=== PATIENT | female | born 1945 | race Two or more races ===

== ENCOUNTER 2021-07-11 11:14 | Emergency (ER) | payer MEDICARE, SELFPAY ==
--- NOTE | 2021-07-11 | ECG_ITS ---
Test Reason : CP WITH COUGH Blood Pressure : / mmHG Vent. Rate : 107 BPM Atrial Rate : 107 BPM P-R Int : 188 ms QRS Dur : 084 ms QT Int : 346 ms P-R-T Axes : 079 066 071 degrees QTc Int : 461 ms Sinus tachycardia Anterior infarct , age undetermined Abnormal ECG When compared with ECG of 29-MAR-2017 20:13, Questionable change in initial forces of Anterior leads Heart rate has increased Referred By: Generic ED Physician Electronically Signed By:JEET GRAF
--- NOTE | ~2021-07-11 | XR_ITS ---
EXAMINATION: XR CHEST CLINICAL INFORMATION: Shortness of breath COMPARISON: Chest radiographs 08/27/2010, 03/27/2010 TECHNIQUE: Portable upright AP view of the chest was obtained. FINDINGS: Patient slightly rotated to left. There are multiple left axillary surgical clips again seen. The lungs appear clear with no pneumothorax, airspace consolidation, groundglass opacity, or effusion. The vascularity is normal. The heart is normal in size. The hilar and mediastinal contours are unremarkable. No visible acute bony abnormality. Some fine calcific tendinosis is seen adjacent to right humeral head. XR/XR chest 1V IMPRESSION: No acute intrathoracic disease.
[2021-07-11 11:46] VITALS: BP 141/68; PULSE 108; RESP 16; TEMP 35.8; O2SAT 98; BMI 26.0
[2021-07-11 12:21] LABS: COVID-19 Test Negative (Negative); IDNOW Serial# 55D5AD1C
--- NOTE | 2021-07-11 12:57 | ED.SOB ---
HPI - SOB/Dyspnea General Chief Complaint: Dyspnea Stated Complaint: sob, cough, chest wall pain Time Seen by Provider: 07/11/21 12:57 Source: patient Mode of arrival: ambulatory Limitations: no limitations History of Present Illness MD elicited complaint: cough and asthma attack Pertinent past history: asthma Onset (ago): hour(s) (2am today) Timing: intermittent Severity: mild Exacerbating factors: coughing Relieving factors: rest Known history of: asthma Associated symptoms: cough, wheezing and sputum production Treatment prior to arrival: none Related Data Previous Rx's Medication Instructions Recorded albuterol sulfate 90 mcg/actuation 2 puff INHALATION QID PRN #6.7 g 07/11/21 aerosol inhaler prednisone 20 mg tablet 20 mg PO DAILY 4 Days #4 tab 07/11/21 Allergies Allergy/AdvReac Type Severity Reaction Status Date / Time acetaminophen [Percocet] Allergy Unknown Unknown Verified 07/11/21 11:50 azithromycin Allergy Unknown Verified 07/11/21 11:50 ciprofloxacin [From Cipro] Allergy Unknown Verified 07/11/21 11:50 metronidazole [From Flagyl] Allergy Unknown Verified 07/11/21 11:50 oxycodone [From Percocet] AdvReac Mild NAUSEA Unverified 07/27/20 16:17 percocet Allergy Unknown n/v Uncoded 03/16/13 00:00 Review of Systems Review of Systems: Constitutional : No Fever, No Chills ENT/Mouth : No Hoarseness, No sore throat, No Rhinorrhea Eyes: No Redness, No Discharge, No Vision Changes Cardiovascular : No Chest Pain, no SOB, no Dyspnea on Exertion, No Edema Respiratory : positive Cough, No Sputum, positive Wheezing, Gastrointestinal : No Nausea, No Vomiting, No Diarrhea, No abdominal Pain Genitourinary : No Dysuria, No Hematuria Musculoskeletal : No joint pain, No Myalgias Skin : No rash Neuro : No Weakness, No Numbness, No Headache Psych : No anxiety, depression Heme/Lymph: No Bruising, No Bleeding Endocrine : No Polyuria, No Polydipsia All other systems reviewed and are negative [facility] Past Medical History Attestation statement: The following information was validated with the patient. Medical History Asthma Hypertension Social History Social History (Updated 07/11/21 @ 13:32 by Nicole Garcia DO) Patient Tobacco Use Status: Never used Tobacco Advance Directives: No Advance Directives Information Provided: No Physical Exam Vital Signs: Vital Signs: Last Vital Signs Temp 96.5 F L 07/11/21 11:46 Pulse 108 H 07/11/21 11:46 Resp 16 07/11/21 11:46 BP 141/68 H 07/11/21 11:46 Pulse Ox 98 07/11/21 11:46 Body Mass Index 26.0 Appearance: Alert. Oriented X3. No acute distress. Eyes: Pupils equal, round and reactive to light. ENT: Pharynx normal. Neck: Normal inspection. Neck supple. CVS: Normal heart rate and rhythm. Pulses normal. Respiratory: No respiratory distress. Breath sounds scant diffuse end exp wheezes posteriorly Abdomen: Soft and nontender. Skin: Skin warm and dry. Normal skin color. Normal skin turgor. Extremities: No lower extremity edema. No calf ttp Neuro: Oriented X 3. No motor deficit. No sensory deficit. MDM - SOB/Dyspnea MDM Narrative Medical decision making narrative: 76 yo female with hx of asthma, DM, HTN, developed a cough last night with some wheezing, does not have rescue inhaler - she came for COVID test. She only has CP with her cough. Will obtain CXR and COVID swab, 02 sat normal, given rescue inhaler and start on low dose prednisone Lab Data Labs: Lab Results 07/11/21 Range/Units 11:52 COVID-19 ([facility]) Negative (Negative) COVID-19 Clin Com See Note Discharge Plan Discharge Clinical Impression: Asthma with exacerbation Qualifiers: Asthma severity: mild Asthma persistence: persistent Qualified Code(s): J45.31 - Mild persistent asthma with (acute) exacerbation Patient Disposition: Home, Self-Care Instructions: Asthma (ED) Additional Instructions: repeat COVID test in 2 days return to ED for any worsening symptoms or concerns Prescriptions: New prednisone 20 mg tablet 20 mg PO DAILY 4 Days Qty: 4 RF: 0 albuterol sulfate 90 mcg/actuation HFA aerosol inhaler 2 puff inhalation QID PRN (Reason: shortness of breath or wheezing) Qty: 6.7 RF: 0 Referrals: Physician,Unknown [Primary Care Provider] - 2 days (if not better) Print Language: Kazakh
[2021-07-11] MEDS: predniSONE 20 MG TABLET PO (14:03)
[2021-07-11] MEDS: Benzonatate 100 MG CAPSULE PO (14:03)
[2021-07-11] MEDS: Albuterol Sulfate 90 MCG 8 GM INHALER 4 PUFF INHALE (14:09)
== END 2021-07-11 14:09 | disposition home or self-care (01) ==
PROVIDERS: Emergency Provider Emergency Medicine
DX: J45.31 Mild persistent asthma with (acute) exacerbation (principal); Z20.822 Contact with and (suspected) exposure to COVID-19; E11.9 Type 2 diabetes mellitus without complications; I10 Essential (primary) hypertension
CPT/HCPCS: 36415; 71045; 87635; 93005; 94640; 99283; 99284

== ENCOUNTER 2022-03-27 17:21 | Emergency (ER) | payer MEDICARE, SELFPAY ==
--- NOTE | 2022-03-27 | ECG_ITS ---
Test Reason : SOB Blood Pressure : / mmHG Vent. Rate : 117 BPM Atrial Rate : 117 BPM P-R Int : 174 ms QRS Dur : 078 ms QT Int : 312 ms P-R-T Axes : 082 062 061 degrees QTc Int : 435 ms Sinus tachycardia Possible Left atrial enlargement Anterior infarct (cited on or before 11-JUL-2021) Abnormal ECG When compared with ECG of 11-JUL-2021 11:48, No significant change was found Referred By: Generic ED Physician Electronically Signed By:DUNCAN BOWER
--- NOTE | ~2022-03-27 | CT_ITS ---
EXAMINATION: CT CHEST WITHOUT CONTRAST CLINICAL INFORMATION: COPD and hemoptysis COMPARISON: CT abdomen pelvis 03/29/2017, chest radiograph 07/11/2021 TECHNIQUE: Multidetector volumetric CT imaging of the chest was done. Axial MIP volume rendering provided. Sagittal and coronal reformatted images were obtained. This CT examination was performed using dose optimization techniques as appropriate, variously including the following: *Automated exposure control *Adjustment of mA and/or kV according to patient size (this includes techniques or standardized protocols for targeted exams where dose is matched to indication/reason for exam; i.e. extremities or head) *Use of iterative reconstruction technique DLP: 216 mGy-cm FINDINGS: LUNGS: Biapical scarring is present. Moderately extensive tree-in-bud changes are present throughout the lungs with a small amount in the left upper lobe (4:192 and larger amounts in the right middle lobe lingula and left lower lobe as well as right lower lobe. These findings are suggestive of inflammatory/airway disease. The largest single nodule is 4 mm in a subpleural location in the left lower lobe (4:321). MEDIASTINUM: Prominent pretracheal lymph node present with large fatty anibal measuring 1.3 x 1.3 x 2.2 cm. No gross mediastinal or hilar lymphadenopathy seen. PLEURA: There is no pleural effusion. No pleural mass or thickening. AXILLA: No lymphadenopathy. UPPER ABDOMEN: Status post cholecystectomy. The right kidney is not visualized but has been previously shown to be in the pelvis. Splenic granulomas are present. A peripheral 2.3 cm hypodensity seen in the right lobe of the liver which measures water density consistent with a cyst. OSSEOUS STRUCTURES: Degenerative changes present in the spine. No bony destructive CT/CT chest wo con IMPRESSION: Moderately extensive tree-in-bud abnormalities in the lungs consistent with inflammatory disease. Some small lung nodules are seen, the largest 4 mm. No worrisome lung mass is identified. In etiology for the patient's hemoptysis has not been found. Fleischner guidelines were followed.
[2022-03-27 17:27] VITALS: PULSE 125; RESP 18; TEMP 37; O2SAT 88; BMI 24.1
--- NOTE | 2022-03-27 17:36 | PC.NURSE ---
Spo2 93-94% RA
--- NOTE | 2022-03-27 17:47 | ED.SOB ---
HPI - SOB/Dyspnea General Chief Complaint: Dyspnea Stated Complaint: Cough/SOB Time Seen by Provider: 03/27/22 17:45 Source: patient and family Mode of arrival: ambulatory Limitations: no limitations History of Present Illness HPI Narrative: Patient history of emphysema/asthma, hypertension, DM been coughing for last 3 weeks getting worse in last few days 10 days ago when she coughed she had small amount of bright red blood in the stool expectoration, patient been having thick yellowish mucopurulent phlegm now no fever or chills no chest pain no leg swellings Related Data Home Medications Medication Instructions Recorded Confirmed acetaminophen 650 mg 1 tab PO Q8H PRN 03/27/22 03/27/22 tablet,extended release (Mapap Arthritis Pain) cholecalciferol (vitamin D3) 50 50 mcg PO DAILY 03/27/22 03/27/22 mcg (2,000 unit) tablet (Vitamin D3) ipratropium 0.5 mg-albuterol 3 mg 3 ml INHALATION QID PRN 03/27/22 03/27/22 (2.5 mg base)/3 mL nebulization soln lisinopril 40 mg tablet 1 tab PO DAILY 03/27/22 03/27/22 multivit with 1 tab PO DAILY 03/27/22 03/27/22 tazyhjwm-mhwn-RW-lutein 8 mg iron-400 mcg-300 mcg tablet (Multivitamin Women 50 Plus) neomycin 3.5 mg/g-polymyxin B 1 appl OPHTHALMIC (EYE) BID 03/27/22 03/27/22 10,000 unit/g-dexameth 0.1 % eye oint oxybutynin chloride 10 mg 1 tab PO DAILY 03/27/22 03/27/22 tablet,extended release 24 hr simvastatin 10 mg tablet 1 tab PO BEDTIME 03/27/22 03/27/22 sitagliptin 100 mg tablet (Januvia) 1 tab PO DAILY 03/27/22 03/27/22 triamcinolone acetonide 0.1 % 1 applic TOPICAL BID 03/27/22 03/27/22 topical cream Previous Rx's Medication Instructions Recorded albuterol sulfate 90 mcg/actuation 2 puff INHALATION QID PRN #6.7 g 07/11/21 aerosol inhaler albuterol sulfate 90 mcg/actuation 2 puff INHALATION Q4-6H PRN #8.5 g 03/27/22 aerosol inhaler (ProAir HFA) cefpodoxime 200 mg tablet 200 mg PO BID #20 tab 03/27/22 guaifenesin 600 mg tablet, 600 mg PO Q12H PRN #60 tab 03/27/22 extended release 12 hr (Mucus Relief ER) prednisone 20 mg tablet 40 mg PO DAILY #10 tab 03/27/22 Allergies Allergy/AdvReac Type Severity Reaction Status Date / Time acetaminophen [Percocet] Allergy Unknown Unknown Verified 07/11/21 11:50 azithromycin Allergy Unknown Verified 07/11/21 11:50 ciprofloxacin [From Cipro] Allergy Unknown Verified 07/11/21 11:50 metronidazole [From Flagyl] Allergy Unknown Verified 07/11/21 11:50 oxycodone [From Percocet] AdvReac Mild NAUSEA Unverified 07/27/20 16:17 percocet Allergy Unknown n/v Uncoded 03/16/13 00:00 Review of Systems Review of Systems: Yes all other systems are reviewed and are negative [facility] Past Medical History Medical History Asthma Hypertension Social History Social History Patient Tobacco Use Status: Never used Tobacco Advance Directives: No Advance Directives Information Provided: No Physical Exam Vital Signs: Vital Signs: Last Vital Signs Temp 98.8 F 03/27/22 22:22 Pulse 103 H 03/27/22 22:22 Resp 16 03/27/22 22:22 BP 124/67 03/27/22 22:22 Pulse Ox 98 03/27/22 22:22 BMI result Body Mass Index 24.1 Appearance: Alert. Oriented X3. No acute distress. Eyes: No pallor or icterus ENT: Pharynx normal. Oral Mucosa moist Neck: Normal inspection. Neck supple. CVS: Normal heart rate and rhythm. Pulses normal. Respiratory: Bilateral equal air entry diffuse rhonchi and rales no dullness Abdomen: Soft and nontender. Bowel sounds are present, no mass palpable, no CVA tenderness Skin: Skin warm and dry. Normal skin color. Normal skin turgor. Extremities: No lower extremity edema. No calf tenderness Neuro: Oriented X 3. No motor deficit. No sensory deficit.No cerebellar signs , cranial nerves II-XII intact MDM - SOB/Dyspnea Lab Data Result diagrams: 03/27/22 18:13 03/27/22 18:13 Labs: Lab Results 03/27/22 03/27/22 03/27/22 Range/Units 17:33 17:33 18:13 WBC 11.4 H (4.8-10.8) X10*3/uL RBC 4.79 (4.20-5.50) X10*6/uL Hgb 13.7 (12.0-16.0) g/dl Hct 42.0 (37.0-47.0) % MCV 87.7 (80.0-98.0) fL MCH 28.6 (27.0-33.0) pg MCHC 32.6 (31.0-35.0) g/dl RDW 12.7 (11.0-16.0) % Plt Count 238 (160-400) X10*3/uL MPV 11.0 (9.4-12.3) fL Immature Gran % (Auto) 0.5 H (0.0-0.4) % Neut % (Auto) 75.1 H (45-73) % Lymph % (Auto) 15.8 L (20-40) % [place] % (Auto) 7.4 (2-11) % Eos % (Auto) 0.8 (0-4) % Baso % (Auto) 0.4 (0-2) % Lymph # (Auto) 1.8 (1.2-4.9) X10*3/uL [place] # (Auto) 0.8 (0.1-1.2) X10*3/uL Eos # (Auto) 0.1 (0.0-0.4) X10*3/uL Baso # (Auto) 0.0 (0.0-0.2) X10*3/uL Abs Immat Gran (auto) 0.06 H (0.00-0.03) X10*3/uL Absolute Neuts (auto) 8.6 H (2.0-8.3) x10*3/uL Absolute Nucleated RBC 0.000 (0.0-0.012) X10*3/uL Nucleated RBC % (auto) 0.0 (0.0-0.2) /100WBC PT (9.9-13.0) SEC INR (0.9-1.1) APTT (24.1-38.0) SEC D-Dimer High Sensitivty NG/ML Sodium (135-145) mmol/L Potassium (3.3-5.1) mmol/L Chloride (96-108) mmol/L Carbon Dioxide (22-29) mmol/L Anion Gap (12-20) BUN (9-16) mg/dL Creatinine (0.5-1.4) mg/dL Estim Creat Clear Calc Estimated GFR Random Glucose (60-115) mg/dL Lactic Acid (0.5-2.0) mmol/L Calcium (8.4-10.2) mg/dL Total Bilirubin (0.0-1.0) mg/dL AST (5-31) U/L ALT (0-31) U/L Alkaline Phosphatase (39-117) U/L Troponin I High Sens (<3.5-17.0) ng/L B-Natriuretic Peptide (<100) pg/mL Total Protein (6.5-8.0) g/dL Albumin (3.5-5.0) g/dL COVID-19 ([facility]) Negative (Negative) COVID-19 Clin Com See Note Influenza Type A ([facility]) Negative (Negative) Influenza Type B ([facility]) Negative (Negative) Influenza A & B Note See Note 03/27/22 03/27/22 03/27/22 Range/Units 18:13 18:13 18:13 WBC (4.8-10.8) X10*3/uL RBC (4.20-5.50) X10*6/uL Hgb (12.0-16.0) g/dl Hct (37.0-47.0) % MCV (80.0-98.0) fL MCH (27.0-33.0) pg MCHC (31.0-35.0) g/dl RDW (11.0-16.0) % Plt Count (160-400) X10*3/uL MPV (9.4-12.3) fL Immature Gran % (Auto) (0.0-0.4) % Neut % (Auto) (45-73) % Lymph % (Auto) (20-40) % [place] % (Auto) (2-11) % Eos % (Auto) (0-4) % Baso % (Auto) (0-2) % Lymph # (Auto) (1.2-4.9) X10*3/uL [place] # (Auto) (0.1-1.2) X10*3/uL Eos # (Auto) (0.0-0.4) X10*3/uL Baso # (Auto) (0.0-0.2) X10*3/uL Abs Immat Gran (auto) (0.00-0.03) X10*3/uL Absolute Neuts (auto) (2.0-8.3) x10*3/uL Absolute Nucleated RBC (0.0-0.012) X10*3/uL Nucleated RBC % (auto) (0.0-0.2) /100WBC PT 13.4 H (9.9-13.0) SEC INR 1.2 H (0.9-1.1) APTT 31.4 (24.1-38.0) SEC D-Dimer High Sensitivty 299 NG/ML Sodium 138 (135-145) mmol/L Potassium 4.7 (3.3-5.1) mmol/L Chloride 104 (96-108) mmol/L Carbon Dioxide 25 (22-29) mmol/L Anion Gap 14 (12-20) BUN 12 (9-16) mg/dL Creatinine 0.73 (0.5-1.4) mg/dL Estim Creat Clear Calc 50.2 Estimated GFR > 60 Random Glucose 180 H (60-115) mg/dL Lactic Acid (0.5-2.0) mmol/L Calcium 9.4 (8.4-10.2) mg/dL Total Bilirubin 0.7 (0.0-1.0) mg/dL AST 24 (5-31) U/L ALT 29 (0-31) U/L Alkaline Phosphatase 105 (39-117) U/L Troponin I High Sens (<3.5-17.0) ng/L B-Natriuretic Peptide 15 (<100) pg/mL Total Protein 7.1 (6.5-8.0) g/dL Albumin 4.1 (3.5-5.0) g/dL COVID-19 ([facility]) (Negative) COVID-19 [facility] Influenza Type A ([facility]) (Negative) Influenza Type B ([facility]) (Negative) Influenza A & B Note 03/27/22 03/27/22 Range/Units 18:13 18:54 WBC (4.8-10.8) X10*3/uL RBC (4.20-5.50) X10*6/uL Hgb (12.0-16.0) g/dl Hct (37.0-47.0) % MCV (80.0-98.0) fL MCH (27.0-33.0) pg MCHC (31.0-35.0) g/dl RDW (11.0-16.0) % Plt Count (160-400) X10*3/uL MPV (9.4-12.3) fL Immature Gran % (Auto) (0.0-0.4) % Neut % (Auto) (45-73) % Lymph % (Auto) (20-40) % [place] % (Auto) (2-11) % Eos % (Auto) (0-4) % Baso % (Auto) (0-2) % Lymph # (Auto) (1.2-4.9) X10*3/uL [place] # (Auto) (0.1-1.2) X10*3/uL Eos # (Auto) (0.0-0.4) X10*3/uL Baso # (Auto) (0.0-0.2) X10*3/uL Abs Immat Gran (auto) (0.00-0.03) X10*3/uL Absolute Neuts (auto) (2.0-8.3) x10*3/uL Absolute Nucleated RBC (0.0-0.012) X10*3/uL Nucleated RBC % (auto) (0.0-0.2) /100WBC PT (9.9-13.0) SEC INR (0.9-1.1) APTT (24.1-38.0) SEC D-Dimer High Sensitivty NG/ML Sodium (135-145) mmol/L Potassium (3.3-5.1) mmol/L Chloride (96-108) mmol/L Carbon Dioxide (22-29) mmol/L Anion Gap (12-20) BUN (9-16) mg/dL Creatinine (0.5-1.4) mg/dL Estim Creat Clear Calc Estimated GFR Random Glucose (60-115) mg/dL Lactic Acid 1.0 (0.5-2.0) mmol/L Calcium (8.4-10.2) mg/dL Total Bilirubin (0.0-1.0) mg/dL AST (5-31) U/L ALT (0-31) U/L Alkaline Phosphatase (39-117) U/L Troponin I High Sens 4.1 (<3.5-17.0) ng/L B-Natriuretic Peptide (<100) pg/mL Total Protein (6.5-8.0) g/dL Albumin (3.5-5.0) g/dL COVID-19 ([facility]) (Negative) COVID-19 Clin Com Influenza Type A ([facility]) (Negative) Influenza Type B ([facility]) (Negative) Influenza A & B Note Discharge Plan Discharge Clinical Impression: Acute bronchitis Patient Disposition: Home, Self-Care Instructions: Acute Bronchitis (ED) Additional Instructions: Continue her nebulizing treatment every 4-6 hours as needed Prednisone and antibiotic as prescribed Follow-up with your PCP Prescriptions: New cefpodoxime 200 mg tablet 200 mg PO BID Qty: 20 0RF Rx Instructions: must administer with a meal/food prednisone 20 mg tablet 40 mg PO DAILY Qty: 10 0RF albuterol sulfate [ProAir HFA] 90 mcg/actuation HFA aerosol inhaler 2 puff inhalation Q4-6H PRN (Reason: Wheezing) Qty: 8.5 0RF guaifenesin [Mucus Relief ER] 600 mg tablet extended release 12hr 600 mg PO Q12H PRN (Reason: cough) Qty: 60 0RF No Action albuterol sulfate 90 mcg/actuation HFA aerosol inhaler 2 puff inhalation QID PRN (Reason: shortness of breath or wheezing) Qty: 6.7 0RF ipratropium-albuterol 0.5 mg-3 mg(2.5 mg base)/3 mL solution for nebulization 3 ml inhalation QID PRN (Reason: wheezing) 0RF oxybutynin chloride 10 mg tablet extended release 24 hr 1 tab PO DAILY 0RF simvastatin 10 mg tablet 1 tab PO BEDTIME 0RF triamcinolone acetonide 0.1 % cream 1 applic topical BID 0RF acetaminophen [Mapap Arthritis Pain] 650 mg tablet extended release 1 tab PO Q8H PRN (Reason: pain) 0RF lisinopril 40 mg tablet 1 tab PO DAILY 0RF neomycin-polymyxin B-dexameth 3.5 mg/g-10,000 unit/g-0.1 % ointment 1 appl ophthalmic (eye) BID 0RF Januvia 100 mg tablet 1 tab PO DAILY 0RF cholecalciferol (vitamin D3) [Vitamin D3] 50 mcg (2,000 unit) Tablet 50 mcg PO DAILY 0RF Multivitamin Women 50 Plus 8 mg iron-400 mcg-300 mcg Tablet 1 tab PO DAILY 0RF
[2022-03-27 17:55] LABS: COVID-19 Test Negative (Negative); IDNOW Serial# 55D5AD1C; Influenza A Negative (Negative); Influenza B2 Negative (Negative)
[2022-03-27 17:59] VITALS: BP 153/83; PULSE 118; RESP 24; O2SAT 95
[2022-03-27 18:30] LABS: MANUAL DIFF FLAG NO
[2022-03-27 18:37] LABS: Basophils Percent Auto 0.4 % (0-2); Eosinophils Absolute Auto 0.1 X10*3/uL (0.0-0.4); Eosinophils Percent Auto 0.8 % (0-4); Hemoglobin 13.7 g/dl (12.0-16.0); Imm Gran Abs Auto 0.06 X10*3/uL (0.00-0.03); Imm Gran Pct Auto 0.5 % (0.0-0.4); Lymphocytes Absolute Auto 1.8 X10*3/uL (1.2-4.9); Lymphocytes Percent Auto 15.8 % (20-40); Mean Corpuscular HGB Conc 32.6 g/dl (31.0-35.0); Mean Corpuscular Hemoglobin 28.6 pg (27.0-33.0); Mean Corpuscular Volume 87.7 fL (80.0-98.0); Monocytes Absolute Auto 0.8 X10*3/uL (0.1-1.2); Monocytes Percent Auto 7.4 % (2-11); Neutrophils Absolute Auto 8.6 x10*3/uL (2.0-8.3); Neutrophils Percent Auto 75.1 % (45-73); Platelet Count 238 X10*3/uL (160-400); Red Blood Count 4.79 X10*6/uL (4.20-5.50); Red Cell Distribution Width 12.7 % (11.0-16.0); White Blood Count 11.4 X10*3/uL (4.8-10.8)
[2022-03-27 18:43] LABS: INTERNATIONAL NORM RATIO 1.2 (0.9-1.1); Prothrombin Time 13.4 SEC (9.9-13.0)
[2022-03-27 18:45] LABS: D Dimer High Sensitivity 299 NG/ML; Partial Thromboplastin Time 31.4 SEC (24.1-38.0)
[2022-03-27 18:47] VITALS: BP 135/70; PULSE 111; RESP 20; TEMP 37.3; O2SAT 97
[2022-03-27 18:50] LABS: Alanine Aminotransferase 29 U/L (0-31); Albumin Level 4.1 g/dL (3.5-5.0); Alkaline Phosphatase 105 U/L (39-117); Anion Gap 14 (12-20); Aspartate Amino Transferase 24 U/L (5-31); Bilirubin Total 0.7 mg/dL (0.0-1.0); Blood Urea Nitrogen 12 mg/dL (9-16); Calcium 9.4 mg/dL (8.4-10.2); Carbon Dioxide 25 mmol/L (22-29); Chloride 104 mmol/L (96-108); Creatinine Clr Calc Pharmacy 50.2; Estimated Glomerular Filt Rate > 60; Glucose Random 180 mg/dL (60-115); Potassium 4.7 mmol/L (3.3-5.1); Sodium 138 mmol/L (135-145); Total Protein 7.1 g/dL (6.5-8.0)
[2022-03-27 18:56] LABS: B Type Natriuretic Peptide 15 pg/mL (<100)
[2022-03-27 19:10] LABS: Troponin-I High Sensitivity 4.1 ng/L (<3.5-17.0)
[2022-03-27] MEDS: Albuterol/Iprat 2.5/0.5MG 3 ML AMPUL.NEB INHALE (19:29)
--- NOTE | 2022-03-27 19:29 | PHA.MEDREC ---
Pharmacy Consult ? Medication Reconciliation Pharmacy has completed the medication reconciliation.
[2022-03-27 19:31] VITALS: PULSE 106; RESP 20; O2SAT 98
[2022-03-27 20:53] VITALS: BP 127/64; PULSE 110; RESP 21; O2SAT 95
[2022-03-27 22:22] VITALS: BP 124/67; PULSE 103; RESP 16; TEMP 37.1; O2SAT 98
[2022-03-27] MEDS: cefTRIAXone sodium 1 GM in 0.9 % Sodium Chloride 50 ML IV (22:48)
[2022-03-27] MEDS: methylPREDNISolone Sod Succ 125 MG/2 ML VIAL IVPUSH (22:49)
== END 2022-03-28 00:25 | disposition home or self-care (01) ==
PROVIDERS: Emergency Provider Internal Medicine; PCP Internal Medicine
DX: J20.9 Acute bronchitis, unspecified (principal); R06.02 Shortness of breath; I10 Essential (primary) hypertension; J45.909 Unspecified asthma, uncomplicated; Z20.822 Contact with and (suspected) exposure to COVID-19
CPT/HCPCS: 36415; 71250; 80053; 83605; 83880; 84484; 85025; 85379; 85610; 85730; 87040; 87502; 87635; 93005; 94640; 96365; 96375; 99284; J0696; J2930

== ENCOUNTER 2022-06-11 15:35 | Inpatient (IN) | payer OTHER, SELFPAY ==
--- NOTE | 2022-06-11 | ECG_ITS ---
Test Reason : cp Blood Pressure : / mmHG Vent. Rate : 098 BPM Atrial Rate : 098 BPM P-R Int : 174 ms QRS Dur : 082 ms QT Int : 360 ms P-R-T Axes : 080 069 062 degrees QTc Int : 459 ms Normal sinus rhythm Possible Left atrial enlargement Left ventricular hypertrophy ( Sokolow-Del Rosario , [place] product , Romhilt-Padron ) Abnormal ECG When compared with ECG of 27-MAR-2022 17:32, No significant change was found Referred By: Generic ED Physician Electronically Signed By:GERRI ADLER MD
--- NOTE | ~2022-06-11 | CT_ITS ---
EXAMINATION: CT ANGIOGRAM OF THE CHEST WITH AND WITHOUT CONTRAST (CT PULMONARY ANGIOGRAM FOR PE) CLINICAL INFORMATION: Reason for Exam Pneumonia with cough and CP. COMPARISON: 03/27/2022 TECHNIQUE: Prior to contrast administration, noncontrast localization images were obtained. Subsequently, multidetector volumetric imaging was performed from the thoracic inlet to below the diaphragms following the administration of 58 mL Omnipaque 350 intravenous contrast. No contrast reaction reported Sagittal, coronal, and MIP oblique sagittal reformatted images were obtained on the CT workstation, uploaded to PACS, and reviewed. This CT examination was performed using dose optimization techniques as appropriate, variously including the following: *Automated exposure control *Adjustment of mA and/or kV according to patient size (this includes techniques or standardized protocols for targeted exams where dose is matched to indication/reason for exam; i.e. extremities or head) *Use of iterative reconstruction technique Total exam dose-length product 233 mGy-cm FINDINGS: QUALITY OF STUDY/CONTRAST BOLUS: Satisfactory. PULMONARY ARTERIES: No central or segmental pulmonary emboli. THORACIC AORTA: No aneurysm or dissection. LUNG: Chronic diffuse bronchial wall thickening redemonstrated. There are scattered patchy peripherally predominant parenchymal consolidations superimposed on a background of diffuse tree-in-bud nodularity and small centrilobular nodules. No associated cavitation. PLEURA: No pleural effusion or pneumothorax. MEDIASTINUM: Normal heart size. No pericardial effusion. Mild mediastinal lymphadenopathy is likely reactive.. No evidence of septal bowing or right heart strain. CHEST WALL/AXILLA: No axillary or internal mammary lymphadenopathy. OSSEOUS STRUCTURES: No acute or suspicious osseous abnormality. UPPER ABDOMEN: Stable 9 mm nodule left adrenal gland doubtful clinical significance. No further workup required. As a benign cyst in the right lobe of liver which is unchanged. Scattered splenic calcified granulomata. CT/CT angio chest PE protocol IMPRESSION: * No pulmonary embolism. * Chronic bronchitis and diffuse airway-based infectious process redemonstrated, with worsening airspace component parenchymal consolidation on the current examination. These findings can be seen in association with nontuberculous mycobacterium VTE: negative
--- NOTE | ~2022-06-11 | XR_ITS ---
EXAMINATION: XR CHEST CLINICAL INFORMATION: Shortness of breath COMPARISON: Chest x-ray 07/11/2021 TECHNIQUE: Frontal view of the chest was obtained. 6:24 PM FINDINGS: There are scattered faint hazy patchy bilateral airspace opacities most pronounced at the lung bases peripherally bilaterally. Small pleural effusions may be present. Cardiac mediastinal contours normal. Heart size normal. No pulmonary vascular congestion. Surgical clips left axilla. Multilevel degenerative spondylosis the spine. XR/XR chest 1V IMPRESSION: Scattered faint hazy bilateral patchy airspace opacities concerning for acute process, pneumonia. CT of chest may be helpful for further evaluation.
[2022-06-11 17:56] VITALS: BP 169/82; PULSE 105; RESP 18; TEMP 36.7; O2SAT 91; BMI 24.7
[2022-06-11 18:03] VITALS: O2SAT 95
[2022-06-11 18:24] LABS: MANUAL DIFF FLAG NO
[2022-06-11 18:33] LABS: Basophils Absolute Auto 0.1 X10*3/uL (0.0-0.2); Basophils Percent Auto 0.6 % (0-2); Eosinophils Absolute Auto 0.1 X10*3/uL (0.0-0.4); Eosinophils Percent Auto 1.1 % (0-4); Hematocrit 37.5 % (37.0-47.0); Hemoglobin 12.2 g/dl (12.0-16.0); Imm Gran Abs Auto 0.08 X10*3/uL (0.00-0.03); Imm Gran Pct Auto 0.6 % (0.0-0.4); Lymphocytes Absolute Auto 1.6 X10*3/uL (1.2-4.9); Lymphocytes Percent Auto 12.6 % (20-40); Mean Corpuscular HGB Conc 32.5 g/dl (31.0-35.0); Mean Corpuscular Hemoglobin 28.6 pg (27.0-33.0); Mean Platelet Volume 10.7 fL (9.4-12.3); Monocytes Percent Auto 8.1 % (2-11); Neutrophils Absolute Auto 9.6 x10*3/uL (2.0-8.3); Platelet Count 385 X10*3/uL (160-400); Red Blood Count 4.26 X10*6/uL (4.20-5.50); Red Cell Distribution Width 13.1 % (11.0-16.0); White Blood Count 12.5 X10*3/uL (4.8-10.8)
[2022-06-11 18:38] LABS: Anion Gap 16 (12-20); Blood Urea Nitrogen 16 mg/dL (9-16); Calcium 9.5 mg/dL (8.4-10.2); Carbon Dioxide 25 mmol/L (22-29); Chloride 98 mmol/L (96-108); Creatinine Clr Calc Pharmacy 48.6; Estimated Glomerular Filt Rate > 60; Glucose Random 328 mg/dL (60-115); Potassium 4.3 mmol/L (3.3-5.1); Sodium 135 mmol/L (135-145)
[2022-06-11 18:40] LABS: COVID-19 Test Negative (Negative); IDNOW Serial# 16C4AD1C
[2022-06-11 18:48] LABS: B Type Natriuretic Peptide 29 pg/mL (<100); Troponin-I High Sensitivity 4.8 ng/L (<3.5-17.0)
--- NOTE | 2022-06-11 19:57 | ED.SOB ---
HPI - SOB/Dyspnea General Chief Complaint: Dyspnea Stated Complaint: cough asthma Time Seen by Provider: 06/11/22 19:57 Source: patient Mode of arrival: ambulatory Limitations: no limitations History of Present Illness HPI Narrative: Patient has history of asthma been coughing for last 7 days mostly dry cough and fever short of breath using nebulizing treatment without much relief no other family member sick on arrival patient was saturating 91% at room air patient denies any chest pain or palpitation no leg swelling Related Data Home Medications Medication Instructions Recorded Confirmed acetaminophen 650 mg 1 tab PO Q8H PRN pain 03/27/22 03/27/22 tablet,extended release (Mapap Arthritis Pain) cholecalciferol (vitamin D3) 50 50 mcg PO DAILY 03/27/22 03/27/22 mcg (2,000 unit) tablet (Vitamin D3) ipratropium 0.5 mg-albuterol 3 mg 3 ml inhalation QID PRN wheezing 03/27/22 03/27/22 (2.5 mg base)/3 mL nebulization soln lisinopril 40 mg tablet 1 tab PO DAILY 03/27/22 03/27/22 multivit with 1 tab PO DAILY 03/27/22 03/27/22 knaaxqab-iftz-HI-lutein 8 mg iron-400 mcg-300 mcg tablet (Multivitamin Women 50 Plus) neomycin 3.5 mg/g-polymyxin B 1 appl ophthalmic (eye) BID 03/27/22 03/27/22 10,000 unit/g-dexameth 0.1 % eye oint oxybutynin chloride 10 mg 1 tab PO DAILY 03/27/22 03/27/22 tablet,extended release 24 hr simvastatin 10 mg tablet 1 tab PO BEDTIME 03/27/22 03/27/22 sitagliptin 100 mg tablet (Januvia) 1 tab PO DAILY 03/27/22 03/27/22 triamcinolone acetonide 0.1 % 1 applic topical BID 03/27/22 03/27/22 topical cream Previous Rx's Medication Instructions Recorded albuterol sulfate 90 mcg/actuation 2 puff inhalation QID PRN 07/11/21 aerosol inhaler shortness of breath or wheezing #6.7 grams albuterol sulfate 90 mcg/actuation 2 puff inhalation Q4-6H PRN 03/27/22 aerosol inhaler (ProAir HFA) Wheezing #8.5 grams cefpodoxime 200 mg tablet 200 mg PO BID #20 tabs 03/27/22 guaifenesin 600 mg tablet, 600 mg PO Q12H PRN cough #60 tabs 03/27/22 extended release 12 hr (Mucus Relief ER) prednisone 20 mg tablet 40 mg PO DAILY #10 tabs 03/27/22 Allergies Allergy/AdvReac Type Severity Reaction Status Date / Time acetaminophen [Percocet] Allergy Unknown Unknown Verified 06/11/22 17:55 azithromycin Allergy Unknown Verified 06/11/22 17:55 ciprofloxacin [From Cipro] Allergy Unknown Verified 06/11/22 17:55 metronidazole [From Flagyl] Allergy Unknown Verified 06/11/22 17:55 doxycycline AdvReac Intermediate vaginal Verified 06/12/22 01:43 swelling oxycodone [From Percocet] AdvReac Mild NAUSEA Verified 06/11/22 17:55 percocet Allergy Unknown n/v Uncoded 03/16/13 00:00 Review of Systems Review of Systems: Yes all other systems are reviewed and are negative [facility] Past Medical History Medical History Asthma Hypertension Social History Social History Alcohol intake: unknown Patient Tobacco Use Status: Never used Tobacco Use of substances other than those prescribed or required for medical reasons: No Advance Directives: No Advance Directives Information Provided: No Physical Exam Vital Signs: Vital Signs: Last Vital Signs Temp 98.1 F 06/12/22 01:43 Pulse 125 H 06/12/22 01:43 Resp 15 06/12/22 01:43 BP 144/67 H 06/12/22 01:43 Pulse Ox 97 06/12/22 01:43 O2 Del Method 06/12/22 01:43 O2 Flow Rate 2 06/12/22 01:43 BMI result Body Mass Index 24.7 Appearance: Alert. Oriented X3. Moderate distress Eyes: No pallor or icterus ENT: Pharynx normal. Oral Mucosa moist Neck: Normal inspection. Neck supple. CVS: Tachycardia. Pulses normal. Respiratory: Moderate respiratory distress. Equal air entry bilateral, bilateral wheezing with crackles Abdomen: Soft and nontender. Bowel sounds are present, no mass palpable, no CVA tenderness Skin: Skin warm and dry. Normal skin color. Normal skin turgor. Extremities: No lower extremity edema. No calf tenderness Neuro: Oriented X 3. No motor deficit. MDM - SOB/Dyspnea MDM Narrative Medical decision making narrative: 01:10Patient has atypical pneumonia COVID negative chest CT with atypical pneumonia clinically COVID will do a PCR COVID testing will admit patient for hypoxia and atypical pneumonia Differential Diagnosis Differential diagnosis: Likely pneumonia, asthma with exacerbation and pulmonary embolism Lab Data Attestation: I reviewed the patient's lab results. Result diagrams: 06/11/22 18:06 06/11/22 18:06 Labs: Lab Results 06/11/22 06/11/22 06/11/22 Range/Units 18:06 18:06 18:06 WBC 12.5 H (4.8-10.8) X10*3/uL RBC 4.26 (4.20-5.50) X10*6/uL Hgb 12.2 (12.0-16.0) g/dl Hct 37.5 (37.0-47.0) % MCV 88.0 (80.0-98.0) fL MCH 28.6 (27.0-33.0) pg MCHC 32.5 (31.0-35.0) g/dl RDW 13.1 (11.0-16.0) % Plt Count 385 D (160-400) X10*3/uL MPV 10.7 (9.4-12.3) fL Immature Gran % (Auto) 0.6 H (0.0-0.4) % Neut % (Auto) 77.0 H (45-73) % Lymph % (Auto) 12.6 L (20-40) % [place] % (Auto) 8.1 (2-11) % Eos % (Auto) 1.1 (0-4) % Baso % (Auto) 0.6 (0-2) % Lymph # (Auto) 1.6 (1.2-4.9) X10*3/uL [place] # (Auto) 1.0 (0.1-1.2) X10*3/uL Eos # (Auto) 0.1 (0.0-0.4) X10*3/uL Baso # (Auto) 0.1 (0.0-0.2) X10*3/uL Abs Immat Gran (auto) 0.08 H (0.00-0.03) X10*3/uL Absolute Neuts (auto) 9.6 H (2.0-8.3) x10*3/uL Absolute Nucleated RBC 0.000 (0.0-0.012) X10*3/uL Nucleated RBC % (auto) 0.0 (0.0-0.2) /100WBC Sodium 135 (135-145) mmol/L Potassium 4.3 (3.3-5.1) mmol/L Chloride 98 (96-108) mmol/L Carbon Dioxide 25 (22-29) mmol/L Anion Gap 16 (12-20) BUN 16 (9-16) mg/dL Creatinine 0.82 (0.5-1.4) mg/dL Estim Creat Clear Calc 48.6 Estimated GFR > 60 POC Glucose (60-115) mg/dL Random Glucose 328 H (60-115) mg/dL Calcium 9.5 (8.4-10.2) mg/dL Troponin I High Sens 4.8 (<3.5-17.0) ng/L B-Natriuretic Peptide 29 (<100) pg/mL Urine Color Urine Appearance Urine pH (5.0-8.0) Ur Specific [place] (1.005-1.025) Urine Protein (NEG-TRACE) MG/DL Urine Glucose (UA) (NEG) MG/DL Urine Ketones (NEG) MG/DL Urine Blood (NEG) Urine Nitrite (NEG) Ur Leukocyte Esterase (NEG) Urine RBC (0) /HPF Urine WBC (0-4) /HPF Ur Squamous Epith Cells /LPF Urine Bacteria /LPF COVID-19 ([facility]) (Negative) COVID-19 Clin Com Influenza Type A (PCR) (Negative) Influenza Type B (PCR) (Negative) RSV RNA Qual (PCR) (Negative) SARS-CoV-2 RNA (RT-PCR) (Negative) 06/11/22 06/11/22 06/12/22 Range/Units 18:06 20:33 00:52 WBC (4.8-10.8) X10*3/uL RBC (4.20-5.50) X10*6/uL Hgb (12.0-16.0) g/dl Hct (37.0-47.0) % MCV (80.0-98.0) fL MCH (27.0-33.0) pg MCHC (31.0-35.0) g/dl RDW (11.0-16.0) % Plt Count (160-400) X10*3/uL MPV (9.4-12.3) fL Immature Gran % (Auto) (0.0-0.4) % Neut % (Auto) (45-73) % Lymph % (Auto) (20-40) % [place] % (Auto) (2-11) % Eos % (Auto) (0-4) % Baso % (Auto) (0-2) % Lymph # (Auto) (1.2-4.9) X10*3/uL [place] # (Auto) (0.1-1.2) X10*3/uL Eos # (Auto) (0.0-0.4) X10*3/uL Baso # (Auto) (0.0-0.2) X10*3/uL Abs Immat Gran (auto) (0.00-0.03) X10*3/uL Absolute Neuts (auto) (2.0-8.3) x10*3/uL Absolute Nucleated RBC (0.0-0.012) X10*3/uL Nucleated RBC % (auto) (0.0-0.2) /100WBC Sodium (135-145) mmol/L Potassium (3.3-5.1) mmol/L Chloride (96-108) mmol/L Carbon Dioxide (22-29) mmol/L Anion Gap (12-20) BUN (9-16) mg/dL Creatinine (0.5-1.4) mg/dL Estim Creat Clear Calc Estimated GFR POC Glucose 416 H* (60-115) mg/dL Random Glucose (60-115) mg/dL Calcium (8.4-10.2) mg/dL Troponin I High Sens (<3.5-17.0) ng/L B-Natriuretic Peptide (<100) pg/mL Urine Color YELLOW Urine Appearance CLEAR Urine pH 5.5 (5.0-8.0) Ur Specific [place] 1.015 (1.005-1.025) Urine Protein NEG (NEG-TRACE) MG/DL Urine Glucose (UA) NEG (NEG) MG/DL Urine Ketones NEG (NEG) MG/DL Urine Blood NEG (NEG) Urine Nitrite POS H (NEG) Ur Leukocyte Esterase NEG (NEG) Urine RBC 0 (0) /HPF Urine WBC 0 (0-4) /HPF Ur Squamous Epith Cells TRACE /LPF Urine Bacteria 2+ /LPF COVID-19 ([facility]) Negative (Negative) COVID-19 Clin Com See Note Influenza Type A (PCR) (Negative) Influenza Type B (PCR) (Negative) RSV RNA Qual (PCR) (Negative) SARS-CoV-2 RNA (RT-PCR) (Negative) 06/12/22 Range/Units 01:24 WBC (4.8-10.8) X10*3/uL RBC (4.20-5.50) X10*6/uL Hgb (12.0-16.0) g/dl Hct (37.0-47.0) % MCV (80.0-98.0) fL MCH (27.0-33.0) pg MCHC (31.0-35.0) g/dl RDW (11.0-16.0) % Plt Count (160-400) X10*3/uL MPV (9.4-12.3) fL Immature Gran % (Auto) (0.0-0.4) % Neut % (Auto) (45-73) % Lymph % (Auto) (20-40) % [place] % (Auto) (2-11) % Eos % (Auto) (0-4) % Baso % (Auto) (0-2) % Lymph # (Auto) (1.2-4.9) X10*3/uL [place] # (Auto) (0.1-1.2) X10*3/uL Eos # (Auto) (0.0-0.4) X10*3/uL Baso # (Auto) (0.0-0.2) X10*3/uL Abs Immat Gran (auto) (0.00-0.03) X10*3/uL Absolute Neuts (auto) (2.0-8.3) x10*3/uL Absolute Nucleated RBC (0.0-0.012) X10*3/uL Nucleated RBC % (auto) (0.0-0.2) /100WBC Sodium (135-145) mmol/L Potassium (3.3-5.1) mmol/L Chloride (96-108) mmol/L Carbon Dioxide (22-29) mmol/L Anion Gap (12-20) BUN (9-16) mg/dL Creatinine (0.5-1.4) mg/dL Estim Creat Clear Calc Estimated GFR POC Glucose (60-115) mg/dL Random Glucose (60-115) mg/dL Calcium (8.4-10.2) mg/dL Troponin I High Sens (<3.5-17.0) ng/L B-Natriuretic Peptide (<100) pg/mL Urine Color Urine Appearance Urine pH (5.0-8.0) Ur Specific Stark (1.005-1.025) Urine Protein (NEG-TRACE) MG/DL Urine Glucose (UA) (NEG) MG/DL Urine Ketones (NEG) MG/DL Urine Blood (NEG) Urine Nitrite (NEG) Ur Leukocyte Esterase (NEG) Urine RBC (0) /HPF Urine WBC (0-4) /HPF Ur Squamous Epith Cells /LPF Urine Bacteria /LPF COVID-19 ([facility]) (Negative) COVID-19 Clin Com Influenza Type A (PCR) NEGATIVE (Negative) Influenza Type B (PCR) NEGATIVE (Negative) RSV RNA Qual (PCR) NEGATIVE (Negative) SARS-CoV-2 RNA (RT-PCR) NEGATIVE (Negative) ECG Data Attestation: I personally reviewed and interpreted this ECG as follows: Interpretation: Normal sinus rhythm heart rate 99 beats per minute left ventricular hypertrophy no acute ST T wave changes no acute ischemia Discharge Plan Discharge Clinical Impression: Asthma with exacerbation, Atypical pneumonia, Acute hypoxemic respiratory failure Patient Disposition: Admitted As Inpatient
[2022-06-11 20:00] VITALS: BP 178/81; PULSE 94; RESP 16; TEMP 37.4; O2SAT 98
[2022-06-11 20:40] LABS: Appearance Urine CLEAR; Color Urine YELLOW; Glucose Urine UA NEG (NEG); Leukocyte Esterase Urine NEG (NEG); Nitrite Urine POS (NEG); PH 5.5 (5.0-8.0); Specific Gravity - Urine 1.015 (1.005-1.025); UACC Culture Trigger YES; Urine Blood NEG (NEG); Urine Ketones NEG (NEG); Urine Protein NEG (NEG-TRACE)
[2022-06-11] MEDS: Albuterol/Iprat 2.5/0.5MG 3 ML AMPUL.NEB INHALE (20:42)
[2022-06-11] MEDS: Albuterol Sulfate (0.083%) 2.5 MG/3 ML VIAL.NEB 5 MG INHALE (20:42)
[2022-06-11 20:43] VITALS: PULSE 106; RESP 16; O2SAT 99
[2022-06-11 20:53] LABS: Bacteria Urine 2+ /LPF; RBC Urine 0 /HPF (0); Squamous Epithelial Cell Urine TRACE /LPF; WBC Urine 0 /HPF (0-4)
--- NOTE | 2022-06-11 21:30 | PC.NURSE ---
pt medicated per MAR orders #20g IV access placed in right ac. * provider okay with patient eating as well.
[2022-06-11] MEDS: methylPREDNISolone Sod Succ 125 MG/2 ML VIAL IVPUSH (21:31)
[2022-06-11] MEDS: cefTRIAXone sodium 1 GM in 0.9 % Sodium Chloride 50 ML IV (21:31)
--- NOTE | 2022-06-11 21:35 | PC.NURSE ---
pt tolerating PO with no issues
[2022-06-11 21:38] VITALS: BP 112/55; PULSE 119; RESP 22; O2SAT 97
[2022-06-12] VITALS (13 sets, daily range): BP systolic 105–186; BP diastolic 54–99; PULSE 78–125; RESP 15–20; TEMP 36.2–37.1; O2SAT 92–98; BMI 24.7
[2022-06-12] MEDS: Albuterol Sulfate (0.083%) 2.5 MG/3 ML VIAL.NEB 5 MG INHALE (00:44)
[2022-06-12] MEDS: iohexoL 350 MG/ML 100 ML INFUS..BTL 58 ML IV (00:51)
[2022-06-12 00:58] LABS: Glucose, Whole Blood 416 mg/dL (60-115)
[2022-06-12] MEDS: guaiFEN/Codeine SF 200/20/10ML 10 ML LIQUID PO (01:21)
[2022-06-12] MEDS: Ketorolac Tromethamine 30 MG/ML VIAL IVPUSH (01:22)
[2022-06-12] MEDS: Acetaminophen 325 MG TABLET 650 MG PO (01:22)
[2022-06-12] MEDS: Insulin Lispro 100 UNIT/ML 3 ML VIAL 12 UNIT SUBCUT (01:23)
[2022-06-12] MEDS: 0.9 % Sodium Chloride 1,000 ML 999 ML IV (01:23)
--- NOTE | 2022-06-12 01:46 | PM.IMHP ---
History of Present Illness Date of Service: 06/12/22 Chief Complaint: cough 77-year-old female with a past medical history of hypertension, asthma presented to the hospital today with a chief complaint of cough/ shortness of breath. Patient reported that over the past 7 days he has been having cough and shortness of breath. Denies any sputum production. Also complains of subjective fevers. At the symptoms would gradually worsening and today she had severe shortness of breath and decided to come to the ER for further evaluation. Patient denies any chest pain palpitations. Denies any GI symptoms. Review of all other systems is negative except mentioned above Patient reports that she has COVID-19 vaccinated. But did not get booster vaccine. ER course: Per ER team patient noted to have coarse breath sounds/ wheezing; concern for asthma exacerbation. COVID-[address] chest was done which showed no evidence of pulmonary embolism but noted bilateral infiltrates. COVID-19 PCR was sent. Admitted for further management. [facility] Medical History Asthma Hypertension Pertinent family history: father: Esophageal cancer Social History Alcohol intake: unknown Patient Tobacco Use Status: Never used Tobacco Use of substances other than those prescribed or required for medical reasons: No Advance Directives: No Advance Directives Information Provided: No Meds Allergies Allergy/AdvReac Type Severity Reaction Status Date / Time acetaminophen [Percocet] Allergy Unknown Unknown Verified 06/11/22 17:55 azithromycin Allergy Unknown Verified 06/11/22 17:55 ciprofloxacin [From Cipro] Allergy Unknown Verified 06/11/22 17:55 metronidazole [From Flagyl] Allergy Unknown Verified 06/11/22 17:55 doxycycline AdvReac Intermediate vaginal Verified 06/12/22 01:43 swelling oxycodone [From Percocet] AdvReac Mild NAUSEA Verified 06/11/22 17:55 percocet Allergy Unknown n/v Uncoded 03/16/13 00:00 Home Medications Medication Instructions Recorded Confirmed Last Taken Type acetaminophen 650 mg 1 tab PO Q8H PRN pain 03/27/22 03/27/22 Unknown History tablet,extended release (Mapap Arthritis Pain) cholecalciferol (vitamin D3) 50 50 mcg PO DAILY 05/03/27/22 03/27/22 History mcg (2,000 unit) tablet (Vitamin D3) ipratropium 0.5 mg-albuterol 3 mg 3 ml inhalation QID PRN wheezing 03/27/22 03/27/22 Unknown History (2.5 mg base)/3 mL nebulization soln lisinopril 40 mg tablet 1 tab PO DAILY 03/27/22 03/27/22 03/27/22 History multivit with 1 tab PO DAILY 03/27/22 03/27/22 03/27/22 History kyrnpsoj-hdvt-ZG-lutein 8 mg iron-400 mcg-300 mcg tablet (Multivitamin Women 50 Plus) neomycin 3.5 mg/g-polymyxin B 1 appl ophthalmic (eye) BID 03/27/22 03/27/22 03/27/22 History 10,000 unit/g-dexameth 0.1 % eye oint oxybutynin chloride 10 mg 1 tab PO DAILY 03/27/22 03/27/22 03/27/22 History tablet,extended release 24 hr simvastatin 10 mg tablet 1 tab PO BEDTIME 03/27/22 03/27/22 03/26/22 History sitagliptin 100 mg tablet (Januvia) 1 tab PO DAILY 03/27/22 03/27/22 03/27/22 History triamcinolone acetonide 0.1 % 1 applic topical BID 03/27/22 03/27/22 03/26/22 History topical cream Physical Exam Vital Signs and Narrative: Vital Signs: Last Vital Signs Temp 98.7 F 06/12/22 00:00 Pulse 108 H 06/12/22 00:00 Resp 16 06/12/22 00:00 BP 128/70 06/12/22 00:00 Pulse Ox 98 06/12/22 00:00 O2 Del Method 06/12/22 00:00 O2 Flow Rate 2 06/12/22 00:00 BMI result Body Mass Index 24.7 Gen: Appears be in no acute distress HEENT: NCAT, Moist mucosa. Pulmonary: Coarse breath sounds, occasional expiratory wheezing CVS: Normal S1-S2 Abdomen: BS+, Soft, Nontender Extremities: Warm well perfused Neuro: Alert and awake. Results Labs CBC and Chem 7: 06/11/22 18:06 06/11/22 18:06 Labs: Laboratory Results - last 24 hr 06/11/22 06/11/22 06/11/22 18:06 18:06 18:06 MCV 88.0 MCH 28.6 MCHC 32.5 RDW 13.1 Plt Count 385 D MPV 10.7 Immature Gran % (Auto) 0.6 H Neut % (Auto) 77.0 H Lymph % (Auto) 12.6 L [place] % (Auto) 8.1 Eos % (Auto) 1.1 Baso % (Auto) 0.6 Lymph # (Auto) 1.6 [place] # (Auto) 1.0 Eos # (Auto) 0.1 Baso # (Auto) 0.1 Abs Immat Gran (auto) 0.08 H Absolute Neuts (auto) 9.6 H Absolute Nucleated RBC 0.000 Nucleated RBC % (auto) 0.0 Anion Gap 16 Estim Creat Clear Calc 48.6 Estimated GFR > 60 POC Glucose Random Glucose 328 H Calcium 9.5 B-Natriuretic Peptide 29 Urine Color Urine Appearance Urine pH Ur Specific [place] Urine Protein Urine Glucose (UA) Urine Ketones Urine Blood Urine Nitrite Ur Leukocyte Esterase Urine RBC Urine WBC Ur Squamous Epith Cells Urine Bacteria COVID-19 ([facility]) COVID-19 [employer] Com 06/11/22 06/11/22 06/12/22 18:06 20:33 00:52 MCV MCH MCHC RDW Plt Count MPV Immature Gran % (Auto) Neut % (Auto) Lymph % (Auto) [place] % (Auto) Eos % (Auto) Baso % (Auto) Lymph # (Auto) [place] # (Auto) Eos # (Auto) Baso # (Auto) Abs Immat Gran (auto) Absolute Neuts (auto) Absolute Nucleated RBC Nucleated RBC % (auto) Anion Gap Estim Creat Clear Calc Estimated GFR POC Glucose 416 H* Random Glucose Calcium B-Natriuretic Peptide Urine Color YELLOW Urine Appearance CLEAR Urine pH 5.5 Ur Specific [place] 1.015 Urine Protein NEG Urine Glucose (UA) NEG Urine Ketones NEG Urine Blood NEG Urine Nitrite POS H Ur Leukocyte Esterase NEG Urine RBC 0 Urine WBC 0 Ur Squamous Epith Cells TRACE Urine Bacteria 2+ COVID-19 ([facility]) Negative COVID-19 Clin Com See Note Imaging Radiologist's Impressions: Impressions Chest X-Ray 06/11/22 18:27 IMPRESSION: Scattered faint hazy bilateral patchy airspace opacities concerning for acute process, pneumonia. CT of chest may be helpful for further evaluation. Chest CTA 06/12/22 00:53 IMPRESSION: * No pulmonary embolism. * Chronic bronchitis and diffuse airway-based infectious process redemonstrated, with worsening airspace component parenchymal consolidation on the current examination. These findings can be seen in association with nontuberculous mycobacterium VTE: negative Assessment and Plan (1) PNA (pneumonia): Status: Acute (2) Asthma exacerbation: Status: Acute Plan 77-year-old female with a past medical history of hypertension, asthma presented to the hospital today with a chief complaint of cough/ shortness of breath. noted to have bilateral pulmonary infiltrates on the CT chest. Admitted for further management Pneumonia: CT chest showed Chronic bronchitis and diffuse airway-based infectious process redemonstrated, with worsening airspace component parenchymal consolidation on the current examination. These findings can be seen in association with non-tuberculous mycobacterium patient has multiple antibiotic allergies. Patient received ceftriaxone in the ER and tolerated. Will continue. ID consult for further recommendations. COVID-19 rapid test negative. PCR test sent. Urine Legionella, Strep Pneumo; Cough suppressants Acute asthma exacerbation: Will give the patient nebulizations standing and p.r.n.. IV Solu-Medrol. History of hypertension: patient's blood pressure on the low normal side. Hold home amlodipine/ lisinopril for now. History of diabetes: Will keep the patient on Lantus 10 units plus insulin sliding scale. Hold home sitagliptin. DVT prophylaxis: Lovenox Code status: Full code Quality Stroke Does the patient have a stroke diagnosis?: No VTE Prior VTE?: No VTE Risk Level:: Medical - moderate - high VTE Device Contraindication: Treatment Not Indicated VTE Drug Contraindication: N/A - Med Ordered
[2022-06-12 02:07] LABS: Influenza A PCR NEGATIVE (Negative); Influenza B PCR NEGATIVE (Negative); Resp Syncy Virus RNA Qual PCR NEGATIVE (Negative); SARS COV2 PCR INHOUSE NEGATIVE (Negative)
--- NOTE | 2022-06-12 02:46 | PC.NURSE ---
PATIENT WAS HOOKED UP TO [employer]LL [employer]PER[employer] BY THIS PCT .
--- NOTE | 2022-06-12 03:42 | PC.NURSE ---
pt asleep resting comfortably, resp effort unlabored reg no use of accessory muscles present, pt on tele monitor, will check POC, and continue to monitor pt. Bed locked in lowest position, call light within reach.
[2022-06-12 05:16] LABS: Glucose, Whole Blood 375 mg/dL (60-115)
[2022-06-12] MEDS: Enoxaparin Sodium 40 MG/0.4 ML SYRINGE SUBCUT (05:29)
[2022-06-12] MEDS: methylPREDNISolone Sod Succ 40 MG/ML VIAL IVPUSH ×4 (05:29→22:05)
[2022-06-12 06:33] LABS: Basophils Percent Auto 0.3 % (0-2); Hematocrit 33.5 % (37.0-47.0); Hemoglobin 10.6 g/dl (12.0-16.0); Imm Gran Abs Auto 0.11 X10*3/uL (0.00-0.03); Lymphocytes Absolute Auto 0.5 X10*3/uL (1.2-4.9); Lymphocytes Percent Auto 4.4 % (20-40); MANUAL DIFF FLAG SCAN; Mean Corpuscular HGB Conc 31.6 g/dl (31.0-35.0); Mean Corpuscular Hemoglobin 28.2 pg (27.0-33.0); Mean Corpuscular Volume 89.1 fL (80.0-98.0); Mean Platelet Volume 10.6 fL (9.4-12.3); Monocytes Absolute Auto 0.2 X10*3/uL (0.1-1.2); Monocytes Percent Auto 1.5 % (2-11); Neutrophils Percent Auto 92.8 % (45-73); Platelet Count 349 X10*3/uL (160-400); Red Blood Count 3.76 X10*6/uL (4.20-5.50); Red Cell Distribution Width 13.1 % (11.0-16.0); SCAN SMEAR FLAG 1; White Blood Count 10.8 X10*3/uL (4.8-10.8)
[2022-06-12 06:59] LABS: Troponin-I High Sensitivity 3.8 ng/L (<3.5-17.0)
[2022-06-12 07:01] LABS: SLIDE REVIEW VERIFIED
[2022-06-12 07:22] LABS: Anion Gap 18 (12-20); Blood Urea Nitrogen 14 mg/dL (9-16); Calcium 8.8 mg/dL (8.4-10.2); Carbon Dioxide 21 mmol/L (22-29); Chloride 102 mmol/L (96-108); Creatinine Clr Calc Pharmacy 49.2; Estimated Glomerular Filt Rate > 60; Glucose Random 445 mg/dL (60-115); Potassium 4.2 mmol/L (3.3-5.1); Sodium 137 mmol/L (135-145)
--- NOTE | 2022-06-12 07:50 | PM.EVENT ---
Event Note Date of Service: 06/12/22 Event Note: Pt seen and examinned this morning, admitted hours earlier for PNA and asthma exacerbation, feels a bit better, vital stable. Exam: dimished lung sounds, no wheezes,.. A/P per H and P from this morning, wean off O2, continue IV Abx, IV solumedrol and change to PO by tomorrow
[2022-06-12 07:54] LABS: Glucose, Whole Blood 408 mg/dL (60-115)
[2022-06-12] MEDS: Insulin Lispro 100 UNIT/ML 3 ML VIAL SUBCUT ×5 (08:00→22:06)
--- NOTE | 2022-06-12 08:52 | PC.NURSE ---
PT POC [facility] AWARE WANTED TO GIVE 7 UNITS PT HAD RECIEVED 12 UX AT 0123
--- NOTE | 2022-06-12 09:07 | PHA.MEDREC ---
Pharmacy Consult ? Medication Reconciliation Pharmacy has completed the medication reconciliation. Spoke with patient in the ED. Patient had all RX bottles with her. She last took her medicaitons yesterday
--- NOTE | 2022-06-12 10:54 | MHC.CM.PN ---
Met with patient and peripatologist in regards to discharge planning. Patient lives alone, ambulates with a cane/walker and has UI ENGINEER hours through [facility]. Her daughter, Xuan is her UI ENGINEER. PCP verified. Copy of HCP verified to be on file. Patient received 2 Pfizer vaccines, but is not boosted. IMM explained and signed. Patient's daughter will transport patient home when medically stable. Continue to monitor for d/c needs.
[2022-06-12 12:31] LABS: Glucose, Whole Blood 377 mg/dL (60-115)
--- NOTE | 2022-06-12 13:31 | PC.NURSE ---
PT POC 377 MLAP[facility] AWARE ADDITIONAL 5 UX INS ORDERED TOTAL OF 15 GIVEN
--- NOTE | 2022-06-12 15:45 | PC.NURSE ---
attempted to call in report to [facility] [place].
[2022-06-12] MEDS: 0.9 % Sodium Chloride Flush 3 ML SYRINGE IVFLUSH ×2 (15:55→22:16)
--- NOTE | 2022-06-12 15:55 | PC.NURSE ---
pt medicated per provider order..
--- NOTE | 2022-06-12 16:05 | PC.NURSE ---
attempted to call in report to [facility] [place].
--- NOTE | 2022-06-12 16:20 | PC.NURSE ---
RN-RN report given to [facility].
[2022-06-12 16:39] LABS: Glucose, Whole Blood 263 mg/dL (60-115)
[2022-06-12 18:28] LABS: Glucose, Whole Blood 311 mg/dL (60-115)
[2022-06-12 20:07] LABS: Glucose, Whole Blood 242 mg/dL (60-115)
[2022-06-12] MEDS: Albuterol/Iprat 2.5/0.5MG 3 ML AMPUL.NEB INHALE (20:24)
[2022-06-12] MEDS: Insulin Glargine,Hum.rec.anlog 100 UNIT/ML 10 ML VIAL 10 UNIT SUBCUT (22:05)
[2022-06-12] MEDS: cefTRIAXone sodium 1 GM in 0.9 % Sodium Chloride 100 ML IV (22:06)
[2022-06-12] MEDS: Benzonatate 100 MG CAPSULE PO (23:24)
[2022-06-13] VITALS (9 sets, daily range): BP systolic 138–162; BP diastolic 62–84; PULSE 81–107; RESP 16–20; TEMP 36.1–36.9; O2SAT 92–98
[2022-06-13] MEDS: methylPREDNISolone Sod Succ 40 MG/ML VIAL IVPUSH ×4 (02:32→21:31)
[2022-06-13] MEDS: Enoxaparin Sodium 40 MG/0.4 ML SYRINGE SUBCUT (02:33)
[2022-06-13 07:24] LABS: Glucose, Whole Blood 323 mg/dL (60-115)
[2022-06-13] MEDS: Insulin Lispro 100 UNIT/ML 3 ML VIAL SUBCUT ×4 (07:44→21:31)
[2022-06-13] MEDS: 0.9 % Sodium Chloride Flush 3 ML SYRINGE IVFLUSH ×2 (07:47→15:57)
[2022-06-13] MEDS: Albuterol/Iprat 2.5/0.5MG 3 ML AMPUL.NEB INHALE ×4 (08:33→20:34)
--- NOTE | 2022-06-13 09:14 | P.CDIC_ITS ---
CDI Concurrent Query Documentation Clarification: PHYSICIAN'S DOCUMENTATION REQUEST Date of Query: 06/13/2214 Patient Name: Jovita Hooper Admit Date: 06/12/22 Dear Doctor, A review of the medical record indicates additional documentation may be needed. Please review below and update the documentation accordingly. Clinical Indicators: Risk Factors/Clinical Indicators/Treatments History of Diabetes - will keep patient on Lantus 10 units plus insulin sliding scale. POC glucose - [phone] Hold home Sitagliptin. Please clarify the following regarding Diabetes Mellitus (DM): Type/Etiology: Type 2, Type 1 or other * Hyperglycemia * No complications of DM * Other complication ? please specify * Unable to determine Use of terms such as suspected, likely, concern for, or probable (associated with a specific diagnosis that is being evaluated, monitored, or treated as if it exists) are acceptable and can be coded in the inpatient setting, when documented at the time of discharge. Thank you, Kia London [facility], CDIS Extension: [phone] Please use your independent medical judgment in providing your response. THIS QUERY IS PART OF THE PERMANENT MEDICAL RECORD Provider Response: Other Other Diagnosis: seen P. note
--- NOTE | 2022-06-13 10:56 | P.PNIM_ITS ---
Subjective Subjective Date of Service: 06/13/22 Interval History: f/u on PNA, asthma exacerbation feels better today, no sob, \ Review of Systems no fever, no chills Physical Exam Vital Signs: Vital Signs: Last Vital Signs Temp 97.6 F 06/13/22 07:04 Pulse 87 06/13/22 08:33 Resp 18 06/13/22 08:33 BP 147/81 H 06/13/22 07:04 Pulse Ox 97 06/13/22 07:04 O2 Del Method 06/13/22 07:04 O2 Flow Rate 2 06/13/22 07:04 BMI result Body Mass Index 24.7 Const: Other: General: AO X 3, no acute distress Resp: no wheeze, rales left base CVS: S1,S2,RRR GI: +BS, NT, no distention Skin: No rash Neuro: motor grossly intact Psych: appropriate affect Objective Data Active Medications Albuterol/Ipratropium (Albuterol/Iprat 2.5/0.5mg 3 Ml Ampul.Neb) 3 ml INHALE RQ4H WHILE AWAKE [facility] Last Admin: 06/13/22 08:33 Dose: 3 ml Documented By: BLASCMarkel Benzonatate (Benzonatate 100 Mg Capsule) 100 mg PO TID PRN PRN Reason: Cough Last Admin: 06/12/22 23:24 Dose: 100 mg Documented By: BEE Dextrose (Dextrose 50 % 25 Gm/50 Ml Syringe) 25 gm IVPUSH Q15M PRN; Protocol PRN Reason: per Hypoglycemia Standing Ord. Enoxaparin Sodium (Enoxaparin Sodium 40 Mg/0.4 Ml Syringe) 40 mg SUBCUT Q24H [facility] Last Admin: 06/13/22 02:33 Dose: 40 mg Documented By: BEE Glucose (Glucose Gel 15 Gm Gel..Gram.) 15 gm PO Q15M PRN; Protocol PRN Reason: per Hypoglycemia Standing Ord. Ceftriaxone Sodium 1 gm/ (Sodium Chloride) 100 mls @ 200 mls/hr IV Q24H [facility] Last Infusion: 06/12/22 22:56 Dose: 0 mls/hr Documented By: BEE Insulin Glargine (Insulin Glargine,Hum.Rec.Anlog 100 Unit/Ml 10 Ml Vial) 10 unit SUBCUT BEDTIME [facility] Last Admin: 06/12/22 22:05 Dose: 10 unit Documented By: BEE Insulin Human Lispro (Insulin Lispro 100 Unit/Ml 3 Ml Vial) 0 unit SUBCUT QIDACHS [facility]; Protocol Last Admin: 06/13/22 07:44 Dose: 8 unit Documented By: VIVIANE Melatonin (Melatonin 3 Mg Tablet) 6 mg PO BEDTIME PRN PRN Reason: Insomnia Methylprednisolone Sodium Succinate (Methylprednisolone Sod Succ 40 Mg/Ml Vial) 40 mg IVPUSH Q6H [facility] Last Admin: 06/13/22 07:43 Dose: 40 mg Documented By: VIVIANE Morphine Sulfate (Morphine Sulfate 2 Mg/Ml Cartridge) 1 mg IVPUSH Q4H PRN; Protocol PRN Reason: Pain, SOB Senna (Sennosides 8.6 Mg Tablet) 17.2 mg PO BEDTIME PRN PRN Reason: Constipation Sodium Chloride (0.9 % Sodium Chloride Flush 3 Ml Syringe) 3 ml IVFLUSH QSHIFT [facility] Last Admin: 06/13/22 07:47 Dose: 3 ml Documented By: VIVIANE Labs CBC & Chem 7: 06/12/22 06:15 06/12/22 06:15 Labs: Laboratory Results - last 24 hr 06/12/22 06/12/22 06/12/22 12:28 16:35 18:00 POC Glucose 377 H* 263 H 311 H 06/12/22 06/13/22 19:53 07:06 POC Glucose 242 H 323 H Microbiology Microbiology Results: Microbiology 06/11/22 20:42 Urine Culture - Final Urine clean catch - Urine coronado top Escherichia coli Assessment and Plan (1) Asthma exacerbation: Status: Acute (2) PNA (pneumonia): Status: Acute Plan 77-year-old female with a past medical history of hypertension, asthma presented to the hospital today with a chief complaint of cough/ shortness of breath. ? noted to have bilateral pulmonary infiltrates on the CT chest.? Admitted for further management Pneumonia--clinically improving, continue Ceftriaxone iv for one more day Acute asthma exacerbation:? Transition to PO steroid, continue Neb. wean off O2 History of hypertension:? BP on high side, resume home meds Type 2 DM with hyperglycemia DVT prophylaxis:? Lovenox Code status:? Full code need for inpatient: PNA needing IV Abx, asthm exacerbation needing IV sterid Quality Stroke Does the patient have a stroke diagnosis?: No VTE Prior VTE?: No VTE Risk Level:: Medical - moderate - high VTE Device Contraindication: Treatment Not Indicated VTE Drug Contraindication: N/A - Med Ordered
[2022-06-13 11:25] LABS: Glucose, Whole Blood 404 mg/dL (60-115)
--- NOTE | 2022-06-13 11:45 | P.CDIC_ITS ---
CDI Concurrent Query Documentation Clarification: PHYSICIAN'S DOCUMENTATION REQUEST Date of Query: 06/13/22 1146 Patient Name: Jovita Hooper Admit Date: 06/12/22 Dear Doctor, Please review the following and provide your response in the progress notes. Clinical Indicators: Risk Factors/Clinical Indicators/Treatments Dx: Acute asthma exacerbation, IV Solumedrol Transition to PO steroid. Based on the above, please clarify in the Progress Notes further specificity regarding the type and acuity of the asthma: Type: Specifics to Asthma - * Mild intermittent - less than 2x/week * Mild persistent - more than 2x/week but not daily * Moderate persistent - daily and may restrict physical activity * Severe persistent - throughout the day with frequent attacks, limiting activities * Exercise induced * Other ? please specify * Unable to determine Use of terms such as suspected, likely, concern for, or probable (associated with a specific diagnosis that is being evaluated, monitored, or treated as if it exists) are acceptable and can be coded in the inpatient setting, when documented at the time of discharge. Thank you, Kia London [facility], CDIS Extension: [phone] Please use your independent medical judgment in providing your response. THIS QUERY IS PART OF THE PERMANENT MEDICAL RECORD Provider Response: Other Other Diagnosis: see note
[2022-06-13 15:48] LABS: Glucose, Whole Blood 349 mg/dL (60-115)
[2022-06-13 20:00] LABS: Glucose, Whole Blood 321 mg/dL (60-115)
[2022-06-13] MEDS: Insulin Glargine,Hum.rec.anlog 100 UNIT/ML 10 ML VIAL 10 UNIT SUBCUT (21:31)
[2022-06-13] MEDS: cefTRIAXone sodium 1 GM in 0.9 % Sodium Chloride 100 ML IV (21:34)
[2022-06-14] MEDS: methylPREDNISolone Sod Succ 40 MG/ML VIAL IVPUSH ×2 (03:19→08:42)
[2022-06-14] MEDS: 0.9 % Sodium Chloride Flush 3 ML SYRINGE IVFLUSH ×2 (03:19→08:42)
[2022-06-14] MEDS: Enoxaparin Sodium 40 MG/0.4 ML SYRINGE SUBCUT (03:19)
[2022-06-14 04:00] VITALS: BP 173/78; PULSE 86; RESP 16; TEMP 36.2; O2SAT 94
[2022-06-14 07:24] VITALS: BP 157/74; PULSE 83; RESP 20; TEMP 36.2; O2SAT 94
[2022-06-14 07:32] LABS: Glucose, Whole Blood 360 mg/dL (60-115)
[2022-06-14 07:37] VITALS: PULSE 92; RESP 18; O2SAT 94
[2022-06-14] MEDS: Albuterol/Iprat 2.5/0.5MG 3 ML AMPUL.NEB INHALE ×2 (07:37→11:06)
[2022-06-14] MEDS: Insulin Lispro 100 UNIT/ML 3 ML VIAL SUBCUT ×2 (08:41→11:22)
[2022-06-14 10:50] VITALS: BP 164/74; PULSE 102; RESP 20; TEMP 37; O2SAT 93
--- NOTE | 2022-06-14 11:04 | MHC.CM.PN ---
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
[2022-06-14 11:07] VITALS: PULSE 91; RESP 18; O2SAT 94
--- NOTE | 2022-06-14 11:10 | MHC.CM.PN ---
t/m left for norberto re dc of this pt
[2022-06-14 11:19] LABS: Glucose, Whole Blood 411 mg/dL (60-115)
[2022-06-14] MEDS: Insulin Lispro 100 UNIT/ML 3 ML VIAL 7 UNIT SUBCUT (11:22)
--- NOTE | 2022-06-14 12:23 | PM.DS ---
DS: Providers Provider Date of Service: 06/14/22 Date of admission: 06/12/22 01:43 Primary care physician: Amira Curtis MD Consults: 06/12/22 01:43 Consult to Infectious Diseases Routine Consulting Provider: Renetta Stratton Reason for consultation: multifocal PNA; COVID negative DS: Diagnosis Discharge Diagnosis (1) Asthma exacerbation: Status: Acute (2) PNA (pneumonia): Status: Acute DS: Summary Hospital Course Hospital Course: Chief Complaint: cough ?77-year-old female with a past medical history of hypertension, asthma presented to the hospital today with a chief complaint of cough/ shortness of breath.? Patient reported that over the past 7 days he has been having cough and shortness of breath.? Denies any sputum production.? Also complains of subjective fevers. At the symptoms would gradually worsening and today she had severe shortness of breath and decided to come to the ER for further evaluation.? Patient denies any chest pain palpitations.? Denies any GI symptoms.? Review of all other systems is negative except mentioned above Patient reports that she has COVID-19 vaccinated.? But did not get booster vaccine.? ER course: Per ER team patient noted to have coarse breath sounds/ wheezing; concern for asthma exacerbation.? COVID-[address] chest was done which showed no evidence of pulmonary embolism but noted? bilateral infiltrates.? COVID-19 PCR was sent.? Admitted for further management. Hospital course: Patient was admitted for pneumonia causing exacerbation of asthma exacerbation. Pneumonia was treated with IV ceftriaxone with good effect. She is presently afebrile and no using oxygen, breathing easy, but has mild cough. She will be transition to oral Ceftin for 5 more days. She has moderate persistent asthma with acute exacerbation and was treated with IV Solumedrol, bronchidlators by Neb, exacerbation has resolved, she has no wheezes, lungs are clear.. She has no hypoxia and given that steroid is causing marked hyperglycemia and having been treated for 3 days of steroid will stop steroid at this time. Final diagnosis Pneumonia Moderate persistent asthma with acute exacerbation Diabetes with Hyperglycemia HTN Time Spent with Patient Time attestation: Total time spent providing and/or coordinating discharge services: Discharge coordination time: Greater than 30 minutes Quality: Safe Use of Opioids Does Pt have an Active Cancer Diagnosis on the Problem List?: No Quality: Stroke Does the patient have a stroke diagnosis?: No Physical Exam Vital Signs: Vital Signs: Last Vital Signs Temp 98.6 F 06/14/22 10:50 Pulse 91 06/14/22 11:07 Resp 18 06/14/22 11:07 BP 164/74 H 06/14/22 10:50 Pulse Ox 93 06/14/22 10:50 O2 Del Method 06/14/22 10:50 O2 Flow Rate 2 06/13/22 07:04 BMI result Body Mass Index 24.7 Const: Other: General: AO X 3, no acute distress Resp: CTA bilateral, no wheezes, no accessory muscle use CVS: S1,S2,RRR GI: +BS, NT, no distention Skin: No rash Neuro: motor grossly intact Psych: appropriate affect DS: Data Data Completed and Pending Labs on day of discharge: Laboratory Results - last 24 hr 06/13/22 06/13/22 06/14/22 15:45 19:56 07:22 POC Glucose 349 H 321 H 360 H* 06/14/22 10:51 POC Glucose 411 H* Discharge Plan Discharge Anticipated Discharge Date/Time: 06/14/22 11:13 Patient Disposition: Home, Self-Care Discharge Diagnosis: Asthma exacerbation, Pneumonia Referrals: Amira Curtis MD [Primary Care Provider] - 1 Week Discharge Medications: New cefuroxime axetil 500 mg tablet 500 mg PO BID 5 Days Qty: 10 0RF Continued ipratropium-albuterol 0.5 mg-3 mg(2.5 mg base)/3 mL solution for nebulization 3 ml inhalation QID PRN (Reason: wheezing) oxybutynin chloride 10 mg tablet extended release 24 hr 1 tab PO DAILY simvastatin 10 mg tablet 1 tab PO BEDTIME acetaminophen [Mapap Arthritis Pain] 650 mg tablet extended release 1 tab PO Q8H PRN (Reason: Pain (Scale Score 1-3)) lisinopril 40 mg tablet 1 tab PO DAILY Januvia 100 mg tablet 1 tab PO DAILY cholecalciferol (vitamin D3) [Vitamin D3] 50 mcg (2,000 unit) Tablet 50 mcg PO DAILY Multivitamin Women 50 Plus 8 mg iron-400 mcg-300 mcg Tablet 1 tab PO DAILY albuterol sulfate 90 mcg/actuation HFA aerosol inhaler 2 puff inhalation Q4-6H PRN (Reason: shortness of breath or wheezing) Advair HFA 230-21 mcg/actuation Hfa Aerosol Inhaler 2 puff INHALATION BID Diet: Diabetic diet Activity on Discharge: As tolerated Stand Alone Forms: Patient Portal Discharge page Care Plan Goals: Full recovery from Pneumonia and ashtma exacerbation Health Concerns: Asthma exacerbation Pneumonia Plan of Treatment: Take Cefuroxime as directed and use inhalers as directed Assessment: As above
[2022-06-14 13:53] LABS: Glucose, Whole Blood 210 mg/dL (60-115)
== END 2022-06-14 14:30 | disposition home or self-care (01) | DRG 193 ==
LOC: HO.ED 06-12 01:47 → HO.EDOVER 06-12 01:49 → HO.IMC 06-12 15:27
PROVIDERS: Admitting Provider Hospitalist; Emergency Provider Internal Medicine; PCP Internal Medicine; Visit Provider Internal Medicine
DX: J18.9 Pneumonia, unspecified organism (principal); J96.01 Acute respiratory failure with hypoxia; J45.41 Moderate persistent asthma with (acute) exacerbation; E11.65 Type 2 diabetes mellitus with hyperglycemia; I10 Essential (primary) hypertension; Z20.822 Contact with and (suspected) exposure to COVID-19; Z88.1 Allergy status to other antibiotic agents; Z88.5 Allergy status to narcotic agent; Z79.899 Other long term (current) drug therapy
CPT/HCPCS: 0241U; 36415; 71045; 71275; 80048; 81001; 82947; 83880; 84484; 85025; 87086; 87088; 87186; 87635; 93005; 94640; 94644; 96365; 96375; 99285; J0696; J1650; J1885; J2920; J2930; Q9967

== ENCOUNTER 2022-10-20 10:53 | Emergency (ER) | payer OTHER, SELFPAY ==
[2022-10-20 11:08] VITALS: BP 173/90; PULSE 99; RESP 16; O2SAT 97; BMI 24.9
--- NOTE | 2022-10-20 11:12 | ED.GENADULT ---
HPI - General Adult General Chief complaint: Abdominal Pain Stated complaint: abd pain, uti? 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 The pain feels similar to when she has had a UTI in the past. She denies any nausea, vomiting, fever, chills. She reports lower back pain across the entire lower back, not on 1 side more than the other. She denies any blood in her urine. No URI symptoms. MD complaint: Suprapubic pain and dysuria Onset (ago): day(s) (3-4) Location: abdomen Radiation: non-radiation Severity: moderate Quality: aching Pain Consistency: intermittent Relieving factors: none Exacerbating factors: other (Urination) Associated symptoms: denies other symptoms Treatments prior to arrival: none Related Data Home Medications Medication Instructions Recorded Confirmed acetaminophen 650 mg 1 tab PO Q8H PRN Pain (Scale Score 03/27/22 06/12/22 tablet,extended release (Mapap 1-3) Arthritis Pain) cholecalciferol (vitamin D3) 50 50 mcg PO DAILY 03/27/22 06/12/22 mcg (2,000 unit) tablet (Vitamin D3) ipratropium 0.5 mg-albuterol 3 mg 3 ml inhalation QID PRN wheezing 03/27/22 06/12/22 (2.5 mg base)/3 mL nebulization soln lisinopril 40 mg tablet 1 tab PO DAILY 03/27/22 06/12/22 multivit with 1 tab PO DAILY 03/27/22 06/12/22 majttudn-emwp-MY-lutein 8 mg iron-400 mcg-300 mcg tablet (Multivitamin Women 50 Plus) oxybutynin chloride 10 mg 1 tab PO DAILY 03/27/22 06/12/22 tablet,extended release 24 hr simvastatin 10 mg tablet 1 tab PO BEDTIME 03/27/22 06/12/22 sitagliptin phosphate 100 mg 1 tab PO DAILY 03/27/22 06/12/22 tablet (Januvia) albuterol sulfate 90 mcg/actuation 2 puff inhalation Q4-6H PRN 06/12/22 06/12/22 aerosol inhaler shortness of breath or wheezing fluticasone propionate 230 2 puff inhalation BID 06/12/22 06/12/22 mcg-salmeterol 21 mcg/actuation HFA inhaler (Advair HFA) Previous Rx's Medication Instructions Recorded cefuroxime axetil 500 mg tablet 500 mg PO BID 5 days #10 tabs 06/14/22 cefuroxime axetil 250 mg tablet 250 mg PO BID 7 days #14 tabs 10/20/22 Allergies Allergy/AdvReac Type Severity Reaction Status Date / Time acetaminophen [Percocet] Allergy Unknown Unknown Verified 06/11/22 17:55 azithromycin Allergy Unknown Verified 06/11/22 17:55 ciprofloxacin [From Cipro] Allergy Unknown Verified 06/11/22 17:55 metronidazole [From Flagyl] Allergy Unknown Verified 06/11/22 17:55 doxycycline AdvReac Intermediate vaginal Verified 06/12/22 01:43 swelling oxycodone [From Percocet] AdvReac Mild NAUSEA Verified 06/11/22 17:55 percocet Allergy Unknown n/v Uncoded 03/16/13 00:00 Review of Systems Review of Systems: Constitutional: No Fever, No Chills ENT/Mouth: No sore throat, No Rhinorrhea Cardiovascular: No Chest Pain, No SOB, No Orthopnea, No Edema Respiratory: No Cough, No Sputum, No Wheezing, No dyspnea Gastrointestinal: No Nausea, No Vomiting, No Diarrhea, + abdominal Pain, No Hematochezia, No Melena Genitourinary: + Dysuria, + Urinary Frequency, No Hematuria Musculoskeletal: No joint pain, No Myalgias Skin: No Skin Lesions, No rash Neuro: No Weakness, No Numbness, No Dizziness, No Headache Heme/Lymph: No Bruising, No Lymphadenopathy Endocrine: No Polyuria, No Polydipsia PMFSH Past Medical History Medical History Asthma Hypertension Family History Family History (Updated 06/12/22 @ 06:27 by Gladys Carrero) Other Asthma Esophageal cancer Social History Social History Household Members: None Housing: Apartment Alcohol intake: unknown Patient Tobacco Use Status: Never used Tobacco Advance Directives: Yes Advance Directives on File: Yes Advance Directives Date on File: 06/12/22 service: No Current occupational status: retired Physical Exam ED Vital Signs: Vital Signs - 24 hr 10/20/22 11:08 Pulse Rate 99 Respiratory Rate 16 Blood Pressure 173/90 H Pulse Oximetry 97 Oxygen Delivery Method Room Air BMI result Body Mass Index 24.9 Appearance: Alert. Oriented X3. No acute distress. Eyes: Pupils equal, round and reactive to light. Left eye with erythema, injection, droop (chronic) ENT: Pharynx normal. Neck: Normal inspection. Neck supple. CVS: Normal heart rate and rhythm. Pulses normal. Respiratory: No respiratory distress. Breath sounds normal. Abdomen: Soft with minimal suprapubic tenderness. normal +BS x4 Skin: Skin warm and dry. Normal skin color. Normal skin turgor. No rashes. Extremities: No lower extremity edema. Neuro: Oriented X 3. No motor deficit. No sensory deficit. Steady gait. Course Course Course Narrative: 77 yo female with hx HTN, DM, hx prior UTI presents to the ER for evaluation of suprapubic and lower abdominal pain along with burning with urination for the last 3-4 days. No fever, chills, N/V. Nontoxic appearing. Abd is soft with only mild suprpubic tenderness. Will get UA. Reevaluation(s) Reevaluation #1: Urine with small leukocyte esterase. will treat with ceftin. she is stable for d/c home. counseled on management and return precautions. Discharge Plan Discharge Clinical Impression: Acute UTI Patient Disposition: Home, Self-Care Instructions: Urinary Tract Infection in Older Adults (ED) Additional Instructions: Take the prescribed antibiotic for a possible UTI. Complete the entire course. Drink plenty of fluids. Follow up with your doctor as needed. If you develop new or worsening symptoms call 911 or come back to the ER for further evaluation. [place] el antibi?elizabeth recetado para chele posible ITU. Completa todo el curso. Beber mucho l?quido. [place] un seguimiento con reis m?dico seg?n sea necesario. Si desarrolla s?ntomas nuevos o que empeoran, llame al 911 o regrese a la nannette de emergencias para chele evaluaci?n adicional. Prescriptions: New cefuroxime axetil 250 mg tablet 250 mg PO BID 7 Days Qty: 14 0RF No Action ipratropium-albuterol 0.5 mg-3 mg(2.5 mg base)/3 mL solution for nebulization 3 ml inhalation QID PRN (Reason: wheezing) oxybutynin chloride 10 mg tablet extended release 24 hr 1 tab PO DAILY simvastatin 10 mg tablet 1 tab PO BEDTIME acetaminophen [Mapap Arthritis Pain] 650 mg tablet extended release 1 tab PO Q8H PRN (Reason: Pain (Scale Score 1-3)) lisinopril 40 mg tablet 1 tab PO DAILY Januvia 100 mg tablet 1 tab PO DAILY cholecalciferol (vitamin D3) [Vitamin D3] 50 mcg (2,000 unit) Tablet 50 mcg PO DAILY Multivitamin Women 50 Plus 8 mg iron-400 mcg-300 mcg Tablet 1 tab PO DAILY albuterol sulfate 90 mcg/actuation HFA aerosol inhaler 2 puff inhalation Q4-6H PRN (Reason: shortness of breath or wheezing) Advair HFA 230-21 mcg/actuation Hfa Aerosol Inhaler 2 puff INHALATION BID cefuroxime axetil 500 mg tablet 500 mg PO BID 5 Days Qty: 10 0RF Referrals: Lindsey Lucas MD [Primary Care Provider] - Print Language: [place]
[2022-10-20 12:41] LABS: Appearance Urine Clear; Color Urine Yellow; Glucose Urine UA Negative (Negative); Leukocyte Esterase Urine Small (1+) (Negative); Nitrite Urine Negative (Negative); PH 6.5 (5.0-9.0); Specific Gravity - Urine <= 1.005 (1.005-1.025); UMIC TRIGGER UACC YES; Urine Blood Negative (Negative); Urine Ketones Negative (Negative); Urine Protein Negative (Neg-Trace)
[2022-10-20 12:53] LABS: Bacteria Urine None Seen (None Seen); Hyaline Casts Urine 0-2 /LPF (0-2); RBC Urine 0-2 /HPF (0-2); Squamous Epithelial Cell Urine 0-2 /HPF (0-2); UACC Culture Trigger YES; WBC Urine 0-5 /HPF (0-5)
[2022-10-20] MEDS: Phenazopyridine HCL 100 MG TABLET PO (13:16)
== END 2022-10-20 19:19 | disposition home or self-care (01) ==
PROVIDERS: Physician Assistant; Emergency Provider Emergency Medicine Emergency Medical Services; PCP Internal Medicine
DX: N39.0 Urinary tract infection, site not specified (principal); Z79.899 Other long term (current) drug therapy
CPT/HCPCS: 81001; 87086; 87147; 99283

== ENCOUNTER 2022-11-05 11:52 | Inpatient (IN) | payer OTHER, SELFPAY ==
--- NOTE | ~2022-11-05 | XR_ITS ---
EXAMINATION: XR CHEST CLINICAL INFORMATION: Shortness of breath COMPARISON: Chest x-ray 06/11/2022 TECHNIQUE: Frontal view of the chest was obtained. FINDINGS: The lungs are clear. Previously seen patchy airspace opacities appear to have largely resolved. No airspace consolidation, pleural effusion, or pneumothorax. The cardiomediastinal silhouette is within normal limits. No acute osseous injury. Surgical clips project over the left axilla. XR/XR chest 1V IMPRESSION: No acute pulmonary process.
--- NOTE | ~2022-11-05 | CT_ITS ---
EXAMINATION: CT ABDOMEN AND PELVIS WITHOUT CONTRAST CLINICAL INFORMATION: CVA tenderness, UTI COMPARISON: CT abdomen and pelvis 03/29/2017 TECHNIQUE: Multidetector volumetric imaging was performed from the superior aspect of the liver through the pubic symphysis. Sagittal and coronal reformatted images were obtained on the technologist's workstation. This CT examination was performed using dose optimization techniques as appropriate, variously including the following: *Automated exposure control *Adjustment of mA and/or kV according to patient size (this includes techniques or standardized protocols for targeted exams where dose is matched to indication/reason for exam; i.e. extremities or head) *Use of iterative reconstruction technique DLP: 465 mGy-cm FINDINGS: LUNG BASES: Mild left basilar scarring, unchanged. LIVER, GALLBLADDER, AND BILIARY TREE: 1.7 cm low-density cyst in the posterior segment right liver lobe, unchanged. Unchanged small subcentimeter hypodense probable cyst in the caudate adjacent to the IVC. A few tiny calcified granulomas are seen in the liver. No intrahepatic biliary ductal dilation. Status post cholecystectomy. The extrahepatic bile duct measures up to 0.9 cm in diameter, within normal limits. PANCREAS: Unremarkable. SPLEEN: Normal size. Multiple calcified splenic granulomas. ADRENAL GLANDS: 0.9 cm left adrenal nodule with attenuation base of 12 Hounsfield units unchanged since 2017, likely benign adenoma. Normal right adrenal gland. KIDNEYS AND URETERS: Ptotic malrotated right pelvic kidney. No radiodense urinary tract calculi or hydronephrosis. Minimal nonspecific perinephric fat stranding bilaterally. No perinephric fluid collection. BLADDER: Unremarkable. GASTROINTESTINAL TRACT: No dilated bowel loops. No bowel wall thickening. No free air or ascites. Normal appendix. ABDOMINAL WALL: No significant hernia is appreciated. LYMPH NODES: No lymphadenopathy. VASCULAR: Normal caliber abdominal aorta. Mild vascular calcifications. PELVIC VISCERA: Gynecologic structures are grossly unremarkable limited assessment. OSSEOUS STRUCTURES: No acute fracture or suspicious osseous lesion. CT/CT abdomen pelvis wo IV con IMPRESSION: 1. No radiodense urinary tract calculi or hydronephrosis. 2. No acute intra-abdominal process identified. Cannot exclude pyelonephritis on the basis of noncontrast CT. 3. Additional findings, as described.
[2022-11-05 13:48] VITALS: BP 135/73; PULSE 100; RESP 22; TEMP 36.4; O2SAT 94; BMI 24.1
[2022-11-05 14:09] LABS: Appearance Urine Clear; Color Urine Yellow; Glucose Urine UA Negative (Negative); Leukocyte Esterase Urine Moderate (2+) (Negative); Nitrite Urine Negative (Negative); UMIC TRIGGER UACC YES; Urine Blood Negative (Negative); Urine Ketones Negative (Negative); Urine Protein Negative (Neg-Trace)
[2022-11-05 14:16] LABS: Bacteria Urine None Seen (None Seen); UACC Culture Trigger YES; WBC Urine 21-50 /HPF (0-5)
--- NOTE | 2022-11-05 16:23 | ED.GENADULT ---
HPI - General Adult General Chief complaint: General Medical <HOME Murdock - Last Filed: 11/05/22 16:25> Stated complaint: Vaginal Infection <HOME Murdock - Last Filed: 11/05/22 16:25> Time Seen by Provider: 11/05/22 17:45 <HOME Murdock - Last Filed: 11/05/22 16:25> Source: patient <Yasmeen Hernandez NP - Last Filed: 11/06/22 01:04> Mode of arrival: ambulatory <Yasmeen Hernandez NP - Last Filed: 11/06/22 01:04> Limitations: no limitations <Yasmeen Hernandez NP - Last Filed: 11/06/22 01:04> History of Present Illness HPI narrative: 77-year-old female presents for several days of dysuria and vaginal pain. States that her vaginal labia have burning pain and feel excoriated. She was recently admitted to [facility] with influenza a and hypoxia. She does report flank pain, but does not report fevers or chills, chest pain or pressure, abdominal distention, or weakness. <Yasmeen Hernandez NP - Last Filed: 11/06/22 01:04> Onset (ago): day(s) (4) <Yasmeen Hernandez NP - Last Filed: 11/06/22 01:04> Radiation: flank <Yasmeen Hernandez NP - Last Filed: 11/06/22 01:04> Severity: moderate <Yasmeen Hernandez NP - Last Filed: 11/06/22 01:04> Severity scale (1-10): 7 <Yasmeen Hernandez NP - Last Filed: 11/06/22 01:04> Quality: burning <Yasmeen Hernandez NP - Last Filed: 11/06/22 01:04> Pain Consistency: other (Upon urination) <Yasmeen Hernandez NP - Last Filed: 11/06/22 01:04> Associated symptoms: shortness of breath <Yasmeen Hernandez NP - Last Filed: 11/06/22 01:04> Treatments prior to arrival: none <Yasmeen Hernandez NP - Last Filed: 11/06/22 01:04> Related Data Home medications: Home Medications Medication Instructions Recorded Confirmed acetaminophen 650 mg 1 tab PO Q8H PRN Pain (Scale Score 03/27/22 11/05/22 tablet,extended release (Mapap 1-3) Arthritis Pain) cholecalciferol (vitamin D3) 50 50 mcg PO DAILY 03/27/22 11/05/22 mcg (2,000 unit) tablet (Vitamin D3) ipratropium 0.5 mg-albuterol 3 mg 3 ml inhalation QID PRN wheezing 03/27/22 11/05/22 (2.5 mg base)/3 mL nebulization soln lisinopril 40 mg tablet 1 tab PO DAILY 03/27/22 11/05/22 multivit with 1 tab PO DAILY 03/27/22 11/05/22 gmdmmfxh-sauh-ES-lutein 8 mg iron-400 mcg-300 mcg tablet (Multivitamin Women 50 Plus) oxybutynin chloride 10 mg 1 tab PO DAILY 03/27/22 11/05/22 tablet,extended release 24 hr simvastatin 10 mg tablet 1 tab PO BEDTIME 03/27/22 11/05/22 sitagliptin phosphate 100 mg 1 tab PO DAILY 03/27/22 11/05/22 tablet (Januvia) albuterol sulfate 90 mcg/actuation 2 puff inhalation Q4-6H PRN 06/12/22 11/05/22 aerosol inhaler shortness of breath or wheezing fluticasone propionate 230 2 puff inhalation BID 06/12/22 11/05/22 mcg-salmeterol 21 mcg/actuation HFA inhaler (Advair HFA) amlodipine 10 mg tablet 1 tab PO DAILY 11/05/22 11/05/22 hydrocortisone 0.5 % topical cream 1 appl topical TID PRN Rash 11/05/22 11/05/22 <HOME Murdock - Last Filed: 11/05/22 16:25> Allergies/adverse reactions: Allergies Allergy/AdvReac Type Severity Reaction Status Date / Time acetaminophen [Percocet] Allergy Unknown Unknown Verified 06/11/22 17:55 azithromycin Allergy Unknown Verified 06/11/22 17:55 ciprofloxacin [From Cipro] Allergy Unknown Verified 06/11/22 17:55 metronidazole [From Flagyl] Allergy Unknown Verified 06/11/22 17:55 doxycycline AdvReac Intermediate vaginal Verified 06/12/22 01:43 swelling oxycodone [From Percocet] AdvReac Mild NAUSEA Verified 06/11/22 17:55 percocet Allergy Unknown n/v Uncoded 03/16/13 00:00 <HOME Murdock - Last Filed: 11/05/22 16:25> Review of Systems Review of Systems: Constitutional: No Fever, No Chills ENT/Mouth: No sore throat Eyes: No Eye Pain, No Swelling, No Redness Cardiovascular: No Chest Pain, pop SOB Respiratory: Pots Cough, No Sputum, No Wheezing Gastrointestinal: No Nausea, no Vomiting, No Diarrhea, nausea abdominal pain Genitourinary: positive Dysuria, no urinary frequency, no Hematuria, positive Flank Pain, no hesitancy Musculoskeletal: No joint pain, No Myalgias Skin: No Skin Lesions, No rash Neuro: No Weakness, No Numbness, No Headache <Yasmeen Hernandez NP - Last Filed: 11/06/22 01:04> Yes all other systems are reviewed and are negative <Yasmeen Hernandez NP - Last Filed: 11/06/22 01:04> [facility] Past Medical History Attestation statement: The following information was validated with the patient. <Yasmeen Hernandez NP - Last Filed: 11/06/22 01:04> Source: old records reviewed <Yasmeen Hernandez NP - Last Filed: 11/06/22 01:04> Medical History: Medical History Asthma Hypertension <HOME Murdock - Last Filed: 11/05/22 16:25> Family History Family History: Family History Other Asthma Esophageal cancer <HOME Murdock - Last Filed: 11/05/22 16:25> Social History Social History: Social History Household Members: None Housing: Apartment Alcohol intake: unknown Patient Tobacco Use Status: Never used Tobacco Smoked in Last 30 Days: No Use of substances other than those prescribed or required for medical reasons: No Advance Directives: Yes Advance Directives on File: Yes Advance Directives Date on File: 06/12/22 service: No Current occupational status: retired <HOME Murdock - Last Filed: 11/05/22 16:25> Physical Exam ED Vital Signs: Vital Signs - 24 hr 11/05/22 13:48 11/05/22 18:18 11/05/22 18:44 Temperature 97.6 F Pulse Rate 100 84 77 Respiratory Rate 22 H 18 Blood Pressure 135/73 135/68 Pulse Oximetry 94 Oxygen Delivery Method Room Air 11/05/22 19:45 11/05/22 23:37 Temperature 98.1 F Pulse Rate 75 75 Respiratory Rate Blood Pressure 147/71 H 147/64 H Pulse Oximetry 93 Oxygen Delivery Method Room Air BMI result Body Mass Index 24.1 <HOME Murdock - Last Filed: 11/05/22 16:25> Vital Signs - 24 hr 11/05/22 13:48 11/05/22 18:18 11/05/22 18:44 Temperature 97.6 F Pulse Rate 100 84 77 Respiratory Rate 22 H 18 Blood Pressure 135/73 135/68 Pulse Oximetry 94 Oxygen Delivery Method Room Air 11/05/22 19:45 11/05/22 23:37 Temperature 98.1 F Pulse Rate 75 75 Respiratory Rate Blood Pressure 147/71 H 147/64 H Pulse Oximetry 93 Oxygen Delivery Method Room Air BMI result Body Mass Index 24.1 <Yasmeen Hernandez NP - Last Filed: 11/06/22 01:04> Appearance: Alert. Oriented X3. Mild distress. Eyes: Pupils equal, round and reactive to light. ENT: Pharynx normal. Neck: Normal inspection. Neck supple. CVS: Normal heart rate and rhythm. Pulses normal. Respiratory: No respiratory distress. Expiratory wheezing. Abdomen: Soft and nontender. Bilateral CVA tenderness noted. Genitourinary: Vaginal labia excoriated with thick white discharge consistent with candidiasis Skin: Skin warm and dry. Normal skin color. Normal skin turgor. Extremities: Gait balance and coordinated. Neuro: No motor deficit. No sensory deficit. Cranial nerves 2-12 intact. <Yasmeen Hernandez NP - Last Filed: 11/06/22 01:04> Course Course Course Narrative: RME: 77 year old female presents w/ dyuria, urinary hesitancy X 4 dyas. Patient also complaining of SOB for a little over a week, known flu + and seen at [facility] for this. Compaling of increasing SOB PE: appears well vss Plan- urine, cxr <HOME Murdock - Last Filed: 11/05/22 16:25> RME: 77 year old female presents w/ dyuria, urinary hesitancy X 4 dyas. Patient also complaining of SOB for a little over a week, known flu + and seen at [facility] for this. Compaling of increasing SOB PE: appears well vss Plan- urine, cxr 77-year-old female presents with dysuria, hesitancy, shortness of breath and flank pain. Labs drawn while patient was in emergency department waiting room, urinalysis is positive for UTI otherwise labs are unremarkable and chest x-ray is normal. Physical exam indicates bilateral CVA tenderness, and excoriated vaginal labia consistent with candidiasis infection. Considering that this patient has an elevated leukocyte esterase, urine white blood count, without bacteria or nitrites, I have significant concerns for pyelonephritis especially with bilateral CVA tenderness. Will order CT scan of abdomen and pelvis CT abdomen pelvis indicative of pyelonephritis, will have this patient admitted for IV antibiotics. I did discuss this case with the hospitalist who agrees with the plan. <Yasmeen Hernandez NP - Last Filed: 11/06/22 01:04> Consultations Consultation #1: Michelle <Yasmeen Hernandez NP - Last Filed: 11/06/22 01:04> Medications Administered Generic Name Dose Route Start Last Admin Trade Name Freq PRN Reason Stop Dose Admin Enoxaparin Sodium 40 mg 11/05/22 23:45 11/06/22 00:30 Enoxaparin Sodium 40 Mg/0.4 Ml Syringe SUBCUT 40 mg Q24H ANISH Administration Lactated Ringer's 1,000 mls @ 100 mls/hr 11/05/22 23:45 11/06/22 00:31 Lr IVCONT 100 mls/hr .Q10H ANISH Administration Sodium Chloride 3 ml 11/06/22 00:00 11/06/22 00:30 0.9 % Sodium Chloride Flush 3 Ml Syringe IVFLUSH 3 ml QSHIFT ANISH Administration Discontinued Medications Generic Name Dose Route Start Last Admin Trade Name Freq PRN Reason Stop Dose Admin Albuterol/Ipratropium 3 ml 11/05/22 16:27 11/05/22 18:17 Albuterol/Iprat 2.5/0.5mg 3 Ml Ampul.Neb INHALE 11/05/22 16:28 3 ml ONCE ONE Administration Erythromycin 1 cm 11/05/22 21:16 11/05/22 22:07 Erythromycin Base 0.5% Oph Oin 1 Gm Tube EYE-LEFT 11/05/22 21:17 1 cm ONCE ONE Administration Fluconazole 150 mg 11/05/22 18:14 11/05/22 19:16 Fluconazole 150 Mg Tablet PO 11/05/22 18:15 150 mg ONCE ONE Administration Ceftriaxone Sodium 1 gm/ 50 mls @ 100 mls/hr 11/05/22 17:53 11/05/22 20:06 Sodium Chloride IV 11/05/22 18:22 Infused ONCE ONE Infusion <HOME Murdock - Last Filed: 11/05/22 16:25> Medications Administered Generic Name Dose Route Start Last Admin Trade Name Freq PRN Reason Stop Dose Admin Enoxaparin Sodium 40 mg 11/05/22 23:45 11/06/22 00:30 Enoxaparin Sodium 40 Mg/0.4 Ml Syringe SUBCUT 40 mg Q24H ANISH Administration Lactated Ringer's 1,000 mls @ 100 mls/hr 11/05/22 23:45 11/06/22 00:31 Lr IVCONT 100 mls/hr .Q10H ANISH Administration Sodium Chloride 3 ml 11/06/22 00:00 11/06/22 00:30 0.9 % Sodium Chloride Flush 3 Ml Syringe IVFLUSH 3 ml QSHIFT ANISH Administration Discontinued Medications Generic Name Dose Route Start Last Admin Trade Name Freq PRN Reason Stop Dose Admin Albuterol/Ipratropium 3 ml 11/05/22 16:27 11/05/22 18:17 Albuterol/Iprat 2.5/0.5mg 3 Ml Ampul.Neb INHALE 11/05/22 16:28 3 ml ONCE ONE Administration Erythromycin 1 cm 11/05/22 21:16 11/05/22 22:07 Erythromycin Base 0.5% Oph Oin 1 Gm Tube EYE-LEFT 11/05/22 21:17 1 cm ONCE ONE Administration Fluconazole 150 mg 11/05/22 18:14 11/05/22 19:16 Fluconazole 150 Mg Tablet PO 11/05/22 18:15 150 mg ONCE ONE Administration Ceftriaxone Sodium 1 gm/ 50 mls @ 100 mls/hr 11/05/22 17:53 11/05/22 20:06 Sodium Chloride IV 11/05/22 18:22 Infused ONCE ONE Infusion <Yasmeen Hernandez NP - Last Filed: 11/06/22 01:04> Medical Decision Making Differential Diagnosis Differential Diagnoses: The differential diagnosis associated with the presentation includes <Yasmeen Hernandez NP - Last Filed: 11/06/22 01:04> UTI, pyelonephritis, hydronephrosis, kidney stone, ammonia <Yasmeen Hernandez NP - Last Filed: 11/06/22 01:04> Admission/Observation Consideration of admission/observation: Escalation of care including admission/observation considered <Yasmeen Hernandez NP - Last Filed: 11/06/22 01:04> Patient has pyelonephritis, plan care to admit for IV antibiotics <Yasmeen Hernandez NP - Last Filed: 11/06/22 01:04> Consult Healthcare Provider Management of the patient was discussed with: Hospitalist <Yasmeen Hernandez NP - Last Filed: 11/06/22 01:04> Lab Data MDM Lab Attestation statement: I reviewed the patient's lab results. <Yasmeen Hernandez NP - Last Filed: 11/06/22 01:04> Result Diagrams: : 11/05/22 16:51 11/05/22 16:51 <HOME Murdock - Last Filed: 11/05/22 16:25> Labs: Lab Results 11/05/22 11/05/22 11/05/22 Range/Units 14:01 16:51 16:51 WBC 10.7 (4.8-10.8) X10*3/uL RBC 5.21 D (4.20-5.50) X10*6/uL Hgb 14.8 D (12.0-16.0) g/dl Hct 45.9 D (37.0-47.0) % MCV 88.1 (80.0-98.0) fL MCH 28.4 (27.0-33.0) pg MCHC 32.2 (31.0-35.0) g/dl RDW 13.0 (11.0-16.0) % Plt Count 317 (160-400) X10*3/uL MPV 10.5 (9.4-12.3) fL Immature Gran % (Auto) 0.7 H (0.0-0.4) % Neut % (Auto) 68.9 (45-73) % Lymph % (Auto) 22.3 (20-40) % [place] % (Auto) 7.6 (2-11) % Eos % (Auto) 0.2 (0-4) % Baso % (Auto) 0.3 (0-2) % Lymph # (Auto) 2.4 (1.2-4.9) X10*3/uL [place] # (Auto) 0.8 (0.1-1.2) X10*3/uL Eos # (Auto) 0.0 (0.0-0.4) X10*3/uL Baso # (Auto) 0.0 (0.0-0.2) X10*3/uL Abs Immat Gran (auto) 0.07 H (0.00-0.03) X10*3/uL Absolute Neuts (auto) 7.4 (2.0-8.3) x10*3/uL Absolute Nucleated RBC 0.000 (0.0-0.012) X10*3/uL Nucleated RBC % (auto) 0.0 (0.0-0.2) /100WBC Sodium 138 (135-145) mmol/L Potassium 4.5 (3.3-5.1) mmol/L Chloride 103 (96-108) mmol/L Carbon Dioxide 28 (22-29) mmol/L Anion Gap 12 (12-20) BUN 16 (9-16) mg/dL Creatinine 0.75 (0.5-1.4) mg/dL Estim Creat Clear Calc 48.9 Estimated GFR > 60 POC Glucose (60-115) mg/dL Random Glucose 216 H (60-115) mg/dL Lactic Acid (0.5-2.0) mmol/L Calcium 10.1 D (8.4-10.2) mg/dL Urine Color Yellow Urine Appearance Clear Urine pH 5.0 (5.0-9.0) Ur Specific [place] 1.010 (1.005-1.025) Urine Protein Negative (Neg-Trace) mg/dL Urine Glucose (UA) Negative (Negative) mg/dL Urine Ketones Negative (Negative) mg/dL Urine Blood Negative (Negative) Urine Nitrite Negative (Negative) Ur Leukocyte Esterase Moderate (2+) H (Negative) Urine RBC 6-10 H (0-2) /HPF Urine WBC 21-50 H (0-5) /HPF Ur Squamous Epith Cells 3-5 (0-2) /HPF Urine Bacteria None Seen (None Seen) Hyaline Casts 3-5 (0-2) /LPF COVID-19 ([facility]) (Negative) COVID-19 Clin Com Influenza Type A (PCR) Influenza Type B (PCR) RSV RNA Qual (PCR) SARS-CoV-2 RNA (RT-PCR) 11/05/22 11/05/22 11/05/22 Range/Units 18:39 18:39 18:39 WBC (4.8-10.8) X10*3/uL RBC (4.20-5.50) X10*6/uL Hgb (12.0-16.0) g/dl Hct (37.0-47.0) % MCV (80.0-98.0) fL MCH (27.0-33.0) pg MCHC (31.0-35.0) g/dl RDW (11.0-16.0) % Plt Count (160-400) X10*3/uL MPV (9.4-12.3) fL Immature Gran % (Auto) (0.0-0.4) % Neut % (Auto) (45-73) % Lymph % (Auto) (20-40) % [place] % (Auto) (2-11) % Eos % (Auto) (0-4) % Baso % (Auto) (0-2) % Lymph # (Auto) (1.2-4.9) X10*3/uL [place] # (Auto) (0.1-1.2) X10*3/uL Eos # (Auto) (0.0-0.4) X10*3/uL Baso # (Auto) (0.0-0.2) X10*3/uL Abs Immat Gran (auto) (0.00-0.03) X10*3/uL Absolute Neuts (auto) (2.0-8.3) x10*3/uL Absolute Nucleated RBC (0.0-0.012) X10*3/uL Nucleated RBC % (auto) (0.0-0.2) /100WBC Sodium (135-145) mmol/L Potassium (3.3-5.1) mmol/L Chloride (96-108) mmol/L Carbon Dioxide (22-29) mmol/L Anion Gap (12-20) BUN (9-16) mg/dL Creatinine (0.5-1.4) mg/dL Estim Creat Clear Calc Estimated GFR POC Glucose (60-115) mg/dL Random Glucose (60-115) mg/dL Lactic Acid 1.6 (0.5-2.0) mmol/L Calcium (8.4-10.2) mg/dL Urine Color Urine Appearance Urine pH (5.0-9.0) Ur Specific [place] (1.005-1.025) Urine Protein (Neg-Trace) mg/dL Urine Glucose (UA) (Negative) mg/dL Urine Ketones (Negative) mg/dL Urine Blood (Negative) Urine Nitrite (Negative) Ur Leukocyte Esterase (Negative) Urine RBC (0-2) /HPF Urine WBC (0-5) /HPF Ur Squamous Epith Cells (0-2) /HPF Urine Bacteria (None Seen) Hyaline Casts (0-2) /LPF COVID-19 ([facility]) Negative (Negative) COVID-19 Clin Com See Note Influenza Type A (PCR) Cancelled Influenza Type B (PCR) Cancelled RSV RNA Qual (PCR) Cancelled SARS-CoV-2 RNA (RT-PCR) Cancelled 11/05/22 Range/Units 21:09 WBC (4.8-10.8) X10*3/uL RBC (4.20-5.50) X10*6/uL Hgb (12.0-16.0) g/dl Hct (37.0-47.0) % MCV (80.0-98.0) fL MCH (27.0-33.0) pg MCHC (31.0-35.0) g/dl RDW (11.0-16.0) % Plt Count (160-400) X10*3/uL MPV (9.4-12.3) fL Immature Gran % (Auto) (0.0-0.4) % Neut % (Auto) (45-73) % Lymph % (Auto) (20-40) % [place] % (Auto) (2-11) % Eos % (Auto) (0-4) % Baso % (Auto) (0-2) % Lymph # (Auto) (1.2-4.9) X10*3/uL [place] # (Auto) (0.1-1.2) X10*3/uL Eos # (Auto) (0.0-0.4) X10*3/uL Baso # (Auto) (0.0-0.2) X10*3/uL Abs Immat Gran (auto) (0.00-0.03) X10*3/uL Absolute Neuts (auto) (2.0-8.3) x10*3/uL Absolute Nucleated RBC (0.0-0.012) X10*3/uL Nucleated RBC % (auto) (0.0-0.2) /100WBC Sodium (135-145) mmol/L Potassium (3.3-5.1) mmol/L Chloride (96-108) mmol/L Carbon Dioxide (22-29) mmol/L Anion Gap (12-20) BUN (9-16) mg/dL Creatinine (0.5-1.4) mg/dL Estim Creat Clear Calc Estimated GFR POC Glucose 153 H (60-115) mg/dL Random Glucose (60-115) mg/dL Lactic Acid (0.5-2.0) mmol/L Calcium (8.4-10.2) mg/dL Urine Color Urine Appearance Urine pH (5.0-9.0) Ur Specific [place] (1.005-1.025) Urine Protein (Neg-Trace) mg/dL Urine Glucose (UA) (Negative) mg/dL Urine Ketones (Negative) mg/dL Urine Blood (Negative) Urine Nitrite (Negative) Ur Leukocyte Esterase (Negative) Urine RBC (0-2) /HPF Urine WBC (0-5) /HPF Ur Squamous Epith Cells (0-2) /HPF Urine Bacteria (None Seen) Hyaline Casts (0-2) /LPF COVID-19 ([facility]) (Negative) COVID-19 Clin Com Influenza Type A (PCR) Influenza Type B (PCR) RSV RNA Qual (PCR) SARS-CoV-2 RNA (RT-PCR) <HOME Murdock - Last Filed: 11/05/22 16:25> Lab Results 11/05/22 11/05/22 11/05/22 Range/Units 14:01 16:51 16:51 WBC 10.7 (4.8-10.8) X10*3/uL RBC 5.21 D (4.20-5.50) X10*6/uL Hgb 14.8 D (12.0-16.0) g/dl Hct 45.9 D (37.0-47.0) % MCV 88.1 (80.0-98.0) fL MCH 28.4 (27.0-33.0) pg MCHC 32.2 (31.0-35.0) g/dl RDW 13.0 (11.0-16.0) % Plt Count 317 (160-400) X10*3/uL MPV 10.5 (9.4-12.3) fL Immature Gran % (Auto) 0.7 H (0.0-0.4) % Neut % (Auto) 68.9 (45-73) % Lymph % (Auto) 22.3 (20-40) % [place] % (Auto) 7.6 (2-11) % Eos % (Auto) 0.2 (0-4) % Baso % (Auto) 0.3 (0-2) % Lymph # (Auto) 2.4 (1.2-4.9) X10*3/uL [place] # (Auto) 0.8 (0.1-1.2) X10*3/uL Eos # (Auto) 0.0 (0.0-0.4) X10*3/uL Baso # (Auto) 0.0 (0.0-0.2) X10*3/uL Abs Immat Gran (auto) 0.07 H (0.00-0.03) X10*3/uL Absolute Neuts (auto) 7.4 (2.0-8.3) x10*3/uL Absolute Nucleated RBC 0.000 (0.0-0.012) X10*3/uL Nucleated RBC % (auto) 0.0 (0.0-0.2) /100WBC Sodium 138 (135-145) mmol/L Potassium 4.5 (3.3-5.1) mmol/L Chloride 103 (96-108) mmol/L Carbon Dioxide 28 (22-29) mmol/L Anion Gap 12 (12-20) BUN 16 (9-16) mg/dL Creatinine 0.75 (0.5-1.4) mg/dL Estim Creat Clear Calc 48.9 Estimated GFR > 60 POC Glucose (60-115) mg/dL Random Glucose 216 H (60-115) mg/dL Lactic Acid (0.5-2.0) mmol/L Calcium 10.1 D (8.4-10.2) mg/dL Urine Color Yellow Urine Appearance Clear Urine pH 5.0 (5.0-9.0) Ur Specific [place] 1.010 (1.005-1.025) Urine Protein Negative (Neg-Trace) mg/dL Urine Glucose (UA) Negative (Negative) mg/dL Urine Ketones Negative (Negative) mg/dL Urine Blood Negative (Negative) Urine Nitrite Negative (Negative) Ur Leukocyte Esterase Moderate (2+) H (Negative) Urine RBC 6-10 H (0-2) /HPF Urine WBC 21-50 H (0-5) /HPF Ur Squamous Epith Cells 3-5 (0-2) /HPF Urine Bacteria None Seen (None Seen) Hyaline Casts 3-5 (0-2) /LPF COVID-19 ([facility]) (Negative) COVID-19 Clin Com Influenza Type A (PCR) Influenza Type B (PCR) RSV RNA Qual (PCR) SARS-CoV-2 RNA (RT-PCR) 11/05/22 11/05/22 11/05/22 Range/Units 18:39 18:39 18:39 WBC (4.8-10.8) X10*3/uL RBC (4.20-5.50) X10*6/uL Hgb (12.0-16.0) g/dl Hct (37.0-47.0) % MCV (80.0-98.0) fL MCH (27.0-33.0) pg MCHC (31.0-35.0) g/dl RDW (11.0-16.0) % Plt Count (160-400) X10*3/uL MPV (9.4-12.3) fL Immature Gran % (Auto) (0.0-0.4) % Neut % (Auto) (45-73) % Lymph % (Auto) (20-40) % [place] % (Auto) (2-11) % Eos % (Auto) (0-4) % Baso % (Auto) (0-2) % Lymph # (Auto) (1.2-4.9) X10*3/uL [place] # (Auto) (0.1-1.2) X10*3/uL Eos # (Auto) (0.0-0.4) X10*3/uL Baso # (Auto) (0.0-0.2) X10*3/uL Abs Immat Gran (auto) (0.00-0.03) X10*3/uL Absolute Neuts (auto) (2.0-8.3) x10*3/uL Absolute Nucleated RBC (0.0-0.012) X10*3/uL Nucleated RBC % (auto) (0.0-0.2) /100WBC Sodium (135-145) mmol/L Potassium (3.3-5.1) mmol/L Chloride (96-108) mmol/L Carbon Dioxide (22-29) mmol/L Anion Gap (12-20) BUN (9-16) mg/dL Creatinine (0.5-1.4) mg/dL Estim Creat Clear Calc Estimated GFR POC Glucose (60-115) mg/dL Random Glucose (60-115) mg/dL Lactic Acid 1.6 (0.5-2.0) mmol/L Calcium (8.4-10.2) mg/dL Urine Color Urine Appearance Urine pH (5.0-9.0) Ur Specific [place] (1.005-1.025) Urine Protein (Neg-Trace) mg/dL Urine Glucose (UA) (Negative) mg/dL Urine Ketones (Negative) mg/dL Urine Blood (Negative) Urine Nitrite (Negative) Ur Leukocyte Esterase (Negative) Urine RBC (0-2) /HPF Urine WBC (0-5) /HPF Ur Squamous Epith Cells (0-2) /HPF Urine Bacteria (None Seen) Hyaline Casts (0-2) /LPF COVID-19 ([facility]) Negative (Negative) COVID-19 Clin Com See Note Influenza Type A (PCR) Cancelled Influenza Type B (PCR) Cancelled RSV RNA Qual (PCR) Cancelled SARS-CoV-2 RNA (RT-PCR) Cancelled 11/05/22 Range/Units 21:09 WBC (4.8-10.8) X10*3/uL RBC (4.20-5.50) X10*6/uL Hgb (12.0-16.0) g/dl Hct (37.0-47.0) % MCV (80.0-98.0) fL MCH (27.0-33.0) pg MCHC (31.0-35.0) g/dl RDW (11.0-16.0) % Plt Count (160-400) X10*3/uL MPV (9.4-12.3) fL Immature Gran % (Auto) (0.0-0.4) % Neut % (Auto) (45-73) % Lymph % (Auto) (20-40) % [place] % (Auto) (2-11) % Eos % (Auto) (0-4) % Baso % (Auto) (0-2) % Lymph # (Auto) (1.2-4.9) X10*3/uL [place] # (Auto) (0.1-1.2) X10*3/uL Eos # (Auto) (0.0-0.4) X10*3/uL Baso # (Auto) (0.0-0.2) X10*3/uL Abs Immat Gran (auto) (0.00-0.03) X10*3/uL Absolute Neuts (auto) (2.0-8.3) x10*3/uL Absolute Nucleated RBC (0.0-0.012) X10*3/uL Nucleated RBC % (auto) (0.0-0.2) /100WBC Sodium (135-145) mmol/L Potassium (3.3-5.1) mmol/L Chloride (96-108) mmol/L Carbon Dioxide (22-29) mmol/L Anion Gap (12-20) BUN (9-16) mg/dL Creatinine (0.5-1.4) mg/dL Estim Creat Clear Calc Estimated GFR POC Glucose 153 H (60-115) mg/dL Random Glucose (60-115) mg/dL Lactic Acid (0.5-2.0) mmol/L Calcium (8.4-10.2) mg/dL Urine Color Urine Appearance Urine pH (5.0-9.0) Ur Specific [place] (1.005-1.025) Urine Protein (Neg-Trace) mg/dL Urine Glucose (UA) (Negative) mg/dL Urine Ketones (Negative) mg/dL Urine Blood (Negative) Urine Nitrite (Negative) Ur Leukocyte Esterase (Negative) Urine RBC (0-2) /HPF Urine WBC (0-5) /HPF Ur Squamous Epith Cells (0-2) /HPF Urine Bacteria (None Seen) Hyaline Casts (0-2) /LPF COVID-19 ([facility]) (Negative) COVID-19 Clin Com Influenza Type A (PCR) Influenza Type B (PCR) RSV RNA Qual (PCR) SARS-CoV-2 RNA (RT-PCR) <Yasmeen Hernandez NP - Last Filed: 11/06/22 01:04> Independent Interpretation I performed an independent interpretation of an: CT Scan <Yasmeen Hernandez NP - Last Filed: 11/06/22 01:04> Radiology Impression Discussion of test interpretation with radiology: I have reviewed the radiologist's reading. <Yasmeen Hernandez NP - Last Filed: 11/06/22 01:04> Radiologist Impression: EXAMINATION: CT ABDOMEN AND PELVIS WITHOUT CONTRAST? CLINICAL INFORMATION: CVA tenderness, UTI? COMPARISON: CT abdomen and pelvis 03/29/2017? TECHNIQUE: Multidetector volumetric imaging was performed from the superior aspect of the liver through the pubic symphysis. Sagittal and coronal reformatted images were obtained on the technologist's workstation.? This CT examination was performed using dose optimization techniques as appropriate, variously including the following: *Automated exposure control *Adjustment of mA and/or kV according to patient size (this includes techniques or standardized protocols for targeted exams where dose is matched to indication/reason for exam; i.e. extremities or head) *Use of iterative reconstruction technique DLP: 465 mGy-cm FINDINGS: LUNG BASES: Mild left basilar scarring, unchanged.? LIVER, GALLBLADDER, AND BILIARY TREE: 1.7 cm low-density cyst in the posterior segment right liver lobe, unchanged. Unchanged small subcentimeter hypodense probable cyst in the caudate adjacent to the IVC. A few tiny calcified granulomas are seen in the liver. No intrahepatic biliary ductal dilation. Status post cholecystectomy. The extrahepatic bile duct measures up to 0.9 cm in diameter, within normal limits.? PANCREAS: Unremarkable.? SPLEEN: Normal size. Multiple calcified splenic granulomas.? ADRENAL GLANDS: 0.9 cm left adrenal nodule with attenuation base of 12 Hounsfield units unchanged since 2017, likely benign adenoma. Normal right adrenal gland.? KIDNEYS AND URETERS: Ptotic malrotated right pelvic kidney. No radiodense urinary tract calculi or hydronephrosis. Minimal nonspecific perinephric fat stranding bilaterally. No perinephric fluid collection. ? BLADDER: Unremarkable.? GASTROINTESTINAL TRACT: No dilated bowel loops. No bowel wall thickening. No free air or ascites. Normal appendix.? ABDOMINAL WALL: No significant hernia is appreciated.? LYMPH NODES: No lymphadenopathy. VASCULAR: Normal caliber abdominal aorta. Mild vascular calcifications. PELVIC VISCERA: Gynecologic structures are grossly unremarkable limited assessment.? OSSEOUS STRUCTURES: No acute fracture or suspicious osseous lesion.? CT/CT abdomen pelvis wo IV con IMPRESSION: 1.? No radiodense urinary tract calculi or hydronephrosis. 2.? No acute intra-abdominal process identified. Cannot exclude pyelonephritis on the basis of noncontrast CT. 3.? Additional findings, as described. ? <Yasmeen Hernandez NP - Last Filed: 11/06/22 01:04> External Record Review External record reviewed: Inpatient record and Other (Outside inpatient record from [facility]) <Yasmeen Hernandez NP - Last Filed: 11/06/22 01:04> Discharge Plan Discharge Clinical Impression: Acute pyelonephritis, Acute UTI, Acute conjunctivitis of left eye <HOME Murdock - Last Filed: 11/05/22 16:25> Patient Disposition: Admitted As Inpatient <HOME Murdock - Last Filed: 11/05/22 16:25>
[2022-11-05 16:55] LABS: MANUAL DIFF FLAG NO
[2022-11-05 16:58] LABS: Basophils Percent Auto 0.3 % (0-2); Eosinophils Percent Auto 0.2 % (0-4); Hematocrit 45.9 % (37.0-47.0); Hemoglobin 14.8 g/dl (12.0-16.0); Imm Gran Abs Auto 0.07 X10*3/uL (0.00-0.03); Imm Gran Pct Auto 0.7 % (0.0-0.4); Lymphocytes Absolute Auto 2.4 X10*3/uL (1.2-4.9); Lymphocytes Percent Auto 22.3 % (20-40); Mean Corpuscular HGB Conc 32.2 g/dl (31.0-35.0); Mean Corpuscular Hemoglobin 28.4 pg (27.0-33.0); Mean Corpuscular Volume 88.1 fL (80.0-98.0); Mean Platelet Volume 10.5 fL (9.4-12.3); Monocytes Absolute Auto 0.8 X10*3/uL (0.1-1.2); Monocytes Percent Auto 7.6 % (2-11); Neutrophils Absolute Auto 7.4 x10*3/uL (2.0-8.3); Neutrophils Percent Auto 68.9 % (45-73); Platelet Count 317 X10*3/uL (160-400); Red Blood Count 5.21 X10*6/uL (4.20-5.50); White Blood Count 10.7 X10*3/uL (4.8-10.8)
[2022-11-05 17:10] LABS: Anion Gap 12 (12-20); Blood Urea Nitrogen 16 mg/dL (9-16); Calcium 10.1 mg/dL (8.4-10.2); Carbon Dioxide 28 mmol/L (22-29); Chloride 103 mmol/L (96-108); Creatinine Clr Calc Pharmacy 48.9; Estimated Glomerular Filt Rate > 60; Glucose Random 216 mg/dL (60-115); Potassium 4.5 mmol/L (3.3-5.1); Sodium 138 mmol/L (135-145)
[2022-11-05] MEDS: Albuterol/Iprat 2.5/0.5MG 3 ML AMPUL.NEB INHALE (18:17)
[2022-11-05 18:18] VITALS: PULSE 84; RESP 18; O2SAT 97
[2022-11-05 18:44] VITALS: BP 135/68; PULSE 77
[2022-11-05 19:16] LABS: COVID-19 Test Negative (Negative); IDNOW Serial# 16C4AD1C
[2022-11-05] MEDS: Fluconazole 150 MG TABLET PO (19:16)
[2022-11-05] MEDS: cefTRIAXone sodium 1 GM in 0.9 % Sodium Chloride 50 ML IV (19:16)
--- NOTE | 2022-11-05 19:20 | PC.NURSE ---
this rn assumed care of pt at 1900. pt at CT at this time. 2nd set of blood cultures drawn and sent down to the lab. pt medicated according to mar
[2022-11-05 19:45] VITALS: BP 147/71; PULSE 75
[2022-11-05 19:50] LABS: Lactic Acid 1.6 mmol/L (0.5-2.0)
[2022-11-05 21:12] LABS: Glucose, Whole Blood 153 mg/dL (60-115)
[2022-11-05] MEDS: Erythromycin Base 0.5% Oph Oin 1 GM TUBE 1 CM EYE-LEFT (22:07)
--- NOTE | 2022-11-05 22:27 | PHA.MEDREC ---
Pharmacy Consult ? Medication Reconciliation Pharmacy has completed the medication reconciliation. There is a list in her chart from [facility] that is not accurate. Patient has a list with them and confirmed with daughter. The pt is no longer on jardiance Ulises
[2022-11-05 23:37] VITALS: BP 147/64; PULSE 75; TEMP 36.7; O2SAT 93
[2022-11-06] VITALS (9 sets, daily range): BP systolic 116–156; BP diastolic 58–75; PULSE 62–100; RESP 14–18; TEMP 36.5–37.1; O2SAT 92–97
[2022-11-06] MEDS: 0.9 % Sodium Chloride Flush 3 ML SYRINGE IVFLUSH ×2 (00:30→08:05)
[2022-11-06] MEDS: Enoxaparin Sodium 40 MG/0.4 ML SYRINGE SUBCUT (00:30)
[2022-11-06] MEDS: Lactated Ringers 1,000 ML 100 ML IVCONT ×3 (00:31→21:33)
--- NOTE | 2022-11-06 02:29 | PC.NURSE ---
pt sleeping comfortably on stretcher at this time. RR 16 nonlabored
[2022-11-06 02:31] LABS: IDNOW Serial# BCCEAD1C; Influenza A Negative (Negative); Influenza B2 Negative (Negative)
--- NOTE | 2022-11-06 05:17 | PC.NURSE ---
pt reports discomfort with frequency of cough. pt wondering if anything could be ordered for cough. this rn tiger texted dr ray regarding this inquiry by pt. awaiting orders at this time
[2022-11-06] MEDS: Albuterol Sulfate 90 MCG 8 GM INHALER 2 PUFF INHALE (05:21)
[2022-11-06] MEDS: Benzonatate 100 MG CAPSULE PO (05:21)
--- NOTE | 2022-11-06 05:36 | PC.NURSE ---
albuterol inhaler given to pt @ 0521. ordered to be started @ 0505. this rn called pharmacist regarding order saying to still give 0600 dose. per pharmacy since pt got @ 0521 document against 0600 dose. this rn read back pharmacists instructions. instructions once again confirmed with pharmacist.
--- NOTE | 2022-11-06 05:45 | PM.IMHP ---
History of Present Illness Date of Service: 11/05/22 Chief Complaint: urinary symptoms 77-year-old female with past medical history of asthma, hypertension presents to the hospital with complaints of urinary symptoms including dysuria, and frequency. Patient reports her symptoms are 4 days ago. Reports recent admission to [facility] for influenza, and was discharged home on steroids but no antibiotics. Patient denies any fever, no chill, no chest pain, no abdominal pain nausea or vomiting, no diarrhea or constipation, no lower extremity edema. No numbness tingling or weakness. On arrival to the ED patient hemodynamically stable with no significant abnormal vitals Labs are significant for WBC count of 10.6, hemoglobin of 14.8, hematocrit 45.9, labs otherwise unremarkable, UA positive for leukocyte Estrace and WBC No no radiodense renal tract calculi or hydronephrosis, no acute intra-abdominal process identified, cannot exclude pyelonephritis given noncontrast CT Review of Systems Review of Systems: Yes all other systems are reviewed and are negative [facility] Medical History Asthma Hypertension Family History Other Asthma Esophageal cancer Social History Household Members: None Housing: Apartment Alcohol intake: unknown Patient Tobacco Use Status: Never used Tobacco Smoked in Last 30 Days: No Use of substances other than those prescribed or required for medical reasons: No Advance Directives: Yes Advance Directives on File: Yes Advance Directives Date on File: 06/12/22 service: No Current occupational status: retired Meds Allergies Allergy/AdvReac Type Severity Reaction Status Date / Time acetaminophen [Percocet] Allergy Unknown Unknown Verified 06/11/22 17:55 azithromycin Allergy Unknown Verified 06/11/22 17:55 ciprofloxacin [From Cipro] Allergy Unknown Verified 06/11/22 17:55 metronidazole [From Flagyl] Allergy Unknown Verified 06/11/22 17:55 doxycycline AdvReac Intermediate vaginal Verified 06/12/22 01:43 swelling oxycodone [From Percocet] AdvReac Mild NAUSEA Verified 06/11/22 17:55 percocet Allergy Unknown n/v Uncoded 03/16/13 00:00 Active Medications: Current Medications Albuterol Sulfate (Albuterol Sulfate 90 Mcg 8 Gm Inhaler) 2 puff INHALE 6XD [facility] Last Admin: 11/06/22 05:39 Dose: Not Given Albuterol/Ipratropium (Albuterol/Iprat 2.5/0.5mg 3 Ml Ampul.Neb) 3 ml INHALE QID PRN PRN Reason: wheezing Amlodipine Besylate (Amlodipine Besylate 10 Mg Tablet) 10 mg PO DAILY [facility]; Protocol Atorvastatin Calcium (Atorvastatin Calcium 10 Mg Tablet) 10 mg PO BEDTIME [facility] Benzonatate (Benzonatate 100 Mg Capsule) 100 mg PO Q8H PRN PRN Reason: Cough Docusate Sodium (Docusate Sodium 100 Mg Capsule) 100 mg PO DAILY PRN PRN Reason: Constipation Enoxaparin Sodium (Enoxaparin Sodium 40 Mg/0.4 Ml Syringe) 40 mg SUBCUT Q24H [facility] Last Admin: 11/06/22 00:30 Dose: 40 mg Fluticasone/Vilanterol (Fluticasone/Vilanterol 200/25 Blst.W.Dev) 1 puff INHALE DAILY [facility] Hydrocortisone (Hydrocortisone 1 % Cream 28.35 Gm Tube) 1 appl TOPICAL TID PRN PRN Reason: Rash Ceftriaxone Sodium 1 gm/ (Sodium Chloride) 50 mls @ 100 mls/hr IV Q24H [facility] Lactated Ringer's (Lr) 1,000 mls @ 100 mls/hr IVCONT .Q10H [facility] Last Admin: 11/06/22 00:31 Dose: 100 mls/hr Lisinopril (Lisinopril 40 Mg Tablet) 40 mg PO DAILY [facility]; Protocol Multivitamins/Vitamin C (Multivitamin Tablet) 1 tab PO DAILY [facility] Ondansetron HCl (Ondansetron Hcl 4 Mg/2 Ml Vial) 4 mg IVPUSH Q8H PRN PRN Reason: Nausea and Vomiting Oxybutynin Chloride (Oxybutynin Chloride Er 5 Mg Tab.Er.24) 10 mg PO DAILY [facility] Sitagliptin Phosphate (Sitagliptin Phosphate 100 Mg Tablet) 100 mg PO DAILY [facility] Sodium Chloride (0.9 % Sodium Chloride Flush 3 Ml Syringe) 3 ml IVFLUSH QSHIFT [facility] Last Admin: 11/06/22 00:30 Dose: 3 ml Vitamin D (Cholecalciferol (Vitamin D3) 25 Mcg Tablet) 50 mcg PO DAILY [facility] Home Medications Medication Instructions Recorded Confirmed Last Taken Type acetaminophen 650 mg 1 tab PO Q8H PRN Pain (Scale Score 03/27/22 11/05/22 11/05/22 History tablet,extended release (Mapap 1-3) Arthritis Pain) cholecalciferol (vitamin D3) 50 50 mcg PO DAILY 03/27/22 11/05/22 11/05/22 History mcg (2,000 unit) tablet (Vitamin D3) ipratropium 0.5 mg-albuterol 3 mg 3 ml inhalation QID PRN wheezing 03/27/22 11/05/22 11/05/22 History (2.5 mg base)/3 mL nebulization soln lisinopril 40 mg tablet 1 tab PO DAILY 03/27/22 11/05/22 11/05/22 History multivit with 1 tab PO DAILY 03/27/22 11/05/22 11/05/22 History hjkxfaab-nyst-YX-lutein 8 mg iron-400 mcg-300 mcg tablet (Multivitamin Women 50 Plus) oxybutynin chloride 10 mg 1 tab PO DAILY 03/27/22 11/05/22 11/05/22 History tablet,extended release 24 hr simvastatin 10 mg tablet 1 tab PO BEDTIME 03/27/22 11/05/22 11/05/22 History sitagliptin phosphate 100 mg 1 tab PO DAILY 03/27/22 11/05/22 11/05/22 History tablet (Januvia) albuterol sulfate 90 mcg/actuation 2 puff inhalation Q4-6H PRN 06/12/22 11/05/22 Unknown History aerosol inhaler shortness of breath or wheezing fluticasone propionate 230 2 puff inhalation BID 06/12/22 11/05/22 11/05/22 History mcg-salmeterol 21 mcg/actuation HFA inhaler (Advair HFA) amlodipine 10 mg tablet 1 tab PO DAILY 11/05/22 11/05/22 11/05/22 History hydrocortisone 0.5 % topical cream 1 appl topical TID PRN Rash 11/05/22 11/05/22 11/05/22 History Physical Exam Vital Signs and Narrative: Vital Signs: Last Vital Signs Temp 98.1 F 11/06/22 04:05 Pulse 62 12/28/22 04:05 Resp 18 11/05/22 18:18 BP 156/75 H 11/06/22 04:05 Pulse Ox 95 11/06/22 04:05 O2 Del Method 11/06/22 04:05 BMI result Body Mass Index 24.1 Const: General: cooperative and no acute distress Orientation/consciousness: patient oriented x3 HEENT: Other: Left eye conjunctivitis Eyes: General: appearance normal, both eyes and all related structures Resp: Effort & Inspection: normal respiratory effort Auscultation: clear to auscultation bilaterally Cardio: Rate: regular rate Rhythm: regular rhythm GI: Palpation (GI): Soft to palpation Auscultation: normal bowel sounds : Other: Left CVA tenderness Skin: General skin exam: no rashes or lesions noted Neuro: General: patient oriented x3 Cognition (Neuro): normal cognition Extrem: General: Yes normal to inspection and Yes no pedal edema Results Labs CBC and Chem 7: 11/05/22 16:51 11/05/22 16:51 Labs: Laboratory Results - last 24 hr 11/05/22 11/05/22 11/05/22 14:01 16:51 16:51 MCV 88.1 MCH 28.4 MCHC 32.2 RDW 13.0 Plt Count 317 MPV 10.5 Immature Gran % (Auto) 0.7 H Neut % (Auto) 68.9 Lymph % (Auto) 22.3 [place] % (Auto) 7.6 Eos % (Auto) 0.2 Baso % (Auto) 0.3 Lymph # (Auto) 2.4 [place] # (Auto) 0.8 Eos # (Auto) 0.0 Baso # (Auto) 0.0 Abs Immat Gran (auto) 0.07 H Absolute Neuts (auto) 7.4 Absolute Nucleated RBC 0.000 Nucleated RBC % (auto) 0.0 Anion Gap 12 Estim Creat Clear Calc 48.9 Estimated GFR > 60 POC Glucose Random Glucose 216 H Lactic Acid Calcium 10.1 D Urine Color Yellow Urine Appearance Clear Urine pH 5.0 Ur Specific [place] 1.010 Urine Protein Negative Urine Glucose (UA) Negative Urine Ketones Negative Urine Blood Negative Urine Nitrite Negative Ur Leukocyte Esterase Moderate (2+) H Urine RBC 6-10 H Urine WBC 21-50 H Ur Squamous Epith Cells 3-5 Urine Bacteria None Seen Hyaline Casts 3-5 COVID-19 ([facility]) COVID-19 Clin Com Influenza Type A (ANEL) Influenza Type A (PCR) Influenza Type B (ANEL) Influenza Type B (PCR) Influenza A & B Note RSV RNA Qual (PCR) SARS-CoV-2 RNA (RT-PCR) 11/05/22 11/05/22 11/05/22 18:39 18:39 18:39 MCV MCH MCHC RDW Plt Count MPV Immature Gran % (Auto) Neut % (Auto) Lymph % (Auto) [place] % (Auto) Eos % (Auto) Baso % (Auto) Lymph # (Auto) [place] # (Auto) Eos # (Auto) Baso # (Auto) Abs Immat Gran (auto) Absolute Neuts (auto) Absolute Nucleated RBC Nucleated RBC % (auto) Anion Gap Estim Creat Clear Calc Estimated GFR POC Glucose Random Glucose Lactic Acid 1.6 Calcium Urine Color Urine Appearance Urine pH Ur Specific [place] Urine Protein Urine Glucose (UA) Urine Ketones Urine Blood Urine Nitrite Ur Leukocyte Esterase Urine RBC Urine WBC Ur Squamous Epith Cells Urine Bacteria Hyaline Casts COVID-19 ([facility]) Negative COVID-19 Clin Com See Note Influenza Type A (ANEL) Influenza Type A (PCR) Cancelled Influenza Type B (ANEL) Influenza Type B (PCR) Cancelled Influenza A & B Note RSV RNA Qual (PCR) Cancelled SARS-CoV-2 RNA (RT-PCR) Cancelled 11/05/22 11/06/22 21:09 01:31 MCV MCH MCHC RDW Plt Count MPV Immature Gran % (Auto) Neut % (Auto) Lymph % (Auto) [place] % (Auto) Eos % (Auto) Baso % (Auto) Lymph # (Auto) [place] # (Auto) Eos # (Auto) Baso # (Auto) Abs Immat Gran (auto) Absolute Neuts (auto) Absolute Nucleated RBC Nucleated RBC % (auto) Anion Gap Estim Creat Clear Calc Estimated GFR POC Glucose 153 H Random Glucose Lactic Acid Calcium Urine Color Urine Appearance Urine pH Ur Specific [place] Urine Protein Urine Glucose (UA) Urine Ketones Urine Blood Urine Nitrite Ur Leukocyte Esterase Urine RBC Urine WBC Ur Squamous Epith Cells Urine Bacteria Hyaline Casts COVID-19 ([facility]) COVID-19 Clin Com Influenza Type A (ANEL) Negative Influenza Type A (PCR) Influenza Type B (ANEL) Negative Influenza Type B (PCR) Influenza A & B Note See Note RSV RNA Qual (PCR) SARS-CoV-2 RNA (RT-PCR) Imaging Radiologist's Impressions: Impressions Chest X-Ray 11/05/22 16:36 IMPRESSION: No acute pulmonary process. Abdomen/Pelvis CT 11/05/22 19:13 IMPRESSION: 1. No radiodense urinary tract calculi or hydronephrosis. 2. No acute intra-abdominal process identified. Cannot exclude pyelonephritis on the basis of noncontrast CT. 3. Additional findings, as described. Assessment and Plan (1) Acute pyelonephritis: Status: Acute (2) Acute UTI: Status: Acute (3) Acute conjunctivitis of left eye: Status: Acute Plan 77-year-old female with past medical history of hypertension and asthma presents to the hospital with complaints of urinary symptoms found to have UTI and pyelonephritis # acute pyelonephritis/UTI - had significant CVA tenderness, positive UA, urinary symptoms - no leukocytosis, afebrile - will treat with IV antibiotics, follow cultures # acute conjunctivitis of left eye - erythromycin ointment # hypertension - stable - continue antihypertensives # asthma - continue inhalers, DVT prophylaxis: Early ambulation Given patient's need for IV antibiotics for pyelonephritis patient required minimum 2 night inpatient hospital stay Time Spent With Patient Time: Total time managing care of this patient today ____ minutes. Quality Stroke Does the patient have a stroke diagnosis?: No VTE Prior VTE?: No VTE Risk Level:: Medical - moderate - high VTE Device Contraindication: Treatment Not Indicated VTE Drug Contraindication: N/A - Med Ordered
[2022-11-06 07:04] LABS: MANUAL DIFF FLAG NO
[2022-11-06 07:05] LABS: Basophils Percent Auto 0.5 % (0-2); Eosinophils Percent Auto 0.5 % (0-4); Hematocrit 42.8 % (37.0-47.0); Hemoglobin 13.7 g/dl (12.0-16.0); Imm Gran Abs Auto 0.06 X10*3/uL (0.00-0.03); Imm Gran Pct Auto 0.8 % (0.0-0.4); Lymphocytes Absolute Auto 1.9 X10*3/uL (1.2-4.9); Lymphocytes Percent Auto 23.6 % (20-40); Mean Corpuscular Hemoglobin 28.7 pg (27.0-33.0); Mean Corpuscular Volume 89.7 fL (80.0-98.0); Mean Platelet Volume 10.8 fL (9.4-12.3); Monocytes Absolute Auto 0.8 X10*3/uL (0.1-1.2); Monocytes Percent Auto 10.2 % (2-11); Neutrophils Absolute Auto 5.1 x10*3/uL (2.0-8.3); Neutrophils Percent Auto 64.4 % (45-73); Platelet Count 288 X10*3/uL (160-400); Red Blood Count 4.77 X10*6/uL (4.20-5.50); Red Cell Distribution Width 12.9 % (11.0-16.0); White Blood Count 7.9 X10*3/uL (4.8-10.8)
[2022-11-06 07:27] LABS: Anion Gap 13 (12-20); Blood Urea Nitrogen 13 mg/dL (9-16); Calcium 9.9 mg/dL (8.4-10.2); Carbon Dioxide 29 mmol/L (22-29); Chloride 104 mmol/L (96-108); Creatinine Clr Calc Pharmacy 53.1; Estimated Glomerular Filt Rate > 60; Glucose Random 140 mg/dL (60-115); Potassium 4.8 mmol/L (3.3-5.1); Sodium 141 mmol/L (135-145)
--- NOTE | 2022-11-06 08:00 | PC.NURSE ---
patient a/ox4 . katierla . heart rate regular at 78 beats per minute . breathing even and unlabored . non productive cough . fine crackles noted throughout . skin pink warm and dry . abdomen soft . non tender . positive bowel sounds in all four quadrants . patient ambulates to the bathroom by self . patient is positive for flu remains on precautions . patient is aware of plan of care for admission.
[2022-11-06] MEDS: Erythromycin Base 0.5% Oph Oin 1 GM TUBE 1 CM EYE-LEFT (08:04)
[2022-11-06] MEDS: lisinopriL 40 MG TABLET PO (08:18)
[2022-11-06] MEDS: Multivitamin TABLET 1 TAB PO (08:18)
[2022-11-06] MEDS: Cholecalciferol (Vitamin D3) 25 MCG TABLET 50 MCG PO (08:18)
[2022-11-06] MEDS: amLODIPine Besylate 10 MG TABLET PO (08:20)
--- NOTE | 2022-11-06 09:58 | P.PNIM_ITS ---
Subjective Subjective Date of Service: 11/06/22 Interval History: Seen in follow-up for acute pyelonephritis Interval history: Patient admitted overnight. Reprots dysuria, vulvar irritati on, stress incontinence due to cough. Had the flu admitted to [facility] for hypoxia 4 weeks ago. Since then continues with wheezing, shortness of breath, pleuritic chest pain, occassionally productive cough. Was also treated for 3 days with prednisone 40mg without improvement in symptoms. Tolerating PO. No n/v, abd pain, flank pain. Review of Systems General: No fevers, malaise, unintentional weight loss Cardiovascular: No chest pain, palpitations, or leg edema Respiratory: +sob, +cough, +wheezing GI: No abdominal pain, nausea, vomiting, diarrhea : +dysuria, +stress incontinence. No hematuria, decreased urinary output MSK: No flank pain, myalgia, back pain Neuro: No headaches, weakness, paresthesias Skin: No rashes or lesions Physical Exam Vital Signs: Vital Signs: Last Vital Signs Temp 98.0 F 11/06/22 07:41 Pulse 76 11/06/22 07:41 Resp 14 11/06/22 07:41 BP 145/58 H 11/06/22 07:41 Pulse Ox 93 11/06/22 07:41 O2 Del Method 11/06/22 07:41 BMI result Body Mass Index 24.1 Constitutional - Awake and Alert, No apparent distress Eyes - PERRLA, EOMI Cardiovascular - S1S2, RRR, No edema Respiratory - Normal lung expansion, Normal respiratory effort, No respiratory distress, harsh cough, expiratory wheezing bilaterall, no coarse lung sounds Gastrointestinal - NT / ND; +BS; No rebound or guarding - No CVA tenderness Extremities - no calf tenderness bilaterally, no swelling Skin - Warm/Dry Neurological - Alert & oriented x3 Psychological - Appropriate affect Objective Data Active Medications Albuterol Sulfate (Albuterol Sulfate 90 Mcg 8 Gm Inhaler) 2 puff INHALE 6XD [facility] Last Admin: 11/06/22 08:03 Dose: Not Given Documented By: LINDA Non-Admin Reason: pt unavail Albuterol/Ipratropium (Albuterol/Iprat 2.5/0.5mg 3 Ml Ampul.Neb) 3 ml INHALE RQID [facility] Amlodipine Besylate (Amlodipine Besylate 10 Mg Tablet) 10 mg PO DAILY [facility]; Protocol Last Admin: 11/06/22 08:20 Dose: 10 mg Documented By: CHRISTOPHER Atorvastatin Calcium (Atorvastatin Calcium 10 Mg Tablet) 10 mg PO BEDTIME [facility] Benzonatate (Benzonatate 100 Mg Capsule) 100 mg PO Q8H PRN PRN Reason: Cough Docusate Sodium (Docusate Sodium 100 Mg Capsule) 100 mg PO DAILY PRN PRN Reason: Constipation Enoxaparin Sodium (Enoxaparin Sodium 40 Mg/0.4 Ml Syringe) 40 mg SUBCUT Q24H [facility] Last Admin: 11/06/22 00:30 Dose: 40 mg Documented By: JONATAN Erythromycin (Erythromycin Base 0.5% Oph Oin 1 Gm Tube) 1 cm EYE-LEFT QID [facility] Last Admin: 11/06/22 08:04 Dose: 1 cm Documented By: CHRISTOPHER Fluticasone/Vilanterol (Fluticasone/Vilanterol 200/25 Blst.W.Dev) 1 puff INHALE DAILY [facility] Guaifenesin/Codeine Phosphate (Guaifen/Codeine Sf 200/20/10ml 10 Ml Liquid) 5 ml PO Q4H [facility] Hydrocortisone (Hydrocortisone 1 % Cream 28.35 Gm Tube) 1 appl TOPICAL TID PRN PRN Reason: Rash Ceftriaxone Sodium 1 gm/ (Sodium Chloride) 50 mls @ 100 mls/hr IV Q24H [facility] Lactated Ringer's (Lr) 1,000 mls @ 100 mls/hr IVCONT .Q10H [facility] Last Admin: 11/06/22 00:31 Dose: 100 mls/hr Documented By: JONATAN Lisinopril (Lisinopril 40 Mg Tablet) 40 mg PO DAILY [facility]; Protocol Last Admin: 11/06/22 08:18 Dose: 40 mg Documented By: CHRISTOPHER Methylprednisolone Sodium Succinate (Methylprednisolone Sod Succ 40 Mg/Ml Vial) 40 mg IVPUSH Q12H [facility] Multivitamins/Vitamin C (Multivitamin Tablet) 1 tab PO DAILY [facility] Last Admin: 11/06/22 08:18 Dose: 1 tab Documented By: CHRISTOPHER Ondansetron HCl (Ondansetron Hcl 4 Mg/2 Ml Vial) 4 mg IVPUSH Q8H PRN PRN Reason: Nausea and Vomiting Oxybutynin Chloride (Oxybutynin Chloride Er 5 Mg Tab.Er.24) 10 mg PO DAILY [facility] Last Admin: 11/06/22 08:18 Dose: 10 mg Documented By: CHRISTOPHER Sitagliptin Phosphate (Sitagliptin Phosphate 100 Mg Tablet) 100 mg PO DAILY [facility] Sodium Chloride (0.9 % Sodium Chloride Flush 3 Ml Syringe) 3 ml IVFLUSH QSHIFT [facility] Last Admin: 11/06/22 08:05 Dose: 3 ml Documented By: CHRISTOPHER Vitamin D (Cholecalciferol (Vitamin D3) 25 Mcg Tablet) 50 mcg PO DAILY [facility] Last Admin: 11/06/22 08:18 Dose: 50 mcg Documented By: CHRISTOPHER Labs CBC & Chem 7: 11/06/22 06:47 11/06/22 06:47 Labs: Laboratory Results - last 24 hr 11/05/22 11/05/22 11/05/22 14:01 16:51 16:51 MCV 88.1 MCH 28.4 MCHC 32.2 RDW 13.0 Plt Count 317 MPV 10.5 Immature Gran % (Auto) 0.7 H Neut % (Auto) 68.9 Lymph % (Auto) 22.3 Perkins % (Auto) 7.6 Eos % (Auto) 0.2 Baso % (Auto) 0.3 Lymph # (Auto) 2.4 Perkins # (Auto) 0.8 Eos # (Auto) 0.0 Baso # (Auto) 0.0 Abs Immat Gran (auto) 0.07 H Absolute Neuts (auto) 7.4 Absolute Nucleated RBC 0.000 Nucleated RBC % (auto) 0.0 Anion Gap 12 Estim Creat Clear Calc 48.9 Estimated GFR > 60 POC Glucose Random Glucose 216 H Lactic Acid Calcium 10.1 D Urine Color Yellow Urine Appearance Clear Urine pH 5.0 Ur Specific Osborn 1.010 Urine Protein Negative Urine Glucose (UA) Negative Urine Ketones Negative Urine Blood Negative Urine Nitrite Negative Ur Leukocyte Esterase Moderate (2+) H Urine RBC 6-10 H Urine WBC 21-50 H Ur Squamous Epith Cells 3-5 Urine Bacteria None Seen Hyaline Casts 3-5 COVID-19 (SENAIT) COVID-19 Clin Com Influenza Type A (ANEL) Influenza Type A (PCR) Influenza Type B (ANEL) Influenza Type B (PCR) Influenza A & B Note RSV RNA Qual (PCR) SARS-CoV-2 RNA (RT-PCR) 11/05/22 11/05/22 11/05/22 18:39 18:39 18:39 MCV MCH MCHC RDW Plt Count MPV Immature Gran % (Auto) Neut % (Auto) Lymph % (Auto) Perkins % (Auto) Eos % (Auto) Baso % (Auto) Lymph # (Auto) Perkins # (Auto) Eos # (Auto) Baso # (Auto) Abs Immat Gran (auto) Absolute Neuts (auto) Absolute Nucleated RBC Nucleated RBC % (auto) Anion Gap Estim Creat Clear Calc Estimated GFR POC Glucose Random Glucose Lactic Acid 1.6 Calcium Urine Color Urine Appearance Urine pH Ur Specific Osborn Urine Protein Urine Glucose (UA) Urine Ketones Urine Blood Urine Nitrite Ur Leukocyte Esterase Urine RBC Urine WBC Ur Squamous Epith Cells Urine Bacteria Hyaline Casts COVID-19 (SENAIT) Negative COVID-19 Clin Com See Note Influenza Type A (ANEL) Influenza Type A (PCR) Cancelled Influenza Type B (ANEL) Influenza Type B (PCR) Cancelled Influenza A & B Note RSV RNA Qual (PCR) Cancelled SARS-CoV-2 RNA (RT-PCR) Cancelled 11/05/22 11/06/22 11/06/22 21:09 01:31 06:47 MCV 89.7 MCH 28.7 MCHC 32.0 RDW 12.9 Plt Count 288 MPV 10.8 Immature Gran % (Auto) 0.8 H Neut % (Auto) 64.4 Lymph % (Auto) 23.6 Perkins % (Auto) 10.2 Eos % (Auto) 0.5 Baso % (Auto) 0.5 Lymph # (Auto) 1.9 Perkins # (Auto) 0.8 Eos # (Auto) 0.0 Baso # (Auto) 0.0 Abs Immat Gran (auto) 0.06 H Absolute Neuts (auto) 5.1 Absolute Nucleated RBC 0.000 Nucleated RBC % (auto) 0.0 Anion Gap Estim Creat Clear Calc Estimated GFR POC Glucose 153 H Random Glucose Lactic Acid Calcium Urine Color Urine Appearance Urine pH Ur Specific Osborn Urine Protein Urine Glucose (UA) Urine Ketones Urine Blood Urine Nitrite Ur Leukocyte Esterase Urine RBC Urine WBC Ur Squamous Epith Cells Urine Bacteria Hyaline Casts COVID-19 (SENAIT) COVID-19 Clin Com Influenza Type A (ANEL) Negative Influenza Type A (PCR) Influenza Type B (ANEL) Negative Influenza Type B (PCR) Influenza A & B Note See Note RSV RNA Qual (PCR) SARS-CoV-2 RNA (RT-PCR) 11/06/22 06:47 MCV MCH MCHC RDW Plt Count MPV Immature Gran % (Auto) Neut % (Auto) Lymph % (Auto) Perkins % (Auto) Eos % (Auto) Baso % (Auto) Lymph # (Auto) Perkins # (Auto) Eos # (Auto) Baso # (Auto) Abs Immat Gran (auto) Absolute Neuts (auto) Absolute Nucleated RBC Nucleated RBC % (auto) Anion Gap 13 Estim Creat Clear Calc 53.1 Estimated GFR > 60 POC Glucose Random Glucose 140 H Lactic Acid Calcium 9.9 Urine Color Urine Appearance Urine pH Ur Specific Osborn Urine Protein Urine Glucose (UA) Urine Ketones Urine Blood Urine Nitrite Ur Leukocyte Esterase Urine RBC Urine WBC Ur Squamous Epith Cells Urine Bacteria Hyaline Casts COVID-19 (SENAIT) COVID-19 Clin Com Influenza Type A (ANEL) Influenza Type A (PCR) Influenza Type B (ANEL) Influenza Type B (PCR) Influenza A & B Note RSV RNA Qual (PCR) SARS-CoV-2 RNA (RT-PCR) Microbiology Microbiology Results: Microbiology 11/05/22 00:00 Urine Culture - Preliminary Urine clean catch - Urine coronado top Gram negative yisel Assessment and Plan (1) Acute pyelonephritis: Status: Acute (2) Acute UTI: Status: Acute (3) Asthma exacerbation: Status: Acute Plan 77-year-old female with past medical history of hypertension and asthma presents to the hospital with complaints of urinary symptoms found to have UTI and pyelonephritis # acute pyelonephritis/UTI - had significant CVA tenderness, positive UA, urinary symptoms - no leukocytosis, afebrile - will treat with IV antibiotics, follow cultures #Acute postviral bronchitis- failed outpt treatment with PO steroids -Influenza 4 weeks ago admitted to [facility] for hypoxia -Duonebs q4h -Albuterol q3h prn -solumedrol 40mg BID -Robitussin VICKY and karlos armendariz # 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 Early ambulation Pt requires ongoing inpt stay pyelonephritis on IV abx and acute asthma exacerbation/bronchitis requiring IV steroids and nebulizer tx having failed outpt therapy with PO steroids. Quality Stroke Does the patient have a stroke diagnosis?: No VTE Prior VTE?: No VTE Risk Level:: Medical - moderate - high VTE Device Contraindication: Treatment Not Indicated VTE Drug Contraindication: N/A - Med Ordered
--- NOTE | 2022-11-06 09:59 | PC.NURSE ---
Report given to Lupis CALDERA on floor patient ready for transport . patient aware of plan of care .
[2022-11-06] MEDS: guaiFEN/Codeine SF 200/20/10ML 10 ML LIQUID 5 ML PO ×4 (10:54→21:33)
[2022-11-06] MEDS: methylPREDNISolone Sod Succ 40 MG/ML VIAL IVPUSH ×2 (10:55→21:34)
[2022-11-06] MEDS: Albuterol/Iprat 2.5/0.5MG 3 ML AMPUL.NEB INHALE ×3 (11:25→20:04)
[2022-11-06 15:37] LABS: Glucose, Whole Blood 361 mg/dL (60-115)
[2022-11-06] MEDS: Insulin Lispro 100 UNIT/ML 3 ML VIAL SUBCUT ×2 (16:38→21:35)
[2022-11-06] MEDS: cefTRIAXone sodium 1 GM in 0.9 % Sodium Chloride 50 ML IV (18:08)
[2022-11-06 19:30] LABS: Glucose, Whole Blood 297 mg/dL (60-115)
[2022-11-06] MEDS: Atorvastatin Calcium 10 MG TABLET PO (21:34)
[2022-11-07] MEDS: Enoxaparin Sodium 40 MG/0.4 ML SYRINGE SUBCUT (00:25)
[2022-11-07] MEDS: guaiFEN/Codeine SF 200/20/10ML 10 ML LIQUID 5 ML PO ×3 (02:22→11:46)
[2022-11-07 03:45] VITALS: BP 121/67; PULSE 87; RESP 20; TEMP 37.1; O2SAT 96
[2022-11-07] MEDS: Lactated Ringers 1,000 ML 100 ML IVCONT (06:38)
[2022-11-07 07:43] VITALS: BP 147/79; PULSE 91; RESP 18; TEMP 36.6; O2SAT 95
[2022-11-07 07:50] LABS: Glucose, Whole Blood 283 mg/dL (60-115)
[2022-11-07] MEDS: Multivitamin TABLET 1 TAB PO (08:14)
[2022-11-07] MEDS: amLODIPine Besylate 10 MG TABLET PO (08:14)
[2022-11-07] MEDS: Insulin Lispro 100 UNIT/ML 3 ML VIAL SUBCUT ×3 (08:14→13:00)
[2022-11-07] MEDS: lisinopriL 40 MG TABLET PO (08:14)
[2022-11-07] MEDS: Cholecalciferol (Vitamin D3) 25 MCG TABLET 50 MCG PO (08:15)
[2022-11-07] MEDS: 0.9 % Sodium Chloride Flush 3 ML SYRINGE IVFLUSH (08:15)
[2022-11-07] MEDS: SITagliptin Phosphate 100 MG TABLET PO (08:15)
--- NOTE | 2022-11-07 08:37 | P.CDIC_ITS ---
CDI Concurrent Query Documentation Clarification: PHYSICIAN'S DOCUMENTATION REQUEST Date of Query: 11/07/22 0838 Patient Name: Jovita Hooper Admit Date: 11/05/22 Dear Doctor, A review of the medical record indicates additional documentation may be needed. Please review below and update the documentation accordingly. Clinical Indicators: Is there a diagnosis that correlates with these lab findings: Risk Factors/Clinical Indicators/Treatments POC Glucose - 361 H 297 H No PMH of Diabetes Insulin Based on the above, could you clarify in the Progress Notes the appropriate diagnosis, if significant, that supports the above abnormalities and additional evaluation, monitoring, and/or treatment rendered: * Hyperglycemia or other etiology of lab findings * Labs indicate a diagnosis of (please specify) * Other (please specify) * Unable to determine Use of terms such as suspected, likely, concern for, or probable (associated with a specific diagnosis that is being evaluated, monitored, or treated as if it exists) are acceptable and can be coded in the inpatient setting, when documented at the time of discharge. Thank you, Kia London [facility], CDIS Extension: [phone] Please use your independent medical judgment in providing your response. THIS QUERY IS PART OF THE PERMANENT MEDICAL RECORD Provider Response: Other Other Diagnosis: Type II diabetes with hyperglycemia
[2022-11-07 08:40] VITALS: PULSE 94; RESP 17; O2SAT 96
[2022-11-07] MEDS: Albuterol/Iprat 2.5/0.5MG 3 ML AMPUL.NEB INHALE ×3 (08:40→15:47)
--- NOTE | 2022-11-07 10:02 | MHC.CM.PN ---
IMM 11/06/22, CM MET W/PT VIA COLORED LIQUID PLASTIC APPLIER, PT REPORTS SHE LIVES ALONE, IS INDEPENDENT W/CARE, HAS A CANE/WALKER AND REPORTS SHE DOESN'T USE THEM, PT ALSO REPORTS HER DTR ASSISTS HER W/NEEDS AND BRING HER SHOPPING/TO APPTS, PT HAS A NURSE CM W/CCA AND PT IS OPEN TO [facility] SERVICES IF RECOMMENDED. PT VERIFIES PCP YENI DAN, ROGERID VACC X2 AND HCP VERIFIED AND ON FILE FROM PREVIOUS ADMIT.
[2022-11-07 11:12] LABS: Glucose, Whole Blood 352 mg/dL (60-115)
[2022-11-07] MEDS: methylPREDNISolone Sod Succ 40 MG/ML VIAL IVPUSH (11:45)
[2022-11-07 12:11] VITALS: PULSE 88; RESP 17; O2SAT 97
[2022-11-07 12:45] LABS: Glucose, Whole Blood 378 mg/dL (60-115)
--- NOTE | 2022-11-07 13:14 | PM.DS ---
DS: Providers Provider Date of Service: 11/07/22 Date of admission: 11/05/22 23:59 Date of discharge: 11/07/22 Primary care physician: Lindsey Horton MD Attending physician on admission: Kamilah Martinez Attending physician on discharge: Pipo Russell Discharging clinician: Juanis Hinton DS: Diagnosis Discharge Diagnosis (1) Acute pyelonephritis: Status: Acute (2) Acute UTI: Status: Acute (3) Asthma exacerbation: Status: Acute DS: Summary Hospital Course Hospital Course: HPI on admission by Dr. Martinez 11/05/22: 77-year-old female with past medical history of asthma, hypertension presents to the hospital with complaints of urinary symptoms including dysuria, and frequency.? Patient reports her symptoms are 4 days ago.? Reports recent admission to [facility] for influenza, and was discharged home on steroids but no antibiotics.? Patient denies any fever, no chill, no chest pain, no abdominal pain nausea or vomiting, no diarrhea or constipation, no lower extremity edema.? No numbness tingling or weakness.? On arrival to the ED patient hemodynamically stable with no significant abnormal vitals Labs are significant for WBC count of 10.6, hemoglobin of 14.8, hematocrit 45.9, labs otherwise unremarkable, UA positive for leukocyte Estrace and WBC No no radiodense renal tract calculi or hydronephrosis, no acute intra-abdominal process identified, cannot exclude pyelonephritis given noncontrast CT Hospital Course: Patient admitted for acute complicated UTI, pyelonephritis cannot be excluded. She was afebrile without any leukocytosis on admission. CT scan with questionable mild fat stranding but no definitive pyelonephritis. Treated with ceftriaxone with urine culture growing E coli sensitive to ceftriaxone. She was also noted to be wheezing with cough with negative chest x-ray. Thought to be related to post viral asthmatic bronchitis following influenza infection. She was treated with IV Solu-Medrol with marked increase in glucose levels. She was treated with insulin correction scale. She responded well to IV steroids, DuoNebs and symptomatic management with guaifenesin. Vital signs remained stable throughout admission. She did not develop any leukocytosis. Renal function electrolyte levels normal. She will be discharged with cefuroxime 500 mg twice daily x7 days. She will also transition to prednisone 40 mg daily x4 days and continue albuterol inhaler as needed along with maintenance medications. She is discharged with short course humalog on sliding scale to manage hyperglycemia related to steroid use and instructed on insulin use and her daughter will assist with insulin administration. Advised to use TID with meals after checking glucose. Follow up with PCP soon. Status at Discharge Functional status at discharge: independent ambulation Overall status at discharge: patient is progressing back to baseline Time Spent with Patient Discharge coordination time: Greater than 30 minutes Quality: Safe Use of Opioids Does Pt have an Active Cancer Diagnosis on the Problem List?: No Quality: Stroke Does the patient have a stroke diagnosis?: No Physical Exam Vital Signs: Vital Signs: Last Vital Signs Temp 97.8 F 11/07/22 07:43 Pulse 88 11/07/22 12:11 Resp 17 11/07/22 12:11 BP 147/79 H 11/07/22 07:43 Pulse Ox 95 11/07/22 07:43 O2 Del Method 11/07/22 07:43 BMI result Body Mass Index 24.1 Constitutional - Awake and Alert, No apparent distress Eyes - PERRLA, EOMI Cardiovascular - S1S2, RRR, No edema Respiratory - Normal lung expansion, Normal respiratory effort, No respiratory distress, CTA bilaterally Gastrointestinal - NT / ND; +BS; No rebound or guarding Extremities - no calf tenderness bilaterally, no swelling Skin - Warm/Dry Neurological - Alert & oriented x3, 5/5 strength BUE and BLE Psychological - Appropriate affect DS: Data Data Completed and Pending Labs on day of discharge: Laboratory Results - last 24 hr 11/06/22 11/06/22 11/07/22 15:32 18:56 07:46 POC Glucose 361 H* 297 H 283 H 11/07/22 11/07/22 11:07 12:41 POC Glucose 352 H* 378 H* Preliminary micro results at discharge 11/05/22 19:14 Blood Culture - Preliminary Blood - Venous No growth after 24 hours. 11/05/22 18:39 Blood Culture - Preliminary Blood - Venous No growth after 24 hours. Discharge Plan Discharge Anticipated Discharge Date/Time: 11/07/22 11:23 Patient Disposition: Home, Self-Care Discharge Diagnosis: Complicated UTI, Asthma exacerbation Referrals: Lindsey Lucas MD [Primary Care Provider] - 1 Week Discharge Medications: New insulin lispro [Humalog KwikPen Insulin] 100 unit/mL insulin pen 1 sliding scale dose subcut USEASDIRECTD Qty: 15 0RF Rx Instructions: Test glucose and use insulin per below until you follow up with PCP 0 units <150 2 units 151-200 4 units 201-250 6 units 251-300 8 units 301-350 10 units if >350, call (ZEE) pen needle, diabetic [Pen Needle] 31 gauge x 3/16 needle See Rx Instructions .Route Qty: 50 0RF Rx Instructions: As directed prednisone 20 mg tablet 40 mg PO DAILY Qty: 8 0RF benzonatate 100 mg capsule 100 mg PO TID PRN (Reason: cough) Qty: 21 0RF guaifenesin 200 mg/5 mL liquid 400 mg PO Q6H PRN (Reason: cough) Qty: 118 0RF cefuroxime axetil 500 mg tablet 500 mg PO BID Qty: 14 0RF Continued ipratropium-albuterol 0.5 mg-3 mg(2.5 mg base)/3 mL solution for nebulization 3 ml inhalation QID PRN (Reason: wheezing) oxybutynin chloride 10 mg tablet extended release 24 hr 1 tab PO DAILY simvastatin 10 mg tablet 1 tab PO BEDTIME acetaminophen [Mapap Arthritis Pain] 650 mg tablet extended release 1 tab PO Q8H PRN (Reason: Pain (Scale Score 1-3)) lisinopril 40 mg tablet 1 tab PO DAILY Januvia 100 mg tablet 1 tab PO DAILY cholecalciferol (vitamin D3) [Vitamin D3] 50 mcg (2,000 unit) Tablet 50 mcg PO DAILY Multivitamin Women 50 Plus 8 mg iron-400 mcg-300 mcg Tablet 1 tab PO DAILY albuterol sulfate 90 mcg/actuation HFA aerosol inhaler 2 puff inhalation Q4-6H PRN (Reason: shortness of breath or wheezing) Advair HFA 230-21 mcg/actuation Hfa Aerosol Inhaler 2 puff INHALATION BID hydrocortisone 0.5 % cream 1 appl topical TID PRN (Reason: Rash) amlodipine 10 mg tablet 1 tab PO DAILY Discharge Orders: Discharge Order (Routine); Ordered 11/07/22 Ordered By: Juanis Hinton Diet: Diabetic diet Activity on Discharge: As tolerated Stand Alone Forms: Patient Portal Discharge page Care Plan Goals: Treat asthma exacerbation/bronchitis Continue antibiotics to treat urinary tract infection Health Concerns: Complicated UTI/pyelonephritis Acute asthmatic bronchitis exacerbation Plan of Treatment: Complicated UTI/pyelonephritis -You tested positive for a UTI and cat scan of your abdomen showed a possible kidney infection -You were treated with IV cefrtriaxone x 2 days. You should complete 14 more doses of cefuroxime 500mg BID. Take with food and eat yogurt to prevent yeast infections. You were given 1 dose diflucan 150mg in the hospital to treat yeast infection. If you still have symptoms of vaginal itch/irritation can take another dose -Follow up with PCP soon Asthma/Bronchitis -You were treated with IV steroids in the hospital with improvement in symptoms. Take 40mg prednisone for 4 days starting tomorrow morning -You can use and on Tessalon Perles and guaifenesin as needed for cough -use albuterol as needed for shortness of breath and wheezing Type 2 diabetes -your glucose levels have been elevated in the hospital secondary to steroid use. For short-term, please administer insulin with meals after checking sugars. Continue Januvia -Humalog use: Check glucose three times daily before meals and at bedtime. Administer insulin per sliding scale below after checking glucose If <150- no insulin 151-200- 2 units 201-250- 4 units 251-299- 6 units 301-350- 8units 351-400- 10 units, call PCP Assessment: As above Patient Instructions: Insulin Lispro (By injection), Non-diabetic Hypoglycemia (DC), How to Give an Insulin Injection (GEN) Discharge Date/Time: 11/07/22 16:18
--- NOTE | 2022-11-07 14:21 | MHC.CM.PN ---
PT MEDICALLY CLEARED FOR D/C HOME NO SERVICES, PT TO ARRANGE TRANSPORT
[2022-11-07 15:10] VITALS: BP 125/59; PULSE 106; RESP 18; TEMP 36.5; O2SAT 94
[2022-11-07 15:48] VITALS: PULSE 106; RESP 18; O2SAT 94
== END 2022-11-07 16:18 | disposition home or self-care (01) | DRG 690 ==
LOC: HO.ED 21:25 → HO.EDOVER 11-06 00:11 → HO.S3 11-06 05:31
PROVIDERS: Nurse Practitioner Family; Physician Assistant; Admitting Provider Internal Medicine; Emergency Provider Internal Medicine; PCP Internal Medicine; Visit Provider Physician Assistant
DX: N10 Acute pyelonephritis (principal); J45.41 Moderate persistent asthma with (acute) exacerbation; I10 Essential (primary) hypertension; J20.9 Acute bronchitis, unspecified; H10.32 Unspecified acute conjunctivitis, left eye; E11.65 Type 2 diabetes mellitus with hyperglycemia; Z85.840 Personal history of malignant neoplasm of eye; Z20.822 Contact with and (suspected) exposure to COVID-19; Z88.1 Allergy status to other antibiotic agents; Z88.5 Allergy status to narcotic agent; Z88.6 Allergy status to analgesic agent; Z87.891 Personal history of nicotine dependence; Z79.4 Long term (current) use of insulin; Z79.899 Other long term (current) drug therapy
CPT/HCPCS: 36415; 71045; 74176; 80048; 81001; 82947; 83605; 85025; 87040; 87086; 87088; 87186; 87502; 87635; 94640; 97161; 99285; J0696; J1650; J2920

== ENCOUNTER 2022-11-10 13:15 | Emergency (ER) | payer OTHER, SELFPAY ==
--- NOTE | 2022-11-10 13:18 | ED.GENADULT ---
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 No fevers, chills, flank pain, abdominal pain, vomiting. Patient reports some mild wheezing but no shortness of breath, chest pain or fever. Patient is taking prednisone and her last dose is tomorrow. She tells me that her blood sugars have been elevated but she has been adjusting her insulin doses accordingly. She is taking the cefuroxime as prescribed <Marcia Madison NP - Last Filed: 11/10/22 14:19> Related Data Home medications: Home Medications Medication Instructions Recorded Confirmed acetaminophen 650 mg 1 tab PO Q8H PRN Pain (Scale Score 03/27/22 11/05/22 tablet,extended release (Mapap 1-3) Arthritis Pain) cholecalciferol (vitamin D3) 50 50 mcg PO DAILY 03/27/22 11/05/22 mcg (2,000 unit) tablet (Vitamin D3) ipratropium 0.5 mg-albuterol 3 mg 3 ml inhalation QID PRN wheezing 03/27/22 11/05/22 (2.5 mg base)/3 mL nebulization soln lisinopril 40 mg tablet 1 tab PO DAILY 03/27/22 11/05/22 multivit with 1 tab PO DAILY 03/27/22 11/05/22 ruibnmix-bgik-CF-lutein 8 mg iron-400 mcg-300 mcg tablet (Multivitamin Women 50 Plus) oxybutynin chloride 10 mg 1 tab PO DAILY 03/27/22 11/05/22 tablet,extended release 24 hr simvastatin 10 mg tablet 1 tab PO BEDTIME 03/27/22 11/05/22 sitagliptin phosphate 100 mg 1 tab PO DAILY 03/27/22 11/05/22 tablet (Januvia) albuterol sulfate 90 mcg/actuation 2 puff inhalation Q4-6H PRN 06/12/22 11/05/22 aerosol inhaler shortness of breath or wheezing fluticasone propionate 230 2 puff inhalation BID 06/12/22 11/05/22 mcg-salmeterol 21 mcg/actuation HFA inhaler (Advair HFA) amlodipine 10 mg tablet 1 tab PO DAILY 11/05/22 11/05/22 hydrocortisone 0.5 % topical cream 1 appl topical TID PRN Rash 11/05/22 11/05/22 Previous Rx's Medication Instructions Recorded benzonatate 100 mg capsule 100 mg PO TID PRN cough #21 caps 11/07/22 cefuroxime axetil 500 mg tablet 500 mg PO BID #14 tabs 11/07/22 guaifenesin 200 mg/5 mL oral liquid 400 mg (10 mL) PO Q6H PRN cough 11/07/22 #118 mL insulin lispro 100 unit/mL 1 sliding scale dose subcut 11/07/22 subcutaneous pen (Humalog KwikPen USEASDIRECTD #15 mL (U-100) Insulin) pen needle, diabetic 31 gauge x #50 ea 11/07/22 3/16 (Pen Needle) prednisone 20 mg tablet 40 mg PO DAILY #8 tabs 11/07/22 fluconazole 150 mg tablet 150 mg PO Q3D 2 doses #2 tabs 11/10/22 (Diflucan) nystatin 100,000 unit/gram topical 1 appl topical BID #30 grams 11/10/22 powder <HOME Daugherty - Last Filed: 11/10/22 13:23> Allergies/adverse reactions: Allergies Allergy/AdvReac Type Severity Reaction Status Date / Time acetaminophen [Percocet] Allergy Unknown Unknown Verified 06/11/22 17:55 azithromycin Allergy Unknown Verified 06/11/22 17:55 ciprofloxacin [From Cipro] Allergy Unknown Verified 06/11/22 17:55 metronidazole [From Flagyl] Allergy Unknown Verified 06/11/22 17:55 doxycycline AdvReac Intermediate vaginal Verified 06/12/22 01:43 swelling oxycodone [From Percocet] AdvReac Mild NAUSEA Verified 06/11/22 17:55 percocet Allergy Unknown n/v Uncoded 03/16/13 00:00 <Jennifer Martell PA - Last Filed: 11/10/22 13:23> Review of Systems Review of Systems: Yes all other systems are reviewed and are negative <Marcia Madison NP - Last Filed: 11/10/22 14:19> Constitutional: Constitutional: Reports no additional constitutional complaints, Denies body ache(s), Denies chills, Denies fever(s), Denies headache(s) and Denies weakness <Marcia Madison NP - Last Filed: 11/10/22 14:19> Eyes: Eyes: Reports no additional eye complaints and Denies change in vision <Marcia Madison NP - Last Filed: 11/10/22 14:19> ENT: Reports system reviewed and no additional complaints, except as documented, Denies dizziness, Denies headache(s), Denies nasal congestion, Denies nasal discharge and Denies neck pain <Marcia Madison NP - Last Filed: 11/10/22 14:19> Cardiovascular: Cardiovascular: Reports no additional cardiovascular complaints, Denies chest pain, Denies leg edema and Denies dyspnea <Marcia Madison NP - Last Filed: 11/10/22 14:19> Respiratory: Respiratory: Reports no additional respiratory complaints, Denies cough and Denies dyspnea <Marcia Madison NP - Last Filed: 11/10/22 14:19> Gastrointestinal: Gastrointestinal: Reports no additional gastrointestinal complaints, Denies abdominal pain, Denies diarrhea, Denies nausea and Denies vomiting <Marcia Madison NP - Last Filed: 11/10/22 14:19> Genitourinary: Genitourinary: Reports no additional female genitourinary complaints, Reports dysuria, Denies urinary incontinence and Reports vaginal pruritus <Marcia Madison NP - Last Filed: 11/10/22 14:19> Musculoskeletal: Musculoskeletal: Reports no additional musculoskeletal complaints, Denies back pain, Denies arthralgias, Denies joint swelling, Denies neck pain, Denies numbness and Denies tingling <Marcia Madison NP - Last Filed: 11/10/22 14:19> Integumentary/Breasts: Skin/Breast: Reports system reviewed and no additional complaints, except as docu and Denies rash <Marcia Madison NP - Last Filed: 11/10/22 14:19> Neurologic: Reports system reviewed and no additional complaints, except as documented, Denies dizziness, Denies headache(s), Denies numbness, Denies tingling and Denies weakness <Marcia Madison NP - Last Filed: 11/10/22 14:19> PMFSH Past Medical History Attestation statement: The following information was validated with the patient. <Marcia Madison NP - Last Filed: 11/10/22 14:19> Source: old records reviewed and nursing notes reviewed <Marcia Madison NP - Last Filed: 11/10/22 14:19> Medical History: Medical History (Updated 11/10/22 @ 13:58 by Marcia Madison NP) Asthma Hypertension Type 2 diabetes mellitus <HOME Daugherty - Last Filed: 11/10/22 13:23> Family History Family History: Family History Other Asthma Esophageal cancer <HOME Daugherty - Last Filed: 11/10/22 13:23> Social History Social History: Social History Household Members: None Housing: Apartment Do you presently have visiting nurse or other home services: No Alcohol intake: never Patient Tobacco Use Status: Former Tobacco user Advance Directives: Yes Advance Directives on File: Yes Advance Directives Date on File: 06/12/22 service: No Current occupational status: retired <HOME Daugherty - Last Filed: 11/10/22 13:23> Physical Exam ED Vital Signs: Vital Signs - 24 hr 11/10/22 13:20 Temperature 97.3 F Pulse Rate 101 H Respiratory Rate 18 Blood Pressure 149/74 H Pulse Oximetry 94 Oxygen Delivery Method Room Air BMI result Body Mass Index 24.1 <HOME Daugherty - Last Filed: 11/10/22 13:23> Vital Signs - 24 hr 11/10/22 13:20 Temperature 97.3 F Pulse Rate 101 H Respiratory Rate 18 Blood Pressure 149/74 H Pulse Oximetry 94 Oxygen Delivery Method Room Air BMI result Body Mass Index 24.1 <Marcia Madison NP - Last Filed: 11/10/22 14:19> Const General: cooperative and healthy appearing <Marcia Madison NP - Last Filed: 11/10/22 14:19> Orientation/consciousness: patient oriented x3 <Marcia Madison NP - Last Filed: 11/10/22 14:19> Limitations: no limitations <Marcia Madison NP - Last Filed: 11/10/22 14:19> HENMT Head: Yes normal to inspection <Marcia Madison NP - Last Filed: 11/10/22 14:19> Ears: hearing grossly normal bilaterally <Marcia Madison NP - Last Filed: 11/10/22 14:19> Eyes General: appearance normal, both eyes and all related structures <Marcia Madison NP - Last Filed: 11/10/22 14:19> Pupils: Equal, round and reactive pupils present <Marcia Madison NP - Last Filed: 11/10/22 14:19> Neck Neck: Yes normal visual inspection <Marcia Madison NP - Last Filed: 11/10/22 14:19> Chest Chest palpation & inspection: normal inspection of the chest <Marcia Madison NP - Last Filed: 11/10/22 14:19> Resp Effort & Inspection: normal respiratory effort <Marcia Madison NP - Last Filed: 11/10/22 14:19> Auscultation: clear to auscultation bilaterally <Marcia Madison NP - Last Filed: 11/10/22 14:19> Cardio Rate: regular rate <Marcia Madison NP - Last Filed: 11/10/22 14:19> Rhythm: regular rhythm <Marcia Madison NP - Last Filed: 11/10/22 14:19> Peripheral pulses: Peripheral pulses 2+ throughout <Marcia Madison NP - Last Filed: 11/10/22 14:19> GI Inspection: Yes normal to inspection <Marcia Madison NP - Last Filed: 11/10/22 14:19> Palpation (GI): Soft to palpation and nontender <Marcia Madison NP - Last Filed: 11/10/22 14:19> 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 To the external labia majora labia minora there is erythema, swelling, excoriation with scant discharge and tenderness on palpation <Marcia Madison NP - Last Filed: 11/10/22 14:19> General: Yes no CVA tenderness <Marcia Madison NP - Last Filed: 11/10/22 14:19> Back/Spine/Pelvis Back: no CVA tenderness <Marcia Madison NP - Last Filed: 11/10/22 14:19> Neuro General: patient oriented x3 and moves all extremities <Marcia Madison NP - Last Filed: 11/10/22 14:19> Cranial nerves: Yes Equal, round and reactive pupils present <Marcia Madison NP - Last Filed: 11/10/22 14:19> Cognition (Neuro): normal cognition <Marcia Madison NP - Last Filed: 11/10/22 14:19> Course Course Course Narrative: RME performed by Jennifer Martell PA-C. Patient is a 77 year old female presenting to the emergency department with continued vaginal complaints. Patient states that she was just seen for this issue but she is still having complaints of discomfort. Patient denies any discharge. UA ordered. Patient placed in waiting room pending results and bed availability. <HOME Daugherty - Last Filed: 11/10/22 13:23> Medical Decision Making Medical Decision Making [facility] Narrative: 77-year-old female recently treated for bronchitis and pyelonephritis and is currently taking prednisone in several rock seem presents with 2 days of vaginal itching, vaginal pain and dysuria. Patient reports when she urinates and the urine hits her skin it is quite painful. On exam patient has excoriation, swelling, redness and tenderness to the labia majora/labia minora with scant discharge consistent with vaginitis. Likely secondary to recent antibiotic use, recent prednisone use, elevated blood sugars secondary to prednisone Patient to be treated with Diflucan and topical antifungal <Marcia Madison NP - Last Filed: 11/10/22 14:19> Differential Diagnosis Differential Diagnoses: The differential diagnosis associated with the presentation includes <Marcia Madison NP - Last Filed: 11/10/22 14:19> Vaginitis <Marcia Madison NP - Last Filed: 11/10/22 14:19> Lab Data [facility] Lab Attestation statement: I reviewed the patient's lab results. <Marcia Madison NP - Last Filed: 11/10/22 14:19> External Record Review External record reviewed: Inpatient record <Marcia Madison NP - Last Filed: 11/10/22 14:19> Reviewed records from recent admission with discharge on November 07 for pyelonephritis and bronchitis on cefuroxime and prednisone <Marcia Madison NP - Last Filed: 11/10/22 14:19> Discharge Plan Discharge Clinical Impression: Vaginitis <HOME Daugherty - Last Filed: 11/10/22 13:23> Patient Disposition: Home, Self-Care <HOME Daugherty - Last Filed: 11/10/22 13:23> Instructions: Yeast Infection (ED), Skin Yeast Infection (ED) <HOME Daugherty - Last Filed: 11/10/22 13:23> Additional Instructions: Continue the antibiotic Expect that the prednisone may cause elevated blood sugars so increase your insulin dose as needed Continuar el antibi?elizabeth Espere que la prednisona pueda causar niveles elevados de az?car en la mitchell, por lo tanto, aumente reis dosis de insulina seg?n sea necesario. <HOME Daugherty - Last Filed: 11/10/22 13:23> Prescriptions: New fluconazole [Diflucan] 150 mg tablet 150 mg PO Q3D Qty: 2 0RF Rx Instructions: may repeat second dose 72 hrs after first dose if symptoms persist nystatin 100,000 unit/gram powder 1 appl topical BID Qty: 30 0RF No Action ipratropium-albuterol 0.5 mg-3 mg(2.5 mg base)/3 mL solution for nebulization 3 ml inhalation QID PRN (Reason: wheezing) oxybutynin chloride 10 mg tablet extended release 24 hr 1 tab PO DAILY simvastatin 10 mg tablet 1 tab PO BEDTIME acetaminophen [Mapap Arthritis Pain] 650 mg tablet extended release 1 tab PO Q8H PRN (Reason: Pain (Scale Score 1-3)) lisinopril 40 mg tablet 1 tab PO DAILY Januvia 100 mg tablet 1 tab PO DAILY cholecalciferol (vitamin D3) [Vitamin D3] 50 mcg (2,000 unit) Tablet 50 mcg PO DAILY Multivitamin Women 50 Plus 8 mg iron-400 mcg-300 mcg Tablet 1 tab PO DAILY albuterol sulfate 90 mcg/actuation HFA aerosol inhaler 2 puff inhalation Q4-6H PRN (Reason: shortness of breath or wheezing) Advair HFA 230-21 mcg/actuation Hfa Aerosol Inhaler 2 puff INHALATION BID hydrocortisone 0.5 % cream 1 appl topical TID PRN (Reason: Rash) amlodipine 10 mg tablet 1 tab PO DAILY insulin lispro [Humalog KwikPen Insulin] 100 unit/mL insulin pen 1 sliding scale dose subcut USEASDIRECTD Qty: 15 0RF Rx Instructions: Test glucose and use insulin per below until you follow up with PCP 0 units <150 2 units 151-200 4 units 201-250 6 units 251-300 8 units 301-350 10 units if >350, call (ZEE) pen needle, diabetic [Pen Needle] 31 gauge x 3/16 needle See Rx Instructions .Route Qty: 50 0RF Rx Instructions: As directed prednisone 20 mg tablet 40 mg PO DAILY Qty: 8 0RF benzonatate 100 mg capsule 100 mg PO TID PRN (Reason: cough) Qty: 21 0RF guaifenesin 200 mg/5 mL liquid 400 mg PO Q6H PRN (Reason: cough) Qty: 118 0RF cefuroxime axetil 500 mg tablet 500 mg PO BID Qty: 14 0RF <HOME Daugherty - Last Filed: 11/10/22 13:23> Referrals: Lindsey Lucas MD [Primary Care Provider] - <HOME Daugherty - Last Filed: 11/10/22 13:23> Interventions: ED Discharge Assessment Last Done: 11/10/22 14:06 <HOME Daugherty - Last Filed: 11/10/22 13:23> Discharge Date/Time: 11/10/22 14:07 <HOME Daugherty - Last Filed: 11/10/22 13:23> Print Language: Tunisian <HOME Daugherty - Last Filed: 11/10/22 13:23>
[2022-11-10 13:20] VITALS: BP 149/74; PULSE 101; RESP 18; TEMP 36.3; O2SAT 94; BMI 24.1
[2022-11-10 14:20] LABS: Appearance Urine Clear; Color Urine Dark Yellow; Glucose Urine UA Negative (Negative); Leukocyte Esterase Urine Negative (Negative); Nitrite Urine Negative (Negative); PH 5.5 (5.0-9.0); Specific Gravity - Urine 1.015 (1.005-1.025); Urine Blood Negative (Negative); Urine Ketones Negative (Negative); Urine Protein Negative (Neg-Trace)
== END 2022-11-10 14:07 | disposition home or self-care (01) ==
PROVIDERS: Physician Assistant Medical; Emergency Provider Emergency Medicine; PCP Internal Medicine
DX: N76.0 Acute vaginitis (principal); Z79.899 Other long term (current) drug therapy
CPT/HCPCS: 81003; 99283

== ENCOUNTER 2023-02-05 20:59 | Inpatient (IN) | payer OTHER, SELFPAY ==
--- NOTE | ~2023-02-05 | XR_ITS ---
EXAMINATION: XR CHEST CLINICAL INFORMATION: Cough, shortness of breath, evaluate for pneumonia. COMPARISON: Chest radiograph 11/05/2022. TECHNIQUE: 2 views of the chest were obtained. FINDINGS: Unchanged cardiomediastinal silhouette. Again noted left axillary surgical clips. Increased subtle interstitial opacities in the right lower lung. No pleural effusion or pneumothorax. No acute osseous abnormalities. XR/XR chest 2V IMPRESSION: Increased subtle interstitial opacities in the right lower lung which could be related with aspiration or early infectious infiltrates.
[2023-02-05 21:07] VITALS: BP 112/64; PULSE 117; RESP 24; TEMP 36.7; O2SAT 91; BMI 23.8
--- NOTE | 2023-02-05 21:30 | ECG_ITS ---
Test Reason : DYSPNEA Blood Pressure : / mmHG Vent. Rate : 109 BPM Atrial Rate : 109 BPM P-R Int : 180 ms QRS Dur : 082 ms QT Int : 352 ms P-R-T Axes : 078 045 054 degrees QTc Int : 474 ms Sinus tachycardia Moderate voltage criteria for LVH, may be normal variant ( Sokolow-Del Rosario , Jamal product ) Borderline ECG When compared to the previous EKG of 21 dec 2007, increase in ventricular rate Referred By: Eleno Schumacher Electronically Signed By:DUNCAN BOWER
--- NOTE | 2023-02-05 21:32 | ED_ITS ---
HPI - SOB/Dyspnea General Chief Complaint: Dyspnea Stated Complaint: SOB, high fever, high insulin? cant stop coughing Time Seen by Provider: 02/05/23 21:21 Source: patient and family (Daughter, Xuan) Mode of arrival: ambulatory Limitations: language barrier (The patient's 1st language is Amharic but she does speak some Mosotho, patient deferred to her daughter for most answers to questions.) History of Present Illness HPI Narrative: 77-year-old female who presents emergency department for evaluation of shortness of breath, cough, fever, body aches. Information came from the patient and from the daughter. The patient has been sick for approximately 1 week. The patient has at a cough which is productive of small, thick, black sputum. Patient's cough is gotten progressively worse. Today at 18:20 hours the patient had a fever of 102.3 degrees which was [facility] Patient also appeared to be short of breath which concerned the daughter. The daughter states that the patient has also been complaining of body aches. Patient's glucose is been elevated in the 200-250 ranged in the daughter has given her subcutaneous insulin yesterday and today. The patient denied nausea, vomiting or diarrhea. She has had urinary frequency but denied dysuria. On presentation, the patient met sirs criteria with a pulse of 117, respiratory rate of 24. She also had a low O2 saturation of 91% on room air and on 2 L of improved to 98%. Sepsis protocol was activated. Related Data Home Medications Medication Instructions Recorded Confirmed acetaminophen 650 mg 1 tab PO Q8H PRN Pain (Scale Score 03/27/22 11/05/22 tablet,extended release (Mapap 1-3) Arthritis Pain) cholecalciferol (vitamin D3) 50 50 mcg PO DAILY 03/27/22 11/05/22 mcg (2,000 unit) tablet (Vitamin D3) ipratropium 0.5 mg-albuterol 3 mg 3 ml inhalation QID PRN wheezing 03/27/22 11/05/22 (2.5 mg base)/3 mL nebulization soln lisinopril 40 mg tablet 1 tab PO DAILY 03/27/22 11/05/22 multivit with 1 tab PO DAILY 03/27/22 11/05/22 xjotylmf-ymrm-AC-lutein 8 mg iron-400 mcg-300 mcg tablet (Multivitamin Women 50 Plus) oxybutynin chloride 10 mg 1 tab PO DAILY 03/27/22 11/05/22 tablet,extended release 24 hr simvastatin 10 mg tablet 1 tab PO BEDTIME 03/27/22 11/05/22 sitagliptin phosphate 100 mg 1 tab PO DAILY 03/27/22 11/05/22 tablet (Januvia) albuterol sulfate 90 mcg/actuation 2 puff inhalation Q4-6H PRN 06/12/22 11/05/22 aerosol inhaler shortness of breath or wheezing fluticasone propionate 230 2 puff inhalation BID 06/12/22 11/05/22 mcg-salmeterol 21 mcg/actuation HFA inhaler (Advair HFA) amlodipine 10 mg tablet 1 tab PO DAILY 11/05/22 11/05/22 hydrocortisone 0.5 % topical cream 1 appl topical TID PRN Rash 11/05/22 11/05/22 Previous Rx's Medication Instructions Recorded benzonatate 100 mg capsule 100 mg PO TID PRN cough #21 caps 11/07/22 cefuroxime axetil 500 mg tablet 500 mg PO BID #14 tabs 11/07/22 guaifenesin 200 mg/5 mL oral liquid 400 mg (10 mL) PO Q6H PRN cough 11/07/22 #118 mL insulin lispro 100 unit/mL 1 sliding scale dose subcut 11/07/22 subcutaneous pen (Humalog KwikPen USEASDIRECTD #15 mL (U-100) Insulin) pen needle, diabetic 31 gauge x #50 ea 11/07/22 3/16 (Pen Needle) prednisone 20 mg tablet 40 mg PO DAILY #8 tabs 11/07/22 fluconazole 150 mg tablet 150 mg PO Q3D 2 doses #2 tabs 11/10/22 (Diflucan) nystatin 100,000 unit/gram topical 1 appl topical BID #30 grams 11/10/22 powder Allergies Allergy/AdvReac Type Severity Reaction Status Date / Time acetaminophen [Percocet] Allergy Unknown Unknown Verified 06/11/22 17:55 azithromycin Allergy Unknown Verified 06/11/22 17:55 ciprofloxacin [From Cipro] Allergy Unknown Verified 06/11/22 17:55 metronidazole [From Flagyl] Allergy Unknown Verified 06/11/22 17:55 doxycycline AdvReac Intermediate vaginal Verified 06/12/22 01:43 swelling oxycodone [From Percocet] AdvReac Mild NAUSEA Verified 06/11/22 17:55 percocet Allergy Unknown n/v Uncoded 03/16/13 00:00 Review of Systems Review of Systems: Yes all other systems are reviewed and are negative [facility] Past Medical History [facility] Narrative: Past medical history: Reviewed below. Patient was hospitalized 11/06/2022 until 11/07/2022 for urinary tract infection secondary to E coli sensitive to ceftriaxone . Medical History Asthma Hypertension Type 2 diabetes mellitus Family History Family History Other Asthma Esophageal cancer Social History Social History Household Members: None Housing: Apartment Do you presently have visiting nurse or other home services: No Alcohol intake: never Patient Tobacco Use Status: Former Tobacco user Advance Directives: Yes Advance Directives on File: Yes Advance Directives Date on File: 06/12/22 service: No Current occupational status: retired Physical Exam Vital Signs: Vital Signs: Last Vital Signs Temp 97.5 F 02/05/23 22:30 Pulse 113 H 02/05/23 23:14 Resp 22 H 02/05/23 23:14 BP 135/60 02/05/23 23:14 Pulse Ox 98 02/05/23 23:14 O2 Del Method Nasal Cannula 02/05/23 23:14 O2 Flow Rate 2 02/05/23 23:14 BMI result Body Mass Index 23.8 Const: Other: Awake alert elderly female, appears to be in moderate respiratory distress secondary to her tachypnea Orientation/consciousness: oriented to person HEENT: Head: Yes normal to inspection, Yes normocephalic and Yes atraumatic Ears: external ears normal General nose exam: Normal external nose present Face and sinus: Yes normal facial exam Mouth: Normal oral and palatal mucosa present Throat: Yes posterior oropharynx normal Eyes: General: appearance normal, both eyes and all related structures Pupils: Equal, round and reactive pupils present Neck: Neck: Yes normal visual inspection, Yes no lymphadenopathy, Yes trachea midline and Yes supple Chest: Chest palpation & inspection: normal inspection of the chest and normal palpation of entire chest wall Resp: Other: Tachypneic, diffuse wheezing with rales at the bases and diffuse rhonchi Cardio: Rate: tachycardic Rhythm: regular rhythm Heart sounds: S1 normal heart sound present, S2 normal heart sound present and no murmurs GI: Inspection: Yes normal to inspection Palpation (GI): Soft to palpation, nontender and no guarding Auscultation: normal bowel sounds : General: Yes no CVA tenderness Back/Spine/Pelvis: Back: no CVA tenderness Skin: General skin exam: no rashes or lesions noted Neuro: General: oriented to person Cranial nerves: Yes CN's II-XII intact bilaterally and Yes Equal, round and reactive pupils present Cognition (Neuro): normal cognition Motor exam (neuro): 5/5 motor strength present throughout Extrem: General: Yes normal to inspection Psych: Appearance: grossly normal Speech and movement: Normal speech and movement present Affect: normal affect Attitude: cooperative Medications Administered Discontinued Medications Generic Name Dose Route Start Last Admin Trade Name Freq PRN Reason Stop Dose Admin Albuterol Sulfate 5 mg 02/05/23 21:31 02/05/23 22:15 Albuterol Sulfate (0.083%) 2.5 Mg/3 Ml Vial.Neb INHALE 02/05/23 21:32 5 mg ONCE ONE Administration Sodium Chloride 1,769.01 mls @ 1,769.01 mls/hr 02/05/23 21:29 02/05/23 22:23 Ns 30 ml/kg infuse over 1 hr (1769.01 ml) 02/05/23 22:28 1,769.01 mls/hr IV Administration .Q1H STA Piperacillin Sod/Tazobactam 100 mls @ 200 mls/hr 02/05/23 22:34 02/05/23 23:14 Sod 4.5 gm/ Sodium Chloride IV 02/05/23 23:03 200 mls/hr ONCE ONE Administration Medical Decision Making Medical Decision Making [facility] Narrative: 77-year-old female presents emergency department for evaluation of productive cough x1 week, shortness of breath, body aches and fever x1 day. Patient's vital signs for consistent with SIRS with a pulse of 117. Patient also has hypoxia with an O2 saturation of 91% on room air which improved to 98% on 2 L. The patient's lung exam revealed diffuse wheezing with rales at the bases and diffuse rhonchi. I ordered a CBC, CMP, PT/INR, PTT, proBNP, troponin, COVID-19, flu, urinalysis, blood cultures x2. Patient was treated with albuterol nebulizer 5 mg , 30 cc/kilogram normal saline bolus and oxygen 2 L via nasal cannula. My interpretation of patient's laboratory evaluation is as follows: Elevated WBC 60306, left shift 70 neutrophils with a Fuentes lymphocytes, elevated BUN 19. Elevated glucose 239. Elevated AST 36. Elevated alk phos 175. High sensitive troponin I was detectable but not elevated at 6.1. Lactic acid was normal 1.1. COVID-19 and influenza were negative. My interpretation of patient's chest x-rays as follows: Right lower lobe infiltrate. The patient improved after the above treatment. The patient's presentation is consistent with a right lower lobe pneumonia with bronchospasm. Her pneumonia was treated with Zosyn 4.5 g IV. The patient was discussed over tiger text with the covering hospitalist, Dr. Ward Consult Healthcare Provider Management of the patient was discussed with: Hospitalist Lab Data [facility] Lab Attestation statement: I reviewed the patient's lab results. See MDM 02/05/23 21:59 02/05/23 21:59 Labs: Lab Results 02/05/23 02/05/23 02/05/23 Range/Units 21:59 21:59 21:59 WBC 14.5 H (4.8-10.8) X10*3/uL RBC 4.30 (4.20-5.50) X10*6/uL Hgb 12.4 (12.0-16.0) g/dl Hct 37.2 (37.0-47.0) % MCV 86.5 (80.0-98.0) fL MCH 28.8 (27.0-33.0) pg MCHC 33.3 (31.0-35.0) g/dl RDW 13.1 (11.0-16.0) % Plt Count 246 (160-400) X10*3/uL MPV 10.8 (9.4-12.3) fL Immature Gran % (Auto) 0.4 (0.0-0.4) % Neut % (Auto) 78.0 H (45-73) % Lymph % (Auto) 11.1 L (20-40) % Isabella % (Auto) 9.9 (2-11) % Eos % (Auto) 0.3 (0-4) % Baso % (Auto) 0.3 (0-2) % Lymph # (Auto) 1.6 (1.2-4.9) X10*3/uL Isabella # (Auto) 1.4 H (0.1-1.2) X10*3/uL Eos # (Auto) 0.1 (0.0-0.4) X10*3/uL Baso # (Auto) 0.1 (0.0-0.2) X10*3/uL Abs Immat Gran (auto) 0.06 H (0.00-0.03) X10*3/uL Absolute Neuts (auto) 11.3 H (2.0-8.3) x10*3/uL Absolute Nucleated RBC 0.000 (0.0-0.012) X10*3/uL Nucleated RBC % (auto) 0.0 (0.0-0.2) /100WBC Sodium 137 (135-145) mmol/L Potassium 4.0 (3.3-5.1) mmol/L Chloride 103 (96-108) mmol/L Carbon Dioxide 19 L (22-29) mmol/L Anion Gap 19 (12-20) BUN 19 H (9-16) mg/dL Creatinine 1.13 (0.5-1.4) mg/dL Estim Creat Clear Calc 32.4 Estimated GFR 47 Random Glucose 239 H (60-115) mg/dL Lactic Acid (0.5-2.0) mmol/L Calcium 9.1 D (8.4-10.2) mg/dL Total Bilirubin 1.0 (0.0-1.0) mg/dL AST 28 (5-31) U/L ALT 36 H (0-31) U/L Alkaline Phosphatase 175 H (39-117) U/L Troponin I High Sens (<3.5-17.0) ng/L B-Natriuretic Peptide 18 (<100) pg/mL Total Protein 6.5 (6.5-8.0) g/dL Albumin 3.8 (3.5-5.0) g/dL Lipase 19 (8-78) U/L Urine Color Urine Appearance Urine pH (5.0-9.0) Ur Specific Baker (1.005-1.025) Urine Protein (Neg-Trace) mg/dL Urine Glucose (UA) (Negative) mg/dL Urine Ketones (Negative) mg/dL Urine Blood (Negative) Urine Nitrite (Negative) Ur Leukocyte Esterase (Negative) Urine RBC (0-2) /HPF Urine WBC (0-5) /HPF Ur Squamous Epith Cells (0-2) /HPF Urine Bacteria (None Seen) Hyaline Casts (0-2) /LPF COVID-19 (SENAIT) (Negative) COVID-19 Clin Com Influenza Type A (ANEL) (Negative) Influenza Type B (ANEL) (Negative) Influenza A & B Note 02/05/23 02/05/23 02/05/23 Range/Units 21:59 21:59 21:59 WBC (4.8-10.8) X10*3/uL RBC (4.20-5.50) X10*6/uL Hgb (12.0-16.0) g/dl Hct (37.0-47.0) % MCV (80.0-98.0) fL MCH (27.0-33.0) pg MCHC (31.0-35.0) g/dl RDW (11.0-16.0) % Plt Count (160-400) X10*3/uL MPV (9.4-12.3) fL Immature Gran % (Auto) (0.0-0.4) % Neut % (Auto) (45-73) % Lymph % (Auto) (20-40) % Isabella % (Auto) (2-11) % Eos % (Auto) (0-4) % Baso % (Auto) (0-2) % Lymph # (Auto) (1.2-4.9) X10*3/uL Isabella # (Auto) (0.1-1.2) X10*3/uL Eos # (Auto) (0.0-0.4) X10*3/uL Baso # (Auto) (0.0-0.2) X10*3/uL Abs Immat Gran (auto) (0.00-0.03) X10*3/uL Absolute Neuts (auto) (2.0-8.3) x10*3/uL Absolute Nucleated RBC (0.0-0.012) X10*3/uL Nucleated RBC % (auto) (0.0-0.2) /100WBC Sodium (135-145) mmol/L Potassium (3.3-5.1) mmol/L Chloride (96-108) mmol/L Carbon Dioxide (22-29) mmol/L Anion Gap (12-20) BUN (9-16) mg/dL Creatinine (0.5-1.4) mg/dL Estim Creat Clear Calc Estimated GFR Random Glucose (60-115) mg/dL Lactic Acid 1.1 (0.5-2.0) mmol/L Calcium (8.4-10.2) mg/dL Total Bilirubin (0.0-1.0) mg/dL AST (5-31) U/L ALT (0-31) U/L Alkaline Phosphatase (39-117) U/L Troponin I High Sens 6.8 (<3.5-17.0) ng/L B-Natriuretic Peptide (<100) pg/mL Total Protein (6.5-8.0) g/dL Albumin (3.5-5.0) g/dL Lipase (8-78) U/L Urine Color Urine Appearance Urine pH (5.0-9.0) Ur Specific Baker (1.005-1.025) Urine Protein (Neg-Trace) mg/dL Urine Glucose (UA) (Negative) mg/dL Urine Ketones (Negative) mg/dL Urine Blood (Negative) Urine Nitrite (Negative) Ur Leukocyte Esterase (Negative) Urine RBC (0-2) /HPF Urine WBC (0-5) /HPF Ur Squamous Epith Cells (0-2) /HPF Urine Bacteria (None Seen) Hyaline Casts (0-2) /LPF COVID-19 (SENAIT) Negative (Negative) COVID-19 Clin Com See Note Influenza Type A (ANEL) (Negative) Influenza Type B (ANEL) (Negative) Influenza A & B Note 02/05/23 02/05/23 Range/Units 21:59 22:00 WBC (4.8-10.8) X10*3/uL RBC (4.20-5.50) X10*6/uL Hgb (12.0-16.0) g/dl Hct (37.0-47.0) % MCV (80.0-98.0) fL MCH (27.0-33.0) pg MCHC (31.0-35.0) g/dl RDW (11.0-16.0) % Plt Count (160-400) X10*3/uL MPV (9.4-12.3) fL Immature Gran % (Auto) (0.0-0.4) % Neut % (Auto) (45-73) % Lymph % (Auto) (20-40) % Isabella % (Auto) (2-11) % Eos % (Auto) (0-4) % Baso % (Auto) (0-2) % Lymph # (Auto) (1.2-4.9) X10*3/uL Isabella # (Auto) (0.1-1.2) X10*3/uL Eos # (Auto) (0.0-0.4) X10*3/uL Baso # (Auto) (0.0-0.2) X10*3/uL Abs Immat Gran (auto) (0.00-0.03) X10*3/uL Absolute Neuts (auto) (2.0-8.3) x10*3/uL Absolute Nucleated RBC (0.0-0.012) X10*3/uL Nucleated RBC % (auto) (0.0-0.2) /100WBC Sodium (135-145) mmol/L Potassium (3.3-5.1) mmol/L Chloride (96-108) mmol/L Carbon Dioxide (22-29) mmol/L Anion Gap (12-20) BUN (9-16) mg/dL Creatinine (0.5-1.4) mg/dL Estim Creat Clear Calc Estimated GFR Random Glucose (60-115) mg/dL Lactic Acid (0.5-2.0) mmol/L Calcium (8.4-10.2) mg/dL Total Bilirubin (0.0-1.0) mg/dL AST (5-31) U/L ALT (0-31) U/L Alkaline Phosphatase (39-117) U/L Troponin I High Sens (<3.5-17.0) ng/L B-Natriuretic Peptide (<100) pg/mL Total Protein (6.5-8.0) g/dL Albumin (3.5-5.0) g/dL Lipase (8-78) U/L Urine Color Dark Yellow Urine Appearance Cloudy Urine pH 5.0 (5.0-9.0) Ur Specific Baker 1.020 (1.005-1.025) Urine Protein 100 (2+) H (Neg-Trace) mg/dL Urine Glucose (UA) Negative (Negative) mg/dL Urine Ketones Trace (Negative) mg/dL Urine Blood Negative (Negative) Urine Nitrite Negative (Negative) Ur Leukocyte Esterase Moderate (2+) H (Negative) Urine RBC 0-2 (0-2) /HPF Urine WBC 21-50 H (0-5) /HPF Ur Squamous Epith Cells 11-20 (0-2) /HPF Urine Bacteria None Seen (None Seen) Hyaline Casts 6-10 (0-2) /LPF COVID-19 (SENAIT) (Negative) COVID-19 Clin Com Influenza Type A (ANEL) Negative (Negative) Influenza Type B (ANEL) Negative (Negative) Influenza A & B Note See Note Independent Interpretation I performed an independent interpretation of an: Plain X-Ray Radiology Impression Discussion of test interpretation with radiology: I have reviewed the radiol ogist's reading. Radiologist Impression: XR chest 2V IMPRESSION: Increased subtle interstitial opacities in the right lower lung which could be related with aspiration or early infectious infiltrates. Dictated By:Maria Luz NicoleSigned By:<Electronically signed by Maria Luz Nicole in OV>02/05/23 [id number] Discharge Plan Discharge Prescriptions: No Action ipratropium-albuterol 0.5 mg-3 mg(2.5 mg base)/3 mL solution for nebulization 3 ml inhalation QID PRN (Reason: wheezing) oxybutynin chloride 10 mg tablet extended release 24 hr 1 tab PO DAILY simvastatin 10 mg tablet 1 tab PO BEDTIME acetaminophen [Mapap Arthritis Pain] 650 mg tablet extended release 1 tab PO Q8H PRN (Reason: Pain (Scale Score 1-3)) lisinopril 40 mg tablet 1 tab PO DAILY Januvia 100 mg tablet 1 tab PO DAILY cholecalciferol (vitamin D3) [Vitamin D3] 50 mcg (2,000 unit) Tablet 50 mcg PO DAILY Multivitamin Women 50 Plus 8 mg iron-400 mcg-300 mcg Tablet 1 tab PO DAILY albuterol sulfate 90 mcg/actuation HFA aerosol inhaler 2 puff inhalation Q4-6H PRN (Reason: shortness of breath or wheezing) Advair HFA 230-21 mcg/actuation Hfa Aerosol Inhaler 2 puff INHALATION BID hydrocortisone 0.5 % cream 1 appl topical TID PRN (Reason: Rash) amlodipine 10 mg tablet 1 tab PO DAILY insulin lispro [Humalog KwikPen Insulin] 100 unit/mL insulin pen 1 sliding scale dose subcut USEASDIRECTD Qty: 15 0RF Rx Instructions: Test glucose and use insulin per below until you follow up with PCP 0 units <150 2 units 151-200 4 units 201-250 6 units 251-300 8 units 301-350 10 units if >350, call MD (ZEE) pen needle, diabetic [Pen Needle] 31 gauge x 3/16 needle See Rx Instructions .Route Qty: 50 0RF Rx Instructions: As directed prednisone 20 mg tablet 40 mg PO DAILY Qty: 8 0RF benzonatate 100 mg capsule 100 mg PO TID PRN (Reason: cough) Qty: 21 0RF guaifenesin 200 mg/5 mL liquid 400 mg PO Q6H PRN (Reason: cough) Qty: 118 0RF cefuroxime axetil 500 mg tablet 500 mg PO BID Qty: 14 0RF fluconazole [Diflucan] 150 mg tablet 150 mg PO Q3D Qty: 2 0RF Rx Instructions: may repeat second dose 72 hrs after first dose if symptoms persist nystatin 100,000 unit/gram powder 1 appl topical BID Qty: 30 0RF
[2023-02-05 21:33] VITALS: BP 118/66; PULSE 109; RESP 24; TEMP 36.7; O2SAT 95
[2023-02-05 22:09] LABS: Basophils Absolute Auto 0.1 X10*3/uL (0.0-0.2); Basophils Percent Auto 0.3 % (0-2); Eosinophils Absolute Auto 0.1 X10*3/uL (0.0-0.4); Eosinophils Percent Auto 0.3 % (0-4); Hematocrit 37.2 % (37.0-47.0); Hemoglobin 12.4 g/dl (12.0-16.0); Imm Gran Abs Auto 0.06 X10*3/uL (0.00-0.03); Imm Gran Pct Auto 0.4 % (0.0-0.4); Lymphocytes Absolute Auto 1.6 X10*3/uL (1.2-4.9); Lymphocytes Percent Auto 11.1 % (20-40); MANUAL DIFF FLAG NO; Mean Corpuscular HGB Conc 33.3 g/dl (31.0-35.0); Mean Corpuscular Hemoglobin 28.8 pg (27.0-33.0); Mean Corpuscular Volume 86.5 fL (80.0-98.0); Mean Platelet Volume 10.8 fL (9.4-12.3); Monocytes Absolute Auto 1.4 X10*3/uL (0.1-1.2); Monocytes Percent Auto 9.9 % (2-11); Neutrophils Absolute Auto 11.3 x10*3/uL (2.0-8.3); Platelet Count 246 X10*3/uL (160-400); Red Cell Distribution Width 13.1 % (11.0-16.0); White Blood Count 14.5 X10*3/uL (4.8-10.8)
[2023-02-05 22:12] LABS: Appearance Urine Cloudy; Color Urine Dark Yellow; Glucose Urine UA Negative (Negative); Leukocyte Esterase Urine Moderate (2+) (Negative); Nitrite Urine Negative (Negative); UMIC TRIGGER UACC YES; Urine Blood Negative (Negative); Urine Ketones Trace mg/dL (Negative); Urine Protein 100 (2+) mg/dL (Neg-Trace)
[2023-02-05] MEDS: Albuterol Sulfate (0.083%) 2.5 MG/3 ML VIAL.NEB 5 MG INHALE (22:15)
[2023-02-05 22:17] VITALS: PULSE 103; RESP 24; O2SAT 95
[2023-02-05] MEDS: 0.9 % Sodium Chloride 1,769.01 ML 1769.01 ML IV (22:23)
[2023-02-05 22:25] LABS: Alanine Aminotransferase 36 U/L (0-31); Albumin Level 3.8 g/dL (3.5-5.0); Alkaline Phosphatase 175 U/L (39-117); Anion Gap 19 (12-20); Aspartate Amino Transferase 28 U/L (5-31); Blood Urea Nitrogen 19 mg/dL (9-16); Calcium 9.1 mg/dL (8.4-10.2); Carbon Dioxide 19 mmol/L (22-29); Chloride 103 mmol/L (96-108); Creatinine Clr Calc Pharmacy 32.4; Estimated Glomerular Filt Rate 47; Glucose Random 239 mg/dL (60-115); Lipase 19 U/L (8-78); Sodium 137 mmol/L (135-145); Total Protein 6.5 g/dL (6.5-8.0)
[2023-02-05 22:27] LABS: Lactic Acid 1.1 mmol/L (0.5-2.0)
[2023-02-05 22:29] LABS: COVID-19 Test Negative (Negative); IDNOW Serial# 6674DD1D
[2023-02-05 22:30] VITALS: BP 133/61; PULSE 111; RESP 17; TEMP 36.4; O2SAT 94
[2023-02-05 22:30] LABS: B Type Natriuretic Peptide 18 pg/mL (<100)
[2023-02-05 22:30] LABS: IDNOW Serial# 55D5AD1C; Influenza A Negative (Negative); Influenza B2 Negative (Negative)
[2023-02-05 22:32] LABS: Bacteria Urine None Seen (None Seen); RBC Urine 0-2 /HPF (0-2); Troponin-I High Sensitivity 6.8 ng/L (<3.5-17.0); UACC Culture Trigger YES; WBC Urine 21-50 /HPF (0-5)
[2023-02-05] MEDS: Piperacillin Sodium/Tazobactam 4.5 GM in 0.9 % Sodium Chloride 100 ML IV (23:04)
[2023-02-05 23:14] VITALS: BP 135/60; PULSE 113; RESP 22; O2SAT 98
[2023-02-05 23:24] LABS: INTERNATIONAL NORM RATIO 1.2 (0.9-1.1)
[2023-02-05 23:27] LABS: Partial Thromboplastin Time 29.5 SEC (26.0-36.4)
[2023-02-05 23:30] VITALS: BP 114/94; PULSE 110; RESP 20; TEMP 36.5; O2SAT 98
[2023-02-06] VITALS (13 sets, daily range): BP systolic 112–155; BP diastolic 48–83; PULSE 88–105; RESP 16–21; TEMP 36.2–37.1; O2SAT 95–100; BMI 23.8
--- NOTE | 2023-02-06 01:01 | PC.NURSE ---
Sepsis protocol was initiated on this pt by ER MD. At that time the patients' RN was assisting with another pt. Therefore I assisted and labs were obtained, IV access was obtained, and initial sepsis fluids initiated per MD orders. Pt with daughter at bedside remains alert, oriented x 3. She makes eye contact with staff and is calm and cooperative. She is primarily qatari speaking but understands some thai. Respirations are spontaneous and non-labored, RR 20: pt was administered Duoneb by RT and she took this without difficulty. Following the DuoNeb she ambulated to and from the bathroom independently and with steady gait. Upon return to bed 3 her room air sat's were 91%. 2L nasal cannula was given and her sat's improved to 95%. Pt is taking PO food and fluids without difficulty. Abx infusing per MD order/sepsis protocol. We will continue to monitor Jovita and prepare her of inpatient admisison.
--- NOTE | 2023-02-06 01:03 | P.HPHOSP_ITS ---
History of Present Illness Date of Service: 02/06/23 Chief Complaint: Dyspnea In this is a 77-year-old female with pertinent history of essential hypertension, zzi-timlwir-ghwhbkkor diabetes mellitus, mixed hyperlipidemia, urinary incontinence who presents to the emergency department for evaluation of cough, dyspnea, fevers/chills. Patient states with started about 1 week ago. The cough has been productive with yellowish blackish sputum. It is associated with fevers chills and dyspnea, worse with exertion. The illness has been progressive. Patient had a temperature of 102.3 degrees prior to coming to the ER. Also has associated lies and fatigability. No sick contacts. Patient denies palpitations, chest discomfort, abdominal pain, changes in urinary or bowel habits. In the emergency department, patient was found to be septic and imaging was concerning for pneumonia. Also requiring 2 L supplemental oxygen in the ER Review of Systems Constitutional: Constitutional: Reports body ache(s), Reports chills, Reports fatigue, Reports fever(s) and Reports malaise Cardiovascular: Cardiovascular: Reports dyspnea on exertion Respiratory: Respiratory: Reports cough and Reports dyspnea on exertion Gastrointestinal: Gastrointestinal: Reports no additional gastrointestinal complaints Genitourinary: Genitourinary: Reports no additional female genitourinary complaints Musculoskeletal: Musculoskeletal: Reports no additional musculoskeletal complaints Endocrine: Endocrine: Reports fatigue [facility] Medical History Asthma Hypertension Type 2 diabetes mellitus Family History Other Asthma Esophageal cancer Social History Household Members: None Housing: Apartment Do you presently have visiting nurse or other home services: No Alcohol intake: never Patient Tobacco Use Status: Former Tobacco user Advance Directives: Yes Advance Directives on File: Yes Advance Directives Date on File: 06/12/22 service: No Current occupational status: retired Meds Allergies Allergy/AdvReac Type Severity Reaction Status Date / Time acetaminophen [Percocet] Allergy Unknown Unknown Verified 06/11/22 17:55 azithromycin Allergy Unknown Verified 06/11/22 17:55 ciprofloxacin [From Cipro] Allergy Unknown Verified 06/11/22 17:55 metronidazole [From Flagyl] Allergy Unknown Verified 06/11/22 17:55 doxycycline AdvReac Intermediate vaginal Verified 06/12/22 01:43 swelling oxycodone [From Percocet] AdvReac Mild NAUSEA Verified 06/11/22 17:55 percocet Allergy Unknown n/v Uncoded 03/16/13 00:00 Active Medications: Current Medications Acetaminophen (Acetaminophen 325 Mg Tablet) 650 mg PO Q6H PRN PRN Reason: Pain, Mild (Pain Scale 1-3) Acetaminophen (Acetaminophen Supp 650 Mg Supp.Rect) 650 mg [place] Q6H PRN PRN Reason: Pain, Mild (Pain Scale 1-3) Enoxaparin Sodium (Enoxaparin Sodium 40 Mg/0.4 Ml Syringe) 40 mg SUBCUT Q24H ANISH Ondansetron HCl (Ondansetron Hcl 4 Mg/2 Ml Vial) 4 mg IVPUSH Q8H PRN PRN Reason: Nausea and Vomiting Sodium Chloride (0.9 % Sodium Chloride Flush 3 Ml Syringe) 3 ml IVFLUSH QSHIFT ANISH Home Medications Medication Instructions Recorded Confirmed Last Taken Type acetaminophen 650 mg 1 tab PO Q8H PRN Pain (Scale Score 03/27/22 11/05/22 11/05/22 History tablet,extended release (Mapap 1-3) Arthritis Pain) cholecalciferol (vitamin D3) 50 50 mcg PO DAILY 03/27/22 11/05/22 11/05/22 History mcg (2,000 unit) tablet (Vitamin D3) ipratropium 0.5 mg-albuterol 3 mg 3 ml inhalation QID PRN wheezing 03/27/22 11/05/22 11/05/22 History (2.5 mg base)/3 mL nebulization soln lisinopril 40 mg tablet 1 tab PO DAILY 03/27/22 11/05/22 11/05/22 History multivit with 1 tab PO DAILY 03/27/22 11/05/22 11/05/22 History megkbsxc-dczq-GS-lutein 8 mg iron-400 mcg-300 mcg tablet (Multivitamin Women 50 Plus) oxybutynin chloride 10 mg 1 tab PO DAILY 03/27/22 11/05/22 11/05/22 History tablet,extended release 24 hr simvastatin 10 mg tablet 1 tab PO BEDTIME 03/27/22 11/05/22 11/05/22 History sitagliptin phosphate 100 mg 1 tab PO DAILY 03/27/22 11/05/22 11/05/22 History tablet (Januvia) albuterol sulfate 90 mcg/actuation 2 puff inhalation Q4-6H PRN 06/12/22 11/05/22 Unknown History aerosol inhaler shortness of breath or wheezing fluticasone propionate 230 2 puff inhalation BID 06/12/22 11/05/22 11/05/22 History mcg-salmeterol 21 mcg/actuation HFA inhaler (Advair HFA) amlodipine 10 mg tablet 1 tab PO DAILY 11/05/22 11/05/22 11/05/22 History hydrocortisone 0.5 % topical cream 1 appl topical TID PRN Rash 11/05/22 11/05/22 11/05/22 History Physical Exam Vital Signs and Narrative: Vital Signs: Last Vital Signs Temp 98.1 F 02/06/23 00:44 Pulse 97 02/06/23 00:44 Resp 20 02/06/23 00:44 BP 112/52 L 02/06/23 00:44 Pulse Ox 97 02/06/23 00:44 O2 Del Method Nasal Cannula 02/06/23 00:44 O2 Flow Rate 2 02/06/23 00:44 BMI result Body Mass Index 23.8 Elderly female lying in bed in mild distress on supplemental oxygen Neck supple, no JVD Regular rate and rhythm, S1-S2 heard Right-sided crackles without wheezing Abdomen soft nontender, no guarding, no rigidity Patient is awake, alert and oriented to self, place, time and person ; no focal motor deficit Psych: Normal mood No pedal edema Results Labs 02/05/23 21:59 02/05/23 21:59 Labs: Laboratory Results - last 24 hr 02/05/23 02/05/23 02/05/23 21:59 21:59 21:59 MCV 86.5 MCH 28.8 MCHC 33.3 RDW 13.1 Plt Count 246 MPV 10.8 Immature Gran % (Auto) 0.4 Neut % (Auto) 78.0 H Lymph % (Auto) 11.1 L [place] % (Auto) 9.9 Eos % (Auto) 0.3 Baso % (Auto) 0.3 Lymph # (Auto) 1.6 [place] # (Auto) 1.4 H Eos # (Auto) 0.1 Baso # (Auto) 0.1 Abs Immat Gran (auto) 0.06 H Absolute Neuts (auto) 11.3 H Absolute Nucleated RBC 0.000 Nucleated RBC % (auto) 0.0 PT INR APTT Anion Gap 19 Estim Creat Clear Calc 32.4 Estimated GFR 47 Random Glucose 239 H Lactic Acid Calcium 9.1 D Total Bilirubin 1.0 AST 28 ALT 36 H Alkaline Phosphatase 175 H Troponin I High Sens B-Natriuretic Peptide 18 Total Protein 6.5 Albumin 3.8 Lipase 19 Urine Color Urine Appearance Urine pH Ur Specific [place] Urine Protein Urine Glucose (UA) Urine Ketones Urine Blood Urine Nitrite Ur Leukocyte Esterase Urine RBC Urine WBC Ur Squamous Epith Cells Urine Bacteria Hyaline Casts COVID-19 ([facility]NA[facility]) COVID-19 Clin Com Influenza Type A (ANEL) Influenza Type B (ANEL) Influenza A & B Note 02/05/23 02/05/23 02/05/23 21:59 21:59 21:59 MCV MCH MCHC RDW Plt Count MPV Immature Gran % (Auto) Neut % (Auto) Lymph % (Auto) [place] % (Auto) Eos % (Auto) Baso % (Auto) Lymph # (Auto) [place] # (Auto) Eos # (Auto) Baso # (Auto) Abs Immat Gran (auto) Absolute Neuts (auto) Absolute Nucleated RBC Nucleated RBC % (auto) PT INR APTT Anion Gap Estim Creat Clear Calc Estimated GFR Random Glucose Lactic Acid 1.1 Calcium Total Bilirubin AST ALT Alkaline Phosphatase Troponin I High Sens 6.8 B-Natriuretic Peptide Total Protein Albumin Lipase Urine Color Urine Appearance Urine pH Ur Specific [place] Urine Protein Urine Glucose (UA) Urine Ketones Urine Blood Urine Nitrite Ur Leukocyte Esterase Urine RBC Urine WBC Ur Squamous Epith Cells Urine Bacteria Hyaline Casts COVID-19 (SENAIT) Negative COVID-19 Clin Com See Note Influenza Type A (ANEL) Influenza Type B (ANEL) Influenza A & B Note 02/05/23 02/05/23 02/05/23 21:59 22:00 23:12 MCV MCH MCHC RDW Plt Count MPV Immature Gran % (Auto) Neut % (Auto) Lymph % (Auto) [place] % (Auto) Eos % (Auto) Baso % (Auto) Lymph # (Auto) [place] # (Auto) Eos # (Auto) Baso # (Auto) Abs Immat Gran (auto) Absolute Neuts (auto) Absolute Nucleated RBC Nucleated RBC % (auto) PT 14.0 H INR 1.2 H APTT 29.5 Anion Gap Estim Creat Clear Calc Estimated GFR Random Glucose Lactic Acid Calcium Total Bilirubin AST ALT Alkaline Phosphatase Troponin I High Sens B-Natriuretic Peptide Total Protein Albumin Lipase Urine Color Dark Yellow Urine Appearance Cloudy Urine pH 5.0 Ur Specific [place] 1.020 Urine Protein 100 (2+) H Urine Glucose (UA) Negative Urine Ketones Trace Urine Blood Negative Urine Nitrite Negative Ur Leukocyte Esterase Moderate (2+) H Urine RBC 0-2 Urine WBC 21-50 H Ur Squamous Epith Cells 11-20 Urine Bacteria None Seen Hyaline Casts 6-10 COVID-19 ([facility]NAIT) COVID-19 Clin Com Influenza Type A (ANEL) Negative Influenza Type B (ANEL) Negative Influenza A & B Note See Note Imaging Radiologist's Impressions: Impressions Chest X-Ray 02/05/23 22:10 IMPRESSION: Increased subtle interstitial opacities in the right lower lung which could be related with aspiration or early infectious infiltrates. Assessment and Plan (1) Pneumonia: Qualifiers: Laterality: right Lung location: lower lobe of lung Pneumonia type: due to unspecified organism Qualified Code(s): J18.9 - Pneumonia, unspecified organism Status: Acute Plan In this is a 77-year-old female with pertinent history of essential hypertension, izy-sdctrcy-yscuwevfg diabetes mellitus, mixed hyperlipidemia, urinary incontinence who presents to the emergency department for evaluation of cough, dyspnea, fevers/chills. #. Acute hypoxemic respiratory failure in sepsis secondary to community- acquired pneumonia: Will admit patient with supplemental oxygen. Initiating empiric IV antibiotics. Monitor oxygen saturation and wean as tolerated. Resuscitated with IV crystalloids. Blood culture and sputum culture pending #. Essential hypertension: Hold antihypertensives in the setting of sepsis. Restart as appropriate #. Hbj-hroqzgs-pvizflcha diabetes mellitus with hyperglycemia: Initiating Accu-Cheks with sliding scale insulin #. Mixed hyperlipidemia: On statin #. Urinary incontinence: On oxybutynin Med rec pending DVT prophylaxis: Lovenox 40 mg daily Full Code Cardiac diet Admit as inpatient and will require two night minimum hospital stay for supplemental oxygen and IV antibiotics Time Spent With Patient Time: Total time managing care of this patient today ____ minutes. Quality Stroke Does the patient have a stroke diagnosis?: No VTE Prior VTE?: No VTE Risk Level:: Medical - moderate - high VTE Device Contraindication: Treatment Not Indicated VTE Drug Contraindication: N/A - Med Ordered
[2023-02-06] MEDS: Enoxaparin Sodium 40 MG/0.4 ML SYRINGE SUBCUT (01:28)
[2023-02-06] MEDS: Acetaminophen 325 MG TABLET 650 MG PO (01:28)
[2023-02-06] MEDS: Benzonatate 100 MG CAPSULE PO (01:29)
[2023-02-06] MEDS: cefTRIAXone sodium 1 GM in 0.9 % Sodium Chloride 50 ML IV ×2 (01:29→21:05)
--- NOTE | 2023-02-06 01:36 | PC.NURSE ---
late entry- fluids completed @ 0044. two BP completed and charted according to facility protocol.
--- NOTE | 2023-02-06 01:37 | PC.NURSE ---
pt medicated according to jan. pt requested something for cough and pain. pt provided with prn tesselon and tylenol. IV atibiotic running now. pt resting on stretcher at this time
[2023-02-06] MEDS: Azithromycin 500 MG in 0.9 % Sodium Chloride 250 ML 125 MG IV (02:17)
--- NOTE | 2023-02-06 02:31 | PC.NURSE ---
this rn assisted pt to bathroom at this time. pt assisted back into bed. pt medicated according to jan.
[2023-02-06 05:17] LABS: MANUAL DIFF FLAG NO
[2023-02-06 05:38] LABS: Basophils Absolute Auto 0.1 X10*3/uL (0.0-0.2); Basophils Percent Auto 0.4 % (0-2); Eosinophils Percent Auto 0.4 % (0-4); Hematocrit 32.3 % (37.0-47.0); Hemoglobin 10.4 g/dl (12.0-16.0); Imm Gran Abs Auto 0.04 X10*3/uL (0.00-0.03); Imm Gran Pct Auto 0.4 % (0.0-0.4); Lymphocytes Absolute Auto 1.4 X10*3/uL (1.2-4.9); Lymphocytes Percent Auto 12.2 % (20-40); Mean Corpuscular HGB Conc 32.2 g/dl (31.0-35.0); Mean Corpuscular Hemoglobin 28.3 pg (27.0-33.0); Mean Corpuscular Volume 87.8 fL (80.0-98.0); Mean Platelet Volume 11.2 fL (9.4-12.3); Monocytes Percent Auto 9.1 % (2-11); Neutrophils Absolute Auto 8.7 x10*3/uL (2.0-8.3); Neutrophils Percent Auto 77.5 % (45-73); Platelet Count 203 X10*3/uL (160-400); Red Blood Count 3.68 X10*6/uL (4.20-5.50); Red Cell Distribution Width 13.2 % (11.0-16.0); White Blood Count 11.2 X10*3/uL (4.8-10.8)
[2023-02-06 05:57] LABS: Anion Gap 12 (12-20); Blood Urea Nitrogen 15 mg/dL (9-16); Carbon Dioxide 22 mmol/L (22-29); Chloride 111 mmol/L (96-108); Creatinine Clr Calc Pharmacy 48.2; Estimated Glomerular Filt Rate > 60; Glucose Random 282 mg/dL (60-115); Potassium 4.1 mmol/L (3.3-5.1); Sodium 141 mmol/L (135-145)
[2023-02-06 07:10] LABS: Glucose, Whole Blood 248 mg/dL (60-115)
[2023-02-06] MEDS: Insulin Lispro 100 UNIT/ML 3 ML VIAL SUBCUT ×4 (07:21→21:03)
--- NOTE | 2023-02-06 08:15 | PHA.MEDREC ---
Pharmacy Consult ? Medication Reconciliation Pharmacy has completed the medication reconciliation. Patient had a list and spoke to daughter
[2023-02-06] MEDS: oxyBUTYnin chloride ER 5 MG TAB.ER.24 10 MG PO (09:01)
[2023-02-06] MEDS: 0.9 % Sodium Chloride Flush 3 ML SYRINGE IVFLUSH ×2 (09:02→20:56)
--- NOTE | 2023-02-06 09:10 | PC.NURSE ---
pt alert and oriented, skin appropriate for ethnicity, respirations slightly labored breathing at about 22-24 some abd muscle being used, ls diminished, intermittent dry cough, pt denies pain, vs stable ans sinus tach on the monitor.
[2023-02-06] MEDS: SITagliptin Phosphate 100 MG TABLET PO (09:21)
--- NOTE | 2023-02-06 09:53 | P.PNIM_ITS ---
Subjective Subjective Date of Service: 02/06/23 Interval History: cough, sob Physical Exam Vital Signs: Vital Signs: Last Vital Signs Temp 98.0 F 02/06/23 06:30 Pulse 105 H 02/06/23 08:31 Resp 17 02/06/23 08:31 BP 128/56 L 02/06/23 06:30 Pulse Ox 98 02/06/23 06:30 O2 Del Method Nasal Cannula 02/06/23 06:30 O2 Flow Rate 2 02/06/23 06:30 BMI result Body Mass Index 23.8 dyspneic, crackles Objective Data Active Medications Acetaminophen (Acetaminophen 325 Mg Tablet) 650 mg PO Q6H PRN PRN Reason: Pain, Mild (Pain Scale 1-3) Last Admin: 02/06/23 01:28 Dose: 650 mg Documented By: JONATAN Acetaminophen (Acetaminophen Supp 650 Mg Supp.Rect) 650 mg [place] Q6H PRN PRN Reason: Pain, Mild (Pain Scale 1-3) Atorvastatin Calcium (Atorvastatin Calcium 10 Mg Tablet) 10 mg PO BEDTIME [facility] Benzonatate (Benzonatate 100 Mg Capsule) 100 mg PO TID PRN PRN Reason: Cough Last Admin: 02/06/23 01:29 Dose: 100 mg Documented By: JONATAN Albuterol Sulfate 2.5 mg/ (Ipratropium [place] 0.5 mg) 0 mg INHALE RQ4H WHILE AWAKE [facility] Last Admin: 02/06/23 08:30 Dose: 2.5 each Documented By: MAGGI Albuterol Sulfate 2.5 mg/ (Ipratropium [place] 0.5 mg) 0 mg INHALE Q4H PRN PRN Reason: Wheezing Last Admin: 02/06/23 02:00 Dose: 2.5 each Documented By: ROSEANNE Enoxaparin Sodium (Enoxaparin Sodium 40 Mg/0.4 Ml Syringe) 40 mg SUBCUT Q24H [facility] Last Admin: 02/06/23 01:28 Dose: 40 mg Documented By: JONATAN Glucose (Glucose Gel 15 Gm Gel..Gram.) 15 gm PO Q15M PRN; Protocol PRN Reason: per Hypoglycemia Standing Ord. Guaifenesin/Codeine Phosphate (Guaifen/Codeine Sf 200/20/10ml 10 Ml Liquid) 5 ml PO Q4H [facility] Ceftriaxone Sodium 1 gm/ (Sodium Chloride) 50 mls @ 100 mls/hr IV Q24H [facility] Last Infusion: 02/06/23 02:17 Dose: 0 mls/hr Documented By: JONATAN Azithromycin 500 mg/ Sodium (Chloride) 250 mls @ 125 mls/hr IV Q24H [facility] Last Infusion: 02/06/23 04:20 Dose: 0 mls/hr Documented By: OJNATAN Dextrose (D10) 250 mls @ 750 mls/hr IV Q15M PRN; Protocol PRN Reason: per Hypoglycemia Standing Ord. Insulin Human Lispro (Insulin Lispro 100 Unit/Ml 3 Ml Vial) 0.1 - 10 unit SUBCUT QIDACHS [facility]; Protocol Last Admin: 02/06/23 07:21 Dose: 4 unit Documented By: GAVIN Melatonin (Melatonin 3 Mg Tablet) 6 mg PO BEDTIME PRN PRN Reason: Insomnia Ondansetron HCl (Ondansetron Hcl 4 Mg/2 Ml Vial) 4 mg IVPUSH Q8H PRN PRN Reason: Nausea and Vomiting Oxybutynin Chloride (Oxybutynin Chloride Er 5 Mg Tab.Er.24) 10 mg PO DAILY [facility] Last Admin: 02/06/23 09:01 Dose: 10 mg Documented By: GLORIA Pharmacy Consult (Consult Rx Perform Med Rec) 1 each MISCELLANE ONCE PRN PRN Reason: Consult order Sitagliptin Phosphate (Sitagliptin Phosphate 100 Mg Tablet) 100 mg PO DAILY [facility] Last Admin: 02/06/23 09:21 Dose: 100 mg Documented By: GLORIA Sodium Chloride (0.9 % Sodium Chloride Flush 3 Ml Syringe) 3 ml IVFLUSH QSHIFT [facility] Last Admin: 02/06/23 09:02 Dose: 3 ml Documented By: GLORIA Labs 02/06/23 05:11 02/06/23 05:11 Labs: Laboratory Results - last 24 hr 02/05/23 02/05/23 02/05/23 21:59 21:59 21:59 MCV 86.5 MCH 28.8 MCHC 33.3 RDW 13.1 Plt Count 246 MPV 10.8 Immature Gran % (Auto) 0.4 Neut % (Auto) 78.0 H Lymph % (Auto) 11.1 L [place] % (Auto) 9.9 Eos % (Auto) 0.3 Baso % (Auto) 0.3 Lymph # (Auto) 1.6 [place] # (Auto) 1.4 H Eos # (Auto) 0.1 Baso # (Auto) 0.1 Abs Immat Gran (auto) 0.06 H Absolute Neuts (auto) 11.3 H Absolute Nucleated RBC 0.000 Nucleated RBC % (auto) 0.0 PT INR APTT Anion Gap 19 Estim Creat Clear Calc 32.4 Estimated GFR 47 POC Glucose Random Glucose 239 H Lactic Acid Calcium 9.1 D Total Bilirubin 1.0 AST 28 ALT 36 H Alkaline Phosphatase 175 H Troponin I High Sens B-Natriuretic Peptide 18 Total Protein 6.5 Albumin 3.8 Lipase 19 Urine Color Urine Appearance Urine pH Ur Specific [place] Urine Protein Urine Glucose (UA) Urine Ketones Urine Blood Urine Nitrite Ur Leukocyte Esterase Urine RBC Urine WBC Ur Squamous Epith Cells Urine Bacteria Hyaline Casts COVID-19 ([facility]) COVID-19 Clin Com Influenza Type A (ANEL) Influenza Type B (ANEL) Influenza A & B Note 02/05/23 02/05/23 02/05/23 21:59 21:59 21:59 MCV MCH MCHC RDW Plt Count MPV Immature Gran % (Auto) Neut % (Auto) Lymph % (Auto) [place] % (Auto) Eos % (Auto) Baso % (Auto) Lymph # (Auto) [place] # (Auto) Eos # (Auto) Baso # (Auto) Abs Immat Gran (auto) Absolute Neuts (auto) Absolute Nucleated RBC Nucleated RBC % (auto) PT INR APTT Anion Gap Estim Creat Clear Calc Estimated GFR POC Glucose Random Glucose Lactic Acid 1.1 Calcium Total Bilirubin AST ALT Alkaline Phosphatase Troponin I High Sens 6.8 B-Natriuretic Peptide Total Protein Albumin Lipase Urine Color Urine Appearance Urine pH Ur Specific [place] Urine Protein Urine Glucose (UA) Urine Ketones Urine Blood Urine Nitrite Ur Leukocyte Esterase Urine RBC Urine WBC Ur Squamous Epith Cells Urine Bacteria Hyaline Casts COVID-19 ([facility]) Negative COVID-19 Clin Com See Note Influenza Type A (ANEL) Influenza Type B (ANEL) Influenza A & B Note 02/05/23 02/05/23 02/05/23 21:59 22:00 23:12 MCV MCH MCHC RDW Plt Count MPV Immature Gran % (Auto) Neut % (Auto) Lymph % (Auto) [place] % (Auto) Eos % (Auto) Baso % (Auto) Lymph # (Auto) [place] # (Auto) Eos # (Auto) Baso # (Auto) Abs Immat Gran (auto) Absolute Neuts (auto) Absolute Nucleated RBC Nucleated RBC % (auto) PT 14.0 H INR 1.2 H APTT 29.5 Anion Gap Estim Creat Clear Calc Estimated GFR POC Glucose Random Glucose Lactic Acid Calcium Total Bilirubin AST ALT Alkaline Phosphatase Troponin I High Sens B-Natriuretic Peptide Total Protein Albumin Lipase Urine Color Dark Yellow Urine Appearance Cloudy Urine pH 5.0 Ur Specific [place] 1.020 Urine Protein 100 (2+) H Urine Glucose (UA) Negative Urine Ketones Trace Urine Blood Negative Urine Nitrite Negative Ur Leukocyte Esterase Moderate (2+) H Urine RBC 0-2 Urine WBC 21-50 H Ur Squamous Epith Cells 11-20 Urine Bacteria None Seen Hyaline Casts 6-10 COVID-19 ([facility]) COVID-19 Clin Com Influenza Type A (ANEL) Negative Influenza Type B (ANEL) Negative Influenza A & B Note See Note 02/06/23 02/06/23 02/06/23 05:11 05:11 07:06 MCV 87.8 MCH 28.3 MCHC 32.2 RDW 13.2 Plt Count 203 MPV 11.2 Immature Gran % (Auto) 0.4 Neut % (Auto) 77.5 H Lymph % (Auto) 12.2 L [place] % (Auto) 9.1 Eos % (Auto) 0.4 Baso % (Auto) 0.4 Lymph # (Auto) 1.4 [place] # (Auto) 1.0 Eos # (Auto) 0.0 Baso # (Auto) 0.1 Abs Immat Gran (auto) 0.04 H Absolute Neuts (auto) 8.7 H Absolute Nucleated RBC 0.000 Nucleated RBC % (auto) 0.0 PT INR APTT Anion Gap 12 Estim Creat Clear Calc 48.2 Estimated GFR > 60 POC Glucose 248 H Random Glucose 282 H Lactic Acid Calcium 8.0 L D Total Bilirubin AST ALT Alkaline Phosphatase Troponin I High Sens B-Natriuretic Peptide Total Protein Albumin Lipase Urine Color Urine Appearance Urine pH Ur Specific [place] Urine Protein Urine Glucose (UA) Urine Ketones Urine Blood Urine Nitrite Ur Leukocyte Esterase Urine RBC Urine WBC Ur Squamous Epith Cells Urine Bacteria Hyaline Casts COVID-19 ([facility]) COVID-19 Clin Com Influenza Type A (ANEL) Influenza Type B (ANEL) Influenza A & B Note Microbiology Microbiology Results: Microbiology 02/05/23 22:32 Urine Culture - Preliminary Urine clean catch - Urine coronado top Culture too young to evaluate. Assessment and Plan (1) Pneumonia: Status: Acute Plan 77F PMH essential hypertension, cav-ahmhqda-kfdbfokln diabetes mellitus, mixed hyperlipidemia, urinary incontinence who presented to the emergency department for evaluation of cough, dyspnea, fevers/chills. Acute hypoxemic respiratory failure and sepsis secondary to community-acquired pneumonia complicated by moderate persistent asthma/COPD with acute decompensation rocephin,azitrho, steroids, nebs wean o2 as tolerated HTN holding lisinopril, currently low normal bp DM with hyperglycemia insulin, pocs hyperlipidemia statin Urinary incontinence oxybutynin DVT prophylaxis:? Lovenox 40 mg daily Full Code reason for continued hospitalization:hypoxia Time Spent With Patient Time: Total time managing care of this patient today ____ minutes. Quality Stroke Does the patient have a stroke diagnosis?: No VTE Prior VTE?: No VTE Risk Level:: Medical - moderate - high VTE Device Contraindication: Treatment Not Indicated VTE Drug Contraindication: N/A - Med Ordered
[2023-02-06] MEDS: predniSONE 20 MG TABLET 40 MG PO (10:07)
[2023-02-06] MEDS: guaiFEN/Codeine SF 200/20/10ML 10 ML LIQUID 5 ML PO ×4 (10:08→20:56)
[2023-02-06 13:26] LABS: Glucose, Whole Blood 290 mg/dL (60-115)
--- NOTE | 2023-02-06 14:35 | PC.NURSE ---
pt is refusing bed alarms, camera. Pt is wearing red socks and wristband, but is adamant about being able to ambulate at will. pt education given
[2023-02-06 16:22] LABS: Glucose, Whole Blood 257 mg/dL (60-115)
[2023-02-06 20:23] LABS: Glucose, Whole Blood 208 mg/dL (60-115)
[2023-02-06] MEDS: Atorvastatin Calcium 10 MG TABLET PO (20:56)
--- NOTE | 2023-02-06 22:33 | PC.NURSE ---
Pt and daughter refuses Azithromycin IVPB, pt daughter states she has a bad reaction in her vaginal area from the medication and it happens if she receives the medication for a few days. Pt daughter prefers to speak with the primary physician in regards to this matter. Pt daughter name id Xuan and her contact number is [phone]. The medication listed is noted on her list of allergy medication.
[2023-02-07] VITALS (7 sets, daily range): BP systolic 122–145; BP diastolic 62–74; PULSE 78–93; RESP 16–18; TEMP 36.3–36.8; O2SAT 93–98
[2023-02-07] MEDS: guaiFEN/Codeine SF 200/20/10ML 10 ML LIQUID 5 ML PO ×5 (00:49→20:24)
[2023-02-07 06:03] LABS: Hematocrit 35.7 % (37.0-47.0); Hemoglobin 11.5 g/dl (12.0-16.0); Mean Corpuscular HGB Conc 32.2 g/dl (31.0-35.0); Mean Corpuscular Hemoglobin 28.4 pg (27.0-33.0); Mean Corpuscular Volume 88.1 fL (80.0-98.0); Mean Platelet Volume 10.8 fL (9.4-12.3); Platelet Count 263 X10*3/uL (160-400); Red Blood Count 4.05 X10*6/uL (4.20-5.50); Red Cell Distribution Width 13.1 % (11.0-16.0); White Blood Count 11.5 X10*3/uL (4.8-10.8)
[2023-02-07 06:34] LABS: Anion Gap 14 (12-20); Blood Urea Nitrogen 18 mg/dL (9-16); Calcium 9.5 mg/dL (8.4-10.2); Carbon Dioxide 26 mmol/L (22-29); Chloride 109 mmol/L (96-108); Creatinine Clr Calc Pharmacy 53.9; Estimated Glomerular Filt Rate > 60; Glucose Fasting 128 mg/dL (60-99); Potassium 4.5 mmol/L (3.3-5.1); Sodium 144 mmol/L (135-145)
[2023-02-07 07:22] LABS: Glucose, Whole Blood 126 mg/dL (60-115)
--- NOTE | 2023-02-07 08:37 | MHC.CM.PN ---
CM met with Patient at bedside and addressed IMM with her, providing her with the original and placing a copy on the chart. Patient lives alone in an apartment and she uses a walker to assist with mobility. HCP is on file. Patient receives [facility] RN visits after hospitalizations and home/resume said services is the goal. CM has initiated and will follow for dc planning. Patient has received Covid vax x2 and her PCP is Dr. Lindsey Horton.
[2023-02-07] MEDS: Enoxaparin Sodium 40 MG/0.4 ML SYRINGE SUBCUT (08:40)
[2023-02-07] MEDS: predniSONE 20 MG TABLET 40 MG PO (08:41)
[2023-02-07] MEDS: oxyBUTYnin chloride ER 5 MG TAB.ER.24 10 MG PO (08:41)
[2023-02-07] MEDS: SITagliptin Phosphate 100 MG TABLET PO (08:42)
[2023-02-07] MEDS: 0.9 % Sodium Chloride Flush 3 ML SYRINGE IVFLUSH ×3 (08:47→20:31)
--- NOTE | 2023-02-07 10:28 | P.PNIM_ITS ---
Subjective Subjective Date of Service: 02/07/23 Interval History: improving Physical Exam Vital Signs: Vital Signs: Last Vital Signs Temp 98.0 F 02/07/23 07:19 Pulse 83 02/07/23 08:21 Resp 16 02/07/23 08:21 BP 145/73 H 02/07/23 07:19 Pulse Ox 93 02/07/23 07:19 O2 Del Method Nasal Cannula 02/07/23 07:19 O2 Flow Rate 2 02/07/23 07:19 BMI result Body Mass Index 23.8 General: AO X 3, no acute distress Resp: CTA bilateral, no accessory muscles used CVS: S1,S2,RRR GI: soft, non tender, non distended Neuro: motor grossly intact, alert Psych: appropriate affect, appropriate insight Objective Data Active Medications Acetaminophen (Acetaminophen 325 Mg Tablet) 650 mg PO Q6H PRN PRN Reason: Pain, Mild (Pain Scale 1-3) Last Admin: 02/06/23 01:28 Dose: 650 mg Documented By: JONATAN Acetaminophen (Acetaminophen Supp 650 Mg Supp.Rect) 650 mg [place] Q6H PRN PRN Reason: Pain, Mild (Pain Scale 1-3) Atorvastatin Calcium (Atorvastatin Calcium 10 Mg Tablet) 10 mg PO BEDTIME [facility] Last Admin: 02/06/23 20:56 Dose: 10 mg Documented By: JANI-LADAS Benzonatate (Benzonatate 100 Mg Capsule) 100 mg PO TID PRN PRN Reason: Cough Last Admin: 02/06/23 01:29 Dose: 100 mg Documented By: JONATAN Albuterol Sulfate 2.5 mg/ (Ipratropium Silva 0.5 mg) 0 mg INHALE RQ4H WHILE AWAKE [facility] Last Admin: 02/07/23 08:20 Dose: 1 each Documented By: JULES Albuterol Sulfate 2.5 mg/ (Ipratropium Silva 0.5 mg) 0 mg INHALE Q4H PRN PRN Reason: Wheezing Last Admin: 02/06/23 02:00 Dose: 2.5 each Documented By: ROSEANNE Enoxaparin Sodium (Enoxaparin Sodium 40 Mg/0.4 Ml Syringe) 40 mg SUBCUT Q24H [facility] Last Admin: 02/07/23 08:40 Dose: 40 mg Documented By: GEMA Glucose (Glucose Gel 15 Gm Gel..Gram.) 15 gm PO Q15M PRN; Protocol PRN Reason: per Hypoglycemia Standing Ord. Guaifenesin/Codeine Phosphate (Guaifen/Codeine Sf 200/20/10ml 10 Ml Liquid) 5 ml PO Q4H [facility] Last Admin: 02/07/23 08:40 Dose: 5 ml Documented By: GEMA Dextrose (D10) 250 mls @ 750 mls/hr IV Q15M PRN; Protocol PRN Reason: per Hypoglycemia Standing Ord. Ceftriaxone Sodium 1 gm/ (Sodium Chloride) 50 mls @ 100 mls/hr IV Q24H [facility] Last Infusion: 02/06/23 22:26 Dose: 100 mls/hr Documented By: THERESA Insulin Human Lispro (Insulin Lispro 100 Unit/Ml 3 Ml Vial) 0.1 - 10 unit SUBCUT QIDACHS [facility]; Protocol Last Admin: 02/07/23 08:34 Dose: Not Given Documented By: GEMA Non-Admin Reason: No Insulin Coverage Melatonin (Melatonin 3 Mg Tablet) 6 mg PO BEDTIME PRN PRN Reason: Insomnia Ondansetron HCl (Ondansetron Hcl 4 Mg/2 Ml Vial) 4 mg IVPUSH Q8H PRN PRN Reason: Nausea and Vomiting Oxybutynin Chloride (Oxybutynin Chloride Er 5 Mg Tab.Er.24) 10 mg PO DAILY [facility] Last Admin: 02/07/23 08:41 Dose: 10 mg Documented By: GEMA Pharmacy Consult (Consult Rx Perform Med Rec) 1 each MISCELLANE ONCE PRN PRN Reason: Consult order Prednisone (Prednisone 20 Mg Tablet) 40 mg PO DAILY [facility] Last Admin: 02/07/23 08:41 Dose: 40 mg Documented By: GEMA Sitagliptin Phosphate (Sitagliptin Phosphate 100 Mg Tablet) 100 mg PO DAILY [facility] Last Admin: 02/07/23 08:42 Dose: 100 mg Documented By: GEMA Sodium Chloride (0.9 % Sodium Chloride Flush 3 Ml Syringe) 3 ml IVFLUSH QSHIFT [facility] Last Admin: 02/07/23 08:47 Dose: 3 ml Documented By: GEMA Labs 02/07/23 05:48 02/07/23 05:48 Labs: Laboratory Results - last 24 hr 02/06/23 02/06/23 02/06/23 13:21 16:02 20:18 MCV MCH MCHC RDW Plt Count MPV Absolute Nucleated RBC Nucleated RBC % (auto) Anion Gap Estim Creat Clear Calc Estimated GFR POC Glucose 290 H 257 H 208 H Fasting Glucose Calcium 02/07/23 02/07/23 02/07/23 05:48 05:48 07:06 MCV 88.1 MCH 28.4 MCHC 32.2 RDW 13.1 Plt Count 263 D MPV 10.8 Absolute Nucleated RBC 0.000 Nucleated RBC % (auto) 0.0 Anion Gap 14 Estim Creat Clear Calc 53.9 Estimated GFR > 60 POC Glucose 126 H Fasting Glucose 128 H Calcium 9.5 D Microbiology Microbiology Results: Microbiology 02/05/23 21:59 Blood Culture - Preliminary Blood - Venous No growth after 24 hours. 02/05/23 21:59 Blood Culture - Preliminary Blood - Venous No growth after 24 hours. 02/05/23 22:32 Urine Culture - Preliminary Urine clean catch - Urine coronado top Culture too young to evaluate. Assessment and Plan (1) Pneumonia: Status: Acute Plan 77F PMH essential hypertension, [id number] diabetes mellitus, mixed hyperlipidemia, urinary incontinence who presented to the emergency department for evaluation of cough, dyspnea, fevers/chills. Acute hypoxemic respiratory failure and sepsis secondary to community-acquired pneumonia complicated by moderate persistent asthma/COPD with acute decompensation rocephin,steroids, nebs will hold azithro (has caused her yeast infections in past) wean o2 as tolerated HTN holding lisinopril, currently low normal bp DM with hyperglycemia insulin, pocs hyperlipidemia statin Urinary incontinence oxybutynin DVT prophylaxis:? Lovenox 40 mg daily Full Code reason for continued hospitalization:hypoxia Time Spent With Patient Time: Total time managing care of this patient today ____ minutes. Quality Stroke Does the patient have a stroke diagnosis?: No VTE Prior VTE?: No VTE Risk Level:: Medical - moderate - high VTE Device Contraindication: Treatment Not Indicated VTE Drug Contraindication: N/A - Med Ordered
[2023-02-07 11:09] LABS: Glucose, Whole Blood 220 mg/dL (60-115)
[2023-02-07] MEDS: Insulin Lispro 100 UNIT/ML 3 ML VIAL SUBCUT ×3 (12:48→20:25)
[2023-02-07 17:34] LABS: Glucose, Whole Blood 308 mg/dL (60-115)
[2023-02-07 19:33] LABS: Glucose, Whole Blood 170 mg/dL (60-115)
[2023-02-07] MEDS: Atorvastatin Calcium 10 MG TABLET PO (20:24)
[2023-02-07] MEDS: cefTRIAXone sodium 1 GM in 0.9 % Sodium Chloride 50 ML IV (20:26)
--- NOTE | 2023-02-08 | ECG_ITS ---
Test Reason : high r Blood Pressure : / mmHG Vent. Rate : 092 BPM Atrial Rate : 092 BPM P-R Int : 184 ms QRS Dur : 084 ms QT Int : 378 ms P-R-T Axes : 079 038 041 degrees QTc Int : 467 ms Normal sinus rhythm Possible Anterior infarct , age undetermined Abnormal ECG When compared with ECG of 05-FEB-2023 21:44, T wave amplitude has decreased in Anterior leads Referred By: Aleksandr Newman Electronically Signed By:DUNCAN BOWER
[2023-02-08] MEDS: guaiFEN/Codeine SF 200/20/10ML 10 ML LIQUID 5 ML PO ×4 (01:36→13:32)
[2023-02-08 03:08] VITALS: BP 137/60; PULSE 86; RESP 20; TEMP 36.1; O2SAT 97
[2023-02-08 06:41] LABS: Hematocrit 33.3 % (37.0-47.0); Hemoglobin 10.7 g/dl (12.0-16.0); Mean Corpuscular HGB Conc 32.1 g/dl (31.0-35.0); Mean Corpuscular Hemoglobin 28.3 pg (27.0-33.0); Mean Corpuscular Volume 88.1 fL (80.0-98.0); Mean Platelet Volume 11.2 fL (9.4-12.3); Platelet Count 262 X10*3/uL (160-400); Red Blood Count 3.78 X10*6/uL (4.20-5.50); White Blood Count 10.2 X10*3/uL (4.8-10.8)
[2023-02-08 06:47] LABS: Anion Gap 11 (12-20); Blood Urea Nitrogen 21 mg/dL (9-16); Calcium 9.2 mg/dL (8.4-10.2); Carbon Dioxide 29 mmol/L (22-29); Chloride 107 mmol/L (96-108); Creatinine Clr Calc Pharmacy 58.1; Estimated Glomerular Filt Rate > 60; Glucose Fasting 113 mg/dL (60-99); Sodium 143 mmol/L (135-145)
[2023-02-08 07:25] VITALS: BP 125/67; PULSE 86; RESP 20; TEMP 36.6; O2SAT 98
[2023-02-08 07:32] LABS: Glucose, Whole Blood 105 mg/dL (60-115)
[2023-02-08 08:19] VITALS: PULSE 91; RESP 18; O2SAT 92
[2023-02-08] MEDS: oxyBUTYnin chloride ER 5 MG TAB.ER.24 10 MG PO (09:51)
[2023-02-08] MEDS: Enoxaparin Sodium 40 MG/0.4 ML SYRINGE SUBCUT (09:51)
[2023-02-08] MEDS: predniSONE 20 MG TABLET 40 MG PO (09:52)
[2023-02-08] MEDS: SITagliptin Phosphate 100 MG TABLET PO (09:52)
[2023-02-08] MEDS: 0.9 % Sodium Chloride Flush 3 ML SYRINGE IVFLUSH (09:52)
--- NOTE | 2023-02-08 11:10 | PM.DS ---
DS: Providers Provider Date of Service: 02/08/23 Date of admission: 02/06/23 01:01 Primary care physician: Lindsey Horton MD DS: Diagnosis Discharge Diagnosis (1) Pneumonia: Status: Acute DS: Summary Hospital Course Hospital Course: from initial hpi: 77-year-old female with pertinent history of essential hypertension, btt-[id number] diabetes mellitus, mixed hyperlipidemia, urinary incontinence who presents to the emergency department for evaluation of cough, dyspnea, fevers/chills.? Patient states with started about 1 week ago.? The cough has been productive with yellowish blackish sputum.? It is associated with fevers chills and dyspnea, worse with exertion.? The illness has been progressive.? Patient had a temperature of 102.3 degrees prior to coming to the ER.? Also has associated lies and fatigability.? No sick contacts.? Patient denies palpitations, chest discomfort, abdominal pain, changes in urinary or bowel habits. In the emergency department, patient was found to be septic and imaging was concerning for pneumonia.? Also requiring 2 L supplemental oxygen in the ER hospital course: Patient was admitted for acute hypoxic respiratory failure and sepsis secondary to community-acquired pneumonia complicated by moderate persistent asthma/COPD overlap with acute decompensation. Patient was treated with ceftriaxone, azithromycin, steroids, bronchodilators. She was able to be weaned off oxygen and is feeling much better. She will be discharged on 5 more days of prednisone and Ceftin. For hypertension her lisinopril has been held for low normal blood pressures. This should be monitored as outpatient in restarted as needed. For diabetes with hyperglycemia she was continued on insulin. For hyperlipidemia she was continue on statin. For urinary incontinence she was continued oxybutynin. Time Spent with Patient Time attestation: Total time managing care of this patient today ____ minutes. Discharge coordination time: Greater than 30 minutes Quality: Safe Use of Opioids Does Pt have an Active Cancer Diagnosis on the Problem List?: No Quality: Stroke Does the patient have a stroke diagnosis?: No Physical Exam Vital Signs: Vital Signs: Last Vital Signs Temp 97.8 F 02/08/23 07:25 Pulse 91 02/08/23 08:19 Resp 18 02/08/23 08:19 BP 125/67 02/08/23 07:25 Pulse Ox 98 02/08/23 07:25 O2 Del Method Nasal Cannula 02/08/23 07:25 O2 Flow Rate 2 02/08/23 07:25 BMI result Body Mass Index 23.8 General: AO X 3, no acute distress Resp: CTA bilateral, no accessory muscles used CVS: S1,S2,RRR GI: soft, non tender, non distended Neuro: motor grossly intact, alert Psych: appropriate affect, appropriate insight DS: Data Data Completed and Pending Labs on day of discharge: Laboratory Results - last 24 hr 02/07/23 02/07/23 02/07/23 11:02 17:29 19:29 WBC RBC Hgb Hct MCV MCH MCHC RDW Plt Count MPV Absolute Nucleated RBC Nucleated RBC % (auto) Sodium Potassium Chloride Carbon Dioxide Anion Gap BUN Creatinine Estim Creat Clear Calc Estimated GFR POC Glucose 220 H 308 H 170 H Fasting Glucose Calcium 02/08/23 02/08/23 02/08/23 06:17 06:17 07:28 WBC 10.2 RBC 3.78 L Hgb 10.7 L Hct 33.3 L MCV 88.1 MCH 28.3 MCHC 32.1 RDW 13.0 Plt Count 262 MPV 11.2 Absolute Nucleated RBC 0.000 Nucleated RBC % (auto) 0.0 Sodium 143 Potassium 4.0 Chloride 107 Carbon Dioxide 29 Anion Gap 11 L BUN 21 H Creatinine 0.63 Estim Creat Clear Calc 58.1 Estimated GFR > 60 POC Glucose 105 Fasting Glucose 113 H Calcium 9.2 Preliminary micro results at discharge 02/05/23 21:59 Blood Culture - Preliminary Blood - Venous No growth after 48 hours. 02/05/23 21:59 Blood Culture - Preliminary Blood - Venous No growth after 48 hours. Discharge Plan Discharge Anticipated Discharge Date/Time: 02/08/23 11:04 Patient Disposition: Home, Self-Care Discharge Diagnosis: pna Referrals: Lindsey Lucas MD [Primary Care Provider] - 1 Week Discharge Medications: New cefuroxime axetil 500 mg tablet 500 mg PO BID Qty: 10 0RF prednisone 20 mg Tablet 40 mg PO DAILY Qty: 10 0RF Continued oxybutynin chloride 10 mg tablet extended release 24 hr 1 tab PO DAILY simvastatin 10 mg tablet 1 tab PO BEDTIME acetaminophen [Mapap Arthritis Pain] 650 mg tablet extended release 1 tab PO Q8H PRN (Reason: Pain (Scale Score 1-3)) Januvia 100 mg tablet 1 tab PO DAILY cholecalciferol (vitamin D3) [Vitamin D3] 50 mcg (2,000 unit) Tablet 50 mcg PO DAILY albuterol sulfate 90 mcg/actuation HFA aerosol inhaler 2 puff inhalation Q4-6H PRN (Reason: shortness of breath or wheezing) Advair HFA 230-21 mcg/actuation Hfa Aerosol Inhaler 2 puff INHALATION BID insulin lispro [Humalog KwikPen Insulin] 100 unit/mL insulin pen 1 sliding scale dose subcut USEASDIRECTD Qty: 15 0RF Rx Instructions: Test glucose and use insulin per below until you follow up with PCP 0 units <150 2 units 151-200 4 units 201-250 6 units 251-300 8 units 301-350 10 units if >350, call MD (ZEE) pen needle, diabetic [Pen Needle] 31 gauge x 3/16 needle See Rx Instructions .Route Qty: 50 0RF Rx Instructions: As directed hydrocortisone 2.5 % cream 1 appl topical BID PRN (Reason: Rash) Rx Instructions: 1 WEE ON 1 WEEK OF ipratropium-albuterol 0.5 mg-3 mg(2.5 mg base)/3 mL Solution For Nebulization 3 ml INHALATION Q4H PRN (Reason: Wheezing) triamcinolone acetonide 0.1 % cream 1 appl topical BID-TID PRN (Reason: Rash) Rx Instructions: 1 WEEK ON AND 1 WEEK OFF neomycin-polymyxin B-dexameth 3.5 mg/g-10,000 unit/g-0.1 % ointment 1 appl ophthalmic (eye) BID Patient Comments: PATIENT SAYS SHE IS STILL USING THIS Discontinued lisinopril 40 mg tablet 1 tab PO DAILY Discharge Orders: Discharge Order (Routine); Ordered 02/08/23 Ordered By: Aleksandr Newman Diet: Advance to usual diet Activity on Discharge: As tolerated Stand Alone Forms: Patient Portal Discharge page Care Plan Goals: recovery Health Concerns: pna Plan of Treatment: 5 more days ceftin and prednisone Assessment: see above
--- NOTE | 2023-02-08 11:13 | MHC.CM.PN ---
DP: PT HAS BEEN MEDICALLY CLEARED FOR DC HOME, NO SERVICES. DAUGHTER WILL TRANSPORT
[2023-02-08 11:15] LABS: Glucose, Whole Blood 153 mg/dL (60-115)
[2023-02-08 11:26] VITALS: PULSE 91; RESP 18; O2SAT 96
== END 2023-02-08 14:37 | disposition home or self-care (01) | DRG 871 ==
LOC: HO.ED 23:38 → HO.EDOVER 02-06 01:06 → HO.IMC 02-06 10:47
PROVIDERS: Admitting Provider Student in an Organized Health Care Education/Training Program; Emergency Provider Emergency Medicine Emergency Medical Services; PCP Internal Medicine; Visit Provider Internal Medicine
DX: A41.9 Sepsis, unspecified organism (principal); J18.9 Pneumonia, unspecified organism; J96.01 Acute respiratory failure with hypoxia; J45.41 Moderate persistent asthma with (acute) exacerbation; E11.65 Type 2 diabetes mellitus with hyperglycemia; R32 Unspecified urinary incontinence; E78.2 Mixed hyperlipidemia; Z20.822 Contact with and (suspected) exposure to COVID-19; Z87.891 Personal history of nicotine dependence; Z88.1 Allergy status to other antibiotic agents; Z88.5 Allergy status to narcotic agent; Z88.6 Allergy status to analgesic agent; Z79.4 Long term (current) use of insulin; Z79.52 Long term (current) use of systemic steroids; Z79.899 Other long term (current) drug therapy
CPT/HCPCS: 36415; 71046; 80048; 80053; 81001; 82947; 83605; 83690; 83880; 84484; 85025; 85027; 85610; 85730; 87040; 87086; 87502; 87635; 93005; 94640; 99285; J0456; J0696; J1650; J2543

== ENCOUNTER 2023-03-12 09:29 | Emergency (ER) | payer OTHER, SELFPAY ==
[2023-03-12 09:58] VITALS: BP 141/66; PULSE 98; RESP 18; TEMP 36.6; O2SAT 98; BMI 23.8
[2023-03-12 10:52] LABS: MANUAL DIFF FLAG NO
[2023-03-12 10:54] LABS: Basophils Percent Auto 0.5 % (0-2); Eosinophils Absolute Auto 0.1 X10*3/uL (0.0-0.4); Eosinophils Percent Auto 1.1 % (0-4); Hematocrit 41.5 % (37.0-47.0); Hemoglobin 13.9 g/dl (12.0-16.0); Imm Gran Abs Auto 0.02 X10*3/uL (0.00-0.03); Imm Gran Pct Auto 0.3 % (0.0-0.4); Lymphocytes Absolute Auto 1.9 X10*3/uL (1.2-4.9); Lymphocytes Percent Auto 31.1 % (20-40); Mean Corpuscular HGB Conc 33.5 g/dl (31.0-35.0); Mean Corpuscular Volume 86.5 fL (80.0-98.0); Mean Platelet Volume 10.7 fL (9.4-12.3); Monocytes Absolute Auto 0.5 X10*3/uL (0.1-1.2); Monocytes Percent Auto 8.9 % (2-11); Neutrophils Absolute Auto 3.5 x10*3/uL (2.0-8.3); Neutrophils Percent Auto 58.1 % (45-73); Platelet Count 221 X10*3/uL (160-400); Red Cell Distribution Width 13.2 % (11.0-16.0); White Blood Count 6.1 X10*3/uL (4.8-10.8)
[2023-03-12 10:55] LABS: Appearance Urine Clear; Color Urine Dark Yellow; Glucose Urine UA Negative (Negative); Leukocyte Esterase Urine Trace (Negative); Nitrite Urine Positive (Negative); UMIC TRIGGER UACC YES; Urine Blood Negative (Negative); Urine Ketones Negative (Negative); Urine Protein Negative (Neg-Trace)
[2023-03-12 11:07] LABS: Anion Gap 12 (12-20); Blood Urea Nitrogen 16 mg/dL (9-16); Calcium 9.7 mg/dL (8.4-10.2); Carbon Dioxide 27 mmol/L (22-29); Chloride 106 mmol/L (96-108); Creatinine Clr Calc Pharmacy 49.5; Estimated Glomerular Filt Rate > 60; Glucose Random 192 mg/dL (60-115); Potassium 4.2 mmol/L (3.3-5.1); Sodium 141 mmol/L (135-145)
[2023-03-12 11:31] LABS: Bacteria Urine None Seen (None Seen); Hyaline Casts Urine 0-2 /LPF (0-2); RBC Urine 0-2 /HPF (0-2); Squamous Epithelial Cell Urine 0-2 /HPF (0-2); UACC Culture Trigger YES; WBC Urine 0-5 /HPF (0-5)
--- NOTE | 2023-03-12 12:26 | ED.FEMALEGU ---
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 Patient denies any fevers, chills, blurred vision, dizziness, abdominal pain, nausea, vomiting, or diarrhea. Denies any vaginal discharge or bleeding. Reports hx of UTIs and her symptoms feel similar. Denies taking any medications at home to treat her symptoms. No other complaints or concerns at this time. MD elicited complaint: UTI Onset (ago): week(s) Severity: moderate Female Urogenital Radiation: Suprapubic Quality of pain: cramping Consistency: intermittent Vaginal discharge: none Vaginal bleeding: none Urinary symptoms: Dysuria, Urgency, Frequency and Flank Pain Exacerbating factors: urination Relieving factors: none Associated symptoms: abdominal pain Treatment prior to arrival: none Sexual activity: No Patient : Yes Related Data Home Medications Medication Instructions Recorded Confirmed acetaminophen 650 mg 1 tab PO Q8H PRN Pain (Scale Score 03/27/22 02/06/23 tablet,extended release (Mapap 1-3) Arthritis Pain) cholecalciferol (vitamin D3) 50 50 mcg PO DAILY 03/27/22 02/06/23 mcg (2,000 unit) tablet (Vitamin D3) oxybutynin chloride 10 mg 1 tab PO DAILY 03/27/22 02/06/23 tablet,extended release 24 hr simvastatin 10 mg tablet 1 tab PO BEDTIME 03/27/22 02/06/23 sitagliptin phosphate 100 mg 1 tab PO DAILY 03/27/22 02/06/23 tablet (Januvia) albuterol sulfate 90 mcg/actuation 2 puff inhalation Q4-6H PRN 06/12/22 02/06/23 aerosol inhaler shortness of breath or wheezing fluticasone propionate 230 2 puff inhalation BID 06/12/22 02/06/23 mcg-salmeterol 21 mcg/actuation HFA inhaler (Advair HFA) hydrocortisone 2.5 % topical cream 1 appl topical BID PRN Rash 02/06/23 02/06/23 ipratropium 0.5 mg-albuterol 3 mg 3 ml inhalation Q4H PRN Wheezing 02/06/23 02/06/23 (2.5 mg base)/3 mL nebulization soln neomycin 3.5 mg/g-polymyxin B 1 appl ophthalmic (eye) BID 02/06/23 02/06/23 10,000 unit/g-dexameth 0.1 % eye oint triamcinolone acetonide 0.1 % 1 appl topical BID-TID PRN Rash 02/06/23 02/06/23 topical cream Previous Rx's Medication Instructions Recorded insulin lispro 100 unit/mL 1 sliding scale dose subcut 11/07/22 subcutaneous pen (Humalog KwikPen USEASDIRECTD #15 mL (U-100) Insulin) pen needle, diabetic 31 gauge x #50 ea 11/07/2201/23 (Pen Needle) cefuroxime axetil 500 mg tablet 500 mg PO BID #10 tabs 02/08/23 prednisone 20 mg tablet 40 mg PO DAILY #10 tabs 02/08/23 cefuroxime axetil 250 mg tablet 250 mg PO BID #14 tabs 03/12/23 Allergies Allergy/AdvReac Type Severity Reaction Status Date / Time acetaminophen [Percocet] Allergy Unknown Unknown Verified 03/12/23 09:58 doxycycline AdvReac Intermediate vaginal Verified 03/12/23 09:58 swelling azithromycin AdvReac Mild yeast Verified 03/12/23 09:58 infection ciprofloxacin [From Cipro] AdvReac Mild yeast Verified 03/12/23 09:58 infection metronidazole [From Flagyl] AdvReac Mild yeast Verified 03/12/23 09:58 infection oxycodone [From Percocet] AdvReac Mild NAUSEA Verified 03/12/23 09:58 Review of Systems Review of Systems: Constitutional: No Weight loss, No Fever, No Chills, No Night Sweats, No Fatigue, No Malaise ENT/Mouth: No Hearing loss, No Ear Pain, No Nasal Congestion, No Sinus Pain, No Hoarseness, No sore throat, No Rhinorrhea, No Swallowing Difficulty Eyes: No Eye Pain, No Swelling, No Redness, No Foreign Body, No Discharge, No Vision Changes Cardiovascular: No Chest Pain, No SOB, No Dyspnea on Exertion, No Orthopnea, No Edema, No Palpitations Respiratory: No Cough, No Sputum, No Wheezing, No Smoke Exposure, No Dyspnea Gastrointestinal: No Nausea, No Vomiting, No Diarrhea, No Constipation, No Abdominal pain, No Hematochezia, No Melena Genitourinary: No irregular bleeding, + Dysuria, + Urinary Frequency, No Hematuria, No Urinary Incontinence/retention, No Urgency, + Flank Pain, No Urinary Flow Changes, No Hesitancy Musculoskeletal: No joint pain, No Myalgias, No Joint Swelling Skin: No Skin Lesions, No rash Neuro: No Weakness, No Numbness, No Paresthesias, No Loss of Consciousness, No Dizziness, No Headache Psych: No Anxiety/Panic, No Depression, No SI/HI/AH/VH, No Social Issues, Heme/Lymph: No Bruising, No Bleeding,No Lymphadenopathy Endocrine: No Polyuria, No Polydipsia, No Temperature Intolerance Yes all other systems are reviewed and are negative Constitutional: Constitutional: Reports as per [facility] Past Medical History Medical History Asthma Hypertension Type 2 diabetes mellitus Family History Family History Other Asthma Esophageal cancer Social History Social History Household Members: None Housing: Apartment Do you presently have visiting nurse or other home services: No Alcohol intake: never Patient Tobacco Use Status: Former Tobacco user Smoked in Last 30 Days: No Use of substances other than those prescribed or required for medical reasons: No Advance Directives: Yes Advance Directives on File: Yes Advance Directives Date on File: 06/12/22 service: No Current occupational status: retired Physical Exam Vital Signs: Vital Signs: Last Vital Signs Temp 98 F 03/12/23 09:58 Pulse 90 03/12/23 13:00 Resp 15 03/12/23 13:00 BP 163/73 H 03/12/23 13:24 Pulse Ox 96 03/12/23 13:00 O2 Del Method Room Air 03/12/23 13:00 BMI result Body Mass Index 23.8 Const: General: cooperative, comfortable and no acute distress Orientation/consciousness: patient oriented x3 Limitations: no limitations HEENT: Head: Yes normal to inspection, Yes normocephalic and Yes atraumatic Ears: hearing grossly normal bilaterally General nose exam: Normal external nose present Face and sinus: Yes normal facial exam Mouth: Normal oral and palatal mucosa present, oropharynx normal and moist mucous membranes Throat: Yes posterior oropharynx normal Eyes: General: appearance normal, both eyes and all related structures Eyelids: Yes eyelids normal Conjunctivae: conjunctivae normal Sclerae: sclerae normal Pupils: Equal, round and reactive pupils present EOM: EOMs intact bilaterally Neck: Neck: Yes normal visual inspection, Yes full ROM and Yes no lymphadenopathy Lymphatic: no lymphadenopathy noted Chest: Chest palpation & inspection: normal inspection of the chest Resp: Effort & Inspection: normal respiratory effort and able to speak in complete sentences Auscultation: clear to auscultation bilaterally, no crackles, no rales, no rhonchi and no wheezes Cardio: Rate: regular rate Rhythm: regular rhythm Heart sounds: S1 normal heart sound present and S2 normal heart sound present GI: Other: Abdomen is soft, with suprapubic tenderness to palpation, no rebound or guarding. Inspection: Yes normal to inspection : General: Yes no CVA tenderness Back/Spine/Pelvis: Back: no CVA tenderness Skin: General skin exam: no rashes or lesions noted Trauma: no lacerations or abrasions Wounds: no wounds Neuro: General: patient oriented x3 and moves all extremities Cranial nerves: Yes Equal, round and reactive pupils present Extrem: General: Yes normal to inspection Right upper extremity: normal to inspection Left upper extremity: normal to inspection Right lower extremity: normal to inspection Left lower extremity: normal to inspection Medical Decision Making Medical Decision Making [facility] Narrative: This is a 26-[id number]-female, with a past medical history of asthma, diabetes, and pyelonephritis, who presents to the emergency department with complaints of bilateral flank pain, suprapubic pain, dysuria, urinary frequency and urgency x 3 weeks, worsening over the last 3 days. On examination, patient is nontoxic appearing, VSS, afebrile. Pt has suprapubic tenderness to palpation, no rebound or guarding, abdomen is soft. No CVA tenderness bilaterally. UA is consistent with UTI. Will treat with cefuroxime. Pyelonephritis considered, however given afebrile, no CVA tenderness, and pt is nontoxic appearing, less likely. Discussed red flag warning signs/symptoms and when to return. Patient understands and agrees with plan. Pt stable for discharge. Differential Diagnosis Differential Diagnoses: The differential diagnosis associated with the presentation includes UTI, pyelonephritis, dehydration, electrolyte abnormality Admission/Observation Consideration of admission/observation: Escalation of care including admission/observation considered Lab Data MDM Lab Attestation statement: I reviewed the patient's lab results. 03/12/23 10:34 03/12/23 10:34 Labs: Lab Results 03/12/23 03/12/23 03/12/23 Range/Units 10:34 10:34 10:41 WBC 6.1 (4.8-10.8) X10*3/uL RBC 4.80 D (4.20-5.50) X10*6/uL Hgb 13.9 D (12.0-16.0) g/dl Hct 41.5 D (37.0-47.0) % MCV 86.5 (80.0-98.0) fL MCH 29.0 (27.0-33.0) pg MCHC 33.5 (31.0-35.0) g/dl RDW 13.2 (11.0-16.0) % Plt Count 221 (160-400) X10*3/uL MPV 10.7 (9.4-12.3) fL Immature Gran % (Auto) 0.3 (0.0-0.4) % Neut % (Auto) 58.1 (45-73) % Lymph % (Auto) 31.1 (20-40) % Reeves % (Auto) 8.9 (2-11) % Eos % (Auto) 1.1 (0-4) % Baso % (Auto) 0.5 (0-2) % Lymph # (Auto) 1.9 (1.2-4.9) X10*3/uL Reeves # (Auto) 0.5 (0.1-1.2) X10*3/uL Eos # (Auto) 0.1 (0.0-0.4) X10*3/uL Baso # (Auto) 0.0 (0.0-0.2) X10*3/uL Abs Immat Gran (auto) 0.02 (0.00-0.03) X10*3/uL Absolute Neuts (auto) 3.5 (2.0-8.3) x10*3/uL Absolute Nucleated RBC 0.000 (0.0-0.012) X10*3/uL Nucleated RBC % (auto) 0.0 (0.0-0.2) /100WBC Sodium 141 (135-145) mmol/L Potassium 4.2 (3.3-5.1) mmol/L Chloride 106 (96-108) mmol/L Carbon Dioxide 27 (22-29) mmol/L Anion Gap 12 (12-20) BUN 16 (9-16) mg/dL Creatinine 0.74 (0.5-1.4) mg/dL Estim Creat Clear Calc 49.5 Estimated GFR > 60 Random Glucose 192 H (60-115) mg/dL Calcium 9.7 (8.4-10.2) mg/dL Urine Color Dark Yellow Urine Appearance Clear Urine pH 6.0 (5.0-9.0) Ur Specific [place] 1.010 (1.005-1.025) Urine Protein Negative (Neg-Trace) mg/dL Urine Glucose (UA) Negative (Negative) mg/dL Urine Ketones Negative (Negative) mg/dL Urine Blood Negative (Negative) Urine Nitrite Positive H (Negative) Ur Leukocyte Esterase Trace H (Negative) Urine RBC 0-2 (0-2) /HPF Urine WBC 0-5 (0-5) /HPF Ur Squamous Epith Cells 0-2 (0-2) /HPF Urine Bacteria None Seen (None Seen) Hyaline Casts 0-2 (0-2) /LPF External Record Review External record reviewed: Inpatient record, Office record, Outpatient record, Prior outpatient labs, Prior outpatient radiology, Primary care record and Outside ED record Prescription Management I considered prescription management with: Antibiotic Chronic Conditions Patient?s care impacted by: Diabetes Discharge Plan Discharge Clinical Impression: Urinary tract infection Patient Disposition: Home, Self-Care Additional Instructions: Your urine today appears to be infected. We are sending your urine out for further testing, we will call you if we need to change your antibiotic. Please complete full course of antibiotics, even if you are feeling better. Drink plenty of fluids and get plenty of rest. If any new or worsening symptoms occur, please return for re-evaluation. Reis orina hoy parece estar infectada. Estamos enviando reis orina para realizar m?s pruebas, lo llamaremos si necesitamos cambiar reis antibi?elizabeth. Complete todo el ciclo de antibi?ticos, incluso si se siente mejor. Nakia muchos l?quidos y descanse lo suficiente. Prescriptions: New cefuroxime axetil 250 mg tablet 250 mg PO BID Qty: 14 0RF No Action oxybutynin chloride 10 mg tablet extended release 24 hr 1 tab PO DAILY simvastatin 10 mg tablet 1 tab PO BEDTIME acetaminophen [Mapap Arthritis Pain] 650 mg tablet extended release 1 tab PO Q8H PRN (Reason: Pain (Scale Score 1-3)) Januvia 100 mg tablet 1 tab PO DAILY cholecalciferol (vitamin D3) [Vitamin D3] 50 mcg (2,000 unit) Tablet 50 mcg PO DAILY albuterol sulfate 90 mcg/actuation HFA aerosol inhaler 2 puff inhalation Q4-6H PRN (Reason: shortness of breath or wheezing) Advair HFA 230-21 mcg/actuation Hfa Aerosol Inhaler 2 puff INHALATION BID insulin lispro [Humalog KwikPen Insulin] 100 unit/mL insulin pen 1 sliding scale dose subcut USEASDIRECTD Qty: 15 0RF Rx Instructions: Test glucose and use insulin per below until you follow up with PCP 0 units <150 2 units 151-200 4 units 201-250 6 units 251-300 8 units 301-350 10 units if >350, call (DME) pen needle, diabetic [Pen Needle] 31 gauge x 3/16 needle See Rx Instructions .Route Qty: 50 0RF Rx Instructions: As directed hydrocortisone 2.5 % cream 1 appl topical BID PRN (Reason: Rash) Rx Instructions: 1 WEE ON 1 WEEK OF ipratropium-albuterol 0.5 mg-3 mg(2.5 mg base)/3 mL Solution For Nebulization 3 ml INHALATION Q4H PRN (Reason: Wheezing) triamcinolone acetonide 0.1 % cream 1 appl topical BID-TID PRN (Reason: Rash) Rx Instructions: 1 WEEK ON AND 1 WEEK OFF neomycin-polymyxin B-dexameth 3.5 mg/g-10,000 unit/g-0.1 % ointment 1 appl ophthalmic (eye) BID Patient Comments: PATIENT SAYS SHE IS STILL USING THIS cefuroxime axetil 500 mg tablet 500 mg PO BID Qty: 10 0RF prednisone 20 mg Tablet 40 mg PO DAILY Qty: 10 0RF Interventions: ED Discharge Assessment Last Done: 03/12/23 13:34 Discharge Date/Time: 03/12/23 13:34 Print Language: Romanian
[2023-03-12 13:00] VITALS: BP 200/91; PULSE 90; RESP 15; O2SAT 96
--- NOTE | 2023-03-12 13:00 | PC.NURSE ---
Patient with pain in her bladder area that wraps around to her back, patient also states that it ocampo when she pees. Patient was at this facility approximately 1 month ago and was treated for a pneumonia, after starting antibiotics she started to get the urinary symptoms. Upon assessment patient is tender to palpation over her bladder. Patient otherwise is well appearing.
[2023-03-12 13:24] VITALS: BP 163/73
== END 2023-03-12 13:34 | disposition home or self-care (01) ==
PROVIDERS: Emergency Provider Student in an Organized Health Care Education/Training Program; PCP Internal Medicine
DX: N39.0 Urinary tract infection, site not specified (principal); M54.50 Low back pain, unspecified; E11.9 Type 2 diabetes mellitus without complications; I10 Essential (primary) hypertension; Z79.899 Other long term (current) drug therapy; Z79.4 Long term (current) use of insulin
CPT/HCPCS: 36415; 80048; 81001; 81003; 85025; 87086; 99283; 99284

== ENCOUNTER 2023-04-20 11:34 | Emergency (ER) | payer OTHER, SELFPAY ==
--- NOTE | ~2023-04-20 | XR_ITS ---
EXAMINATION: XR CHEST CLINICAL INFORMATION: Pneumonia and chest tightness COMPARISON: Previous chest x-ray most recent January 2023 TECHNIQUE: Frontal view of the chest was obtained. FINDINGS: The cardiac and mediastinal contours are normal. There is airspace disease in the peripheral left mid lung. This probably represents pneumonia. The lungs are otherwise clear. No pleural effusion or pneumothorax. Degenerative changes of the spine. Surgical clips in the left axilla. XR/XR chest 1V IMPRESSION: Airspace disease in the lateral peripheral left lung probably representing pneumonia.
--- NOTE | ~2023-04-20 | CT_ITS ---
EXAMINATION: CT CHEST WITHOUT CONTRAST CLINICAL INFORMATION: Shortness of breath and chest wall pain. History of breast cancer. COMPARISON: Previous chest x-ray from earlier the same day and chest CT June 2022 TECHNIQUE: Multidetector volumetric CT imaging of the chest was done. Axial MIP volume rendering provided. Sagittal and coronal reformatted images were obtained. This CT examination was performed using dose optimization techniques as appropriate, variously including the following: *Automated exposure control *Adjustment of mA and/or kV according to patient size (this includes techniques or standardized protocols for targeted exams where dose is matched to indication/reason for exam; i.e. extremities or head) *Use of iterative reconstruction technique DLP: 180 mGy-cm FINDINGS: LUNGS: Left lung: There is patchy left upper lobe and lingular nodular opacities and consolidation probably representing bronchopneumonia. There is a 3 mm peripheral or subpleural left lower lobe nodule axial image 37 series 3 that is stable. There is chronic scarring or subsegmental atelectasis in the posterior a phrenic sulcus of the left lower lobe. Right lung: There are clustered small peribronchial nodules in the posterior right upper lobe axial image 23 series 3 and right lower lobe axial image 31 series 3 and right middle lobe axial image 40 series 3 suggestive of tree-in-bud appearance or airways disease. Heterogeneous clustered groundglass attenuation areas in the posterior right lower lobe, largest measuring 1.8 x 2.1 cm axial image 38 series 3. MEDIASTINUM: 1.4 x 2.8 cm thyroid nodule. Normal heart size. No pericardial effusion. Small mediastinal lymph nodes. CORONARY ARTERY CALCIFICATION: Mild PLEURA: There is no pleural effusion. No pleural mass or thickening. Small left diaphragmatic hernia containing fat. AXILLA: Surgical clips in the left axilla. Post bilateral mastectomy. No chest wall mass. Small stable bilateral axillary lymph nodes. No enlarged axillary lymph nodes. UPPER ABDOMEN: Calcifications in the liver and spleen suggestive of old granulomatous disease. Stable 1.3 x 2.3 cm low-attenuation lesion in the peripheral right lobe of the liver, question representing a cyst. Postcholecystectomy. 1 cm splenic artery aneurysm that is stable. Stable small 1 cm left adrenal nodule. OSSEOUS STRUCTURES: Degenerative changes of the spine. CT/CT chest wo IV con IMPRESSION: Left upper lobe bronchopneumonia. Scattered areas of airways disease/tree in bud nodules and right lower lobe groundglass opacities probably representing infectious or inflammatory process as well. Right thyroid nodule. Follow-up thyroid ultrasound recommended. Fleischner guidelines were followed.
[2023-04-20 11:39] VITALS: BP 139/84; PULSE 114; RESP 18; TEMP 36.8; O2SAT 94; BMI 24.1
--- NOTE | 2023-04-20 11:42 | ECG_ITS ---
Test Reason : CHEST TIGHTNESS Blood Pressure : / mmHG Vent. Rate : 105 BPM Atrial Rate : 105 BPM P-R Int : 180 ms QRS Dur : 082 ms QT Int : 352 ms P-R-T Axes : 081 062 063 degrees QTc Int : 465 ms Sinus tachycardia Moderate voltage criteria for LVH, may be normal variant ( Sokolow-Del Rosario , Jamal product ) Borderline ECG When compared with ECG of 08-FEB-2023 09:05, Borderline criteria for Anterior infarct are no longer Present Referred By: Hosea Stanley Electronically Signed By:Yeyo Jackson
--- NOTE | 2023-04-20 11:42 | ED.GENADULT ---
HPI - General Adult General Chief complaint: General Medical Stated complaint: chest pain abd pain chills Time Seen by Provider: 04/20/23 12:00 Source: patient and family Mode of arrival: ambulatory History of Present Illness HPI narrative: 38-year-old female who presents with not feeling well for about 1 week and complaints of increasing cough and chest congestion with chills and some vague complaints of abdominal discomfort. Related Data Home Medications Medication Instructions Recorded Confirmed acetaminophen 650 mg 1 tab PO Q8H PRN Pain (Scale Score 03/27/22 02/06/23 tablet,extended release (Mapap 1-3) Arthritis Pain) cholecalciferol (vitamin D3) 50 50 mcg PO DAILY 03/27/22 02/06/23 mcg (2,000 unit) tablet (Vitamin D3) oxybutynin chloride 10 mg 1 tab PO DAILY 03/27/22 02/06/23 tablet,extended release 24 hr simvastatin 10 mg tablet 1 tab PO BEDTIME 03/27/22 02/06/23 sitagliptin phosphate 100 mg 1 tab PO DAILY 03/27/22 02/06/23 tablet (Januvia) albuterol sulfate 90 mcg/actuation 2 puff inhalation Q4-6H PRN 06/12/22 02/06/23 aerosol inhaler shortness of breath or wheezing fluticasone propionate 230 2 puff inhalation BID 06/12/22 02/06/23 mcg-salmeterol 21 mcg/actuation HFA inhaler (Advair HFA) hydrocortisone 2.5 % topical cream 1 appl topical BID PRN Rash 02/06/23 02/06/23 ipratropium 0.5 mg-albuterol 3 mg 3 ml inhalation Q4H PRN Wheezing 02/06/23 02/06/23 (2.5 mg base)/3 mL nebulization soln neomycin 3.5 mg/g-polymyxin B 1 appl ophthalmic (eye) BID 02/06/23 02/06/23 10,000 unit/g-dexameth 0.1 % eye oint triamcinolone acetonide 0.1 % 1 appl topical BID-TID PRN Rash 02/06/23 02/06/23 topical cream Previous Rx's Medication Instructions Recorded insulin lispro 100 unit/mL 1 sliding scale dose subcut 11/07/22 subcutaneous pen (Humalog KwikPen USEASDIRECTD #15 mL (U-100) Insulin) pen needle, diabetic 31 gauge x #50 ea 11/07/2201/23 (Pen Needle) cefuroxime axetil 500 mg tablet 500 mg PO BID #10 tabs 02/08/23 prednisone 20 mg tablet 40 mg PO DAILY #10 tabs 02/08/23 cefuroxime axetil 250 mg tablet 250 mg PO BID #14 tabs 03/12/23 amoxicillin 875 mg-potassium 1 tab PO BID 7 days #14 tabs 04/20/23 clavulanate 125 mg tablet prednisone 50 mg tablet 50 mg PO DAILY 4 days #4 tabs 04/20/23 Allergies Allergy/AdvReac Type Severity Reaction Status Date / Time acetaminophen [Percocet] Allergy Unknown Unknown Verified 03/12/23 09:58 doxycycline AdvReac Intermediate vaginal Verified 03/12/23 09:58 swelling azithromycin AdvReac Mild yeast Verified 03/12/23 09:58 infection ciprofloxacin [From Cipro] AdvReac Mild yeast Verified 03/12/23 09:58 infection metronidazole [From Flagyl] AdvReac Mild yeast Verified 03/12/23 09:58 infection oxycodone [From Percocet] AdvReac Mild NAUSEA Verified 03/12/23 09:58 Review of Systems Review of Systems: Pertinent positives and negatives as stated in [facility] Past Medical History Source: nursing notes reviewed Medical History Asthma Hypertension Type 2 diabetes mellitus Family History Family History Other Asthma Esophageal cancer Social History Social History Household Members: None Housing: Apartment Do you presently have visiting nurse or other home services: No Alcohol intake: never Patient Tobacco Use Status: Former Tobacco user Smoked in Last 30 Days: No Use of substances other than those prescribed or required for medical reasons: No Advance Directives: Yes Advance Directives on File: Yes Advance Directives Date on File: 06/12/22 service: No Current occupational status: retired Physical Exam ED Vital Signs: Vital Signs - 24 hr 04/20/23 11:39 04/20/23 11:58 04/20/23 12:21 Temperature 98.3 F 98.8 F Pulse Rate 114 H 102 H Respiratory Rate 18 20 14 Blood Pressure 139/84 135/71 Pulse Oximetry 94 92 Oxygen Delivery Method Room Air Room Air 04/20/23 14:05 Temperature 97.9 F Pulse Rate 101 H Respiratory Rate 15 Blood Pressure 158/70 H Pulse Oximetry 95 Oxygen Delivery Method Room Air BMI result Body Mass Index 24.1 VITAL SIGNS: Reviewed. GENERAL: Well developed, well nourished, in no acute distress. HEAD: Normocephalic/atraumatic EYES: PERRLA, EOMI EARS: Ext canals without abnormality NOSE: Nares patent bilateral OROPHARYNX: no oral lesions noted, posterior pharynx clear NECK: Supple, no adenopathy LUNGS: Coarse rhonchi, no tachypnea. SpO2<95> CARDIOVASCULAR: Regular rate and rhythm without noted murmurs. ABDOMEN: Soft, mild tenderness to palpation, non-distended with bowel sounds. MUSCULOSKELETAL: No tenderness, deformities, or effusions noted on gross inspection. EXTREMITIES: No cyanosis, clubbing or edema. SKIN: Inspection of the skin reveals no rashes NEUROLOGIC: Alert and oriented x 4. Strength and sensation to light touch were grossly intact x 4. Course Course Course Narrative: RME: 78 yold female presetns to the ED for chest tighntess and cough for one weeks. no relief with albuterol nebulizer. Labs, EKG, and chest xray ordered. Medications Administered Discontinued Medications Generic Name Dose Route Start Last Admin Trade Name Freq PRN Reason Stop Dose Admin Albuterol/Ipratropium 3 ml 04/20/23 12:00 04/20/23 12:20 Albuterol/Iprat 2.5/0.5mg 3 Ml Ampul.Neb INHALE 04/20/23 12:01 3 ml ONCE ONE Administration Medical Decision Making Medical Decision Making MDM Narrative: 78-year-old female with history and clinical presentation after review of all investigations of pneumonia. She is otherwise hemodynamically stable, oxygenating well on room air, will receive initial antibiotics here as well as analgesics and then be discharged home in stable condition with remaining course of antibiotics. All results discussed with her bedside. I also suspected degree airway inflammation and patient will be discharged on a course of steroids as well. Differential Diagnosis Please see the discussion above Lab Data Please see the discussion above 04/20/23 12:55 04/20/23 12:55 Labs: Lab Results 04/20/23 04/20/23 04/20/23 Range/Units 12:55 12:55 12:55 WBC 9.3 (4.8-10.8) X10*3/uL RBC 4.78 (4.20-5.50) X10*6/uL Hgb 13.5 (12.0-16.0) g/dl Hct 41.5 (37.0-47.0) % MCV 86.8 (80.0-98.0) fL MCH 28.2 (27.0-33.0) pg MCHC 32.5 (31.0-35.0) g/dl RDW 13.3 (11.0-16.0) % Plt Count 295 D (160-400) X10*3/uL MPV 10.2 (9.4-12.3) fL Immature Gran % (Auto) 0.5 H (0.0-0.4) % Neut % (Auto) 62.9 (45-73) % Lymph % (Auto) 27.8 (20-40) % [place] % (Auto) 7.3 (2-11) % Eos % (Auto) 1.0 (0-4) % Baso % (Auto) 0.5 (0-2) % Lymph # (Auto) 2.6 (1.2-4.9) X10*3/uL [place] # (Auto) 0.7 (0.1-1.2) X10*3/uL Eos # (Auto) 0.1 (0.0-0.4) X10*3/uL Baso # (Auto) 0.1 (0.0-0.2) X10*3/uL Abs Immat Gran (auto) 0.05 H (0.00-0.03) X10*3/uL Absolute Neuts (auto) 5.8 (2.0-8.3) x10*3/uL Absolute Nucleated RBC 0.000 (0.0-0.012) X10*3/uL Nucleated RBC % (auto) 0.0 (0.0-0.2) /100WBC PT 12.4 (10.0-13.1) SEC INR 1.1 (0.9-1.1) APTT 31.8 (26.0-36.4) SEC Sodium 138 (135-145) mmol/L Potassium 4.3 (3.3-5.1) mmol/L Chloride 101 (96-108) mmol/L Carbon Dioxide 27 (22-29) mmol/L Anion Gap 14 (12-20) BUN 16 (9-16) mg/dL Creatinine 0.75 (0.5-1.4) mg/dL Estim Creat Clear Calc 48.0 Estimated GFR > 60 Random Glucose 299 H (60-115) mg/dL Calcium 9.6 (8.4-10.2) mg/dL Total Bilirubin 0.7 (0.0-1.0) mg/dL AST 24 (5-31) U/L ALT 35 H (0-31) U/L Alkaline Phosphatase 179 H (39-117) U/L Troponin I High Sens (<3.5-17.0) ng/L B-Natriuretic Peptide (<100) pg/mL Total Protein 7.2 (6.5-8.0) g/dL Albumin 4.1 (3.5-5.0) g/dL Urine Color Urine Appearance Urine pH (5.0-9.0) Ur Specific [place] (1.005-1.025) Urine Protein (Neg-Trace) mg/dL Urine Glucose (UA) (Negative) mg/dL Urine Ketones (Negative) mg/dL Urine Blood (Negative) Urine Nitrite (Negative) Ur Leukocyte Esterase (Negative) Urine RBC (0-2) /HPF Urine WBC (0-5) /HPF Ur Squamous Epith Cells (0-2) /HPF Urine Bacteria (None Seen) Hyaline Casts (0-2) /LPF Influenza Type A (PCR) (Negative) Influenza Type B (PCR) (Negative) RSV RNA Qual (PCR) (Negative) SARS-CoV-2 RNA (RT-PCR) (Negative) 04/20/23 04/20/23 04/20/23 Range/Units 12:55 12:55 12:55 WBC (4.8-10.8) X10*3/uL RBC (4.20-5.50) X10*6/uL Hgb (12.0-16.0) g/dl Hct (37.0-47.0) % MCV (80.0-98.0) fL MCH (27.0-33.0) pg MCHC (31.0-35.0) g/dl RDW (11.0-16.0) % Plt Count (160-400) X10*3/uL MPV (9.4-12.3) fL Immature Gran % (Auto) (0.0-0.4) % Neut % (Auto) (45-73) % Lymph % (Auto) (20-40) % [place] % (Auto) (2-11) % Eos % (Auto) (0-4) % Baso % (Auto) (0-2) % Lymph # (Auto) (1.2-4.9) X10*3/uL [place] # (Auto) (0.1-1.2) X10*3/uL Eos # (Auto) (0.0-0.4) X10*3/uL Baso # (Auto) (0.0-0.2) X10*3/uL Abs Immat Gran (auto) (0.00-0.03) X10*3/uL Absolute Neuts (auto) (2.0-8.3) x10*3/uL Absolute Nucleated RBC (0.0-0.012) X10*3/uL Nucleated RBC % (auto) (0.0-0.2) /100WBC PT (10.0-13.1) SEC INR (0.9-1.1) APTT (26.0-36.4) SEC Sodium (135-145) mmol/L Potassium (3.3-5.1) mmol/L Chloride (96-108) mmol/L Carbon Dioxide (22-29) mmol/L Anion Gap (12-20) BUN (9-16) mg/dL Creatinine (0.5-1.4) mg/dL Estim Creat Clear Calc Estimated GFR Random Glucose (60-115) mg/dL Calcium (8.4-10.2) mg/dL Total Bilirubin (0.0-1.0) mg/dL AST (5-31) U/L ALT (0-31) U/L Alkaline Phosphatase (39-117) U/L Troponin I High Sens < 2.7 D (<3.5-17.0) ng/L B-Natriuretic Peptide 13 (<100) pg/mL Total Protein (6.5-8.0) g/dL Albumin (3.5-5.0) g/dL Urine Color Urine Appearance Urine pH (5.0-9.0) Ur Specific [place] (1.005-1.025) Urine Protein (Neg-Trace) mg/dL Urine Glucose (UA) (Negative) mg/dL Urine Ketones (Negative) mg/dL Urine Blood (Negative) Urine Nitrite (Negative) Ur Leukocyte Esterase (Negative) Urine RBC (0-2) /HPF Urine WBC (0-5) /HPF Ur Squamous Epith Cells (0-2) /HPF Urine Bacteria (None Seen) Hyaline Casts (0-2) /LPF Influenza Type A (PCR) NEGATIVE (Negative) Influenza Type B (PCR) NEGATIVE (Negative) RSV RNA Qual (PCR) NEGATIVE (Negative) SARS-CoV-2 RNA (RT-PCR) NEGATIVE (Negative) 04/20/23 Range/Units 15:13 WBC (4.8-10.8) X10*3/uL RBC (4.20-5.50) X10*6/uL Hgb (12.0-16.0) g/dl Hct (37.0-47.0) % MCV (80.0-98.0) fL MCH (27.0-33.0) pg MCHC (31.0-35.0) g/dl RDW (11.0-16.0) % Plt Count (160-400) X10*3/uL MPV (9.4-12.3) fL Immature Gran % (Auto) (0.0-0.4) % Neut % (Auto) (45-73) % Lymph % (Auto) (20-40) % [place] % (Auto) (2-11) % Eos % (Auto) (0-4) % Baso % (Auto) (0-2) % Lymph # (Auto) (1.2-4.9) X10*3/uL [place] # (Auto) (0.1-1.2) X10*3/uL Eos # (Auto) (0.0-0.4) X10*3/uL Baso # (Auto) (0.0-0.2) X10*3/uL Abs Immat Gran (auto) (0.00-0.03) X10*3/uL Absolute Neuts (auto) (2.0-8.3) x10*3/uL Absolute Nucleated RBC (0.0-0.012) X10*3/uL Nucleated RBC % (auto) (0.0-0.2) /100WBC PT (10.0-13.1) SEC INR (0.9-1.1) APTT (26.0-36.4) SEC Sodium (135-145) mmol/L Potassium (3.3-5.1) mmol/L Chloride (96-108) mmol/L Carbon Dioxide (22-29) mmol/L Anion Gap (12-20) BUN (9-16) mg/dL Creatinine (0.5-1.4) mg/dL Estim Creat Clear Calc Estimated GFR Random Glucose (60-115) mg/dL Calcium (8.4-10.2) mg/dL Total Bilirubin (0.0-1.0) mg/dL AST (5-31) U/L ALT (0-31) U/L Alkaline Phosphatase (39-117) U/L Troponin I High Sens (<3.5-17.0) ng/L B-Natriuretic Peptide (<100) pg/mL Total Protein (6.5-8.0) g/dL Albumin (3.5-5.0) g/dL Urine Color Yellow Urine Appearance Clear Urine pH 6.0 (5.0-9.0) Ur Specific [place] 1.010 (1.005-1.025) Urine Protein Negative (Neg-Trace) mg/dL Urine Glucose (UA) 250 H (Negative) mg/dL Urine Ketones Negative (Negative) mg/dL Urine Blood Negative (Negative) Urine Nitrite Negative (Negative) Ur Leukocyte Esterase Small (1+) H (Negative) Urine RBC 0-2 (0-2) /HPF Urine WBC 0-5 (0-5) /HPF Ur Squamous Epith Cells 0-2 (0-2) /HPF Urine Bacteria None Seen (None Seen) Hyaline Casts 0-2 (0-2) /LPF Influenza Type A (PCR) (Negative) Influenza Type B (PCR) (Negative) RSV RNA Qual (PCR) (Negative) SARS-CoV-2 RNA (RT-PCR) (Negative) Independent Interpretation I performed an independent interpretation of an: EKG Interpretation: Sinus tachycardia, HR-105, no STEMI, KS/QRS/QTC is within normal limits. Radiology Impression Radiologist Impression: My interpretation is in agreement with radiology's impression of the imaging study. External Record Review External record reviewed: Outpatient record and Prior outpatient labs Chronic Conditions Patient?s care impacted by: Diabetes Discharge Plan Discharge Clinical Impression: Pneumonia, Asthma Patient Disposition: Home, Self-Care Instructions: Asthma (ED), Pneumonia (ED) Additional Instructions: 1. Reanudar todos los medicamentos caseros seg?n lo prescrito. Deber? tener en cuenta que ivory el curso de mal esteroides, mal az?cares ser?n m?s altos de lo normal y debe tratarlos adecuadamente. 2. Complete el curso corto de esteroides. 3. Complete los antibi?ticos. 4. [place] un seguimiento con reis proveedor de atenci?n primaria. Regrese a la nannette de emergencias si los s?ntomas empeoran. 1. Resume all home medications as prescribed. You will need to keep in mind that during the course of your steroids, your sugars will be higher than usual an you should treat these appropriately. 2. Complete the short course of steroids. 3. Complete the antibiotics. 4. Please follow-up with your primary care provider. Return to the ER for any worsening symptoms. Prescriptions: New prednisone 50 mg tablet 50 mg PO DAILY 4 Days Qty: 4 0RF amoxicillin-pot clavulanate 875-125 mg tablet 1 tab PO BID 7 Days Qty: 14 0RF No Action oxybutynin chloride 10 mg tablet extended release 24 hr 1 tab PO DAILY simvastatin 10 mg tablet 1 tab PO BEDTIME acetaminophen [Mapap Arthritis Pain] 650 mg tablet extended release 1 tab PO Q8H PRN (Reason: Pain (Scale Score 1-3)) Januvia 100 mg tablet 1 tab PO DAILY cholecalciferol (vitamin D3) [Vitamin D3] 50 mcg (2,000 unit) Tablet 50 mcg PO DAILY albuterol sulfate 90 mcg/actuation HFA aerosol inhaler 2 puff inhalation Q4-6H PRN (Reason: shortness of breath or wheezing) Advair HFA 230-21 mcg/actuation Hfa Aerosol Inhaler 2 puff INHALATION BID insulin lispro [Humalog KwikPen Insulin] 100 unit/mL insulin pen 1 sliding scale dose subcut USEASDIRECTD Qty: 15 0RF Rx Instructions: Test glucose and use insulin per below until you follow up with PCP 0 units <150 2 units 151-200 4 units 201-250 6 units 251-300 8 units 301-350 10 units if >350, call (DME) pen needle, diabetic [Pen Needle] 31 gauge x 3/16 needle See Rx Instructions .Route Qty: 50 0RF Rx Instructions: As directed hydrocortisone 2.5 % cream 1 appl topical BID PRN (Reason: Rash) Rx Instructions: 1 WEE ON 1 WEEK OF ipratropium-albuterol 0.5 mg-3 mg(2.5 mg base)/3 mL Solution For Nebulization 3 ml INHALATION Q4H PRN (Reason: Wheezing) triamcinolone acetonide 0.1 % cream 1 appl topical BID-TID PRN (Reason: Rash) Rx Instructions: 1 WEEK ON AND 1 WEEK OFF neomycin-polymyxin B-dexameth 3.5 mg/g-10,000 unit/g-0.1 % ointment 1 appl ophthalmic (eye) BID Patient Comments: PATIENT SAYS SHE IS STILL USING THIS cefuroxime axetil 500 mg tablet 500 mg PO BID Qty: 10 0RF prednisone 20 mg Tablet 40 mg PO DAILY Qty: 10 0RF cefuroxime axetil 250 mg tablet 250 mg PO BID Qty: 14 0RF Referrals: Lindsey Lucas MD [Primary Care Provider] - Print Language: Mongolian
[2023-04-20 11:58] VITALS: BP 135/71; RESP 20; TEMP 37.1; O2SAT 92
[2023-04-20] MEDS: Albuterol/Iprat 2.5/0.5MG 3 ML AMPUL.NEB INHALE (12:20)
[2023-04-20 12:21] VITALS: PULSE 102; RESP 14; O2SAT 95
[2023-04-20 12:59] LABS: MANUAL DIFF FLAG NO
[2023-04-20 13:06] LABS: Basophils Absolute Auto 0.1 X10*3/uL (0.0-0.2); Basophils Percent Auto 0.5 % (0-2); Eosinophils Absolute Auto 0.1 X10*3/uL (0.0-0.4); Hematocrit 41.5 % (37.0-47.0); Hemoglobin 13.5 g/dl (12.0-16.0); Imm Gran Abs Auto 0.05 X10*3/uL (0.00-0.03); Imm Gran Pct Auto 0.5 % (0.0-0.4); Lymphocytes Absolute Auto 2.6 X10*3/uL (1.2-4.9); Lymphocytes Percent Auto 27.8 % (20-40); Mean Corpuscular HGB Conc 32.5 g/dl (31.0-35.0); Mean Corpuscular Hemoglobin 28.2 pg (27.0-33.0); Mean Corpuscular Volume 86.8 fL (80.0-98.0); Mean Platelet Volume 10.2 fL (9.4-12.3); Monocytes Absolute Auto 0.7 X10*3/uL (0.1-1.2); Monocytes Percent Auto 7.3 % (2-11); Neutrophils Absolute Auto 5.8 x10*3/uL (2.0-8.3); Neutrophils Percent Auto 62.9 % (45-73); Platelet Count 295 X10*3/uL (160-400); Red Blood Count 4.78 X10*6/uL (4.20-5.50); Red Cell Distribution Width 13.3 % (11.0-16.0); White Blood Count 9.3 X10*3/uL (4.8-10.8)
[2023-04-20 13:07] LABS: INTERNATIONAL NORM RATIO 1.1 (0.9-1.1); Prothrombin Time 12.4 SEC (10.0-13.1)
[2023-04-20 13:10] LABS: Partial Thromboplastin Time 31.8 SEC (26.0-36.4)
[2023-04-20 13:16] LABS: Alanine Aminotransferase 35 U/L (0-31); Albumin Level 4.1 g/dL (3.5-5.0); Alkaline Phosphatase 179 U/L (39-117); Anion Gap 14 (12-20); Aspartate Amino Transferase 24 U/L (5-31); Bilirubin Total 0.7 mg/dL (0.0-1.0); Blood Urea Nitrogen 16 mg/dL (9-16); Calcium 9.6 mg/dL (8.4-10.2); Carbon Dioxide 27 mmol/L (22-29); Chloride 101 mmol/L (96-108); Estimated Glomerular Filt Rate > 60; Glucose Random 299 mg/dL (60-115); Potassium 4.3 mmol/L (3.3-5.1); Sodium 138 mmol/L (135-145); Total Protein 7.2 g/dL (6.5-8.0)
[2023-04-20 13:21] LABS: B Type Natriuretic Peptide 13 pg/mL (<100)
[2023-04-20 13:24] LABS: Troponin-I High Sensitivity < 2.7 ng/L (<3.5-17.0)
[2023-04-20 13:58] LABS: Influenza A PCR NEGATIVE (Negative); Influenza B PCR NEGATIVE (Negative); Resp Syncy Virus RNA Qual PCR NEGATIVE (Negative); SARS COV2 PCR INHOUSE NEGATIVE (Negative)
[2023-04-20 14:05] VITALS: BP 158/70; PULSE 101; RESP 15; TEMP 36.6; O2SAT 95
[2023-04-20 15:32] LABS: Appearance Urine Clear; Color Urine Yellow; Glucose Urine UA 250 mg/dL (Negative); Leukocyte Esterase Urine Small (1+) (Negative); Nitrite Urine Negative (Negative); UMIC TRIGGER UACC YES; Urine Blood Negative (Negative); Urine Ketones Negative (Negative); Urine Protein Negative (Neg-Trace)
[2023-04-20 15:43] LABS: Bacteria Urine None Seen (None Seen); Hyaline Casts Urine 0-2 /LPF (0-2); RBC Urine 0-2 /HPF (0-2); Squamous Epithelial Cell Urine 0-2 /HPF (0-2); UACC Culture Trigger YES; WBC Urine 0-5 /HPF (0-5)
[2023-04-20 17:17] VITALS: BP 144/68; PULSE 87; RESP 16; TEMP 37.2; O2SAT 94
[2023-04-20] MEDS: Ibuprofen 400 MG TABLET PO (17:18)
[2023-04-20] MEDS: predniSONE 10 MG TABLET 50 MG PO (17:19)
[2023-04-20] MEDS: Amoxicillin/Potassium Clav 875 MG TABLET PO (17:19)
== END 2023-04-20 17:30 | disposition home or self-care (01) ==
PROVIDERS: Physician Assistant; Emergency Provider Student in an Organized Health Care Education/Training Program; PCP Internal Medicine
DX: J18.9 Pneumonia, unspecified organism (principal); R07.89 Other chest pain; J45.909 Unspecified asthma, uncomplicated; R05.9 Cough, unspecified; R06.02 Shortness of breath; M54.6 Pain in thoracic spine; Z20.822 Contact with and (suspected) exposure to COVID-19; Z20.828 Contact with and (suspected) exposure to other viral communicable diseases; Z79.899 Other long term (current) drug therapy
CPT/HCPCS: 0241U; 71045; 71250; 80053; 81001; 83880; 84484; 85025; 85610; 85730; 87086; 93005; 94640; 99284; 99285

== ENCOUNTER 2023-09-11 16:14 | Emergency (ER) | payer OTHER, SELFPAY ==
[2023-09-11 16:31] VITALS: BP 163/71; PULSE 85; RESP 16; TEMP 36.7; O2SAT 93; BMI 24.1
--- NOTE | 2023-09-11 16:33 | ED_ITS ---
HPI - General Adult General Chief complaint: Abdominal Pain Stated complaint: lower back pain Time Seen by Provider: 09/11/23 18:37 Source: patient Mode of arrival: ambulatory History of Present Illness HPI narrative: 78-year-old female who presents with suprapubic discomfort in complaints of pain and burning on urination. Patient also describes paraspinal back pain that wraps around into the pelvic area without lower extremity numbness/tingling/weakness and denies any traumatic event. She also denies any fevers or chills. Related Data Home Medications Medication Instructions Recorded Confirmed acetaminophen 650 mg 1 tab PO Q8H PRN Pain (Scale Score 03/27/22 02/06/23 tablet,extended release (Mapap 1-3) Arthritis Pain) cholecalciferol (vitamin D3) 50 50 mcg PO DAILY 03/27/22 02/06/23 mcg (2,000 unit) tablet (Vitamin D3) oxybutynin chloride 10 mg 1 tab PO DAILY 03/27/22 02/06/23 tablet,extended release 24 hr simvastatin 10 mg tablet 1 tab PO BEDTIME 03/27/22 02/06/23 sitagliptin phosphate 100 mg 1 tab PO DAILY 03/27/22 02/06/23 tablet (Januvia) albuterol sulfate 90 mcg/actuation 2 puff inhalation Q4-6H PRN 06/12/22 02/06/23 aerosol inhaler shortness of breath or wheezing fluticasone propionate 230 2 puff inhalation BID 06/12/22 02/06/23 mcg-salmeterol 21 mcg/actuation HFA inhaler (Advair HFA) hydrocortisone 2.5 % topical cream 1 appl topical BID PRN Rash 02/06/23 02/06/23 ipratropium 0.5 mg-albuterol 3 mg 3 ml inhalation Q4H PRN Wheezing 02/06/23 02/06/23 (2.5 mg base)/3 mL nebulization soln neomycin 3.5 mg/g-polymyxin B 1 appl ophthalmic (eye) BID 02/06/23 02/06/23 10,000 unit/g-dexameth 0.1 % eye oint triamcinolone acetonide 0.1 % 1 appl topical BID-TID PRN Rash 02/06/23 02/06/23 topical cream Previous Rx's Medication Instructions Recorded insulin lispro 100 unit/mL 1 sliding scale dose subcut 11/07/22 subcutaneous pen (Humalog KwikPen USEASDIRECTD #15 mL (U-100) Insulin) pen needle, diabetic 31 gauge x #50 ea 11/07/22 3/ (Pen Needle) cefuroxime axetil 500 mg tablet 500 mg PO BID #10 tabs 02/08/23 prednisone 20 mg tablet 40 mg (2 x 20 mg) PO DAILY #10 tabs 02/08/23 cefuroxime axetil 250 mg tablet 250 mg PO BID #14 tabs 03/12/23 amoxicillin 875 mg-potassium 1 tab PO BID 7 days #14 tabs 04/20/23 clavulanate 125 mg tablet prednisone 50 mg tablet 50 mg PO DAILY 4 days #4 tabs 04/20/23 nitrofurantoin 100 mg PO Q12H 7 days #14 caps 09/11/23 monohydrate/macrocrystals 100 mg capsule (Macrobid) Allergies Allergy/AdvReac Type Severity Reaction Status Date / Time acetaminophen [Percocet] Allergy Unknown Unknown Verified 03/12/23 09:58 doxycycline AdvReac Intermediate vaginal Verified 03/12/23 09:58 swelling azithromycin AdvReac Mild yeast Verified 03/12/23 09:58 infection ciprofloxacin [From Cipro] AdvReac Mild yeast Verified 03/12/23 09:58 infection metronidazole [From Flagyl] AdvReac Mild yeast Verified 03/12/23 09:58 infection oxycodone [From Percocet] AdvReac Mild NAUSEA Verified 03/12/23 09:58 Review of Systems 2 Review of Systems: Pertinent positives and negatives as stated in [facility] Past Medical History Source: nursing notes reviewed Medical History Type 2 diabetes mellitus Hypertension Asthma Family History Family History Other Asthma Esophageal cancer Social History Social History Household Members: None Housing: Apartment Do you presently have visiting nurse or other home services: No Alcohol intake: never Patient Tobacco Use Status: Former Tobacco user Smoked in Last 30 Days: No Use of substances other than those prescribed or required for medical reasons: No Advance Directives: Yes Advance Directives on File: Yes Advance Directives Date on File: 06/12/22 service: No Current occupational status: retired Physical Exam ED Vital Signs: Vital Signs - 24 hr 09/11/23 16:31 09/11/23 18:36 Temperature 98.1 F Pulse Rate 85 82 Respiratory Rate 16 16 Blood Pressure 163/71 H 163/78 H Pulse Oximetry 93 95 Oxygen Delivery Method Room Air Room Air BMI result Body Mass Index 24.1 VITAL SIGNS: Reviewed. GENERAL: Well developed, well nourished, in no acute distress. HEAD: Normocephalic/atraumatic EYES: PERRLA, EOMI EARS: Ext canals without abnormality NOSE: Nares patent bilateral OROPHARYNX: no oral lesions noted, posterior pharynx clear NECK: Supple, no adenopathy LUNGS: Normal breath sounds. No adventitious sounds or accessory muscle use. SpO2<95> CARDIOVASCULAR: Regular rate and rhythm without noted murmurs, no JVD or lower extremity edema. ABDOMEN: Soft, suprapubic discomfort, no right lower quadrant or left lower quadrant discomfort, non-distended with bowel sounds. BACK: No midline vertebral tenderness to palpation or step-offs. MUSCULOSKELETAL: No tenderness, deformities, or effusions noted on gross inspection. EXTREMITIES: No cyanosis, clubbing or edema. SKIN: Inspection of the skin reveals no rashes NEUROLOGIC: Alert and oriented x 4. Strength and sensation to light touch were grossly intact x 4. Course Course Course Narrative: This is an RME: Additional HPI, ROS, PE not included below will be deferred to primary provider. 78 yo f presents w/ right flank pain and burning w/ urination X few days Plan- labs. UA Medical Decision Making Medical Decision Making MDM Narrative: This is a 78-year-old female with history and clinical presentation, DDX: Chronic back pain, UTI, on history and clinical presentation no suspicion for cauda equina or compression fracture, no suspicion for appendicitis or diverticulitis and no evidence to suggest sciatica or lumbar radiculopathy. I reviewed all investigations and hematologic indices are negative for leukocytosis and there is no left shift, no evidence of anemia or thrombocytopenia. Chemistry indices do not demonstrate any JESSICA and there is no electrolyte or liver enzyme abnormalities. Patient does have a very mild hyperglycemia without history or clinical findings to suggest a DKA or HHS. Urinalysis is significant for urinary tract infection without hematuria. Patient will receive initial antibiotics here in be discharged on remaining course. Differential Diagnosis Differential Diagnoses: The differential diagnosis associated with the presentation includes Please see the discussion above Admission/Observation Consideration of admission/observation: Escalation of care including admission/observation considered Please see the discussion above Lab Data MDM Lab Attestation statement: I reviewed the patient's lab results. Please see the discussion above 09/11/23 16:47 09/11/23 16:47 Labs: Lab Results 09/11/23 Range/Units 16:47 WBC 7.6 (4.8-10.8) X10*3/uL RBC 4.88 (4.20-5.50) X10*6/uL Hgb 13.9 (12.0-16.0) g/dl Hct 41.9 (37.0-47.0) % MCV 85.9 (80.0-98.0) fL MCH 28.5 (27.0-33.0) pg MCHC 33.2 (31.0-35.0) g/dl RDW 13.0 (11.0-16.0) % Plt Count 243 (160-400) X10*3/uL MPV 10.6 (9.4-12.3) fL Immature Gran % (Auto) 0.4 (0.0-0.4) % Neut % (Auto) 56.3 (45-73) % Lymph % (Auto) 32.5 (20-40) % [place] % (Auto) 9.1 (2-11) % Eos % (Auto) 1.2 (0-4) % Baso % (Auto) 0.5 (0-2) % Lymph # (Auto) 2.5 (1.2-4.9) X10*3/uL [place] # (Auto) 0.7 (0.1-1.2) X10*3/uL Eos # (Auto) 0.1 (0.0-0.4) X10*3/uL Baso # (Auto) 0.0 (0.0-0.2) X10*3/uL Abs Immat Gran (auto) 0.03 (0.00-0.03) X10*3/uL Absolute Neuts (auto) 4.3 (2.0-8.3) x10*3/uL Absolute Nucleated RBC 0.000 (0.0-0.012) X10*3/uL Nucleated RBC % (auto) 0.0 (0.0-0.2) /100WBC Sodium 139 (135-145) mmol/L Potassium 4.4 (3.3-5.1) mmol/L Chloride 107 (96-108) mmol/L Carbon Dioxide 26 (22-29) mmol/L Anion Gap 10 L (12-20) BUN 18 H (9-16) mg/dL Creatinine 0.78 (0.5-1.4) mg/dL Estim Creat Clear Calc 46.2 Estimated GFR > 60 Random Glucose 250 H (60-115) mg/dL Calcium 10.0 (8.4-10.2) mg/dL Magnesium 2.1 (1.6-2.6) mg/dL Total Bilirubin 0.3 (0.0-1.0) mg/dL AST 20 (5-31) U/L ALT 19 (0-31) U/L Alkaline Phosphatase 95 (39-117) U/L Total Protein 7.3 (6.5-8.0) g/dL Albumin 4.3 (3.5-5.0) g/dL Lipase 30 (8-78) U/L Urine Color Dark Yellow Urine Appearance Clear Urine pH 6.0 (5.0-9.0) Ur Specific [place] 1.020 (1.005-1.025) Urine Protein Negative (Neg-Trace) mg/dL Urine Glucose (UA) 100 H (Negative) mg/dL Urine Ketones Negative (Negative) mg/dL Urine Blood Negative (Negative) Urine Nitrite Positive H (Negative) Ur Leukocyte Esterase Small (1+) H (Negative) Urine RBC 0-2 (0-2) /HPF Urine WBC 0-5 (0-5) /HPF Ur Squamous Epith Cells 0-2 (0-2) /HPF Urine Bacteria None Seen (None Seen) Hyaline Casts 0-2 (0-2) /LPF External Record Review External record reviewed: Outpatient record, Prior outpatient labs and Prior outpatient radiology Chronic Conditions Patient?s care impacted by: Diabetes Discharge Plan Discharge Clinical Impression: Acute UTI Patient Disposition: Home, Self-Care Instructions: Urinary Tract Infection in Women (ED), Urinary Tract Infection in Older Adults (ED) Additional Instructions: 1. Reanudar todos los medicamentos caseros seg?n lo recetado. 2. Complete todo el ciclo de antibi?ticos seg?n lo indicado. 3. Le recomiendo encarecidamente que anaid un seguimiento con reis m?dico de atenci?n primaria para chele nueva evaluaci?n del manejo ambulatorio. Ser? importante hacer un seguimiento del urocultivo para asegurarse de que el antibi?elizabeth que est? tomando est? cubriendo adecuadamente la bacteria que est? causando reis infecci?n. Regrese a la nannette de emergencias si los s?ntomas empeoran. 1. Resume all home medications as prescribed. 2. Complete the entire course of antibiotics as ordered. 3. I highly recommend that you follow-up with your primary care doctor for re- evaluation further outpatient management. It will be important to follow-up on the urine culture to make sure that the antibiotic you are on is adequately covering the bacteria that is causing your infection. Return to the ER for any worsening symptoms. Prescriptions: New nitrofurantoin monohyd/m-cryst [Macrobid] 100 mg capsule 100 mg PO Q12H 7 Days Qty: 14 0RF Rx Instructions: must administer with a meal/food No Action oxybutynin chloride 10 mg tablet extended release 24 hr 1 tab PO DAILY simvastatin 10 mg tablet 1 tab PO BEDTIME acetaminophen [Mapap Arthritis Pain] 650 mg tablet extended release 1 tab PO Q8H PRN (Reason: Pain (Scale Score 1-3)) Januvia 100 mg tablet 1 tab PO DAILY cholecalciferol (vitamin D3) [Vitamin D3] 50 mcg (2,000 unit) Tablet 50 mcg PO DAILY albuterol sulfate 90 mcg/actuation HFA aerosol inhaler 2 puff inhalation Q4-6H PRN (Reason: shortness of breath or wheezing) Advair HFA 230-21 mcg/actuation Hfa Aerosol Inhaler 2 puff INHALATION BID insulin lispro [Humalog KwikPen Insulin] 100 unit/mL insulin pen 1 sliding scale dose subcut USEASDIRECTD Qty: 15 0RF Rx Instructions: Test glucose and use insulin per below until you follow up with PCP 0 units <150 2 units 151-200 4 units 201-250 6 units 251-300 8 units 301-350 10 units if >350, call (DME) pen needle, diabetic [Pen Needle] 31 gauge x 3/16 needle See Rx Instructions .Route Qty: 50 0RF Rx Instructions: As directed prednisone 50 mg tablet 50 mg PO DAILY 4 Days Qty: 4 0RF amoxicillin-pot clavulanate 875-125 mg tablet 1 tab PO BID 7 Days Qty: 14 0RF hydrocortisone 2.5 % cream 1 appl topical BID PRN (Reason: Rash) Rx Instructions: 1 WEE ON 1 WEEK OF ipratropium-albuterol 0.5 mg-3 mg(2.5 mg base)/3 mL Solution For Nebulization 3 ml INHALATION Q4H PRN (Reason: Wheezing) triamcinolone acetonide 0.1 % cream 1 appl topical BID-TID PRN (Reason: Rash) Rx Instructions: 1 WEEK ON AND 1 WEEK OFF neomycin-polymyxin B-dexameth 3.5 mg/g-10,000 unit/g-0.1 % ointment 1 appl ophthalmic (eye) BID Patient Comments: PATIENT SAYS SHE IS STILL USING THIS cefuroxime axetil 500 mg tablet 500 mg PO BID Qty: 10 0RF prednisone 20 mg Tablet 40 mg PO DAILY Qty: 10 0RF cefuroxime axetil 250 mg tablet 250 mg PO BID Qty: 14 0RF Referrals: Lindsey Lucas MD [Primary Care Provider] - Print Language: [place]
--- NOTE | 2023-09-11 16:50 | MHC.EDTECH ---
Patient blood drawn ,and urine sample collected and sent to lab .
[2023-09-11 16:52] LABS: MANUAL DIFF FLAG NO
[2023-09-11 16:55] LABS: Appearance Urine Clear; Color Urine Dark Yellow; Glucose Urine UA 100 mg/dL (Negative); Leukocyte Esterase Urine Small (1+) (Negative); Nitrite Urine Positive (Negative); UMIC TRIGGER UACC YES; Urine Blood Negative (Negative); Urine Ketones Negative (Negative); Urine Protein Negative (Neg-Trace)
[2023-09-11 16:57] LABS: Basophils Percent Auto 0.5 % (0-2); Eosinophils Absolute Auto 0.1 X10*3/uL (0.0-0.4); Eosinophils Percent Auto 1.2 % (0-4); Hematocrit 41.9 % (37.0-47.0); Hemoglobin 13.9 g/dl (12.0-16.0); Imm Gran Abs Auto 0.03 X10*3/uL (0.00-0.03); Imm Gran Pct Auto 0.4 % (0.0-0.4); Lymphocytes Absolute Auto 2.5 X10*3/uL (1.2-4.9); Lymphocytes Percent Auto 32.5 % (20-40); Mean Corpuscular HGB Conc 33.2 g/dl (31.0-35.0); Mean Corpuscular Hemoglobin 28.5 pg (27.0-33.0); Mean Corpuscular Volume 85.9 fL (80.0-98.0); Mean Platelet Volume 10.6 fL (9.4-12.3); Monocytes Absolute Auto 0.7 X10*3/uL (0.1-1.2); Monocytes Percent Auto 9.1 % (2-11); Neutrophils Absolute Auto 4.3 x10*3/uL (2.0-8.3); Neutrophils Percent Auto 56.3 % (45-73); Platelet Count 243 X10*3/uL (160-400); Red Blood Count 4.88 X10*6/uL (4.20-5.50); White Blood Count 7.6 X10*3/uL (4.8-10.8)
[2023-09-11 17:06] LABS: Alanine Aminotransferase 19 U/L (0-31); Albumin Level 4.3 g/dL (3.5-5.0); Alkaline Phosphatase 95 U/L (39-117); Anion Gap 10 (12-20); Aspartate Amino Transferase 20 U/L (5-31); Bilirubin Total 0.3 mg/dL (0.0-1.0); Blood Urea Nitrogen 18 mg/dL (9-16); Carbon Dioxide 26 mmol/L (22-29); Chloride 107 mmol/L (96-108); Creatinine Clr Calc Pharmacy 46.2; Estimated Glomerular Filt Rate > 60; Glucose Random 250 mg/dL (60-115); Lipase 30 U/L (8-78); Magnesium 2.1 mg/dL (1.6-2.6); Potassium 4.4 mmol/L (3.3-5.1); Sodium 139 mmol/L (135-145); Total Protein 7.3 g/dL (6.5-8.0)
[2023-09-11 17:39] LABS: Bacteria Urine None Seen (None Seen); Hyaline Casts Urine 0-2 /LPF (0-2); RBC Urine 0-2 /HPF (0-2); Squamous Epithelial Cell Urine 0-2 /HPF (0-2); UACC Culture Trigger YES; WBC Urine 0-5 /HPF (0-5)
[2023-09-11 18:36] VITALS: BP 163/78; PULSE 82; RESP 16; O2SAT 95
--- OUTSIDE RECORDS SUMMARY | 2023-09-11 18:43 | XMS_ITS | Summary of Care ---
Author Name Unknown Organization [facility] Address [address] [place] [address]- Care Team Providers Care Genetics Nurse Name Role Phone Unassigned, Out of State Primary Care Physician Unavailable Encounter [facility] [id number] Date(s): 08/10/23 - 08/15/[address] [facility] [address] [facility] [phone]- [phone] Encounter Diagnosis Asthma exacerbation(Discharge Diagnosis) - 08/10/23 Discharge Disposition: HOME OR SELF CARE Attending Physician: Angelia Finn MD Admitting Physician: Liss Mcfarland MD Allergies, Adverse Reactions, Alerts Substance Reaction Severity Status doxycycline Substance type unknown Unknown Activ e amoxicillin-clavulanate Substance type unknown Unknown Active azithromycin Substance type unknown Unknown Activ e Percocet Substance type unknown Unknown Activ e metroNIDAZOLE Substance type unknown Unknown Acti ve Assessment and Plan Extracted from: Title:CFID Progress/SOAP Note Author:Lucie Srivastava APRN Date:08/15/23 Assessment: 1.?? Leukocytosis, tachycardia, low-grade fever, SIRS rule out sepsis due to 2.?? Bilateral multifocal nodular opacities? rule out atypical mycobacterial infection versus TB versus other 3.?? Mediastinal lymphadenopathy??likely reactive 4.?? Acute hypoxic respiratory failure? resolved 5.?? JESSICA with metabolic acidosis and electrolyte derangements? improving 6.?? Diabetes mellitus with hyperglycemia, A1c 7.8 7.?? Asthma exacerbation 8.?? Nonobstructive steatotic hepatomegaly with elevated AST and alkaline phosphatase 9.?? Hypertension 10.?? History of antibiotic allergies to Augmentin, azithromycin, doxycycline, Flagyl which limits treatment choices ?? Plan: ?? We will discontinue airborne respiratory isolation at this time as patient has 3 negative AFBs Patient presented with evidence of bilateral??multifocal tree-in-bud nodular opacities concerning for??mycobacterial infection,??atypical versus TB Continue empirically with IV Levaquin through today for a 5-day course Sputum culture / final no growth AFB 10/2 smear negative AFB 10/3 smear negative AFB 10/4??smear negative Quantiferon gold testing negative,??patient possibly with atypical mycobacterial infection Leukocytosis now serially decreased, likely elevated??due to steroids Procalcitonin WNL x2 Afebrile Urinalysis not indicative of infection, culture final no growth Blood cultures currently no growth Patient is clinically improved and okay from ID standpoint for discharge planning when cleared by others ?? Continue with glycemic management, DVT prophylaxis, maintenance IVF, inhalers, nebulizers, steroids, and all other symptomatic and supportive measures Monitor closely for worsening hypoxia, supplemental oxygen as needed? currently stable on room air ?? Plan of care discussed with patient??and PCL. The patient is clinically improved however??remains at this time with a guarded prognosis. Patient seen and examined in collaboration with Dr. Husain and case discussed with him in detail. We will follow closely??while inpatient with you. Extracted from: Title:Progress/SOAP Note Author:Angelia Finn MD Date:08/14/23 1.??Asthma exacerbation??(Unspecified asthma with (acute) exacerbation)(J45.901) Sepsis sec to??bilateral pneumonia: continue Levaquin, PCL 0.07.??Sepsis improving follow-up cultures ?? Concern for atypical??mycobacteria infection: placed on isolation, obtain 3 AFB (negative x1)??, second sputum collected. Awaiting result.??Third??sputum to be collected today. ordered mucomyst nebulizer treatment?? to??stimulate expectoration of sputum??as patient is unable to give sputum sample at this time ID on the case,??Gold test was ordered ?? Acute exacerbation of asthma/COPD: continue Duonebs, prednisone 40 mg po daily, improving gradually ?? History of breast cancer s/p bilateral mastectomy ?? History of skin cancer s/p reconstruction ?? 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 Hypertension: resumed her Lisinopril ?? Hyperlipidemia ?? Advanced age [2] ? Discharge pending??third AFB smear??to be negative Extracted from: Title:CFID Progress/SOAP Note Author:Lucie Srivastava Date:08/14/23 Assessment: 1.?? Leukocytosis, tachycardia, low-grade fever, SIRS rule out sepsis due to 2.?? Bilateral multifocal nodular opacities? rule out atypical mycobacterial infection versus TB versus other 3.?? Mediastinal lymphadenopathy??likely reactive 4.?? Acute hypoxic respiratory failure? resolved 5.?? JESSICA with metabolic acidosis and electrolyte derangements? improving 6.?? Diabetes mellitus with hyperglycemia, A1c 7.8 7.?? Asthma exacerbation 8.?? Nonobstructive steatotic hepatomegaly with elevated AST and alkaline phosphatase 9.?? Hypertension 10.?? History of antibiotic allergies to Augmentin, azithromycin, doxycycline, Flagyl which limits treatment choices ?? Plan: ?? Continue empirically with airborne respiratory isolation while ruling out??active tuberculosis infection Patient presented with evidence of bilateral??multifocal tree-in-bud nodular opacities concerning for??mycobacterial infection,??atypical versus TB Continue empirically with IV Levaquin through today for a 5-day course Sputum culture 10/2 final no growth AFB 10/2 smear negative AFB 10/3 smear negative AFB 10/4??in lab, If smear negative okay for discontinuation of airborne isolation Quantiferon gold testing negative,??patient possibly with atypical mycobacterial infection Leukocytosis now serially decreased, likely elevated??due to steroids Procalcitonin WNL x2 Afebrile Urinalysis not indicative of infection, culture final no growth Blood cultures currently no growth If final AFB??culture??smear negative??patient is okay from ID standpoint for discharge planning when cleared by others off of antibiotics ?? Continue with glycemic management, DVT prophylaxis, maintenance IVF, inhalers, nebulizers, steroids, and all other symptomatic and supportive measures Monitor closely for worsening hypoxia, supplemental oxygen as needed? currently stable on room air ?? Plan of care discussed with patient, RN, and attending hospitalist. The patient is clinically improved however??remains at this time with a guarded prognosis. Patient seen and examined in collaboration with Dr. Husain and case discussed with him in detail. We will follow closely??while inpatient with you. Extracted from: Title:Progress/SOAP Note Author:Angelia Finn MD Date:08/13/23 1.??Asthma exacerbation??(Unspecified asthma with (acute) exacerbation)(J45.901) Orders: acetylcysteine, 200 mg, = 2 mL, NEB, Soln, [id number] [place], 08/13/23 12:00:00 EDT, Routine magnesium hydroxide, 2,400 mg =, 30 mL, PO, Susp, q12hr (interval), PRN Constipation, 08/13/23 9:57:00 EDT, Routine Notify Physician Chest Pain Physician to Nurse Diagnostic Tests Pulse Oximetry Telemetry Telemetry Telemetry - Expires in 24 hours ? Sepsis sec to??bilateral pneumonia: continue Levaquin, PCL 0.07.??Sepsis improving follow-up cultures ?? Concern for atypical??mycobacteria infection: placed on isolation, obtain 3 AFB (negative x1)??, second sputum collected. Awaiting result.??Third??sputum to be collected today. ordered mucomyst nebulizer treatment?? to??stimulate expectoration of sputum??as patient is unable to give sputum sample at this time ID on the case,??Gold test was ordered ?? Acute exacerbation of asthma/COPD: continue Duonebs, prednisone 40 mg po daily, improving gradually ?? History of breast cancer s/p bilateral mastectomy ?? History of skin cancer s/p reconstruction ?? 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 Hypertension: resumed her Lisinopril ?? Hyperlipidemia ?? Advanced age ?? I have utilized all available immediate resources to obtain, update, or review the patient's current medications. Continue rest of supportive measures and treatments as listed in the chart ?? DVT prophylaxis code status: full code ?? Out of bed to chair as tolerated, if able A [id number] encounter was done with the patient at bedside Plan of care discussed in detail with the team and patient who verbalized understanding?? I confirmed that the patient's Advance Care Plan is present, or surrogate decision maker is listed in the patient??s medical record ?? Discharge plan pending clinical course and consultants recommendations?? Extracted from: Title:CFID Progress/SOAP Note Author:Eureka RoadhouseLucie delong PRODUCT SAFETY TEST ENGINEER Date:08/13/23 Assessment: 1.?? Leukocytosis, tachycardia, low-grade fever, SIRS rule out sepsis due to 2.?? Bilateral multifocal nodular opacities? rule out atypical mycobacterial infection versus TB versus other 3.?? Mediastinal lymphadenopathy??likely reactive 4.?? Acute hypoxic respiratory failure? resolved 5.?? JESSICA with metabolic acidosis and electrolyte derangements? improving 6.?? Diabetes mellitus with hyperglycemia, A1c 7.8 7.?? Asthma exacerbation 8.?? Nonobstructive steatotic hepatomegaly with elevated AST and alkaline phosphatase 9.?? Hypertension 10.?? History of antibiotic allergies to Augmentin, azithromycin, doxycycline, Flagyl which limits treatment choices ?? Plan: ?? Continue empirically with airborne respiratory isolation while ruling out??active tuberculosis infection Patient presented with evidence of bilateral??multifocal tree-in-bud nodular opacities concerning for??mycobacterial infection,??atypical versus TB Continue empirically with IV Levaquin through tomorrow for a 5-day course Sputum culture 08/11 final no growth AFB 10 smear negative AFB 08/12 smear negative 1 additional AFB culture pending collection today??to rule out active tuberculosis??however patient with decreased sputum production at this time and states she is unsure if she can produce any further sample Recommend pulmonology evaluation for possible??bronchoscopy BAL Quantiferon gold testing negative,??patient possibly with atypical mycobacterial infection Leukocytosis now serially decreased, likely elevated??due to steroids Procalcitonin WNL x2 Afebrile Urinalysis not indicative of infection, culture final no growth Blood cultures currently no growth We will continue to follow culture results as well as patient's clinical response??to determine final plan of care ?? Continue with glycemic management, DVT prophylaxis, maintenance IVF, inhalers, nebulizers, steroids, and all other symptomatic and supportive measures Monitor closely for worsening hypoxia, supplemental oxygen as needed? currently stable on room air ?? Plan of care discussed with patient. The patient remains at this time with a guarded prognosis. Patient seen and examined in collaboration with Dr. Husain and case discussed with him in detail. We will follow closely??while inpatient with you. Extracted from: Title:Progress/SOAP Note Author:Liss Mcfarland Date:08/12/23 Mrs Hess is a 78 yo H ispanic female with PMHx sig for breast CA sp bila mastectomy in the past, hx skin CA, hx COPD/Astham who had presented with worsening SOB Her TORRE showed bilateral infiltrated with concern for atypical pneumonia, she was placed under isolation and started on Levaquin, her COVID test was neg ?? Sepsis sec to??bilateral pneumonia: continue Levaquin, PCL 0.07 ?? Concern for atypical infection: placed on isolation, obtain 3 AFB (negative x1)??, ID on the case,??Gold test was ordered ?? Acute exacerbation of asthma/COPD: continue Duonebs, prednisone 40 mg po daily ?? History of breast cancer s/p bilateral mastectomy ?? History of skin cancer s/p reconstruction ?? 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 Hypertension: resumed her Lisinopril ?? Hyperlipidemia ?? Advanced age ?? Lovenox, protonix ?? Full code ?? I had personally discussed with the patient the plan of care Anticipate discharge home on oral antibiotic after having 3 negative AFB samples Extracted from: Title:CFID Progress/SOAP Note Author:Lucie Srivastava PRODUCT SAFETY TEST ENGINEER Date:08/12/23 Assessment: 1.?? Leukocytosis, tachycardia, low-grade fever, SIRS rule out sepsis due to 2.?? Bilateral multifocal nodular opacities? rule out atypical mycobacterial infection versus TB versus other 3.?? Mediastinal lymphadenopathy??likely reactive 4.?? Acute hypoxic respiratory failure? resolved 5.?? JESSICA with metabolic acidosis and electrolyte derangements? improving 6.?? Diabetes mellitus with hyperglycemia, A1c 7.8 7.?? Asthma exacerbation 8.?? Nonobstructive steatotic hepatomegaly with elevated AST and alkaline phosphatase 9.?? Hypertension 10.?? History of antibiotic allergies to Augmentin, azithromycin, doxycycline, Flagyl which limits treatment choices ?? Plan: ?? Continue empirically with airborne respiratory isolation while ruling out??active tuberculosis infection Patient presented with evidence of bilateral??multifocal tree-in-bud nodular opacities concerning for??mycobacterial infection,??atypical versus TB Continue empirically with IV Levaquin for now Sputum culture and AFB x1 08/11/2023, currently no growth and smear negative Sputum AFB 10/3 in lab 1??additional AFB to be collected tomorrow to rule out active tuberculosis??however patient with decreased sputum production at this time and states she is unsure if she can produce any further sample Recommend pulmonology evaluation for possible??bronchoscopy BAL Quantiferon gold testing pending result Leukocytosis increased likely due to steroids Procalcitonin WNL x2 Afebrile Urinalysis not indicative of infection, culture final no growth Blood cultures currently no growth We will continue to follow culture results as well as patient's clinical response??to determine final plan of care ?? Continue with glycemic management, DVT prophylaxis, maintenance IVF, inhalers, nebulizers, steroids, and all other symptomatic and supportive measures Monitor closely for worsening hypoxia, supplemental oxygen as needed? currently stable on room air ?? Plan of care discussed with patient, sister at bedside,??and RN. The patient remains at this time with a guarded prognosis. Patient seen and examined in collaboration with Dr. Husain and case discussed with him in detail. We will follow closely??while inpatient with you. Extracted from: Title:Progress/SOAP Note Author:Liss Mcfarland Date:08/11/23 Mrs Hess is a 78 yo H ispanic female with PMHx sig for breast CA sp bila mastectomy in the past, hx skin CA, hx COPD/Astham who had presented with worsening SOB Her TORRE showed bilateral infiltrated with concern for atypical pneumonia, she was placed under isolation and started on Levaquin, her COVID test was neg ?? Sepsis bilateral pneumonia: continue Levaquin, PCL 0.07, BCx pending ?? Concern for atypical infection: placed on isolation, obtain 3 AFB samples, ID on the case, Quantiferon Gold test was ordered ?? Acute exacerbation of asthma/COPD: continue Duonebs, prednisone 40 mg po daily ?? History of breast cancer s/p bilateral mastectomy ?? History of skin cancer s/p reconstruction ?? 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 Hypertension ?? Hyperlipidemia ?? Advanced age ?? Lovenox, protonix ?? Full code ?? I had personally discussed with the patient the plan of care Extracted from: Title:CFID Consult Note Author:Maritza Srivastava APRN Date:08/11/23 Assessment: 1.?? Leukocytosis, tachycardia, low-grade fever, SIRS rule out sepsis due to 2.?? Bilateral multifocal nodular opacities? rule out atypical mycobacterial infection versus TB versus other 3.?? Mediastinal lymphadenopathy??likely reactive 4.?? Acute hypoxic respiratory failure? resolved 5.?? JESSICA with metabolic acidosis and electrolyte derangements? improving 6.?? Diabetes mellitus with hyperglycemia, A1c 7.8 7.?? Asthma exacerbation 8.?? Nonobstructive steatotic hepatomegaly with elevated AST and alkaline phosphatase 9.?? Hypertension 10.?? History of antibiotic allergies to Augmentin, azithromycin, doxycycline, Flagyl which limits treatment choices ?? Plan: ?? Agree to continue empirically with airborne respiratory isolation while ruling out??active tuberculosis infection Patient presented with evidence of bilateral??multifocal tree-in-bud nodular opacities concerning for??mycobacterial infection??atypical versus TB We will continue empirically with IV Levaquin for now Patient has produced??a sputum culture and AFB x1 which is in lab We will plan to collect 2 additional AFBs??over the course of the next 2 days??to rule out active tuberculosis Quantiferon gold testing pending Leukocytosis serially decreased on repeat Procalcitonin WNL x2 Noted to have a low-grade fever today Tmax 99.3 otherwise afebrile Urinalysis not indicative of infection, culture in lab Blood cultures currently no growth We will continue to follow culture results as well as patient's clinical response??to determine final plan of care ?? Continue with glycemic management, DVT prophylaxis, maintenance IVF, inhalers, nebulizers, steroids, and all other symptomatic and supportive measures Monitor closely for worsening hypoxia, supplemental oxygen as needed? currently stable on room air ? Plan of care discussed with patient and RN. The patient remains at this time with a guarded prognosis. Patient seen and examined in collaboration with Dr. Husain and case discussed with him in detail. Thank you for this consultation, we will follow closely??while inpatient with you. ? Extracted from: Title:Admission H & P Author:Priscila Duron DO Date:08/10/23 ?? Sepsis secondary to??CAP, WBC 13.0, HR 120 Community-acquired pneumonia Bronchiolitis Concerns for mycobacterial infection/TB Acute exacerbation of asthma Calcified structure??in splenic hilum History of breast cancer s/p mastectomies History of skin cancer s/p reconstruction DM2, on pills HTN HLD ? Admit patient to medical floor with telemetry NS at 75 mL/hour Adding Levaquin Adding Solu-Medrol Obtain QuantiFERON testing Obtain AFB culture Consult to ID Repeat procal in a.m. Obtain blood cultures DM orders Continue modified home meds when verified Consult to care coordination DVT PPX with Lovenox AM labs ?? Patient will be full code ? MDM Data External documents reviewed:??N/A My EKG interpretation:??Tachycardia with??no significant obvious acute abnormality My CT interpretation:??Tree-in-bud opacities??representing??bronchiolitis,??calcified??structure??involving the spleen??possibly an aneurysm My x-ray interpretation:??No significant obvious acute abnormality My ultrasound interpretation:??N/A Decision rules/scores evaluated:??Yes Discussed with:??Patient ?? Medical decision making: Number and complexity of problems: High Differential diagnosis:??Asthma exacerbation, CAP,??PE, aspiration, false negative RSV, TB Conditions and status:??Guarded ? Treatment and disposition Hospital course:??See plan as above Shared decision making: Patient ?? I have utilized all available immediate resources to obtain, update, or review the patient's current medications. ?? I confirmed that the patient's Advanced Care Plan is present, CODE STATUS is documented, or surrogate decision maker is listed in the patient's medical record.? Extracted from: Title:ED Visit Note Author:Grady Corea MD ate:08/10/23 1.??Asthma exacerbation??(Un specified asthma with (acute) exacerbation)(J45.901) Borderline hypoxic even after breathing treatments, will??admit for further??treatment and supplemental oxygen Orders: benzonatate, 100 mg, = 1 cap(s), PO, Cap, Once, 08/10/23 20:19:00 EDT, Stop date 08/10/23 20:19:00 EDT, STAT Blood Culture, Aerobic/Anaerobic (1 set) Blood Culture, Aerobic/Anaerobic (1 set) Interline Clerk CM Review IV Reseal Insertion/Care Notify Physician Notify Physician Notify Physician Fluid Overload Notify Physician Labs Notify Physician Mean Arterial Pressure Oxygen Therapy Pharmacy Review Pulse Oximetry Sepsis 0 to 6 hours Subphase Initiated Temperature Urine Culture Vital Signs Weight Primary Diagnosis Statement:?n/a ? Condition:??stable ?? Medically Cleared:??n/a ?? Disposition:??Admitted to: [facility] hospitalist??on telemetry ?? Counseled:??Patient??regarding diagnosis, results and treatment plan. ?? Discharge??Prescriptions:?,? Controlled Substance Prescribed:??No ?? Acute Pain Exception:??_ ?? E-Prescribe:??n/a ? Emergency Medical Condition Attestation: I hereby attest that, upon arrival in the Emergency Department, the patient met the definition of Emergency Medical Condition pursuant to [place] Statute 627.732 (16) which states: ?? Emergency medical condition means a medical condition manifesting itself by acute symptoms of sufficient severity, which may include severe pain, such that the absence of immediate medical attention could reasonably be expected to result in any of the following: (a) Serious jeopardy to patient health. (b) Serious impairment to bodily functions. (c) Serious dysfunction of any bodily organ or part.? Functional Status 08/10/23 Balance/weakness past 30 days No Speech issue unrelated to dementia No Choking, coughing, swallow problems No Able to participate in therapy Yes ADL function decreased from baseline No Medications *Recommended Immunization Pneumococcal Vaccine TO BE ADMINISTERED OUTPATIENT, Based on screening during your hospitalization, it is recommended that you receive a pneumococcal vaccine. Please follow up with your primary care physician, [facility] pharmacy, or other outpatient pharmacy for further assistance., 0 Refill(s) Start Date: 08/12/23 Status: Ordered acetaminophen 325 mg oral tablet 650 mg =, 2 tab(s), PO, q4hr (interval), PRN Fever, 0 Refill(s), 1 Start Date: 08/14/23 Status: Ordered amlodipine 2.5 mg oral tablet 2.5 mg, = 1 tab(s), PO, 1xDaily, TAKE 1 TABLET BY MOUTH DAILY Start Date: 08/10/23 Status: Ordered codeine-guaiFENesin 10 mg-100 mg/5 mL Oral Syr 5 mL, PO, 6xDaily, 0 Refill(s), 1 Start Date: 08/14/23 Status: Ordered Januvia 100 mg oral tablet 100 mg =, 1 tab(s), PO, 1xDaily, TAKE 1 TABLET BY MOUTH DAILY Start Date: 08/10/23 Status: Ordered oxyBUTYnin 10 mg/24 hr oral tablet, extended release 10 mg, = 1 tab(s), PO, 1xDaily, 1 Start Date: 08/10/23 Status: Ordered Prinivil 40 mg oral tablet 40 mg, = 1 tab(s), PO, 1xDaily, TAKE 1 TABLET BY MOUTH DAILY Start Date: 08/10/23 Status: Ordered simvastatin 10 mg oral tablet 10 mg, PO, 1xDaily hs, 1 Start Date: 08/10/23 Status: Ordered Mental Status 08/10/23 Alert, following commands Yes Procedures Procedure Date Related Diagnosis Body Site Status ROUTINE VENIPUNCTURE 08/13/23 Comp leted ROUTINE VENIPUNCTURE 08/12/23 Comp leted ROUTINE VENIPUNCTURE 08/12/23 Comp leted ROUTINE VENIPUNCTURE 08/12/23 Comp leted ROUTINE VENIPUNCTURE 08/12/23 Comp leted ROUTINE VENIPUNCTURE 08/12/23 Comp leted ROUTINE VENIPUNCTURE 08/11/23 Comp leted ROUTINE VENIPUNCTURE 08/10/23 Comp leted Results Laboratory List Name Date *PC CBG 08/15/23 *PC CBG 08/15/23 *PC CBG 08/14/23 BMP (Chem 7) 08/13/23 CBC with Differential 08/13/23 LFT (Liver Function Tests) (LFT) 08/13/23 *HIL Potassium 08/12/23 BMP (Chem 7) 08/12/23 BN Peptide (BNP) 08/12/23 CBC with Differential 08/12/23 BMP 08/11/23 CBC without Differential 08/11/23 Hemoglobin A1C 08/11/23 Urinalysis reflex Microscopy (NO CULTURE ) 08/10/23 CBC with Differential 08/10/23 CMP 08/10/23 Lactic Acid Level 08/10/23 Most recent to oldest [Reference Range]: 1 2 3 eAG 177 1 *NA* (08/11/23 4:16 AM) PC CBG [70-99 mg/dL] 163 mg/dL 2 *HI* (08/15/23 12:02 PM) 90 mg/dL 3 (08/15/23 8:06 AM) 283 mg/dL 4 *HI* (08/14/23 8:36 PM) JESSICA Suspected None 5, 6 (08/13/23 5:14 AM) None 7, 8 (08/12/23 4:18 AM) None 9, 10 (08/11/23 4:16 AM) eCrCl (Drug Dosing) [70-120 mL/min] 45 mL/min 11 *LOW* (08/13/23 5:14 AM) 45 mL/min 12 *LOW* (08/12/23 4:18 AM) 45 mL/min 13 *LOW* (08/11/23 4:16 AM) eGFR (Cr) [>=60 mL/min/1.73 m2] 89 mL/min/1.73 m2 14 (08/13/23 5:14 AM) 78 mL/min/1.73 m2 15 (08/12/23 4:18 AM) 88 mL/min/1.73 m2 16 (08/11/23 4:16 AM) BUN [6-26 mg/dL] 13 mg/dL (08/13/23 5:14 AM) 18 mg/dL (08/12/23 4:18 AM) 16 mg/dL (08/11/23 4:16 AM) Anion Gap [5-16] 7 (08/13/23 5:14 AM) 11 (08/12/23 4:18 AM) 11 (08/11/23 4:16 AM) Albumin [3.4-5.0 g/dL] 3.8 g/dL (08/13/23 5:14 AM) 4.2 g/dL (08/10/23 6:23 PM) Alk Phos [40-150 IU/L] 111 IU/L (08/13/23 5:14 AM) 155 IU/L *HI* (08/10/23 6:23 PM) ALT [0-55 IU/L] 37 IU/L 17 (08/13/23 5:14 AM) 46 IU/L 18 (08/10/23:23 PM) AST [5-34 U/L] 25 U/L 19 (08/13/23 5:14 AM) 39 U/L 20 *HI* (08/10/23 6:23 PM) Baso [0.0-2.0 %] 0.1 % (08/13/23 5:14 AM) 0.2 % (08/12/23 4:18 AM) 0.4 % (08/10/23 6:23 PM) Bili Direct [0.0-0.5 mg/dL] 0.1 mg/dL (08/13/23 5:14 AM) Bili Total [0.2-1.2 mg/dL] 0.3 mg/dL (08/13/23 5:14 AM) 0.5 mg/dL (08/10/23:23 PM) Calcium [8.5-10.5 mg/dL] 9.7 mg/dL (08/13/23 5:14 AM) 9.5 mg/dL (08/12/23 4:18 AM) 9.4 mg/dL (08/11/23 4:16 AM) Chloride [98-109 mmol/L] 106 mmol/L (08/13/23 5:14 AM) 105 mmol/L (08/12/23 4:18 AM) 105 mmol/L (08/11/23 4:16 AM) Carbon Dioxide [21-32 mmol/L] 28 mmol/L (08/13/23 5:14 AM) 22 mmol/L (08/12/23 4:18 AM) 20 mmol/L *LOW* (08/11/23 4:16 AM) Creatinine [0.300-1.300 mg/dL] 0.678 mg/dL (08/13/23 5:14 AM) 0.772 mg/dL (08/12/23 4:18 AM) 0.684 mg/dL (08/11/23 4:16 AM) Eos [0.0-6.0 %] 0.2 % (08/13/23 5:14 AM) 0.4 % (08/10/23 6:23 PM) Eosinophil, Abs [0.0-0.4 th/uL] 0.0 th/uL (08/13/23 5:14 AM) 0.0 th/uL (08/12/23 4:18 AM) 0.1 th/uL (08/10/23 6:23 PM) Glucose [70-99 mg/dL] 104 mg/dL *HI* (08/13/23 5:14 AM) 177 mg/dL *HI* (08/12/23 4:18 AM) 350 mg/dL *HI* (08/11/23 4:16 AM) HCT [37.0-47.0 %] 40.7 % (08/13/23 5:14 AM) 37.4 % (08/12/23 4:18 AM) 37.4 % (08/11/23 4:16 AM) HGB [12.0-16.0 g/dL] 13.4 g/dL (08/13/23 5:14 AM) 12.2 g/dL (08/12/23 4:18 AM) 12.5 g/dL (08/11/23 4:16 AM) Hgb A1c [4.7-5.6 %] 7.8 % 23 *HI* (08/11/23 4:16 AM) Lactic Acid [0.4-2.0 mmol/L] 1.4 mmol/L (08/10/23 6:23 PM) Lymphs [24.0-44.0 %] 16.7 % *LOW* (08/13/23 5:14 AM) 6.3 % *LOW* (08/12/23 4:18 AM) 9.2 % *LOW* (08/10/23 6:23 PM) MCH [26.0-32.0 pg] 28.4 pg (08/13/23 5:14 AM) 28.7 pg (08/12/23 4:18 AM) 29.1 pg (08/11/23 4:16 AM) MCHC [31.0-36.0 g/dL] 33.0 g/dL (08/13/23 5:14 AM) 32.7 g/dL (08/12/23 4:18 AM) 33.3 g/dL (08/11/23 4:16 AM) MCV [80.0-100.0 fL] 86.1 fL (08/13/23 5:14 AM) 87.8 fL (08/12/23 4:18 AM) 87.3 fL (08/11/23 4:16 AM) [place] [0.0-10.0 %] 8.8 % (08/13/23 5:14 AM) 6.9 % (08/12/23 4:18 AM) 7.2 % (08/10/23 6:23 PM) MPV [6.5-13.0 fL] 8.3 fL (08/13/23 5:14 AM) 9.7 fL (08/12/23 4:18 AM) 8.9 fL (08/11/23 4:16 AM) Segs [45.0-75.0 %] 74.2 % (08/13/23 5:14 AM) 86.6 % *HI* (08/12/23 4:18 AM) 82.8 % *HI* (08/10/23 6:23 PM) PLT [140-450 th/uL] 294 th/uL (08/13/23 5:14 AM) 272 th/uL (08/12/23 4:18 AM) 226 th/uL (08/11/23 4:16 AM) Potassium [3.5-5.1 mmol/L] 3.9 mmol/L (08/13/23 5:14 AM) 4.4 mmol/L (08/12/23 6:38 AM) Potassium [3.5-5.1] GHEM1 24 *ABN* (08/12/23 4:18 AM) RBC [3.60-5.40 mill/uL] 4.73 mill/uL (08/13/23 5:14 AM) 4.26 mill/uL (08/12/23 4:18 AM) 4.28 mill/uL (08/11/23 4:16 AM) RDW [11.5-14.5 %] 13.8 % (08/13/23 5:14 AM) 13.6 % (08/12/23 4:18 AM) 13.8 % (08/11/23 4:16 AM) Sodium [136-145 mmol/L] 141 mmol/L (08/13/23 5:14 AM) 138 mmol/L (08/12/23 4:18 AM) 136 mmol/L (08/11/23 4:16 AM) WBC [4.5-11.0 th/uL] 11.3 th/uL *HI* (08/13/23 5:14 AM) 16.1 th/uL *HI* (08/12/23 4:18 AM) 12.1 th/uL *HI* (08/11/23 4:16 AM) Leuk Est [Negative] Negative (08/10/23 8:13 PM) Nitrite [Negative] Negative 28 (08/10/23 8:13 PM) Urobilinogen [Negative EU/DL] Negative EU/DL (08/10/23 8:13 PM) Protein [Negative] Negative (08/10/23 8:13 PM) pH [5.0-8.0] 5.0 (08/10/23 8:13 PM) Blood [Negative] Negative (08/10/23 8:13 PM) Spec Grav [1.003-1.030] 1.013 (08/10/23 8:13 PM) Ketone [Negative] Negative (08/10/23 8:13 PM) Bilirubin [Negative] Negative 29 (08/10/23 8:13 PM) Glucose [Negative] 1+ *ABN* (08/10/23 8:13 PM) Color [Yellow] Yellow (08/10/23 8:13 PM) Appearance [Clear] Clear (08/10/23 8:13 PM) BUN/Creatinine [7-34] 19 (08/13/23 5:14 AM) 23 (08/12/23 4:18 AM) 23 (08/11/23 4:16 AM) Globulin [2.4-4.2 g/dL] 3.0 g/dL (08/10/23 6:23 PM) Alb/Glob [0.8-1.6] 1.4 (08/10/23 6:23 PM) T Protein [6.4-8.2 g/dL] 7.0 g/dL (08/13/23 5:14 AM) 7.2 g/dL (08/10/23 6:23 PM) Lymph, Abs [0.7-4.0 th/uL] 1.9 th/uL (08/13/23 5:14 AM) 1.0 th/uL (08/12/23 4:18 AM) 1.2 th/uL (08/10/23 6:23 PM) Monocyte, Abs [0.0-0.8 th/uL] 1.0 th/uL *HI* (08/13/23 5:14 AM) 1.1 th/uL *HI* (08/12/23 4:18 AM) 0.9 th/uL *HI* (08/10/23 6:23 PM) Neutrophil, Abs [1.4-8.5 th/uL] 8.4 th/uL (08/13/23 5:14 AM) 14.0 th/uL *HI* (08/12/23 4:18 AM) 10.8 th/uL *HI* (08/10/23 6:23 PM) BN Peptide [0.0-100.0 pg/mL] 178.0 pg/mL 30 *HI* (08/12/23 4:18 AM) 1Interpretive Data: The estimated average glucose or eAG is calculated directly from hemoglobin A1c (eAG = 28.7 x A1c - 46.7). For patients who perform self- monitoring of blood glucose in the home setting, understanding the relationship between hemoglobin A1c and glucose can be useful in setting goals. 2Result Comment: Nurse Notified CLIA# [id number] [facility], [address], [place], [address] 3Result Comment: Nurse Notified CLIA# [id number] [facility], [address], [place], [address] 4Result Comment: Nurse Notified CLIA# [id number] [facility], [address], [place], [address] 5Interpretive Data: Kidney Disease Improving Global Outcomes Guideline (KDIGO) for Acute Kidney Injury (JESSICA): Stage 1: Serum creatinine: 1.5-1.9 times baseline (7 days) or >=0.3 mg/dl increase (48hr) Stage 2: Serum creatinine: 2.0-2.9 times baseline (7 days) Stage 3: Serum creatinine: 3.0 or higher times baseline (7 days) 6Result Comment: SCr does not meet KDIGO criteria for suspected JESSICA, when compared to baseline SCr. 7Interpretive Data: Kidney Disease Improving Global Outcomes Guideline (KDIGO) for Acute Kidney Injury (JESSICA): Stage 1: Serum creatinine: 1.5-1.9 times baseline (7 days) or >=0.3 mg/dl increase (48hr) Stage 2: Serum creatinine: 2.0-2.9 times baseline (7 days) Stage 3: Serum creatinine: 3.0 or higher times baseline (7 days) 8Result Comment: SCr does not meet KDIGO criteria for suspected JESSICA, when compared to baseline SCr. 9Interpretive Data: Kidney Disease Improving Global Outcomes Guideline (KDIGO) for Acute Kidney Injury (JESSICA): Stage 1: Serum creatinine: 1.5-1.9 times baseline (7 days) or >=0.3 mg/dl increase (48hr) Stage 2: Serum creatinine: 2.0-2.9 times baseline (7 days) Stage 3: Serum creatinine: 3.0 or higher times baseline (7 days) 10Result Comment: SCr does not meet KDIGO criteria for suspected JESSICA, when compared to baseline SCr. 11Result Comment: Calculated by Discern Expert using the Cockcroft-Gault formula and the patients IBWof 49.60. Since the patient was > 65 years of age and the Creatinine value was < 0.80mg/dL, 0.8mg/dL was substituted as the Creatinine value. 12Result Comment: Calculated by Discern Expert using the Cockcroft-Gault formula and the patients IBWof 49.60. Since the patient was > 65 years of age and the Creatinine value was < 0.80mg/dL, 0.8mg/dL was substituted as the Creatinine value. 13Result Comment: Calculated by Discern Expert using the Cockcroft-Gault formula and the patients IBWof 49.60. Since the patient was > 65 years of age and the Creatinine value was < 0.80mg/dL, 0.8mg/dL was substituted as the Creatinine value. 14Interpretive Data: The eGFR was calculated using the CKD-EPI Equation for estimating GFR on the Natural Scale Expressed for Specified Sex, Standardized Serum Creatinine and is reported in the following units of measure, mL/min/1.73 meters squared.?? This equation has not been validated for pediatric patients, therefore no reference interval will be provided for this patient population.?? Applicability of this estimate may be affected by various medical and nutritional conditions. 15Interpretive Data: The eGFR was calculated using the CKD-EPI Equation for estimating GFR on the Natural Scale Expressed for Specified Sex, Standardized Serum Creatinine and is reported in the following units of measure, mL/min/1.73 meters squared.?? This equation has not been validated for pediatric patients, therefore no reference interval will be provided for this patient population.?? Applicability of this estimate may be affected by various medical and nutritional conditions. 16Interpretive Data: The eGFR was calculated using the CKD-EPI Equation for estimating GFR on the Natural Scale Expressed for Specified Sex, Standardized Serum Creatinine and is reported in the following units of measure, mL/min/1.73 meters squared.?? This equation has not been validated for pediatric patients, therefore no reference interval will be provided for this patient population.?? Applicability of this estimate may be affected by various medical and nutritional conditions. 17Interpretive Data: Elevated ALT and AST results may be missed in patients with Vitamin B6 deficiency with this method. 18Interpretive Data: Elevated ALT and AST results may be missed in patients with Vitamin B6 deficiency with this method. 19Interpretive Data: Elevated ALT and AST results may be missed in patients with Vitamin B6 deficiency with this method. 20Interpretive Data: Elevated ALT and AST results may be missed in patients with Vitamin B6 deficiency with this method. 23Interpretive Data: Per ADA 2016 guidelines, prediabetes (A1C range of 5.7% to 6.4%) is a risk factor for developing type 2 diabetes. The higher the A1C, the greater the risk of progression to diabetes. An A1c > or = to 6.5% is one criterion for the diagnosis of diabetes. For monitoring the degree of glycemia over kwinz-zj-bcingrmzwzam time frames (2- 3 weeks), consider ordering Glycated Protein Serum/Fructosamine in [employer], which is also useful in instances where Hemoglobin A1c may be of limited value such as , reduce red blood cell lifespan (e.g. hemoglobinopathies) and hemodialysis. 24Result Comment: Hemolysis sufficiently present, specimen is unsatisfactory for testing. A stat order for recollection has been placed. 28Interpretive Data: Order: Urinalysis reflex Microscopy (NO CULTURE) Testing Criteria: A Microscopic Analysis will be performed with Abnormal Appearance, Blood, Nitrite, Leukocyte Esterase and/or 1+ or greater Protein. Order: Urinalysis reflex Microscopy/Culture Testing Criteria: A Microscopic Analysis will be performed with Abnormal Appearance, Blood, Nitrite, Leukocyte Esterase and/or 1+ or greater Protein. A Urine Culture will be added with > or = 11 WBC. The result of Culture Reflexed will show Yes: See Culture for reflexed cultures. Order: Urinalysis with Microscopy (NO CULTURE) Testing Criteria: A Microscopic Analysis will always be performed. 29Interpretive Data: For Point of Care urine testing, a confirmation ictotest is not performed on positive bilirubin results. If the bilirubin result is questioned a urine sample should be sent to the Lab for confirmation. 30Result Comment: [facility]# [id number] [facility], [address] [place], [address] Orders for Microbiology Reports Name Date AFB Culture (includes Stain) 08/13/23 AFB Culture (includes Stain) 08/12/23 AFB Culture (includes Stain) 08/11/23 Sputum Culture (includes Gram Stain) 08/11/23 Urine Culture 08/10/23 Blood Culture, Aerobic/Anaerobic (1 set) 08/10/23 Blood Culture, Aerobic/Anaerobic (1 set) 08/10/23 Microbiology Reports TEST:Culture AFB STATUS:Order in Progress BODY SITE: SOURCE:Sputum COLLECTED DATE/TIME:08/13/23 7:49 PM PRELIMINARY REPORT Culture in Lab Day 1 STAIN REPORT Smear Negative for AFB TEST:Culture AFB STATUS:Order in Progress BODY SITE: SOURCE:Sputum COLLECTED DATE/TIME:08/12/23 9:30 AM PRELIMINARY REPORT Culture in Lab Day 1 STAIN REPORT Smear Negative for AFB TEST:Culture AFB STATUS:Order in Progress BODY SITE: SOURCE:Sputum COLLECTED DATE/TIME:08/11/23 7:51 AM PRELIMINARY REPORT Culture in Lab Day 1 STAIN REPORT Smear Negative for AFB TEST:Culture Sputum STATUS:Auth (Verified) BODY SITE: SOURCE:Sputum COLLECTED DATE/TIME:08/11/23 7:51 AM FINAL REPORT Scant Growth Mixed endogenous microbiota present STAIN REPORT >25 WBCs/LPF <10 Epithelial Cells/LPF Few Gram Negative Rods Rare Gram Positive Cocci TEST:Culture Urine1 STATUS:Auth (Verified) BODY SITE: SOURCE:Urine, Catheterized COLLECTED DATE/TIME:08/10/23 8:13 PM FINAL REPORT No growth TEST:Culture Blood STATUS:Auth (Verified) BODY SITE: SOURCE:Blood COLLECTED DATE/TIME:08/10/23 6:23 PM FINAL REPORT No Growth Final Day 5 TEST:Culture Blood STATUS:Auth (Verified) BODY SITE: SOURCE:Blood COLLECTED DATE/TIME:08/10/23 6:23 PM FINAL REPORT No Growth Final Day 5 INTERPRETIVE DATA 1Treatment varies according to the colony count. Interpret within clinical context. <10,000 cfu/mL: Treatment is not indicated except for sterilely collected urine (suprapubic, cystoscopy, during surgery). 10,000-49,999 cfu/mL and 50,000-99,999 cfu/mL: Treatment is not indicated except for sterilely collected urine and in certain populations (, undergoing urologic procedure, renal transplant).For catheterized urine in pediatric patients, treatment is only indicated for counts higher than 50,000 cfu/mL >100,000 cfu/mL: Treatment is not indicated for asymptomatic patients except in certain high-risk populations (, undergoing urologic procedure, renal transplant). Treatment is recommendedin symptomatic patients. Vital Signs Most recent to oldest [Reference Range]: 1 Temperature Axillary [96.8-101 DegF] 98 DegF (08/11/23 5:03 PM) Temperature Oral [96.8-101 DegF] 97.9 De gF (08/15/23 11:59 AM) Heart Rate Monitored [60-90 bpm] 119 bpm *HI* (08/10/23 8:30 PM) Pulse Rate [60-90 bpm] 89 bpm (08/15/23 12:01 PM) Respiratory Rate [12-20 br/min] 16 br/mi n (08/15/23 11:59 AM) Mean Arterial Pressure, Cuff [65 mmHg] 1 14 mmHg (08/15/23 8:07 AM) BP Obtained By Blood pressure by pallavi correa (08/15/23 4:10 AM) ED Laterality Right arm (08/10/23 8:30 PM) Blood Pressure [90-120/60-90 mmHg] 177/8 3mmHg *HI* (08/15/23 8:07 AM) Weight, Actual kg 58.5 kg (08/10/23 10:48 PM) Weight, Actual kg - manual 58.5 kg (08/10/23 10:48 PM) Type of Scale Used Standing (08/10/23 10:48 PM) Measured Weight Yes (08/10/23 5:30 PM) Height cm 157.48 cm (08/10/23 10:48 PM) EHUM Responses Feet/Inches (08/10/23 10:48 PM) Height Feet with Inches 5 ft (08/10/23 10:48 PM) Height Inches with Feet 2 inch(es) (08/10/23 10:48 PM) Height Inches 62 inch(es) (08/10/23 10:48 PM) Body Surface Area 1.5997 (08/10/23 10:48 PM) Body Mass Index (BMI) 23.6 kg/m2 (08/10/23 10:48 PM) [place] Body Weight Calculated 50.1 kg (08/10/23 10:48 PM) Social History Social History Type Response Smoking Status Never a smoker Sex Female EKG study * Event Display: EKG. * Event Display: EKG. Ventricular Rate: 128 Atrial Rate: 128 P-R Interval: 158 QRS Duration: 82 Q-T Interval: 302 QTC Calculation(Bazett): 440 P [place]: 78 R [place]: 61 T [place]: 78 Sinus tachycardia Atrial abnormality Possible Left atrial enlargement Possible Anterior infarct , age undetermined Abnormal ECG No previous ECGs available * Event Display: EKG. Click link in Powerchart to see image * Event Display: EKG. Cardiology * Event Display: EKG Rhythm Strip * Event Display: EKG Rhythm Strip * Event Display: EKG Rhythm Strip XR Chest Single view * Event Display: Chest 1V Authored Date: [id number] * Event Display: Chest 1V Authored Date: [id number] Exam Date/Time: 08/10/2023 18:44 Finalized On: 08/10/2023 18:52 CHEST 1 VIEW CLINICAL INDICATION: Cough. COMPARISON: None Technique: Single AP frontal view of the chest. FINDINGS: Normal cardiac silhouette. No focal consolidation. No pleural effusions or pneumothorax. No acute osseous abnormalities. IMPRESSION: No acute cardiopulmonary process. RPRETED BY: Ranulfo Ren Finalized On: 08/10/2023 18:52 Consult note * Maritza Srivastava PRODUCT SAFETY TEST ENGINEER: PERFORM, MODIFY Event Display: Consultation Authored Date: [id number] Chief Complaint Pt states she was coughing a lot and had a fever of 101.6 History of Present Illness 78-year-old female presented to the ER on 08/10/2023 for evaluation of fevers, cough, chest tightness, and shortness of breath which is progressively worsened over the last 5 days.?? Patient is visiting from [place] on vacation at this time and has progressively worsened.?? Patient does have ahistory of asthma and attempted to use nebulizers prior to admission without improvement.?? Patientdoes not typically wear supplemental oxygen is noted to be stable on room air on exam.?? She continues to endorse chest tightness with occasional feelings of shortness of breath and persistent cough with sputum production at this time.?? She is resting comfortably in bed at time of my exam eating lunch with no acute distress noted and has no new complaints.?? She is primarily Finnish- speaking only and nurse was at bedside for help with interpretation.?? She remained stable on room air at this time. ?? Radiology reports reviewed: Chest x-ray on admission showed no acute cardiopulmonary process CTA of chest showed no acute pulmonary embolism, multifocal bilateral tree-in-bud nodular opacitieslikely representing infectious or inflammatory bronchiolitis which could be due to atypical mycobacterial infection or TB, mediastinal lymph nodes likely reactive, nonobstructive steatotic hepatomegaly, possible splenic artery aneurysm ?? Labs reviewed: Leukocytosis on admission now serially decreased, urinalysis not indicative of infection with culture in lab, blood cultures currently no growth, sputum and AFB in lab, JESSICA with metabolic acidosis and electrolyte derangements, hyperglycemia with A1c 7.8, elevated AST and alkaline phosphatase, respiratory panel to include COVID-19 testing negative, lactic acid WNL, procalcitonin WNL serially ?? Patient presents without fevers and continues to remain afebrile at this time however is noted to have tachycardia and hypoxia x1 episode on room air which is now resolved and remained stable on roomair, elevated blood pressure readings ?? Patient was admitted for continuation of care and started on IV Levaquin, she did receive IV cefepime empirically I have extensively reviewed the electronic medical record in order to perform this consultation. Review of Systems Constitutional:??+??Fevers, chills, ?No night sweats, ?No loss of appetite, ?? No weight loss. ?? No dizziness or feeling faint Eye: No visual difficulty or Jaundice, No swelling of eyelids, No conjunctival discharge Ear/Nose/Mouth/Throat: No hearing problems, No epistaxis No lip ulcers, no mouth ulcers, no hoarseness of voice or sore throat No tongue biting or swelling of tongue or lips Respiratory: +??Dyspnea, wheezing, cough, phlegm production ??No??hemoptysis ??No sinus problems or URTI symptoms ??No??Flu like symptoms Meningismus: No neck stiffness, photophobia,?? headaches Cardiovascular: No Chest pain, + dyspnea on exertion Gastrointestinal: No abdominal pain, cramps or bloating ?? No nausea, vomiting, diarrhea??, constipation ?No bloody stools Genitourinary: No dysuria, frequency or urgency ?? No discoloration or bloody urine ?? No urinary hesitancy, incomplete emptying or incontinence STD: No genital ulcer, rash, discharge Hematology/Lymphatics: No lymph node swelling, bleeding or bruising Endocrine: No heat or cold intolerance, ??+??High blood sugars Immunologic: No history of recurring infections ??No history of steroid use or immunosuppressive medications recently Musculoskeletal: No big joint swelling, deformity ??No joint pains ??No traumatic injuries or fall, No back pain Integumentary: No rash, itching, or bruising Extremities: No ankle edema, no calf swelling or tenderness Neurologic: No altered mentation or confusion. ?? No new focal deficits, limb weakness or speech difficulty ?? No memory loss, tremors, seizure like movements or odd behavior, ?? No gait instability Psychiatric: No bizarre behavior or hallucinations,no depressed mood or manic symptoms Physical Exam Vitals & Measurements T:??97.5?F ??(Oral)?? TMIN:??97.5?F ??(Oral)?? TMAX:??99.3?F ??(Oral)?? HR:??100??(Pulse)?? RR:??18?? BP:??149/70?? SpO2:??93%?? HT:??157.48??cm?? HT:??62??inch(es)?? WT:??58.5??kg?? BMI:??23.6?? FiO2 (Fraction of Inspired O2): 21 % (08/11/23 10:14:00) Constitutional: Pleasant?? elderly female,??mod built & nourished, no acute distress, alert and oriented Eye: Conjunctiva -pale, sclera anicteric Ear/Nose/Mouth/Throat: Atraumatic, no facial asymmetry,oral mucosa normal, no thrush or ulcers, lips normal Neck: supple, no JVD, thyromegaly or LAD Respiratory: Respirations are even and unlabored. ??Lungs are diminished bilaterally with rhonchi. Cardiovascular: normal s1, s2, reg rate and rhythm, No murmurs, rubs or gallops Gastrointestinal: Abdomen-round, Normo active bowel sounds, no hernias or masses or dilated veins. Upon palpation: Soft, non tender, not distended, no hepatosplenomegaly palpable Hematology/Lymphatics: no enlarged lymph nodes, no bruising Musculoskeletal: No big joint deformities or swelling with normal ROM Extremities: No cellulitis or induration or edema, stasis dermatitis Integumentary: warm, dry, no rash, ulcer Neurologic: awake and alert, follows commands, moves all extremities, no obvious focal deficits. Speech, language , mentation and cognition intact Psychiatric: normal mood and affect Assessment/Plan Assessment: 1.?? Leukocytosis, tachycardia, low-grade fever, SIRS rule out sepsis due to 2.?? Bilateral multifocal nodular opacities???rule out atypical mycobacterial infection versus TB versus other 3.?? Mediastinal lymphadenopathy??likely reactive 4.?? Acute hypoxic respiratory failure???resolved 5.?? JESSICA with metabolic acidosis and electrolyte derangements???improving 6.?? Diabetes mellitus with hyperglycemia, A1c 7.8 7.?? Asthma exacerbation 8.?? Nonobstructive steatotic hepatomegaly with elevated AST and alkaline phosphatase 9.?? Hypertension 10.?? History of antibiotic allergies to Augmentin, azithromycin, doxycycline, Flagyl which limits treatment choices ?? Plan: ?? Agree to continue empirically with airborne respiratory isolation while ruling out??active tuberculosis infection Patient presented with evidence of bilateral??multifocal tree-in-bud nodular opacities concerning for??mycobacterial infection??atypical versus TB We will continue empirically with IV Levaquin for now Patient has produced??a sputum culture and AFB x1 which is in lab We will plan to collect 2 additional AFBs??over the course of the next 2 days??to rule out active tuberculosis Quantiferon gold testing pending Leukocytosis serially decreased on repeat Procalcitonin WNL x2 Noted to have a low-grade fever today Tmax 99.3 otherwise afebrile Urinalysis not indicative of infection, culture in lab Blood cultures currently no growth We will continue to follow culture results as well as patient's clinical response??to determine final plan of care ?? Continue with glycemic management, DVT prophylaxis, maintenance IVF, inhalers, nebulizers, steroids, and all other symptomatic and supportive measures Monitor closely for worsening hypoxia, supplemental oxygen as needed???currently stable on room air ?? Plan of care discussed with patient and RN. The patient remains at this time with a guarded prognosis. Patient seen and examined in collaboration with Dr. Husain and case discussed with him in detail. Thank you for this consultation, we will follow closely??while inpatient with you. Problem List/Past Medical History Ongoing No qualifying data Historical No qualifying data Medications Inpatient *Recommended Immunization, Pneumococcal Vaccine TO BE ADMINISTERED OUTPATIENT albuterol, 2.5 mg, 3 mL, NEB, rtq2h ATC, PRN codeine-guaiFENesin 10 mg-100 mg/5 mL Oral Syr, 5 mL, PO, 6xDaily Combivent Respimat 20 mcg-100 mcg/inh inhalation aerosol, 2 puff(s), INH, rtq6h WA Compazine, 5 mg, 1 mL, IV, q4hr (interval), PRN ipratropium-albuterol 0.5 mg-2.5 mg/3 mL inhalation solution, 3 mL, NEB, rtq6h WA, PRN Levaquin (dx pneumonia, CAP), 750 mg, 150 mL, IVPB, q24hr (interval) Levemir, 10 unit(s), 0.1 mL, Subcut, 2xDaily Lovenox, 40 mg, 0.4 mL, Subcut, 1xDaily No Other- (See Comment), 1 EA, MISC, 1xDaily NovoLOG, Insulin Sensitive (Low Dose) Scale, Subcut, 3xDaily with meals NovoLOG, Bedtime (HS) Scale, Subcut, 1xDaily hs Sodium Chloride 0.9% intravenous solution 1,000 mL, 1000 mL, IV SOLU-Medrol, 40 mg, 1 mL, IV, 3xDaily Tylenol, 650 mg, 2 tab(s), PO, q4hr (interval), PRN Zofran, 4 mg, 2 mL, IV, q4hr (interval), PRN Home amlodipine 2.5 mg oral tablet, 2.5 mg, 1 tab(s), PO, 1xDaily Januvia 100 mg oral tablet, 100 mg, 1 tab(s), PO, 1xDaily oxyBUTYnin 10 mg/24 hr oral tablet, extended release, 10 mg, 1 tab(s), PO, 1xDaily Prinivil 40 mg oral tablet, 40 mg, 1 tab(s), PO, 1xDaily simvastatin 10 mg oral tablet, 10 mg, PO, 1xDaily hs Allergies Percocet??(Substance type unknown) amoxicillin-clavulanate??(Substance type unknown) azithromycin??(Substance type unknown) doxycycline??(Substance type unknown) metroNIDAZOLE??(Substance type unknown) Social History Tobacco Exposure to Tobacco Smoke: None (08/10/23) Tobacco Use: Never a smoker (08/10/23) Alcohol withdrawal risk factors: No (08/10/23) Lab Results Labs??(Last four charted values) WBC ?H??12.1?(OCT 02)?H??13.0?(OCT ) Hgb ?12.5?(OCT 02)?12.8?(OCT ) Hct ?37.4?(OCT 02)?38.2?(OCT ) Plt ?226?(OCT 02)?248?(OCT 01) Na ?136?(OCT 02)?L??135?(OCT ) K ?4.2?(OCT 02)?4.7?(OCT ) CO2 ?L??20?(OCT 02)?25?(OCT 01) Cl ?105?(OCT 02)?100?(OCT 01) Cr ?0.684?(OCT 02)?1.049?(OCT ) BUN ?16?(OCT 02)?23?(OCT 01)?23?(OCT 02)?22?(AUG 10) Glucose ?H??340?(AUG 11)?H??236?(AUG 11)?H??269?(AUG 10) Diagnostic Results Radiology Results??(08/10/23 00:00 - 08/11/23 14:36) ?? Angio Chest Pul Art w/wo/w Con Post Proc - CT Scan ?Performed on: 08/10/2023 21:01?? IMPRESSION: ?? 1. ??No acute pulmonary embolism.?? 2. ??Multifocal bilateral tree-in-bud nodular opacities likely ?? representing infectious or inflammatory bronchiolitis differentials ?? including but not limited to atypical mycobacterial infection and TB.?? 3. ??Nonspecific mildly prominent mediastinal lymph nodes, likely ?? reactive.?? 4. ??Nonobstructive steatotic hepatomegaly.?? 5. ??Nonspecific peripherally calcified structure in the region of the ?? splenic hilum measuring approximately 0.7 cm may represent a ?? peripherally calcified splenic artery aneurysm.? DICOM format image data is available via a secure, media-free system.?? INTERPRETED BY: Ranulfo Ren ?? Finalized On: 08/10/2023 21:22 ? Chest 1V - Diagnostic Imaging ?Performed on: 08/10/2023 18:44?? IMPRESSION: No acute cardiopulmonary process.? INTERPRETED BY: Ranulfo Ren ?? Finalized On: 08/10/2023 18:52 ?? Electronically Signed By: Maritza Srivastava APRN on 08.11.2023 02:46 PM Electronically Signed By: Anny Husain MD Physician Emergency department Note * Grady Corea MD: PERFORM, MODIFY Event Display: ED Physician Notes Authored Date: Chief Complaint c/o cough with chest tightness. temp at home 101.5. symtopms for 5-6 days with shortness of ??breath. hx asthma. breathing tx at home did not help. O2 90% RA History of Present Illness Date/Time Seen:??08/10/2023 17:50:00 ?? Patient Provided History:??Yes Track Repairer used:??No History limitation:??None Independent History Source:??_ ?? Chief Complaint:??Reason for Visit Narrative: c/o cough with chest tightness. temp at home 101.5. symtopms for 5-6 days with shortness of ??breath. hx asthma. breathing tx at home did not help. O2 90% RA (08/10/23 17:30:00) Mode of Arrival:??ED Mode of Arrival: Ambulatory/WC/Carried (08/10/23 17:30:00) PCP:??Primary Care Physician:?None found. Sex:??female Administrative Sex:??Female ?? HPI: Patient is a??78 Years??old??Female??presenting with a complaint of dyspnea fevers??cough and chest tightness progressively worsening??for the last 5 or 6 days??had fevers beginning yesterday.?? Is on vacation from [place].?? Denies any chest pain. ??Still short of breath after using her breathing treatments??prior to arrival Past medical history asthma, breast cancer in remission,??skin cancer status post??surgery to the left face with left eye vision problems, diabetes on insulin ?? Physical Exam Vitals & Measurements Initial: T: 99.3 ??F (Oral) HR: 128 (Peripheral) BP: 173/73 RR: 18 SpO2: 90% WT: 59.7 kg BMI: 24.1 General:?alert,??mild distress. Skin:?warm,??dry. Head:?no??trauma.?normocephalic Neck:?? trachea??midline,??no??adenopathy,??no??tenderness. ENT: Mucous membranes??moist??_??_ Eye:?normal??conjunctiva, sclera??clear. Cardiovascular:?regular??tachycardia,??normal??peripheral perfusion. Respiratory:?? lungs??wheezes bilaterally in all quiñonez, respirations??tachypneic and labored, speaking in single full sentences at??a time. Chest Wall:?no??deformity. Gastrointestinal:?soft,??non-distended,??no??tenderness,??no??guarding. Extremities:?no??deformity,??no??trauma. Neurological:?? oriented??X4, LOC??appropriate for age, CN II-XII??intact, motor strength??equal & normal bilaterally, sensation??equal & normal bilaterally, speech??normal. Psychiatric:?cooperative, affect??appropriate for age,??normal??judgement,??normalthoughts. Medical Decision Making Differential Diagnosis:??Pneumonia, pneumothorax, ACS, PE, anemia, electrolyte imbalance, dehydration,??asthma, COPD ?? Consideration of Admission/Observation:??Based on the differential diagnosis documented above I considered escalation of care including admission/observation. ?? Chronic conditions affecting care: Asthma _ _ _ ?? MDM Rationale: Patient is a??78 Years??old??Female??presenting with a complaint of dyspnea fevers??cough and chest tightness progressively worsening??for the last 5 or 6 days??had fevers beginning yesterday.?? Is on vacation from [place].?? Denies any chest pain. ??Still short of breath afterusing her breathing treatments??prior to arrival Past medical history asthma, breast cancer in remission,??skin cancer status post??surgery to the left face with left eye vision problems, diabetes on insulin On exam she is tachypneic, borderline hypoxic, wheezing in all quiñonez Will obtain labs/imaging to evaluate the above differential diagnosis, reassess, and disposition accordingly ?? Discussion of management with other physician/healthcare provider: [] _ _ _ _ ?? External Notes Reviewed: [] _ _ _ _ ?? Independent Interpretation: EKG: My independent interpretation is:??n/a Rhythm Strip: My independent interpretation is:??n/a X-ray:??My independent interpretation is:??No acute finding Ultrasound: My independent interpretation is:??n/a CT: My independent interpretation is:??n/a ?? Discussion of Radiology Result with Radiologist:??_ ?? Testing considered but not performed: The following testing was considered but ultimately not selected after discussion with patient/family: ??n/a ?? Prescription medication was considered but ultimately not given after discussion with patient/family:?? I considered prescription management with:??n/a ?? Patient???s care significantly limited by Social Determinants of Health including:??[]?? _ _ _ _ ?? Behavioral Health: Initial CSSRS:??CSSRS Suicide Risk Level?? No qualifying data available. CSSRS Re-evaluation:??n/a ?? Sepsis:??n/a??no ?? Stroke:??n/a ?? STEMI:??n/a ?? Assessment/Plan Diagnosis List 1.??Asthma exacerbation??(Unspecified asthma with (acute) exacerbation)(J45.901) Borderline hypoxic even after breathing treatments, will??admit for further??treatment and supplemental oxygen Orders: benzonatate, 100 mg, = 1 cap(s), PO, Cap, Once, 08/10/23 20:19:00 EDT, Stop date 08/10/23 20:19:00 EDT, STAT Blood Culture, Aerobic/Anaerobic (1 set) Blood Culture, Aerobic/Anaerobic (1 set) Interline Clerk CM Review IV Reseal Insertion/Care Notify Physician Notify Physician Notify Physician Fluid Overload Notify Physician Labs Notify Physician Mean Arterial Pressure Oxygen Therapy Pharmacy Review Pulse Oximetry Sepsis 0 to 6 hours Subphase Initiated Temperature Urine Culture Vital Signs Weight Primary Diagnosis Statement:?n/a ?? Condition:??stable Medically Cleared:??n/a Disposition:??Admitted to: Team health hospitalist??on telemetry Counseled:??Patient??regarding diagnosis, results and treatment plan. ?? Discharge??Prescriptions:?,? Controlled Substance Prescribed:??No Acute Pain Exception:??_ E-Prescribe:??n/a ?? Emergency Medical Condition Attestation: I hereby attest that, upon arrival in the Emergency Department, the patient met the definition of Emergency Medical Condition pursuant to [place] Statute 627.732 (16) which states: ?? Emergency medical condition means a medical condition manifesting itself by acute symptoms of sufficient severity, which may include severe pain, such that the absence of immediate medical attention could reasonably be expected to result in any of the following: (a) Serious jeopardy to patient health. (b) Serious impairment to bodily functions. (c) Serious dysfunction of any bodily organ or part.? Allergies Percocet??(Substance type unknown) amoxicillin-clavulanate??(Substance type unknown) azithromycin??(Substance type unknown) doxycycline??(Substance type unknown) metroNIDAZOLE??(Substance type unknown) Problem List/Past Medical History Ongoing No qualifying data Historical No qualifying data Social History Tobacco?? No qualifying data available. Lab Results Capillary Blood Glucose?? LATEST RESULTS?? PC CBG?? 08/10/23 21:47?? 269 ??High? Diagnostic Results Radiology Results??(08/09/23 00:00 - 08/10/23 22:01) ?? Angio Chest Pul Art w/wo/w Con Post Proc - CT Scan ?Performed on: 08/10/2023 21:01?? IMPRESSION: ?? 1. ??No acute pulmonary embolism.?? 2. ??Multifocal bilateral tree-in-bud nodular opacities likely ?? representing infectious or inflammatory bronchiolitis differentials ?? including but not limited to atypical mycobacterial infection and TB.?? 3. ??Nonspecific mildly prominent mediastinal lymph nodes, likely ?? reactive.?? 4. ??Nonobstructive steatotic hepatomegaly.?? 5. ??Nonspecific peripherally calcified structure in the region of the ?? splenic hilum measuring approximately 0.7 cm may represent a ?? peripherally calcified splenic artery aneurysm.? DICOM format image data is available via a secure, media-free system.?? INTERPRETED BY: Ranulfo Ren ?? Finalized On: 08/10/2023 21:22 ? Chest 1V - Diagnostic Imaging ?Performed on: 08/10/2023 18:44?? IMPRESSION: No acute cardiopulmonary process.? INTERPRETED BY: Ranulfo Ren ?? Finalized On: 08/10/2023 18:52 ?? Electronically Signed By: Grady Corea MD, on 08.10.2023 10:05 PM Electronically Signed By: History and physical note * Priscila Duron DO: MODIFY, MODIFY, PERFORM, MODIFY, MODIFY Event Display: History and Physicals Authored Date: Chief Complaint c/o cough with chest tightness. temp at home 101.5. symtopms for 5-6 days with shortness of ??breath. hx asthma. breathing tx at home did not help. O2 90% RA History of Present Illness ?? The patient is a 78-year-old with a PMH of asthma, breast cancer, skin cancer, DM 2, HTN, and HLD who presents due to shortness of breath.?? For the last 5 days, she has had gradually worsening shortness of breath, a temp as high as 101.5 orally, and a dry cough.?? She presented to the ER for further evaluation.?? She denies any nausea, vomiting, or diarrhea. ?? When seen in the ER, the patient is short of breath but is in no significant distress.?? A CT PEdemonstrates??tree-in-bud opacities??concerning for bronchiolitis??concerning for??mycobacterial infection.?? COVID respiratory panel testing is negative.?? WBC is 13.0 and she is afebrile.?? Procal and LA are WNL.?? Consequently, the patient will be admitted for further evaluation. ?? Review of Systems A 14-point review of systems was conducted and??is negative except for the items listed in HPI. Physical Exam Vitals & Measurements T:??99.3?F ??(Oral)?? HR:??119?? RR:??18?? BP:??173/73?? SpO2:??99%?? SpO2:??99%?? HT:??157.48??cm?? HT:??62??inch(es)?? WT:??59.7??kg?? BMI:??24.1?? FiO2 (Fraction of Inspired O2): 21 % (08/10/23 17:57:00) ?FiO2 (Fraction of Inspired O2): 21 % (08/10/23 17:57:00) General:?? Pleasant, alert, no acute distress. Skin: ??Warm, dry, pink. ?? Head: ??Normocephalic, atraumatic. Neck: ??Supple, trachea midline, no JVD?? Eye:?EOMI, conjunctiva clear Ears, nose, mouth and throat: ??Oral mucosa moist, no oral lesions. Cardiovascular:??Tachycardia, no obvious??murmur, normal peripheral perfusion. Gastrointestinal:?? Bowel sounds present x4, no rebound, no guarding. Respiratory:?CTAB, no obvious??wheezes/rales/rhonchi, respirations are non-labored. Neuro:?? CN 2-12 grossly intact, no facial droop, no tremor noted. Extremities:?? No lower extremity edema noted, no calf tenderness. Assessment/Plan ?? Sepsis secondary to??CAP, WBC 13.0, HR 120 Community-acquired pneumonia Bronchiolitis Concerns for mycobacterial infection/TB Acute exacerbation of asthma Calcified structure??in splenic hilum History of breast cancer s/p mastectomies History of skin cancer s/p reconstruction DM2, on pills HTN HLD ? Admit patient to medical floor with telemetry NS at 75 mL/hour Adding Levaquin Adding Solu-Medrol Obtain QuantiFERON testing Obtain AFB culture Consult to ID Repeat procal in a.m. Obtain blood cultures DM orders Continue modified home meds when verified Consult to care coordination DVT PPX with Lovenox AM labs ?? Patient will be full code ? MDM Data External documents reviewed:??N/A My EKG interpretation:??Tachycardia with??no significant obvious acute abnormality My CT interpretation:??Tree-in-bud opacities??representing??bronchiolitis,??calcified??structure??involving the spleen??possibly an aneurysm My x-ray interpretation:??No significant obvious acute abnormality My ultrasound interpretation:??N/A Decision rules/scores evaluated:??Yes Discussed with:??Patient ?? Medical decision making: Number and complexity of problems: High Differential diagnosis:??Asthma exacerbation, CAP,??PE, aspiration, false negative RSV, TB Conditions and status:??Guarded ? Treatment and disposition Hospital course:??See plan as above Shared decision making: Patient ?? I have utilized all available immediate resources to obtain, update, or review the patient's current medications. ?? I confirmed that the patient's Advanced Care Plan is present, CODE STATUS is documented, or surrogate decision maker is listed in the patient's medical record.? Problem List/Past Medical History Ongoing No qualifying data Historical No qualifying data Asthma, breast cancer, skin cancer, DM 2, HTN, HLD Procedure/Surgical History Cholecystectomy, bilateral mastectomy,??left face reconstruction Medications Inpatient *Recommended Immunization, Pneumococcal Vaccine TO BE ADMINISTERED OUTPATIENT albuterol, 2.5 mg, 3 mL, NEB, rtq2h ATC, PRN codeine-guaiFENesin 10 mg-100 mg/5 mL Oral Syr, 5 mL, PO, 6xDaily Compazine, 5 mg, 1 mL, IV, q4hr (interval), PRN ipratropium-albuterol 0.5 mg-2.5 mg/3 mL inhalation solution, 3 mL, NEB, rtq6h WA Levaquin (dx pneumonia, CAP), 750 mg, 150 mL, IVPB, q24hr (interval) Levemir, 10 unit(s), 0.1 mL, Subcut, 2xDaily Lovenox, 30 mg, 0.3 mL, Subcut, 1xDaily at 1700 No Other- (See Comment), 1 EA, MISC, 1xDaily NovoLOG, Insulin Sensitive (Low Dose) Scale, Subcut, 3xDaily with meals NovoLOG, Bedtime (HS) Scale, Subcut, 1xDaily hs Sodium Chloride 0.9% intravenous solution 1,000 mL, 1000 mL, IV SOLU-Medrol, 40 mg, 1 mL, IV, 3xDaily Tylenol, 650 mg, 2 tab(s), PO, q4hr (interval), PRN Zofran, 4 mg, 2 mL, IV, q4hr (interval), PRN Home amlodipine 2.5 mg oral tablet, 2.5 mg, 1 tab(s), PO, 1xDaily Januvia 100 mg oral tablet, 100 mg, 1 tab(s), PO, 1xDaily oxyBUTYnin 10 mg/24 hr oral tablet, extended release, 10 mg, 1 tab(s), PO, 1xDaily Prinivil 40 mg oral tablet, 40 mg, 1 tab(s), PO, 1xDaily simvastatin 10 mg oral tablet, 10 mg, PO, 1xDaily hs Allergies Percocet??(Substance type unknown) amoxicillin-clavulanate??(Substance type unknown) azithromycin??(Substance type unknown) doxycycline??(Substance type unknown) metroNIDAZOLE??(Substance type unknown) Social History Tobacco?? No qualifying data available. Does not smoke, does not drink, does not use drugs Family History DM, leukemia, cancer, asthma Lab Results Labs??(Last four charted values) WBC ?H??13.0?(AUG 10) Hgb ?12.8?(AUG 10) Hct ?38.2?(AUG 10) Plt ?248?(AUG 10) Na ?L??135?(AUG 10) K ?4.7?(AUG 10) CO2 ?25?(AUG 10) Cl ?100?(AUG 10) Cr ?1.049?(AUG 10) BUN ?23?(AUG 10)?22?(AUG 10) Diagnostic Results Radiology Results??(08/10/23 00:00 - 08/11/23 00:01) ?? Angio Chest Pul Art w/wo/w Con Post Proc - CT Scan ?Performed on: 08/10/2023 21:01?? IMPRESSION: ?? 1. ??No acute pulmonary embolism.?? 2. ??Multifocal bilateral tree-in-bud nodular opacities likely ?? representing infectious or inflammatory bronchiolitis differentials ?? including but not limited to atypical mycobacterial infection and TB.?? 3. ??Nonspecific mildly prominent mediastinal lymph nodes, likely ?? reactive.?? 4. ??Nonobstructive steatotic hepatomegaly.?? 5. ??Nonspecific peripherally calcified structure in the region of the ?? splenic hilum measuring approximately 0.7 cm may represent a ?? peripherally calcified splenic artery aneurysm.? DICOM format image data is available via a secure, media-free system.?? INTERPRETED BY: Ranulfo Ren ?? Finalized On: 08/10/2023 21:22 ? Chest 1V - Diagnostic Imaging ?Performed on: 08/10/2023 18:44?? IMPRESSION: No acute cardiopulmonary process.? INTERPRETED BY: Ranulfo Ren ?? Finalized On: 08/10/2023 18:52 ?? Electronically Signed By: Priscila Duron DO, on 08.11.2023 05:41 AM Electronically Signed By: Progress note * Maritza Srivastava APRN: PERFORM, MODIFY Event Display: Progress Note Authored Date: [id number] Subjective Patient resting comfortably in bed, no acute distress noted, room air Patient denies any acute complaints, wants to go home Patient??remains afebrile and no adverse events overnight Objective Vitals & Measurements T:??98.2?F ??(Oral)?? TMIN:??97.5?F ??(Oral)?? TMAX:??98.2?F ??(Oral)?? HR:??90??(Pulse)?? RR:??18?? BP:??177/83?? SpO2:??92%?? FiO2 (Fraction of Inspired O2): 21 % (08/14/23 21:28:00) Physical Exam Constitutional: Pleasant?? elderly female,??mod built & nourished, no acute distress, alert and oriented Eye: Conjunctiva -pale, sclera anicteric Ear/Nose/Mouth/Throat: Atraumatic, no facial asymmetry,oral mucosa normal, no thrush or ulcers, lips normal Neck: supple, no JVD, thyromegaly or LAD Respiratory: Respirations are even and unlabored. ??Lungs are diminished bilaterally with expiratory wheezing. Cardiovascular: normal s1, s2, reg rate and rhythm, No murmurs, rubs or gallops Gastrointestinal: Abdomen-round, Normo active bowel sounds, no hernias or masses or dilated veins. Upon palpation: Soft, non tender, not distended, no hepatosplenomegaly palpable Hematology/Lymphatics: no enlarged lymph nodes, no bruising Musculoskeletal: No big joint deformities or swelling with normal ROM Extremities: No cellulitis or induration or edema, stasis dermatitis Integumentary: warm, dry, no rash, ulcer Neurologic: awake and alert, follows commands, moves all extremities, no obvious focal deficits. Speech, language , mentation and cognition intact Psychiatric: normal mood and affect Lab Results Labs??(Last four charted values) WBC ?H??11.3?(AUG 13)?H??16.1?(AUG 12)?H??12.1?(AUG 11)?H??13.0?(OCT 01) Hgb ?13.4?(OCT 04)?12.2?(OCT 03)?12.5?(OCT 02)?12.8?(OCT 01) Hct ?40.7?(OCT 04)?37.4?(OCT 03)?37.4?(OCT 02)?38.2?(OCT 01) Plt ?294?(OCT 04)?272?(OCT 03)?226?(OCT 02)?248?(OCT 01) Na ?141?(OCT 04)?138?(OCT 03)?136?(OCT 02)?L??135?(OCT 01) K ?3.9?(OCT 04)?4.4?(OCT 03)?GHEM1?(OCT 03)?4.2?(OCT 02) CO2 ?28?(OCT 04)?22?(OCT 03)?L??20?(OCT 02)?25?(OCT 01) Cl ?106?(OCT 04)?105?(OCT 03)?105?(OCT 02)?100?(OCT 01) Cr ?0.678?(OCT 04)?0.772?(OCT 03)?0.684?(OCT 02)?1.049?(OCT 01) BUN ?13?(OCT 04)?18?(OCT 03)?16?(OCT 02)?23?(OCT 01) Glucose ?90?(OCT 06)?H??283?(OCT 05)?H??312?(OCT 05)?H??182?(AUG 05) Diagnostic Results Radiology Results??(08/14/23 00:00 - 08/15/23 11:34) Assessment/Plan Assessment: 1.?? Leukocytosis, tachycardia, low-grade fever, SIRS rule out sepsis due to 2.?? Bilateral multifocal nodular opacities???rule out atypical mycobacterial infection versus TB versus other 3.?? Mediastinal lymphadenopathy??likely reactive 4.?? Acute hypoxic respiratory failure???resolved 5.?? JESSICA with metabolic acidosis and electrolyte derangements???improving 6.?? Diabetes mellitus with hyperglycemia, A1c 7.8 7.?? Asthma exacerbation 8.?? Nonobstructive steatotic hepatomegaly with elevated AST and alkaline phosphatase 9.?? Hypertension 10.?? History of antibiotic allergies to Augmentin, azithromycin, doxycycline, Flagyl which limits treatment choices ?? Plan: ?? We will discontinue airborne respiratory isolation at this time as patient has 3 negative AFBs Patient presented with evidence of bilateral??multifocal tree-in-bud nodular opacities concerning for??mycobacterial infection,??atypical versus TB Continue empirically with IV Levaquin through today for a 5-day course Sputum culture 08/11 final no growth AFB 10/ smear negative AFB 08/12 smear negative AFB 08/13??smear negative Quantiferon gold testing negative,??patient possibly with atypical mycobacterial infection Leukocytosis now serially decreased, likely elevated??due to steroids Procalcitonin WNL x2 Afebrile Urinalysis not indicative of infection, culture final no growth Blood cultures currently no growth Patient is clinically improved and okay from ID standpoint for discharge planning when cleared by others ?? Continue with glycemic management, DVT prophylaxis, maintenance IVF, inhalers, nebulizers, steroids, and all other symptomatic and supportive measures Monitor closely for worsening hypoxia, supplemental oxygen as needed???currently stable on room air ?? Plan of care discussed with patient??and PCL. The patient is clinically improved however??remains at this time with a guarded prognosis. Patient seen and examined in collaboration with Dr. Husain and case discussed with him in detail. We will follow closely??while inpatient with you. Electronically Signed By: Maritza Srivastava APRN, on 08.15.2023 11:41 AM Electronically Signed By: Anny Husain MD * Angelia Finn MD: PERFORM Event Display: Progress Note Authored Date: [id number] Subjective I saw and examine the patient today at the bedside and discussed with the nurse the plan of care no significant issues or concerns reported from overnight. No new symptoms Objective Vitals & Measurements T:??97.9?F ??(Oral)?? TMIN:??97.5?F ??(Oral)?? TMAX:??98.2?F ??(Oral)?? HR:??89??(Pulse)?? RR:??16?? BP:??177/83?? SpO2:??93%?? FiO2 (Fraction of Inspired O2): 21 % (08/14/23 21:28:00) Physical Exam General: lying comfortably in the bed, no dehydration, no pallor Eye: No jaundice or conjunctival injection HENT: No ear abnormalities on exam, no nasal discharge and no throat erythema Neck: Supple, no neck swelling, abnormal lymphadenopathy or tenderness Respiratory: nasal cannula oxygen in place. Decreased air entry bilaterally, scattered crackles bilaterally?? Cardiovascular: Normal S1 and S2, no murmur, regular heartbeat, peripheral pulses intact. Normal capillary refill. No chest tenderness Gastrointestinal: No abdominal tenderness, distention or organ enlargement Genitourinary: Deferred?? Musculoskeletal: No limited range of motion or joint swelling or erythema Integumentary: No rash or discoloration Neurologic: No motor or sensory abnormalities. ??Cranial nerves intact Psychiatric: Normal affect. No confusion or confabulation [1] Lab Results Labs??(Last four charted values) WBC ?H??11.3?(OCT 04)?H??16.1?(OCT 03)?H??12.1?(OCT 02)?H??13.0?(OCT 01) Hgb ?13.4?(OCT 04)?12.2?(OCT 03)?12.5?(OCT 02)?12.8?(OCT 01) Hct ?40.7?(OCT 04)?37.4?(OCT 03)?37.4?(OCT 02)?38.2?(OCT 01) Plt ?294?(OCT 04)?272?(OCT 03)?226?(OCT 02)?248?(OCT 01) Na ?141?(OCT 04)?138?(OCT 03)?136?(OCT 02)?L??135?(OCT 01) K ?3.9?(OCT 04)?4.4?(OCT 03)?GHEM1?(OCT 03)?4.2?(OCT 02) CO2 ?28?(OCT 04)?22?(OCT 03)?L??20?(OCT 02)?25?(OCT 01) Cl ?106?(OCT 04)?105?(OCT 03)?105?(OCT 02)?100?(OCT 01) Cr ?0.678?(OCT 04)?0.772?(OCT 03)?0.684?(OCT 02)?1.049?(OCT 01) BUN ?13?(OCT 04)?18?(OCT 03)?16?(OCT 02)?23?(OCT 01) Glucose ?H??163?(AUG 15)?90?(AUG 15)?H??283?(AUG 14)?H??312?(AUG 14) Diagnostic Results Radiology Results??(08/14/23 00:00 - 08/15/23 14:12) Assessment/Plan Diagnosis List 1.??Asthma exacerbation??(Unspecified asthma with (acute) exacerbation)(J45.901) Sepsis sec to??bilateral pneumonia: continue Levaquin, PCL 0.07.??Sepsis improving follow-up cultures ?? Concern for atypical??mycobacteria infection: placed on isolation, obtain 3 AFB (negative x1)??, second sputum collected. Awaiting result.??Third??sputum to be collected today. ordered mucomyst nebulizer treatment?? to??stimulate expectoration of sputum??as patient is unable to give sputum sample at this time ID on the case,??Gold test was ordered ?? Acute exacerbation of asthma/COPD: continue Duonebs, prednisone 40 mg po daily, improving gradually ?? History of breast cancer s/p bilateral mastectomy ?? History of skin cancer s/p reconstruction ?? 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 Hypertension: resumed her Lisinopril ?? Hyperlipidemia ?? Advanced age [2] ? Discharge pending??third AFB smear??to be negative [1]??Progress/SOAP Note; Angelia Finn MD 08/13/2023 12:42 EDT [2]??Progress/SOAP Note; Angelia Finn MD 08/13/2023 12:42 EDT Electronically Signed By: Angelia Finn MD, on 08.15.2023 02:13 PM Electronically Signed By: * Maritza Srivastava APRN: PERFORM, MODIFY Event Display: Progress Note Authored Date: [id number] Subjective Patient resting comfortably in bed, no acute distress noted, stable on room air Patient denies any acute complaints Patient??remains afebrile and no adverse events overnight Objective Vitals & Measurements T:??98.1?F ??(Oral)?? TMIN:??97.8?F ??(Oral)?? TMAX:??98.5?F ??(Oral)?? HR:??78??(Pulse)?? RR:??18?? BP:??145/68?? SpO2:??97%?? FiO2 (Fraction of Inspired O2): 21 % (08/13/23 08:46:00) Physical Exam Constitutional: Pleasant?? elderly female,??mod built & nourished, no acute distress, alert and oriented Eye: Conjunctiva -pale, sclera anicteric Ear/Nose/Mouth/Throat: Atraumatic, no facial asymmetry,oral mucosa normal, no thrush or ulcers, lips normal Neck: supple, no JVD, thyromegaly or LAD Respiratory: Respirations are even and unlabored. ??Lungs are diminished bilaterally with expiratory wheezing. Cardiovascular: normal s1, s2, reg rate and rhythm, No murmurs, rubs or gallops Gastrointestinal: Abdomen-round, Normo active bowel sounds, no hernias or masses or dilated veins. Upon palpation: Soft, non tender, not distended, no hepatosplenomegaly palpable Hematology/Lymphatics: no enlarged lymph nodes, no bruising Musculoskeletal: No big joint deformities or swelling with normal ROM Extremities: No cellulitis or induration or edema, stasis dermatitis Integumentary: warm, dry, no rash, ulcer Neurologic: awake and alert, follows commands, moves all extremities, no obvious focal deficits. Speech, language , mentation and cognition intact Psychiatric: normal mood and affect Lab Results Labs??(Last four charted values) WBC ?H??11.3?(AUG 13)?H??16.1?(AUG 12)?H??12.1?(AUG 11)?H??13.0?(AUG 10) Hgb ?13.4?(AUG 13)?12.2?(OCT 03)?12.5?(OCT 02)?12.8?(OCT 01) Hct ?40.7?(OCT 04)?37.4?(OCT 03)?37.4?(OCT 02)?38.2?(OCT 01) Plt ?294?(OCT 04)?272?(OCT 03)?226?(OCT 02)?248?(OCT 01) Na ?141?(OCT 04)?138?(OCT 03)?136?(OCT 02)?L??135?(OCT 01) K ?3.9?(OCT 04)?4.4?(OCT 03)?GHEM1?(OCT 03)?4.2?(OCT 02) CO2 ?28?(OCT 04)?22?(OCT 03)?L??20?(OCT 02)?25?(OCT 01) Cl ?106?(OCT 04)?105?(OCT 03)?105?(OCT 02)?100?(OCT 01) Cr ?0.678?(OCT 04)?0.772?(OCT 03)?0.684?(OCT 02)?1.049?(OCT 01) BUN ?13?(OCT 04)?18?(OCT 03)?16?(OCT 02)?23?(OCT 01) Glucose ?H??182?(OCT 05)?H??100?(OCT 05)?H??228?(OCT 04)?H??278?(OCT 04) Diagnostic Results Radiology Results??(08/13/23 00:00 - 08/14/23 12:09) Assessment/Plan Assessment: 1.?? Leukocytosis, tachycardia, low-grade fever, SIRS rule out sepsis due to 2.?? Bilateral multifocal nodular opacities???rule out atypical mycobacterial infection versus TB versus other 3.?? Mediastinal lymphadenopathy??likely reactive 4.?? Acute hypoxic respiratory failure???resolved 5.?? JESSICA with metabolic acidosis and electrolyte derangements???improving 6.?? Diabetes mellitus with hyperglycemia, A1c 7.8 7.?? Asthma exacerbation 8.?? Nonobstructive steatotic hepatomegaly with elevated AST and alkaline phosphatase 9.?? Hypertension 10.?? History of antibiotic allergies to Augmentin, azithromycin, doxycycline, Flagyl which limits treatment choices ?? Plan: ?? Continue empirically with airborne respiratory isolation while ruling out??active tuberculosis infection Patient presented with evidence of bilateral??multifocal tree-in-bud nodular opacities concerning for??mycobacterial infection,??atypical versus TB Continue empirically with IV Levaquin through today for a 5-day course Sputum culture 08/11 final no growth AFB 10/2 smear negative AFB 10/ smear negative AFB 10/??in lab, If smear negative okay for discontinuation of airborne isolation Quantiferon gold testing negative,??patient possibly with atypical mycobacterial infection Leukocytosis now serially decreased, likely elevated??due to steroids Procalcitonin WNL x2 Afebrile Urinalysis not indicative of infection, culture final no growth Blood cultures currently no growth If final AFB??culture??smear negative??patient is okay from ID standpoint for discharge planning when cleared by others off of antibiotics ?? Continue with glycemic management, DVT prophylaxis, maintenance IVF, inhalers, nebulizers, steroids, and all other symptomatic and supportive measures Monitor closely for worsening hypoxia, supplemental oxygen as needed???currently stable on room air ?? Plan of care discussed with patient, RN, and attending hospitalist. The patient is clinically improved however??remains at this time with a guarded prognosis. Patient seen and examined in collaboration with Dr. Husain and case discussed with him in detail. We will follow closely??while inpatient with you. Electronically Signed By: Maritza Srivastava APRN, on 08.14.2023 12:10 PM Electronically Signed By: Anny Husain MD Radiology * Event Display: Angio Chest Pul Art w/wo/w Con Post Proc Authored Date: * Event Display: Angio Chest Pul Art w/wo/w Con Post Proc Authored Date: Exam Date/Time: 08/10/2023 21:01 Finalized On: 08/10/2023 21:22 PROCEDURE: CT ANGIO CHEST PULMONARY ARTERIES W CON OR WO AND W CON PP CLINICAL INDICATION: Atypical chest pain. COMPARISON: Chest x-ray 08/10/2023. TECHNIQUE: Standard CT angiogram of the Chest was performed. Multi-planar reformatting, 3D volume rendered imaging, maximum intensity projections (MIPS), and vessel analyses were performed on a separate workstation. Sagittal and coronal MPR images were also performed. This CT exam was performed using one or more of the following dose reduction techniques: Automated exposure control, adjustment of the mA and/or kV according to patient size, or use of iterative reconstruction technique. CONTRAST: 100 mL nonionic intravenous contrast. FINDINGS: Airway: The trachea and mainstem bronchi are patent. Lungs: There are scattered bilateral tree-in-bud nodular opacities of the medial posterior left lung apex, bilateral upper lobes, right middle lobe, and bilateral dependent lower lobes with scattered areas of nodular consolidation likely representing infectious or inflammatory bronchiolitis. Pleura: No effusion or pneumothorax. No thickening. Mediastinum: The heart is normal in size and contour. No pericardial effusion. There are calcified atherosclerotic changes of the thoracic aorta. There are nonspecific mildly prominent mediastinal lymph nodes involving the right lower paratracheal and subcarinal saloni stations, likely reactive. Vascular: No of acute large central pulmonary embolism. No suspicious intraluminal filling defects. The main pulmonary artery is normal in caliber. There is no evidence of right heart strain. The aorta is normal in course and caliber. Osseous structures: No acute process. Imaged intra-abdominal organs: The liver is enlarged in size and contour with diffuse hepatic steatosis. There is globular hypoattenuation in segment 6 could represent focal fat or hepatic cysts. There are splenic calcified granulomas. The patient is status post cholecystectomy. There is a nonspecific peripherally calcified structure in the region of the splenic hilum measuring approximately 0.7 cm may represent a peripherally calcified splenic artery aneurysm. IMPRESSION: 1. No acute pulmonary embolism. 2. Multifocal bilateral tree-in-bud nodular opacities likely representing infectious or inflammatory bronchiolitis differentials including but not limited to atypical mycobacterial infection and TB. 3. Nonspecific mildly prominent mediastinal lymph nodes, likely reactive. 4. Nonobstructive steatotic hepatomegaly. 5. Nonspecific peripherally calcified structure in the region of the splenic hilum measuring approximately 0.7 cm may represent a peripherally calcified splenic artery aneurysm. M format image data is available via a secure, media-free system. INTERPRETED BY: Ranulfo Ren Finalized On: 08/10/2023 21:22 Patient Care team information Care Team Personnel Name: Unassigned, Out of State Member Role: PCP [facility]
[2023-09-11] MEDS: Acetaminophen 325 MG TABLET 975 MG PO (19:46)
[2023-09-11] MEDS: Ibuprofen 400 MG TABLET PO (19:47)
[2023-09-11] MEDS: Nitrofurantoin Monohyd/M-Cryst 100 MG CAPSULE PO (19:47)
== END 2023-09-11 19:53 | disposition home or self-care (01) ==
PROVIDERS: Physician Assistant; Emergency Provider Student in an Organized Health Care Education/Training Program; PCP Internal Medicine
DX: N39.0 Urinary tract infection, site not specified (principal); M54.50 Low back pain, unspecified; R30.0 Dysuria; Z87.891 Personal history of nicotine dependence; Z79.899 Other long term (current) drug therapy
CPT/HCPCS: 36415; 80053; 81001; 83690; 83735; 85025; 87086; 99283; 99284

== ENCOUNTER 2023-09-28 14:43 | Emergency (ER) | payer OTHER, SELFPAY ==
--- NOTE | ~2023-09-28 | XR_ITS ---
EXAMINATION: XR chest 2V CLINICAL INFORMATION: Reason for Exam SOB and chest pain COMPARISON: 04/20/2023 TECHNIQUE: XR chest 2V, 2 Views Lungs and Kaylin: Both lungs are clear. Pleura: Normal. Costophrenic angles are sharp. No pneumothorax. Heart: The heart is normal in size. Mediastinum: The mediastinum is within normal limits.. Bones: Skeletal structures included are normal for patient's age. Spondylosis of dorsal spine. XR/XR chest 2V IMPRESSION: No radiographic evidence of acute cardiopulmonary disease.
--- NOTE | 2023-09-28 14:46 | ECG_ITS ---
Test Reason : CHEST PAIN Blood Pressure : / mmHG Vent. Rate : 117 BPM Atrial Rate : 117 BPM P-R Int : 172 ms QRS Dur : 076 ms QT Int : 320 ms P-R-T Axes : 075 065 059 degrees QTc Int : 446 ms Sinus tachycardia Possible Left atrial enlargement Minimal voltage criteria for LVH, may be normal variant ( Sokolow-Del Rosario ) Nonspecific ST abnormality Inferior leads Lateral leads Abnormal ECG When compared with ECG of 20-APR-2023 11:58, T wave amplitude has decreased in Anterior leads ST more depressed Inferior leads Referred By: Generic ED Physician Electronically Signed By:ALISHA SOLIS MD
[2023-09-28 14:54] VITALS: BP 161/76; PULSE 122; RESP 18; TEMP 36.8; O2SAT 95; BMI 25.8
--- NOTE | 2023-09-28 15:00 | ED.GENADULT ---
HPI - General Adult General Chief complaint: Dyspnea Stated complaint: Cough/Chest pain Time Seen by Provider: 09/28/23 19:17 Source: patient, RN notes reviewed and old records reviewed Mode of arrival: ambulatory Limitations: no limitations History of Present Illness HPI narrative: 78-year-old female with past medical history significant for type 2 diabetes, asthma presents for evaluation of shortness of breath Patient reports her symptoms started last night. Denies any fevers or chills. She has some chest pain with coughing. Patient reports that she has nebulizers and albuterol inhalers at home that she has been using with minimal improvement Denies any leg swelling or history of heart failure Denies any sick contacts Denies any recent travel Related Data Home Medications Medication Instructions Recorded Confirmed acetaminophen 650 mg 1 tab PO Q8H PRN Pain (Scale Score 03/27/22 02/06/23 tablet,extended release (Mapap 1-3) Arthritis Pain) cholecalciferol (vitamin D3) 50 50 mcg PO DAILY 03/27/22 02/06/23 mcg (2,000 unit) tablet (Vitamin D3) oxybutynin chloride 10 mg 1 tab PO DAILY 03/27/22 02/06/23 tablet,extended release 24 hr simvastatin 10 mg tablet 1 tab PO BEDTIME 03/27/22 02/06/23 sitagliptin phosphate 100 mg 1 tab PO DAILY 03/27/22 02/06/23 tablet (Januvia) albuterol sulfate 90 mcg/actuation 2 puff inhalation Q4-6H PRN 06/12/22 02/06/23 aerosol inhaler shortness of breath or wheezing fluticasone propionate 230 2 puff inhalation BID 06/12/22 02/06/23 mcg-salmeterol 21 mcg/actuation HFA inhaler (Advair HFA) hydrocortisone 2.5 % topical cream 1 appl topical BID PRN Rash 02/06/23 02/06/23 ipratropium 0.5 mg-albuterol 3 mg 3 ml inhalation Q4H PRN Wheezing 02/06/23 02/06/23 (2.5 mg base)/3 mL nebulization soln neomycin 3.5 mg/g-polymyxin B 1 appl ophthalmic (eye) BID 02/06/23 02/06/23 10,000 unit/g-dexameth 0.1 % eye oint triamcinolone acetonide 0.1 % 1 appl topical BID-TID PRN Rash 02/06/23 02/06/23 topical cream Previous Rx's Medication Instructions Recorded insulin lispro 100 unit/mL 1 sliding scale dose subcut 11/07/22 subcutaneous pen (Humalog KwikPen USEASDIRECTD #15 mL (U-100) Insulin) pen needle, diabetic 31 gauge x #50 ea 11/07/22/ (Pen Needle) cefuroxime axetil 500 mg tablet 500 mg PO BID #10 tabs 02/08/23 prednisone 20 mg tablet 40 mg (2 x 20 mg) PO DAILY #10 tabs 02/08/23 cefuroxime axetil 250 mg tablet 250 mg PO BID #14 tabs 03/12/23 amoxicillin 875 mg-potassium 1 tab PO BID 7 days #14 tabs 04/20/23 clavulanate 125 mg tablet prednisone 50 mg tablet 50 mg PO DAILY 4 days #4 tabs 04/20/23 nitrofurantoin 100 mg PO Q12H 7 days #14 caps 09/11/23 monohydrate/macrocrystals 100 mg capsule (Macrobid) amoxicillin 875 mg-potassium 1 tab PO Q12H #14 tabs 09/28/23 clavulanate 125 mg tablet fluconazole 100 mg tablet 100 mg PO ONCE #1 tab 09/28/23 prednisone 20 mg tablet 40 mg (2 x 20 mg) PO DAILY #10 tabs 09/28/23 Allergies Allergy/AdvReac Type Severity Reaction Status Date / Time doxycycline AdvReac Intermediate vaginal Verified 09/28/23 14:54 swelling azithromycin AdvReac Mild yeast Verified 09/28/23 14:54 infection ciprofloxacin [From Cipro] AdvReac Mild yeast Verified 09/28/23 14:54 infection metronidazole [From Flagyl] AdvReac Mild yeast Verified 09/28/23 14:54 infection oxycodone [From Percocet] AdvReac Mild NAUSEA Verified 09/28/23 14:54 Review of Systems Constitutional: Constitutional: Denies chills, Denies fever(s), Denies headache(s), Reports lethargy and Reports malaise ENT: Denies headache(s) Cardiovascular: Cardiovascular: Reports dyspnea Respiratory: Respiratory: Reports chest congestion, Reports cough, Reports pain with cough, Reports dyspnea and Reports wheezing Gastrointestinal: Gastrointestinal: Denies abdominal pain, Denies nausea and Denies vomiting Musculoskeletal: Musculoskeletal: Denies back pain Integumentary/Breasts: Skin/Breast: Denies rash Neurologic: Denies headache(s) Allergic/Immunologic: Allergic/Immunologic: Reports wheezing PMFSH Past Medical History Medical History Type 2 diabetes mellitus Hypertension Asthma Family History Family History Other Asthma Esophageal cancer Social History Social History Household Members: None Housing: Apartment Do you presently have visiting nurse or other home services: No Alcohol intake: never Patient Tobacco Use Status: Former Tobacco user Smoked in Last 30 Days: No Use of substances other than those prescribed or required for medical reasons: No Advance Directives: Yes Advance Directives on File: Yes Advance Directives Date on File: 06/12/22 service: No Current occupational status: retired Physical Exam ED Vital Signs: Vital Signs - 24 hr 09/28/23 14:54 09/28/23 18:42 09/28/23 19:54 Temperature 98.3 F 99.9 F Pulse Rate 122 H 111 H 111 H Respiratory Rate 18 30 H 24 H Blood Pressure 161/76 H 156/75 H Pulse Oximetry 95 98 Oxygen Delivery Method Room Air Room Air 09/28/23 20:27 09/28/23 21:03 09/28/23 21:58 Temperature 98.3 F 98.4 F 98.4 F Pulse Rate 106 H 101 H 100 Respiratory Rate 18 13 20 Blood Pressure 130/74 120/55 L 118/64 Pulse Oximetry 96 96 96 Oxygen Delivery Method Room Air Room Air Room Air BMI result Body Mass Index 25.8 Const General: healthy appearing, comfortable, no acute distress, alert and awake Nutritional Appearance: well nourished Orientation/consciousness: patient oriented x3 HENMT Head: Yes normocephalic and Yes atraumatic Eyes Eyelids: Yes eyelids normal Conjunctivae: conjunctivae normal Sclerae: sclerae normal Corneas: corneas normal Pupils: Equal, round and reactive pupils present EOM: EOMs intact bilaterally Neck Neck: Yes full ROM Resp Other: Expiratory wheeze heard best in the bilateral bases. Effort & Inspection: Actively coughing, no respiratory distress, no retractions, no stridor, tachypneic, no tripod positioning and prolonged expiratory phase Auscultation: not clear to auscultation bilaterally and wheezes Cardio Rate: regular rate Rhythm: regular rhythm GI Inspection: No distended Palpation (GI): Soft to palpation, not firm, nontender, no guarding and not rigid Skin General skin exam: no rashes or lesions noted and elasticity normal Neuro General: patient oriented x3 Cranial nerves: Yes Equal, round and reactive pupils present and Yes Bilaterally intact EOM present Cognition (Neuro): normal cognition Extrem Other: Moving all extremities well without any obvious deformities Course Course Course Narrative: RME: patient presenting for SOB with wheezing, coughing green phleghm, and chills for the past 3 days. LUngs positive for wheeizing. labs and xray ordered. negative for leg swelling. Reevaluation(s) Reevaluation #1: Patient re-evaluated, she reports feeling much better. Her wheezing has improved greatly. Her tachycardia has improved but remains slightly tachycardic to 108. Again, this is likely related to high-dose albuterol. Will repeat a set of vitals, but the patient appears stable for discharge at this time. We will discharge her with Augmentin, prednisone and fluconazole as she tends to get yeast infections after treat with antibiotic Time: 21:53 Medications Administered Discontinued Medications Generic Name Dose Route Start Last Admin Trade Name Freq PRN Reason Stop Dose Admin Amoxicillin/Clavulanate Potassium 875 mg 09/28/23 21:59 09/28/23 22:05 Amoxicillin/Potassium Clav 875 Mg Tablet PO 09/28/23 22:00 875 mg ONCE ONE Administration Albuterol Sulfate 2.5 mg/ 0 mg 09/28/23 19:40 09/28/23 19:52 Albuterol/Ipratropium 3 ml INHALE 09/28/23 19:41 2 dose ONCE ONE Administration Magnesium Sulfate/Dextrose 1 gm in 100 mls @ 100 mls/hr 09/28/23 19:28 09/28/23 21:22 Magnesium Sulfate/D5w IV 09/28/23 20:27 Infused ONCE ONE Infusion Sodium Chloride 1,000 mls @ 999 mls/hr 09/28/23 19:30 09/28/23 21:22 Ns IV 11/19/23 20:30 Infused .Q1H1M ANISH Infusion Methylprednisolone Sodium Succinate 125 mg 09/28/23 19:28 09/28/23 20:17 Methylprednisolone Sod Succ 125 Mg/2 Ml Vial IVPUSH 09/28/23 19:29 125 mg ONCE ONE Administration Medical Decision Making Medical Decision Making [facility] Narrative: 78-year-old female with past medical history significant for asthma presents for evaluation shortness of breath, cough and wheezing. She has wheezing on exam. Her saturation has not been below 92% on room air. However, she is quite tachycardic to 117. This may be related to albuterol usage. Her chest x-ray is without evidence of pneumonia, she is noted to a temperature of 99.9?. Her white count is 12.9 with a left shift. Patient's viral swabs are negative. Differential Diagnosis Differential Diagnoses: The differential diagnosis associated with the presentation includes Acute asthma exacerbation Pneumonia Bronchitis COVID-19 Influenza Admission/Observation Consideration of admission/observation: Escalation of care including admission/observation considered Patient came in tachypneic, tachycardic. She improved with nebulizers and admission was considered Lab Data [facility] Lab Attestation statement: I reviewed the patient's lab results. Leukocytosis of 12.9 K with a left shift. No significant anemia. No electrolyte abnormalities. Patient's glucose is elevated to 300 with no evidence of DKA 09/28/23 15:35 09/28/23 15:35 Labs: Lab Results 09/28/23 Range/Units 15:35 WBC 12.9 H (4.8-10.8) X10*3/uL RBC 4.77 (4.20-5.50) X10*6/uL Hgb 13.8 (12.0-16.0) g/dl Hct 42.4 (37.0-47.0) % MCV 88.9 (80.0-98.0) fL MCH 28.9 (27.0-33.0) pg MCHC 32.5 (31.0-35.0) g/dl RDW 13.2 (11.0-16.0) % Plt Count 251 (160-400) X10*3/uL MPV 10.9 (9.4-12.3) fL Immature Gran % (Auto) 0.4 (0.0-0.4) % Neut % (Auto) 83.4 H (45-73) % Lymph % (Auto) 9.4 L (20-40) % [place] % (Auto) 5.4 (2-11) % Eos % (Auto) 0.9 (0-4) % Baso % (Auto) 0.5 (0-2) % Lymph # (Auto) 1.2 (1.2-4.9) X10*3/uL [place] # (Auto) 0.7 (0.1-1.2) X10*3/uL Eos # (Auto) 0.1 (0.0-0.4) X10*3/uL Baso # (Auto) 0.1 (0.0-0.2) X10*3/uL Abs Immat Gran (auto) 0.05 H (0.00-0.03) X10*3/uL Absolute Neuts (auto) 10.8 H (2.0-8.3) x10*3/uL Absolute Nucleated RBC 0.000 (0.0-0.012) X10*3/uL Nucleated RBC % (auto) 0.0 (0.0-0.2) /100WBC PT 12.0 (11.1-13.3) SEC INR 1.0 (0.9-1.1) APTT 23.9 L D (26.0-36.4) SEC Sodium 139 (135-145) mmol/L Potassium 4.0 (3.3-5.1) mmol/L Chloride 101 (96-108) mmol/L Carbon Dioxide 27 (22-29) mmol/L Anion Gap 15 (12-20) BUN 12 (9-16) mg/dL Creatinine 0.79 (0.5-1.4) mg/dL Estim Creat Clear Calc 50.7 Estimated GFR > 60 Random Glucose 300 H (60-115) mg/dL Calcium 9.8 (8.4-10.2) mg/dL Total Bilirubin 0.7 (0.0-1.0) mg/dL AST 29 (5-31) U/L ALT 30 (0-31) U/L Alkaline Phosphatase 104 (39-117) U/L Troponin I High Sens 3.6 (<3.5-17.0) ng/L B-Natriuretic Peptide 45 (<100) pg/mL Total Protein 7.9 (6.5-8.0) g/dL Albumin 4.5 (3.5-5.0) g/dL Influenza Type A (PCR) NEGATIVE (Negative) Influenza Type B (PCR) NEGATIVE (Negative) RSV RNA Qual (PCR) NEGATIVE (Negative) SARS-CoV-2 RNA (RT-PCR) NEGATIVE (Negative) Independent Interpretation I performed an independent interpretation of an: EKG (Sinus tachycardia rate of 117 beats per minute. No ST segment elevation MD) and Plain X-Ray (No infiltrate) Radiology Impression Discussion of test interpretation with radiology: I have reviewed the radiologist's reading. (No radiographic evidence of acute cardiopulmonary disease) Discharge Plan Discharge Clinical Impression: Asthma exacerbation Patient Disposition: Home, Self-Care Instructions: Asthma (ED) Additional Instructions: Your workup in the emergency department today was reassuring. Likely had an asthma exacerbation. Take prednisone 40 mg daily for the next 5 days. She also take Augmentin twice daily for the next 7 days Take fluconazole after you finished your antibiotics I recommend that use [id number] Monistat throughout the antibiotic course is you tend to get yeast infections Prescriptions: New prednisone 20 mg tablet 40 mg PO DAILY Qty: 10 0RF amoxicillin-pot clavulanate 875-125 mg tablet 1 tab PO Q12H Qty: 14 0RF fluconazole 100 mg tablet 100 mg PO ONCE Qty: 1 0RF Rx Instructions: after you finish antibiotic course No Action oxybutynin chloride 10 mg tablet extended release 24 hr 1 tab PO DAILY simvastatin 10 mg tablet 1 tab PO BEDTIME acetaminophen [Mapap Arthritis Pain] 650 mg tablet extended release 1 tab PO Q8H PRN (Reason: Pain (Scale Score 1-3)) Januvia 100 mg tablet 1 tab PO DAILY cholecalciferol (vitamin D3) [Vitamin D3] 50 mcg (2,000 unit) Tablet 50 mcg PO DAILY albuterol sulfate 90 mcg/actuation HFA aerosol inhaler 2 puff inhalation Q4-6H PRN (Reason: shortness of breath or wheezing) Advair HFA 230-21 mcg/actuation Hfa Aerosol Inhaler 2 puff INHALATION BID insulin lispro [Humalog KwikPen Insulin] 100 unit/mL insulin pen 1 sliding scale dose subcut USEASDIRECTD Qty: 15 0RF Rx Instructions: Test glucose and use insulin per below until you follow up with PCP 0 units <150 2 units 151-200 4 units 201-250 6 units 251-300 8 units 301-350 10 units if >350, call (DME) pen needle, diabetic [Pen Needle] 31 gauge x 3/16 needle See Rx Instructions .Route Qty: 50 0RF Rx Instructions: As directed prednisone 50 mg tablet 50 mg PO DAILY 4 Days Qty: 4 0RF amoxicillin-pot clavulanate 875-125 mg tablet 1 tab PO BID 7 Days Qty: 14 0RF nitrofurantoin monohyd/m-cryst [Macrobid] 100 mg capsule 100 mg PO Q12H 7 Days Qty: 14 0RF Rx Instructions: must administer with a meal/food hydrocortisone 2.5 % cream 1 appl topical BID PRN (Reason: Rash) Rx Instructions: 1 WEE ON 1 WEEK OF ipratropium-albuterol 0.5 mg-3 mg(2.5 mg base)/3 mL Solution For Nebulization 3 ml INHALATION Q4H PRN (Reason: Wheezing) triamcinolone acetonide 0.1 % cream 1 appl topical BID-TID PRN (Reason: Rash) Rx Instructions: 1 WEEK ON AND 1 WEEK OFF neomycin-polymyxin B-dexameth 3.5 mg/g-10,000 unit/g-0.1 % ointment 1 appl ophthalmic (eye) BID Patient Comments: PATIENT SAYS SHE IS STILL USING THIS cefuroxime axetil 500 mg tablet 500 mg PO BID Qty: 10 0RF prednisone 20 mg Tablet 40 mg PO DAILY Qty: 10 0RF cefuroxime axetil 250 mg tablet 250 mg PO BID Qty: 14 0RF Interventions: ED Discharge Assessment Last Done: 09/28/23 22:31 Discharge Date/Time: 09/28/23 22:31
[2023-09-28 15:41] LABS: MANUAL DIFF FLAG NO
[2023-09-28 15:47] LABS: Basophils Absolute Auto 0.1 X10*3/uL (0.0-0.2); Basophils Percent Auto 0.5 % (0-2); Eosinophils Absolute Auto 0.1 X10*3/uL (0.0-0.4); Eosinophils Percent Auto 0.9 % (0-4); Hematocrit 42.4 % (37.0-47.0); Hemoglobin 13.8 g/dl (12.0-16.0); Imm Gran Abs Auto 0.05 X10*3/uL (0.00-0.03); Imm Gran Pct Auto 0.4 % (0.0-0.4); Lymphocytes Absolute Auto 1.2 X10*3/uL (1.2-4.9); Lymphocytes Percent Auto 9.4 % (20-40); Mean Corpuscular HGB Conc 32.5 g/dl (31.0-35.0); Mean Corpuscular Hemoglobin 28.9 pg (27.0-33.0); Mean Corpuscular Volume 88.9 fL (80.0-98.0); Mean Platelet Volume 10.9 fL (9.4-12.3); Monocytes Absolute Auto 0.7 X10*3/uL (0.1-1.2); Monocytes Percent Auto 5.4 % (2-11); Neutrophils Absolute Auto 10.8 x10*3/uL (2.0-8.3); Neutrophils Percent Auto 83.4 % (45-73); Platelet Count 251 X10*3/uL (160-400); Red Blood Count 4.77 X10*6/uL (4.20-5.50); Red Cell Distribution Width 13.2 % (11.0-16.0); White Blood Count 12.9 X10*3/uL (4.8-10.8)
[2023-09-28 16:02] LABS: Partial Thromboplastin Time 23.9 SEC (26.0-36.4)
[2023-09-28 16:18] LABS: Troponin-I High Sensitivity 3.6 ng/L (<3.5-17.0)
[2023-09-28 16:27] LABS: Influenza A PCR NEGATIVE (Negative); Influenza B PCR NEGATIVE (Negative); Resp Syncy Virus RNA Qual PCR NEGATIVE (Negative); SARS COV2 PCR INHOUSE NEGATIVE (Negative)
[2023-09-28 16:28] LABS: Alanine Aminotransferase 30 U/L (0-31); Albumin Level 4.5 g/dL (3.5-5.0); Alkaline Phosphatase 104 U/L (39-117); Anion Gap 15 (12-20); Aspartate Amino Transferase 29 U/L (5-31); Bilirubin Total 0.7 mg/dL (0.0-1.0); Blood Urea Nitrogen 12 mg/dL (9-16); Calcium 9.8 mg/dL (8.4-10.2); Carbon Dioxide 27 mmol/L (22-29); Chloride 101 mmol/L (96-108); Creatinine Clr Calc Pharmacy 50.7; Estimated Glomerular Filt Rate > 60; Glucose Random 300 mg/dL (60-115); Sodium 139 mmol/L (135-145); Total Protein 7.9 g/dL (6.5-8.0)
[2023-09-28 16:46] LABS: B Type Natriuretic Peptide 45 pg/mL (<100)
[2023-09-28 18:42] VITALS: BP 156/75; PULSE 111; RESP 30; TEMP 37.7; O2SAT 98
--- NOTE | 2023-09-28 18:52 | PC.NURSE ---
Patient reports cough and sore throat that started last night. Reports that her chest hurts from coughing.Reports sob but denies headache. Denies nausea or vomiting sinus tachy on monitor, vss/
[2023-09-28] MEDS: Albuterol Sulfate 2.5 MG, Albuterol/Iprat 2.5/0.5MG 3 ML 3 ML INHALE (19:52)
[2023-09-28 19:54] VITALS: PULSE 111; RESP 24; O2SAT 98
[2023-09-28] MEDS: methylPREDNISolone Sod Succ 125 MG/2 ML VIAL IVPUSH (20:17)
[2023-09-28] MEDS: Magnesium Sulfate/D5W 1 GM/100 ML PIGGYBACK IV (20:18)
[2023-09-28] MEDS: 0.9 % Sodium Chloride 1,000 ML 999 ML IV (20:18)
[2023-09-28 20:27] VITALS: BP 130/74; PULSE 106; RESP 18; TEMP 36.8; O2SAT 96
[2023-09-28 21:03] VITALS: BP 120/55; PULSE 101; RESP 13; TEMP 36.9; O2SAT 96
[2023-09-28 21:58] VITALS: BP 118/64; PULSE 100; RESP 20; TEMP 36.9; O2SAT 96
[2023-09-28] MEDS: Amoxicillin/Potassium Clav 875 MG TABLET PO (22:05)
== END 2023-09-28 22:31 | disposition home or self-care (01) ==
PROVIDERS: Physician Assistant; Emergency Provider Student in an Organized Health Care Education/Training Program; PCP Internal Medicine
DX: J45.901 Unspecified asthma with (acute) exacerbation (principal); R00.0 Tachycardia, unspecified; R07.89 Other chest pain; R06.02 Shortness of breath; E11.9 Type 2 diabetes mellitus without complications; R05.9 Cough, unspecified; Z20.822 Contact with and (suspected) exposure to COVID-19; Z20.828 Contact with and (suspected) exposure to other viral communicable diseases; Z87.891 Personal history of nicotine dependence; Z79.899 Other long term (current) drug therapy; Z79.4 Long term (current) use of insulin
CPT/HCPCS: 0241U; 71046; 80053; 83880; 84484; 85025; 85610; 85730; 93005; 94640; 96361; 96365; 96375; 99284; 99285; J2930; J3475

== ENCOUNTER 2023-10-09 16:31 | Inpatient (IN) | payer OTHER, SELFPAY ==
[2023-10-09] VITALS (7 sets, daily range): BP systolic 122–158; BP diastolic 60–63; PULSE 101–113; RESP 18–22; TEMP 36.9–37.3; O2SAT 89–97; BMI 24.4
--- NOTE | ~2023-10-09 | XR_ITS ---
EXAMINATION: XR CHEST CLINICAL INFORMATION: Cough, fever. History of breast cancer. COMPARISON: Chest radiograph 09/28/2023. TECHNIQUE: AP view of the chest was obtained. FINDINGS: Unchanged cardiomediastinal silhouette. Atherosclerotic disease of the thoracic aorta. Slightly increased diffuse interstitial thickening, more noticeable in the lower lungs, compared to 09/28/2023. No discrete focal infiltrate. No pleural effusion or pneumothorax. Redemonstration of left axillary surgical clips. No acute osseous findings. XR/XR chest 1V IMPRESSION: Nonspecific, slightly increased interstitial prominence that could be seen with small airways disease or atypical/viral infections.
--- NOTE | ~2023-10-09 | CT_ITS ---
EXAMINATION: CT CHEST WITHOUT CONTRAST CLINICAL INFORMATION: Fever, cough and hypoxia COMPARISON: Chest x-ray 10/09/2023. CT abdomen pelvis 11/05/2022 TECHNIQUE: Multidetector volumetric CT imaging of the chest was done. Axial MIP volume rendering provided. Sagittal and coronal reformatted images were obtained. This CT examination was performed using dose optimization techniques as appropriate, variously including the following: *Automated exposure control *Adjustment of mA and/or kV according to patient size (this includes techniques or standardized protocols for targeted exams where dose is matched to indication/reason for exam; i.e. extremities or head) *Use of iterative reconstruction technique DLP: 208 mGy-cm FINDINGS: TRANSFORMATION ANALYST: Well-inflated lungs.. LUNGS: The lungs are hyperinflated with branching tree pattern in right both upper lobes, lingula, right middle lobe and both lower lobes. There is peripheral interstitial thickening as well. There is mild peribronchiolar wall thickening. There is mild bilateral apical parenchymal thickening. There is left basilar atelectasis or scarring. MEDIASTINUM: There is hypertrophic right thyroid gland with nodularity likely goiter. The central trachea and the bronchi widely patent except for a solitary fibrous strand in distal trachea. There are small pretracheal benign-appearing lymph nodes. Heart size and the great vessels are normal caliber. No pericardial effusion seen. CORONARY ARTERY CALCIFICATION: None visualized on this study. PLEURA: There is no pleural effusion. No pleural mass or thickening. AXILLA: Small surgical orestes are seen in the left axilla. UPPER ABDOMEN: There is a 2 cm hypodensity right hepatic lobe. There are small several calcifications seen in the liver and spleen. The gallbladder is partially visualized OSSEOUS STRUCTURES: No aggressive lytic or sclerotic process seen. There is mild spondylosis dorsal spine. CT/CT chest wo IV con IMPRESSION: Hyperinflated lungs with diffuse branching tree pattern throughout all segments of the lungs likely secondary to small vessel disease. There is mild peribronchial wall thickening as well. No focal consolidation seen. Small reactive lymph nodes in the medial mediastinum. Low-density lesion in the right hepatic lobe is stable compared to CT abdomen 11/05/2022 Fleischner guidelines were followed.
--- NOTE | 2023-10-09 16:48 | ECG_ITS ---
Test Reason : DYSPNEA Blood Pressure : / mmHG Vent. Rate : 111 BPM Atrial Rate : 111 BPM P-R Int : 182 ms QRS Dur : 084 ms QT Int : 324 ms P-R-T Axes : 073 064 067 degrees QTc Int : 440 ms Sinus tachycardia Minimal voltage criteria for LVH, may be normal variant ( [place] product ) Borderline ECG When compared with ECG of 28-SEP-2023 14:48, No significant change was found Referred By: Yolnada Garcia Electronically Signed By:GERRI ADLER MD
[2023-10-09] MEDS: Albuterol Sulfate 2.5 MG, Albuterol/Iprat 2.5/0.5MG 3 ML 3 ML INHALE (17:05)
--- NOTE | 2023-10-09 17:07 | ED_ITS ---
HPI - SOB/Dyspnea General Chief Complaint: Dyspnea Stated Complaint: UPPER RESPIRATORY INFECTION,CHEST PAIN W/COUGH Time Seen by Provider: 10/09/23 16:40 Source: patient and old records reviewed Limitations: no limitations History of Present Illness HPI Narrative: 78 yo female with PMH of asthma, pneumonia, DM, just seen on 09/28 after a cruise to the [facility]. She got home and started to have fevers, cough, chills and wheezing. She had normal CXR and viral panel. She was started on prednisone burst and Augmentin. She notes her breathing has worsened and she has chills, wheezes, found to be 89% on RA by EMS and given duoneb. She comes back as she is not improving and feeling worse. MD elicited complaint: shortness of breath and asthma attack Pertinent past history: asthma, diabetes and pneumonia Onset (ago): day(s) (10) Context: recent illness Timing: progressively worsening Severity: moderate Exacerbating factors: exertion and coughing Relieving factors: rest and bronchodilators Known history of: asthma and diabetes Associated symptoms: fever, cough and wheezing Treatment prior to arrival: oxygen and bronchodilator Related Data Home Medications Medication Instructions Recorded Confirmed oxybutynin chloride 10 mg 1 tab PO DAILY 03/27/22 10/09/23 tablet,extended release 24 hr simvastatin 10 mg tablet 1 tab PO BEDTIME 03/27/22 10/09/23 sitagliptin phosphate 100 mg 1 tab PO DAILY 03/27/22 10/09/23 tablet (Januvia) albuterol sulfate 90 mcg/actuation 2 puff inhalation Q4-6H PRN 06/12/22 10/09/23 aerosol inhaler shortness of breath or wheezing amlodipine 2.5 mg tablet 2.5 mg PO DAILY 10/09/23 10/09/23 lisinopril 40 mg tablet 40 mg PO DAILY 10/09/23 10/09/23 Previous Rx's Medication Instructions Recorded pen needle, diabetic 31 gauge x #50 ea 11/07/2201/23 (Pen Needle) Allergies Allergy/AdvReac Type Severity Reaction Status Date / Time doxycycline AdvReac Intermediate vaginal Verified 10/09/23 16:45 swelling azithromycin AdvReac Mild yeast Verified 10/09/23 16:45 infection ciprofloxacin [From Cipro] AdvReac Mild yeast Verified 10/09/23 16:45 infection metronidazole [From Flagyl] AdvReac Mild yeast Verified 10/09/23 16:45 infection oxycodone [From Percocet] AdvReac Mild NAUSEA Verified 10/09/23 16:45 Review of Systems 2 Review of Systems: Constitutional : No Fever, pos Chills, pos fatigu ENT/Mouth : No Hoarseness, No sore throat, No Rhinorrhea Eyes: No Redness, No Discharge, No Vision Changes Cardiovascular : No Chest Pain, positive SOB, positive Dyspnea on Exertion, No Edema Respiratory : positive Cough, No Sputum, positive Wheezing, Gastrointestinal : No Nausea, No Vomiting, No Diarrhea, No abdominal Pain Genitourinary : No Dysuria, No Hematuria Musculoskeletal : No joint pain, No Myalgias Skin : No rash Neuro : No Weakness, No Numbness, No Headache Psych : No anxiety, depression Heme/Lymph: No Bruising, No Bleeding Endocrine : No Polyuria, No Polydipsia All other systems reviewed and are negative PMFSH Past Medical History Attestation statement: The following information was validated with the patient. Source: old records reviewed Medical History Type 2 diabetes mellitus Hypertension Asthma Family History Family History Other Asthma Esophageal cancer Social History Social History Household Members: None Housing: Apartment Do you presently have visiting nurse or other home services: No Alcohol intake: never Comment: pt refuses Patient Tobacco Use Status: Former Tobacco user Smoked in Last 30 Days: No Use of substances other than those prescribed or required for medical reasons: No Advance Directives: Yes Advance Directives on File: Yes Advance Directives Date on File: 06/12/22 Nutrition Risks: No Nutritional Risk service: No Current occupational status: retired Physical Exam 2 Vital Signs: Vital Signs: Last Vital Signs Temp 98.5 F 10/09/23 18:53 Pulse 101 H 10/09/23 20:22 Resp 18 10/09/23 20:22 BP 122/60 10/09/23 20:22 Pulse Ox 95 10/09/23 20:22 O2 Del Method Room Air 10/09/23 20:22 O2 Flow Rate 2 10/09/23 18:53 BMI result Body Mass Index 24.4 Appearance: Alert. Oriented X3. Mild acute distress. Eyes: Pupils equal, round and reactive to light. ENT: Pharynx normal. Neck: Normal inspection. Neck supple. CVS: Normal heart rate and rhythm. Pulses normal. Respiratory: Mild respiratory distress - tachypnea and retractions. Breath sounds very coarse with diffuse wheezes Abdomen: Soft and non-tender. Skin: Skin warm and dry. Normal skin color. Normal skin turgor. Extremities: No lower extremity edema. No calf ttp Neuro: Oriented X 3. No motor deficit. No sensory deficit. Medications Administered Generic Name Dose Route Start Last Admin Trade Name Freq PRN Reason Stop Dose Admin Insulin Human Lispro 0 unit 10/09/23 21:00 10/09/23 20:30 Insulin Lispro 100 Unit/Ml 3 Ml Vial SUBCUT 6 unit QIDACHS ANISH Administration Protocol Discontinued Medications Generic Name Dose Route Start Last Admin Trade Name Freq PRN Reason Stop Dose Admin Albuterol Sulfate 2.5 mg/ 0 mg 10/09/23 17:00 10/09/23 17:05 Albuterol/Ipratropium 3 ml INHALE 10/09/23 17:01 1 dose ONCE ONE Administration Ceftriaxone Sodium 1 gm/ 50 mls @ 100 mls/hr 10/09/23 16:48 10/09/23 18:10 Sodium Chloride IV 10/09/23 17:17 Infused ONCE ONE Infusion Magnesium Sulfate 2 gm in 50 mls @ 150 mls/hr 10/09/23 16:48 10/09/23 18:00 Magnesium Sulfate/H2o IV 10/09/23 17:07 Infused ONCE ONE Infusion Azithromycin 500 mg/ Sodium 250 mls @ 125 mls/hr 10/09/23 17:17 10/09/23 19:56 Chloride IV 10/09/23 19:16 Infused ONCE ONE Infusion Methylprednisolone Sodium Succinate 60 mg 10/09/23 16:48 10/09/23 17:36 Methylprednisolone Sod Succ 125 Mg/2 Ml Vial IVPUSH 10/09/23 16:49 60 mg ONCE ONE Administration Medical Decision Making Medical Decision Making [facility] Narrative: 78 yo female with PMH of asthma, pneumonia, DM, here after failed PO steroids and antibiotics starting 09/28 - she has diffuse wheezes, low O2 sats, tachycardia and overall not feeling well. She will need labs, cultures, viral panel, CXR for pneumonia. Start on neb, IV ceftriaxone, IV steroids and magnesium. Possible admission given failed treatment. Differential Diagnosis Differential Diagnoses: The differential diagnosis associated with the presentation includes asthma, bronchitis, viral syndrome, pneumonia Admission/Observation Consideration of admission/observation: Escalation of care including admission/observation considered admit for hypoxia Consult Healthcare Provider Management of the patient was discussed with: Hospitalist (will admit) Lab Data MDM Lab Attestation statement: I reviewed the patient's lab results. 10/09/23 17:01 10/09/23 17:01 Labs: Lab Results 10/09/23 10/09/23 Range/Units 17:01 17:09 WBC 17.4 H (4.8-10.8) X10*3/uL RBC 4.80 (4.20-5.50) X10*6/uL Hgb 14.0 (12.0-16.0) g/dl Hct 43.0 (37.0-47.0) % MCV 89.6 (80.0-98.0) fL MCH 29.2 (27.0-33.0) pg MCHC 32.6 (31.0-35.0) g/dl RDW 13.2 (11.0-16.0) % Plt Count 242 (160-400) X10*3/uL MPV 10.8 (9.4-12.3) fL Immature Gran % (Auto) 0.7 H (0.0-0.4) % Neut % (Auto) 83.5 H (45-73) % Lymph % (Auto) 9.7 L (20-40) % [place] % (Auto) 4.9 (2-11) % Eos % (Auto) 0.7 (0-4) % Baso % (Auto) 0.5 (0-2) % Lymph # (Auto) 1.7 (1.2-4.9) X10*3/uL [place] # (Auto) 0.9 (0.1-1.2) X10*3/uL Eos # (Auto) 0.1 (0.0-0.4) X10*3/uL Baso # (Auto) 0.1 (0.0-0.2) X10*3/uL Abs Immat Gran (auto) 0.13 H (0.00-0.03) X10*3/uL Absolute Neuts (auto) 14.5 H (2.0-8.3) x10*3/uL Absolute Nucleated RBC 0.000 (0.0-0.012) X10*3/uL Nucleated RBC % (auto) 0.0 (0.0-0.2) /100WBC VBG pH 7.39 (7.32-7.43) VBG pCO2 48 mmHg VBG pO2 46 mmHg VBG HCO3 29 H (22-26) mmol/L VBG O2 Saturation 75.0 % VBG Base Excess 3.5 mmol/L Sodium 136 (135-145) mmol/L Potassium 3.9 (3.3-5.1) mmol/L Chloride 101 (96-108) mmol/L Carbon Dioxide 28 (22-29) mmol/L Anion Gap 11 L (12-20) BUN 18 H (9-16) mg/dL Creatinine 0.69 (0.5-1.4) mg/dL Estim Creat Clear Calc 56.5 Estimated GFR > 60 Random Glucose 290 H (60-115) mg/dL Lactic Acid 1.8 (0.5-2.0) mmol/L Calcium 9.6 (8.4-10.2) mg/dL Magnesium 2.1 (1.6-2.6) mg/dL Total Bilirubin 0.4 (0.0-1.0) mg/dL Direct Bilirubin 0.1 (0.0-0.5) mg/dL AST 16 (5-31) U/L ALT 19 (0-31) U/L Alkaline Phosphatase 108 (39-117) U/L Troponin I High Sens < 2.7 (<3.5-17.0) ng/L B-Natriuretic Peptide 10 (<100) pg/mL Total Protein 7.2 (6.5-8.0) g/dL Albumin 4.1 (3.5-5.0) g/dL Procalcitonin 0.03 ng/mL Influenza Type A (PCR) NEGATIVE (Negative) Influenza Type B (PCR) NEGATIVE (Negative) RSV RNA Qual (PCR) NEGATIVE (Negative) SARS-CoV-2 RNA (RT-PCR) NEGATIVE (Negative) Independent Interpretation I performed an independent interpretation of an: EKG, Plain X-Ray (no pneumonia) and CT Scan (no consolidation) Interpretation: Rate: 111 Rhythm: sinus tachycardia Knapp: normal , LVH Normal P waves. Normal STEPH. Normal QRS complex. ST T wave : tall T wave V3, no ROMEO qTC: normal prior studies: no acute ischemia The study has been interpreted contemporaneously by me. . Radiology Impression Discussion of test interpretation with radiology: I have reviewed the radiologist's reading. Independent Historian Clinical information obtained from an independent historian. History obtained from or confirmed by: EMS External Record Review External record reviewed: Inpatient record Critical Care Time Critical Care Time Critical Care Time: Yes Total Critical Care Time: 45 Attestation: repeat nebs, IV magnesium for resp status, medical admission, review of records, treatment of hypoxia I attest to this time spent taking care of the patient Discharge Plan Discharge Clinical Impression: Bronchitis Asthma exacerbation Qualifiers: Asthma severity: moderate Asthma persistence: persistent Qualified Code(s): J 45.41 - Moderate persistent asthma with (acute) exacerbation Patient Disposition: Admitted As Inpatient
[2023-10-09 17:10] LABS: MANUAL DIFF FLAG NO
[2023-10-09 17:14] LABS: Venous Blood Gas Refer to POC result
[2023-10-09 17:15] LABS: Basophils Absolute Auto 0.1 X10*3/uL (0.0-0.2); Basophils Percent Auto 0.5 % (0-2); Eosinophils Absolute Auto 0.1 X10*3/uL (0.0-0.4); Eosinophils Percent Auto 0.7 % (0-4); Imm Gran Abs Auto 0.13 X10*3/uL (0.00-0.03); Imm Gran Pct Auto 0.7 % (0.0-0.4); Lymphocytes Absolute Auto 1.7 X10*3/uL (1.2-4.9); Lymphocytes Percent Auto 9.7 % (20-40); Mean Corpuscular HGB Conc 32.6 g/dl (31.0-35.0); Mean Corpuscular Hemoglobin 29.2 pg (27.0-33.0); Mean Corpuscular Volume 89.6 fL (80.0-98.0); Mean Platelet Volume 10.8 fL (9.4-12.3); Monocytes Absolute Auto 0.9 X10*3/uL (0.1-1.2); Monocytes Percent Auto 4.9 % (2-11); Neutrophils Absolute Auto 14.5 x10*3/uL (2.0-8.3); Neutrophils Percent Auto 83.5 % (45-73); Platelet Count 242 X10*3/uL (160-400); Red Cell Distribution Width 13.2 % (11.0-16.0); White Blood Count 17.4 X10*3/uL (4.8-10.8)
[2023-10-09 17:15] LABS: VBG Base Excess 3.5 mmol/L; VBG HCO3 29 mmol/L (22-26); VBG pCO2 48 mmHg; VBG pH 7.39 (7.32-7.43); VBG pO2 46 mmHg
[2023-10-09 17:23] LABS: Lactic Acid 1.8 mmol/L (0.5-2.0)
[2023-10-09 17:34] LABS: B Type Natriuretic Peptide 10 pg/mL (<100)
[2023-10-09 17:36] LABS: Alanine Aminotransferase 19 U/L (0-31); Albumin Level 4.1 g/dL (3.5-5.0); Alkaline Phosphatase 108 U/L (39-117); Anion Gap 11 (12-20); Aspartate Amino Transferase 16 U/L (5-31); Bilirubin Direct 0.1 mg/dL (0.0-0.5); Bilirubin Total 0.4 mg/dL (0.0-1.0); Blood Urea Nitrogen 18 mg/dL (9-16); Calcium 9.6 mg/dL (8.4-10.2); Carbon Dioxide 28 mmol/L (22-29); Chloride 101 mmol/L (96-108); Creatinine Clr Calc Pharmacy 56.5; Estimated Glomerular Filt Rate > 60; Glucose Random 290 mg/dL (60-115); Magnesium 2.1 mg/dL (1.6-2.6); Potassium 3.9 mmol/L (3.3-5.1); Sodium 136 mmol/L (135-145); Total Protein 7.2 g/dL (6.5-8.0)
[2023-10-09] MEDS: Magnesium Sulfate/H2O 2 GM/50 ML PIGGYBACK IV (17:36)
[2023-10-09] MEDS: methylPREDNISolone Sod Succ 125 MG/2 ML VIAL 60 MG IVPUSH (17:36)
[2023-10-09 17:38] LABS: Troponin-I High Sensitivity < 2.7 ng/L (<3.5-17.0)
[2023-10-09] MEDS: cefTRIAXone sodium 1 GM in 0.9 % Sodium Chloride 50 ML IV (17:40)
--- NOTE | 2023-10-09 17:40 | PC.NURSE ---
medication administered per provider order.
--- NOTE | 2023-10-09 17:44 | PC.NURSE ---
pt desatting to 90% on RA - provider aware. pt placed on 3L via NC - now resting at 97%. respirations even/labored. sinus tachy on the panel monitor. remains tachypneic. xray bedside.
[2023-10-09 17:50] LABS: Procalcitonin 0.03 ng/mL
[2023-10-09 17:53] LABS: Influenza A PCR NEGATIVE (Negative); Influenza B PCR NEGATIVE (Negative); Resp Syncy Virus RNA Qual PCR NEGATIVE (Negative); SARS COV2 PCR INHOUSE NEGATIVE (Negative)
[2023-10-09] MEDS: Azithromycin 500 MG in 0.9 % Sodium Chloride 250 ML 125 MG IV (17:53)
--- NOTE | 2023-10-09 18:35 | PC.NURSE ---
pt to CT at this time.
--- NOTE | 2023-10-09 20:11 | P.HPHOSP_ITS ---
History of Present Illness Date of Service: 10/09/23 Chief Complaint: sob 78F PMH DM, moderate persistent asthma/copd, hld presented with sob. patient has been feeling ill for 2-3 weeks since returning from cruise to [facility]. was seen in ED 09/28/23, given prednisone and augmentin for asthma exacerbation, but continues to have subjective fevers, sob, wheezing athome. called ems on day of presentation for significant worsening of symptoms, found to be hypoxic to 89%, ct chest negative for infiltrate, covid, rsv, flu negative. Review of Systems 2 Review of Systems: Yes all other systems are reviewed and are negative PMFSH Medical History Type 2 diabetes mellitus Hypertension Asthma Family History Other Asthma Esophageal cancer Social History Household Members: None Housing: Apartment Do you presently have visiting nurse or other home services: No Alcohol intake: never Comment: pt refuses Patient Tobacco Use Status: Former Tobacco user Smoked in Last 30 Days: No Use of substances other than those prescribed or required for medical reasons: No Advance Directives: Yes Advance Directives on File: Yes Advance Directives Date on File: 06/12/22 Nutrition Risks: No Nutritional Risk service: No Current occupational status: retired Meds Allergies Allergy/AdvReac Type Severity Reaction Status Date / Time doxycycline AdvReac Intermediate vaginal Verified 10/09/23 16:45 swelling azithromycin AdvReac Mild yeast Verified 10/09/23 16:45 infection ciprofloxacin [From Cipro] AdvReac Mild yeast Verified 10/09/23 16:45 infection metronidazole [From Flagyl] AdvReac Mild yeast Verified 10/09/23 16:45 infection oxycodone [From Percocet] AdvReac Mild NAUSEA Verified 10/09/23 16:45 Home Medications Medication Instructions Recorded Confirmed Last Taken Type oxybutynin chloride 10 mg 1 tab PO DAILY 03/27/22 10/09/23 11/05/22 History tablet,extended release 24 hr simvastatin 10 mg tablet 1 tab PO BEDTIME 03/27/22 10/09/23 11/05/22 History sitagliptin phosphate 100 mg 1 tab PO DAILY 03/27/22 10/09/23 11/05/22 History tablet (Januvia) albuterol sulfate 90 mcg/actuation 2 puff inhalation Q4-6H PRN 06/12/22 10/09/23 Unknown History aerosol inhaler shortness of breath or wheezing amlodipine 2.5 mg tablet 2.5 mg PO DAILY 10/09/23 10/09/23 Unknown History lisinopril 40 mg tablet 40 mg PO DAILY 10/09/23 10/09/23 Unknown History Physical Exam 2 Vital Signs and Narrative: Vital Signs: Last Vital Signs Temp 98.5 F 10/09/23 18:53 Pulse 113 H 10/09/23 18:53 Resp 20 10/09/23 18:53 BP 158/63 H 10/09/23 18:53 Pulse Ox 93 10/09/23 18:53 O2 Del Method Nasal Cannula 10/09/23 18:53 O2 Flow Rate 2 10/09/23 18:53 BMI result Body Mass Index 24.4 General: AO X 3, no acute distress Resp: wheezing bilateral, no accessory muscles used CVS: S1,S2,RRR GI: soft, non tender, non distended Neuro: motor grossly intact, alert Psych: appropriate affect, appropriate insight Results Labs 10/09/23 17:01 10/09/23 17:01 Labs: Laboratory Results - last 24 hr 10/09/23 10/09/23 17:01 17:09 MCV 89.6 MCH 29.2 MCHC 32.6 RDW 13.2 Plt Count 242 MPV 10.8 Immature Gran % (Auto) 0.7 H Neut % (Auto) 83.5 H Lymph % (Auto) 9.7 L [place] % (Auto) 4.9 Eos % (Auto) 0.7 Baso % (Auto) 0.5 Lymph # (Auto) 1.7 [place] # (Auto) 0.9 Eos # (Auto) 0.1 Baso # (Auto) 0.1 Abs Immat Gran (auto) 0.13 H Absolute Neuts (auto) 14.5 H Absolute Nucleated RBC 0.000 Nucleated RBC % (auto) 0.0 VBG pH 7.39 VBG pCO2 48 VBG pO2 46 VBG HCO3 29 H VBG O2 Saturation 75.0 VBG Base Excess 3.5 Anion Gap 11 L Estim Creat Clear Calc 56.5 Estimated GFR > 60 Random Glucose 290 H Lactic Acid 1.8 Calcium 9.6 Magnesium 2.1 Total Bilirubin 0.4 Direct Bilirubin 0.1 AST 16 ALT 19 Alkaline Phosphatase 108 B-Natriuretic Peptide 10 Total Protein 7.2 Albumin 4.1 Procalcitonin 0.03 Influenza Type A (PCR) NEGATIVE Influenza Type B (PCR) NEGATIVE RSV RNA Qual (PCR) NEGATIVE SARS-CoV-2 RNA (RT-PCR) NEGATIVE Imaging Radiologist's Impressions: Impressions Chest X-Ray 10/09/23 17:47 IMPRESSION: Nonspecific, slightly increased interstitial prominence that could be seen with small airways disease or atypical/viral infections. Chest CT 10/09/23 18:47 IMPRESSION: Hyperinflated lungs with diffuse branching tree pattern throughout all segments of the lungs likely secondary to small vessel disease. There is mild peribronchial wall thickening as well. No focal consolidation seen. Small reactive lymph nodes in the medial mediastinum. Low-density lesion in the right hepatic lobe is stable compared to CT abdomen 11/05/2022 Fleischner guidelines were followed. Assessment and Plan (1) Asthma exacerbation: Qualifiers: Asthma persistence: persistent Asthma severity: moderate Qualified Code(s): J45.41 - Moderate persistent asthma with (acute) exacerbation Status: Acute Plan 78F PMH DM, moderate persistent asthma/copd, hld presented with sob acute hypoxic respiratory failure due to moderate persistent asthma/ copd with acute decompensation iv solumedrol, ceftin, duonebs no sepsis (wbc from steroids) DM with hyperglycemia insulin hld statin dvt prophylaxis - lovenox full code patient with singifiacnt hypoxia and wheezing, likely to require atleast 2 midnights inpatient to wean off o2 and resolve symptoms. Quality Stroke Does the patient have a stroke diagnosis?: No VTE Prior VTE?: No VTE Risk Level:: Medical - moderate - high VTE Device Contraindication: Treatment Not Indicated VTE Drug Contraindication: N/A - Med Ordered
[2023-10-09 20:28] LABS: Glucose, Whole Blood 262 mg/dL (60-115)
[2023-10-09] MEDS: Insulin Lispro 100 UNIT/ML 3 ML VIAL SUBCUT (20:30)
--- NOTE | 2023-10-09 20:31 | PC.NURSE ---
POC = 262mg/dL - insulin administered per provider order.
--- NOTE | 2023-10-09 21:42 | PHA.MEDREC ---
Pharmacy Consult ? Medication Reconciliation Pharmacy has completed the medication reconciliation.
--- NOTE | 2023-10-09 21:56 | PC.NURSE ---
Assumed care of the pt around 2129, pt assisted to bed from stretcher. Pt is able to ambulate independentlyand ambulated to the bathroom. Pt has a 20gIV in the left AC which is patent and secured. Pt presents A&Ox4, GCS 15, with warm, dry skin.Pt was given water, crackers, and a sandwich per request and comfort was ensured. Pt is waiting bed assignment at this time.
[2023-10-10] VITALS (8 sets, daily range): BP systolic 103–124; BP diastolic 51–63; PULSE 97–110; RESP 16–20; TEMP 36.4–36.7; O2SAT 85–97
[2023-10-10] MEDS: 0.9 % Sodium Chloride Flush 3 ML SYRINGE IVFLUSH ×4 (03:53→20:13)
--- NOTE | 2023-10-10 06:08 | PC.NURSE ---
Pt ambulated to bathroom independently. Water given, pt now resting in bed.
[2023-10-10 06:40] LABS: Hematocrit 39.9 % (37.0-47.0); Mean Corpuscular HGB Conc 32.6 g/dl (31.0-35.0); Mean Corpuscular Volume 89.1 fL (80.0-98.0); Mean Platelet Volume 10.9 fL (9.4-12.3); Platelet Count 250 X10*3/uL (160-400); Red Blood Count 4.48 X10*6/uL (4.20-5.50); Red Cell Distribution Width 13.1 % (11.0-16.0); White Blood Count 21.3 X10*3/uL (4.8-10.8)
--- NOTE | 2023-10-10 06:51 | PC.NURSE ---
Report completed in admission worksheet. [place] Texted RNs Sadi at 0650.
[2023-10-10 07:05] LABS: Anion Gap 13 (12-20); Blood Urea Nitrogen 20 mg/dL (9-16); Calcium 9.4 mg/dL (8.4-10.2); Carbon Dioxide 23 mmol/L (22-29); Chloride 108 mmol/L (96-108); Creatinine Clr Calc Pharmacy 58.2; Estimated Glomerular Filt Rate > 60; Potassium 4.9 mmol/L (3.3-5.1); Sodium 139 mmol/L (135-145)
[2023-10-10 07:15] LABS: Glucose Fasting 363 mg/dL (60-99)
[2023-10-10 07:20] LABS: Glucose, Whole Blood 313 mg/dL (60-115)
--- NOTE | 2023-10-10 07:57 | P.PNIM_ITS ---
Subjective Subjective Date of Service: 10/10/23 Interval History: f/u on asthma, sob feels better, has persistent cough and wheezing Physical Exam 2 Vital Signs: Vital Signs: Last Vital Signs Temp 98.5 F 10/09/23 18:53 Pulse 101 H 10/09/23 20:22 Resp 18 10/09/23 20:22 BP 122/60 10/09/23 20:22 Pulse Ox 95 10/09/23 20:22 O2 Del Method Room Air 10/09/23 20:22 O2 Flow Rate 2 10/09/23 18:53 BMI result Body Mass Index 24.4 Const: Other: General: AO X 3, no acute distress Resp: ins/exp wheezing, no access muscle use CVS: S1,S2,RRR GI: +BS, NT, no distention Skin: No rash Neuro: motor grossly intact Psych: appropriate affect Objective Data Active Medications Albuterol/Ipratropium (Albuterol/Iprat 2.5/0.5mg 3 Ml Ampul.Neb) 3 ml INHALE RQ4H WHILE AWAKE [facility] Amlodipine Besylate (Amlodipine Besylate 2.5 Mg Tablet) 2.5 mg PO DAILY [facility]; Protocol Atorvastatin Calcium (Atorvastatin Calcium 10 Mg Tablet) 1 mg PO BEDTIME ANISH Cefuroxime Axetil (Cefuroxime Axetil 500 Mg Tablet) 500 mg PO Q12H [facility] Dextrose (Dextrose 50 % 25 Gm/50 Ml Syringe) 25 gm IVPUSH Q15M PRN; Protocol PRN Reason: per Hypoglycemia Standing Ord. Enoxaparin Sodium (Enoxaparin Sodium 40 Mg/0.4 Ml Syringe) 40 mg SUBCUT Q24H [facility] Glucose (Glucose Gel 15 Gm Gel..Gram.) 15 gm PO Q15M PRN; Protocol PRN Reason: per Hypoglycemia Standing Ord. Insulin Human Lispro (Insulin Lispro 100 Unit/Ml 3 Ml Vial) 0 unit SUBCUT QIDACHS [facility]; Protocol Last Admin: 10/09/23 20:30 Dose: 6 unit Documented By: CORDELIA Lisinopril (Lisinopril 40 Mg Tablet) 40 mg PO DAILY [facility]; Protocol Methylprednisolone Sodium Succinate (Methylprednisolone Sod Succ 40 Mg/Ml Vial) 40 mg IVPUSH Q12H [facility] Oxybutynin Chloride (Oxybutynin Chloride Er 5 Mg Tab.Er.24) 10 mg PO DAILY [facility] Sitagliptin Phosphate (Sitagliptin Phosphate 100 Mg Tablet) 100 mg PO DAILY [facility] Sodium Chloride (0.9 % Sodium Chloride Flush 3 Ml Syringe) 3 ml IVFLUSH QSHIFT [facility] Last Admin: 10/10/23 03:53 Dose: 3 ml Documented By: SHEILA Labs 10/10/23 06:03 10/10/23 06:03 Labs: Laboratory Results - last 24 hr 10/09/23 10/09/23 10/09/23 17:01 17:09 20:24 MCV 89.6 MCH 29.2 MCHC 32.6 RDW 13.2 Plt Count 242 MPV 10.8 Immature Gran % (Auto) 0.7 H Neut % (Auto) 83.5 H Lymph % (Auto) 9.7 L [place] % (Auto) 4.9 Eos % (Auto) 0.7 Baso % (Auto) 0.5 Lymph # (Auto) 1.7 [place] # (Auto) 0.9 Eos # (Auto) 0.1 Baso # (Auto) 0.1 Abs Immat Gran (auto) 0.13 H Absolute Neuts (auto) 14.5 H Absolute Nucleated RBC 0.000 Nucleated RBC % (auto) 0.0 VBG pH 7.39 VBG pCO2 48 VBG pO2 46 VBG HCO3 29 H VBG O2 Saturation 75.0 VBG Base Excess 3.5 Anion Gap 11 L Estim Creat Clear Calc 56.5 Estimated GFR > 60 POC Glucose 262 H Random Glucose 290 H Fasting Glucose Lactic Acid 1.8 Calcium 9.6 Magnesium 2.1 Total Bilirubin 0.4 Direct Bilirubin 0.1 AST 16 ALT 19 Alkaline Phosphatase 108 B-Natriuretic Peptide 10 Total Protein 7.2 Albumin 4.1 Procalcitonin 0.03 Influenza Type A (PCR) NEGATIVE Influenza Type B (PCR) NEGATIVE RSV RNA Qual (PCR) NEGATIVE SARS-CoV-2 RNA (RT-PCR) NEGATIVE 10/10/23 10/10/23 06:03 06:50 MCV 89.1 MCH 29.0 MCHC 32.6 RDW 13.1 Plt Count 250 MPV 10.9 Immature Gran % (Auto) Neut % (Auto) Lymph % (Auto) [place] % (Auto) Eos % (Auto) Baso % (Auto) Lymph # (Auto) [place] # (Auto) Eos # (Auto) Baso # (Auto) Abs Immat Gran (auto) Absolute Neuts (auto) Absolute Nucleated RBC 0.000 Nucleated RBC % (auto) 0.0 VBG pH VBG pCO2 VBG pO2 VBG HCO3 VBG O2 Saturation VBG Base Excess Anion Gap 13 Estim Creat Clear Calc 58.2 Estimated GFR > 60 POC Glucose 313 H Random Glucose Fasting Glucose 363 H* Lactic Acid Calcium 9.4 Magnesium Total Bilirubin Direct Bilirubin AST ALT Alkaline Phosphatase B-Natriuretic Peptide Total Protein Albumin Procalcitonin Influenza Type A (PCR) Influenza Type B (PCR) RSV RNA Qual (PCR) SARS-CoV-2 RNA (RT-PCR) Assessment and Plan (1) Asthma exacerbation: Status: Acute (2) Bronchitis: Status: Acute Assessment and Plan: 78F PMH DM, moderate persistent asthma/copd, hld presented with sob acute hypoxic respiratory failure due to moderate persistent asthma/ copd with acute decompensation iv solumedrol, ceftin for possible bronchitis, duonebs no sepsis (wbc from steroids) DM with hyperglycemia d/t steroid insulin, sitagliptin Leukocytosis--d/t steroid hld statin dvt prophylaxis - lovenox full code need for inpt: persistent hypoxia for asthma/copd exacerbation and should be on IV steroid, oxygen frequent nebs Quality Stroke Does the patient have a stroke diagnosis?: No VTE Prior VTE?: No VTE Risk Level:: Medical - moderate - high VTE Device Contraindication: Treatment Not Indicated VTE Drug Contraindication: N/A - Med Ordered
[2023-10-10] MEDS: Albuterol/Iprat 2.5/0.5MG 3 ML AMPUL.NEB INHALE ×4 (08:23→19:34)
[2023-10-10] MEDS: oxyBUTYnin chloride ER 5 MG TAB.ER.24 10 MG PO (08:48)
[2023-10-10] MEDS: Enoxaparin Sodium 40 MG/0.4 ML SYRINGE SUBCUT (08:48)
[2023-10-10] MEDS: methylPREDNISolone Sod Succ 40 MG/ML VIAL IVPUSH ×2 (08:48→20:12)
[2023-10-10] MEDS: SITagliptin Phosphate 100 MG TABLET PO (08:48)
[2023-10-10] MEDS: cefuroxime axetiL 500 MG TABLET PO ×2 (08:49→20:11)
[2023-10-10] MEDS: Insulin Lispro 100 UNIT/ML 3 ML VIAL SUBCUT ×4 (08:49→21:55)
[2023-10-10] MEDS: lisinopriL 40 MG TABLET PO (08:49)
[2023-10-10] MEDS: amLODIPine Besylate 2.5 MG TABLET PO (08:49)
[2023-10-10] MEDS: guaiFENesin 100 MG/5 ML LIQUID PO ×2 (10:44→16:17)
--- NOTE | 2023-10-10 10:56 | MHC.CM.PN ---
IMM DELIVERED. PATIENT FROM HOME ALONE. AMBULATES WITH CANE AND WALKER PRN. NO SERVICES. HCP: ON FILE, DAUGHTER CHERYL PCP: [facility] IN [place], DOES NOT KNOW NAME OF PROVIDER DP: GOAL IS HOME, SELF CARE, DAUGHTER TO TRANSPORT. CM WILL CONTINUE TO FOLLOW.
[2023-10-10 11:31] LABS: Glucose, Whole Blood 265 mg/dL (60-115)
[2023-10-10 15:50] LABS: Glucose, Whole Blood 304 mg/dL (60-115)
[2023-10-10] MEDS: Atorvastatin Calcium 10 MG TABLET PO (20:16)
[2023-10-10 20:19] LABS: Glucose, Whole Blood 307 mg/dL (60-115)
[2023-10-11 02:48] VITALS: BP 133/62; PULSE 97; RESP 16; TEMP 36.4; O2SAT 94
[2023-10-11] MEDS: guaiFENesin 100 MG/5 ML LIQUID PO ×2 (06:23→11:25)
[2023-10-11 07:17] VITALS: BP 122/58; PULSE 92; RESP 18; TEMP 36.6; O2SAT 92
[2023-10-11 08:03] LABS: Glucose, Whole Blood 258 mg/dL (60-115)
[2023-10-11] MEDS: 0.9 % Sodium Chloride Flush 3 ML SYRINGE IVFLUSH (08:13)
[2023-10-11] MEDS: cefuroxime axetiL 500 MG TABLET PO (08:13)
[2023-10-11] MEDS: oxyBUTYnin chloride ER 5 MG TAB.ER.24 10 MG PO (08:13)
[2023-10-11] MEDS: methylPREDNISolone Sod Succ 40 MG/ML VIAL IVPUSH (08:13)
[2023-10-11] MEDS: Insulin Lispro 100 UNIT/ML 3 ML VIAL SUBCUT ×2 (08:13→11:16)
[2023-10-11] MEDS: Enoxaparin Sodium 40 MG/0.4 ML SYRINGE SUBCUT (08:13)
[2023-10-11] MEDS: SITagliptin Phosphate 100 MG TABLET PO (08:13)
[2023-10-11] MEDS: amLODIPine Besylate 2.5 MG TABLET PO (08:14)
[2023-10-11] MEDS: lisinopriL 40 MG TABLET PO (08:14)
[2023-10-11] MEDS: Albuterol/Iprat 2.5/0.5MG 3 ML AMPUL.NEB INHALE (08:50)
[2023-10-11 08:51] VITALS: PULSE 100; RESP 18; O2SAT 95
--- NOTE | 2023-10-11 09:44 | PM.DS ---
DS: Providers Provider Date of Service: 10/11/23 Date of admission: 10/09/23 20:10 Primary care physician: Unknown Physician DS: Diagnosis Discharge Diagnosis (1) Asthma exacerbation: Status: Acute (2) Bronchitis: Status: Acute DS: Summary Hospital Course Hospital Course: admission HPI Chief Complaint: sob 78F PMH DM, moderate persistent asthma/copd, hld presented with sob. patient has been feeling ill for 2-3 weeks since returning from [place] to [facility]. was seen in ED 09/28/23, given prednisone and augmentin for asthma exacerbation, but continues to have subjective fevers, sob, wheezing athome. called ems on day of presentation for significant worsening of symptoms, found to be hypoxic to 89%, ct chest negative for infiltrate, covid, rsv, flu negative. Hospital course: Patient was admitted and treated for asthma exacerbation; her management consisted of IV steroid, bronchodilators by Neb, Ceftin for acute bronchitis. She's overall feeling much better today and wishes to go home, lungs clear, she off oxygen. She will be discharged with to complete prednisoe alla and ceftin for bronchitis. Time Attestation Discharge coordination time: Greater than 30 minutes Quality: Safe Use of Opioids Does Pt have an Active Cancer Diagnosis on the Problem List?: No Quality: Stroke Does the patient have a stroke diagnosis?: No Physical Exam Vital Signs: Vital Signs: Last Vital Signs Temp 97.9 F 10/11/23 07:17 Pulse 100 10/11/23 08:51 Resp 18 10/11/23 08:51 BP 122/58 L 10/11/23 07:17 Pulse Ox 92 10/11/23 07:17 O2 Del Method Room Air 10/11/23 07:17 O2 Flow Rate 2 10/10/23 11:15 BMI result Body Mass Index 24.4 Const: Other: General: AO X 3, no acute distress Resp: CTA bilateral CVS: S1,S2,RRR GI: +BS, NT, no distention Skin: No rash Neuro: motor grossly intact Psych: appropriate affect DS: Data Data Completed and Pending Labs on day of discharge: Laboratory Results - last 24 hr 10/10/23 10/10/23 10/10/23 11:21 15:29 20:03 POC Glucose 265 H 304 H 307 H 10/11/23 07:21 POC Glucose 258 H Preliminary micro results at discharge 10/09/23 17:20 Blood Culture - Preliminary Blood - Venous No growth after 24 hours. 10/09/23 17:01 Blood Culture - Preliminary Blood - Venous No growth after 24 hours. Discharge Plan Discharge Anticipated Discharge Date/Time: 10/11/23 09:40 Patient Disposition: Home, Self-Care Discharge Diagnosis: Asthma exacerbation, acute bronchitis Referrals: Physician,Unknown J [Primary Care Provider] - 1 Week Discharge Medications: New cefuroxime axetil 500 mg Tablet 500 mg PO Q12H Qty: 7 0RF prednisone 10 mg tablet See Taper PO DIRECTED Qty: 20 0RF Taper: Prednisone 40 mg daily for 3 Days and 0 Hour 30 mg daily for 3 Days and 0 Hour 20 mg daily for 3 Days and 0 Hour 10 mg daily for 3 Days and 0 Hour Rx Instructions: see taper instructions Continued oxybutynin chloride 10 mg tablet extended release 24 hr 1 tab PO DAILY simvastatin 10 mg tablet 1 tab PO BEDTIME Januvia 100 mg tablet 1 tab PO DAILY albuterol sulfate 90 mcg/actuation HFA aerosol inhaler 2 puff inhalation Q4-6H PRN (Reason: shortness of breath or wheezing) (DME) pen needle, diabetic [Pen Needle] 31 gauge x 3/16 needle See Rx Instructions .Route Qty: 50 0RF Rx Instructions: As directed amlodipine 2.5 mg tablet 2.5 mg PO DAILY lisinopril 40 mg tablet 40 mg PO DAILY Discharge Orders: Discharge Order (Routine); Ordered 10/11/23 Ordered By: Billy Modi Diet: Diabetic diet Activity on Discharge: As tolerated Stand Alone Forms: Patient Portal Discharge page Care Plan Goals: recvoery from asthma and bronchitis Health Concerns: asthma exaberbation acute bronchitis Plan of Treatment: take prednisone as directed take cefuroxime ( Ceftin) for bronchitis follow-up with your doctor in 7-10 days, call for appointment keep an eye on your sugars levels as day may be a more elevated because of prednisone Assessment: see above
--- NOTE | 2023-10-11 09:57 | MHC.CM.PN ---
PT TO DC HOME TODAY WITH NO SERVICES DAUGHTER TO TRANSPORT
[2023-10-11 11:16] LABS: Glucose, Whole Blood 293 mg/dL (60-115)
== END 2023-10-11 11:38 | disposition home or self-care (01) | DRG 202 ==
LOC: HO.ED 19:56 → HO.EDOVER 20:18 → HO.S3 10-10 06:18
PROVIDERS: Admitting Provider Internal Medicine; Emergency Provider Emergency Medicine; Visit Provider Internal Medicine
DX: J45.41 Moderate persistent asthma with (acute) exacerbation (principal); J96.01 Acute respiratory failure with hypoxia; J44.1 Chronic obstructive pulmonary disease with (acute) exacerbation; J44.0 Chronic obstructive pulmonary disease with (acute) lower respiratory infection; J20.9 Acute bronchitis, unspecified; E11.65 Type 2 diabetes mellitus with hyperglycemia; Z20.822 Contact with and (suspected) exposure to COVID-19; Z87.891 Personal history of nicotine dependence; Z79.899 Other long term (current) drug therapy
CPT/HCPCS: 0241U; 36415; 71045; 71250; 80048; 80076; 82803; 82947; 83605; 83735; 83880; 84145; 84484; 85025; 85027; 87040; 93005; 94640; 99285; J0456; J0696; J1650; J2920; J2930; J3475

== ENCOUNTER → 2023-10-09 16:48 | Outpatient (BNV) | payer OTHER, SELFPAY | PROVIDERS: Admitting Provider Internal Medicine; Emergency Provider Emergency Medicine; Visit Provider Internal Medicine Cardiovascular Disease | DX: R00.0 Tachycardia, unspecified (principal) | CPT/HCPCS: 93010 ==

== ENCOUNTER → 2023-10-09 20:10 | Outpatient (BNV) | payer OTHER, SELFPAY | PROVIDERS: Admitting Provider Internal Medicine; Emergency Provider Emergency Medicine; Visit Provider Internal Medicine | DX: J96.01 Acute respiratory failure with hypoxia (principal); J45.41 Moderate persistent asthma with (acute) exacerbation; J40 Bronchitis, not specified as acute or chronic | CPT/HCPCS: 99223; 99232; 99239 ==

== ENCOUNTER 2023-11-08 14:02 | Emergency (ER) | payer OTHER, SELFPAY ==
[2023-11-08 16:16] VITALS: BP 177/88; PULSE 97; RESP 18; TEMP 36.2; O2SAT 94; BMI 26.5
[2023-11-08 16:48] LABS: MANUAL DIFF FLAG NO
[2023-11-08 16:51] LABS: Basophils Percent Auto 0.5 % (0-2); Eosinophils Absolute Auto 0.1 X10*3/uL (0.0-0.4); Eosinophils Percent Auto 0.7 % (0-4); Hematocrit 42.6 % (37.0-47.0); Hemoglobin 13.8 g/dl (12.0-16.0); Imm Gran Abs Auto 0.05 X10*3/uL (0.00-0.03); Imm Gran Pct Auto 0.7 % (0.0-0.4); Mean Corpuscular HGB Conc 32.4 g/dl (31.0-35.0); Mean Corpuscular Hemoglobin 28.3 pg (27.0-33.0); Mean Corpuscular Volume 87.3 fL (80.0-98.0); Mean Platelet Volume 10.4 fL (9.4-12.3); Monocytes Absolute Auto 0.5 X10*3/uL (0.1-1.2); Monocytes Percent Auto 7.3 % (2-11); Neutrophils Absolute Auto 4.7 x10*3/uL (2.0-8.3); Neutrophils Percent Auto 63.8 % (45-73); Platelet Count 276 X10*3/uL (160-400); Red Blood Count 4.88 X10*6/uL (4.20-5.50); Red Cell Distribution Width 12.8 % (11.0-16.0); White Blood Count 7.4 X10*3/uL (4.8-10.8)
[2023-11-08 16:52] LABS: Appearance Urine Cloudy; Color Urine Yellow; Glucose Urine UA 100 mg/dL (Negative); Leukocyte Esterase Urine Large (3+) (Negative); Nitrite Urine Positive (Negative); Specific Gravity - Urine <= 1.005 (1.005-1.025); UMIC TRIGGER UACC YES; Urine Blood Negative (Negative); Urine Ketones Negative (Negative); Urine Protein Negative (Neg-Trace)
[2023-11-08 16:57] LABS: Bacteria Urine 4+ (None Seen); Hyaline Casts Urine 0-2 /LPF (0-2); RBC Urine 0-2 /HPF (0-2); Squamous Epithelial Cell Urine 0-2 /HPF (0-2); UACC Culture Trigger YES; WBC Urine >50 /HPF (0-5)
[2023-11-08 17:11] LABS: Alanine Aminotransferase 19 U/L (0-31); Albumin Level 4.3 g/dL (3.5-5.0); Alkaline Phosphatase 101 U/L (39-117); Anion Gap 14 (12-20); Aspartate Amino Transferase 18 U/L (5-31); Bilirubin Total 0.3 mg/dL (0.0-1.0); Blood Urea Nitrogen 13 mg/dL (9-16); Calcium 9.9 mg/dL (8.4-10.2); Carbon Dioxide 27 mmol/L (22-29); Chloride 104 mmol/L (96-108); Creatinine Clr Calc Pharmacy 55.6; Estimated Glomerular Filt Rate > 60; Glucose Random 218 mg/dL (60-115); Potassium 3.7 mmol/L (3.3-5.1); Sodium 141 mmol/L (135-145); Total Protein 7.6 g/dL (6.5-8.0)
[2023-11-08 19:48] VITALS: BP 190/97; PULSE 87; RESP 18; TEMP 37.1; O2SAT 97
--- NOTE | 2023-11-08 21:26 | PC.NURSE ---
medication not available in ED
--- NOTE | 2023-11-08 22:16 | PC.NURSE ---
called pharmacy, they will bring down medication
[2023-11-08] MEDS: Ibuprofen 600 MG TABLET PO (22:42)
[2023-11-08] MEDS: Nitrofurantoin Monohyd/M-Cryst 100 MG CAPSULE PO (22:43)
--- NOTE | 2023-11-14 08:54 | ED.FEMALEGU ---
HPI - Female Genitourinary General Chief complaint: Urogenital-Female Stated complaint: UTI? Time Seen by Provider: 11/08/23 19:50 Source: patient, RN notes reviewed and old records reviewed Mode of arrival: ambulatory Limitations: no limitations History of Present Illness HPI Narrative: 78-year-old female with past medical history of diabetes, pyelonephritis, pneumonia, bronchitis, UTI is here today for trouble urinating, pelvic and lower back pain for the last 3 days. Patient reports that she is going to the bathroom frequently, urinary eating small amounts fully. Diagnosed with UTI few weeks ago and treated with antibiotics. Patient denies flank pain, fever, chills, hematuria. Patient denies any nausea or vomiting. Denies any abdominal pain or discomfort. MD elicited complaint: dysuria, pelvic pain and difficulty urinating Pertinent past history: recurrent UTIs and pyelonephritis Onset (ago): day(s) Location of symptoms: low back Severity: moderate Female Urogenital Radiation: Non-Radiating Severity scale (1-10): 7 Related Data Home Medications Medication Instructions Recorded Confirmed oxybutynin chloride 10 mg 1 tab PO DAILY 03/27/22 10/09/23 tablet,extended release 24 hr simvastatin 10 mg tablet 1 tab PO BEDTIME 03/27/22 10/09/23 sitagliptin phosphate 100 mg 1 tab PO DAILY 03/27/22 10/09/23 tablet (Januvia) albuterol sulfate 90 mcg/actuation 2 puff inhalation Q4-6H PRN 06/12/22 10/09/23 aerosol inhaler shortness of breath or wheezing amlodipine 2.5 mg tablet 2.5 mg PO DAILY 10/09/23 10/09/23 lisinopril 40 mg tablet 40 mg PO DAILY 10/09/23 10/09/23 Previous Rx's Medication Instructions Recorded pen needle, diabetic 31 gauge x #50 ea 11/07/22/16 (Pen Needle) cefuroxime axetil 500 mg tablet 500 mg PO Q12H #7 tabs 10/11/23 prednisone 10 mg tablet See Taper PO DIRECTED #20 tabs 10/11/23 nitrofurantoin 100 mg PO Q12H 7 days #14 caps 11/08/23 monohydrate/macrocrystals 100 mg capsule (Macrobid) Allergies Allergy/AdvReac Type Severity Reaction Status Date / Time doxycycline AdvReac Intermediate vaginal Verified 11/08/23 16:15 swelling azithromycin AdvReac Mild yeast Verified 11/08/23 16:15 infection ciprofloxacin [From Cipro] AdvReac Mild yeast Verified 11/08/23 16:15 infection metronidazole [From Flagyl] AdvReac Mild yeast Verified 11/08/23 16:15 infection oxycodone [From Percocet] AdvReac Mild NAUSEA Verified 11/08/23 16:15 Review of Systems Constitutional: Constitutional: Denies weight gain and Denies weight loss ENT: Reports system reviewed and no additional complaints, except as documented, Denies dysphagia and Denies odynophagia Cardiovascular: Cardiovascular: Reports no additional cardiovascular complaints Respiratory: Respiratory: Reports no additional respiratory complaints Gastrointestinal: Gastrointestinal: Denies abdominal pain, Denies belching, Denies melena, Denies bloating, Denies change in bowel habits, Denies dysphagia, Denies excessive flatus, Denies dyspepsia, Denies heartburn, Denies diarrhea, Denies loose stools, Denies nausea, Denies odynophagia and Denies vomiting Genitourinary: Genitourinary: Reports difficulty voiding, Reports nocturia, Reports dysuria and Denies flank pain Musculoskeletal: Musculoskeletal: Reports no additional musculoskeletal complaints Neurologic: Reports system reviewed and no additional complaints, except as documented Psychiatric: Psychiatric: Reports no additional psychiatric complaints Endocrine: Endocrine: Reports no additional endocrine complaints PMFSH Past Medical History Onset Date is defined in the Problem List Problems that require an onset date and time if occurred within 24 hrs of arrival to the ED Aortic Dissection and Rupture; Neurologic impairment; Cardiopulmonary Arrest; Endotracheal Intubation; Insertion or Replacement of Mechanical Circulatory Assist Device Medical History Type 2 diabetes mellitus Hypertension Asthma Family History Family History Other Asthma Esophageal cancer Social History Social History Household Members: None Housing: Apartment Do you presently have visiting nurse or other home services: Yes Alcohol intake: never Comment: pt refuses Patient Tobacco Use Status: Former Tobacco user Tobacco use type: Cigarette Advance Directives: Yes Advance Directives on File: Yes Advance Directives Date on File: 06/12/22 service: No Current occupational status: retired Physical Exam Vital Signs: Vital Signs: Last Vital Signs Temp 98.7 F 11/08/23 19:48 Pulse 87 11/08/23 19:48 Resp 18 11/08/23 19:48 BP 190/97 H 11/08/23 19:48 Pulse Ox 97 11/08/23 19:48 O2 Del Method Room Air 11/08/23 19:48 BMI result Body Mass Index 26.5 Const: General: healthy appearing, no acute distress and well developed Nutritional Appearance: well nourished Orientation/consciousness: patient oriented x3 HEENT: Head: Yes normal to inspection, Yes normocephalic and Yes atraumatic Face and sinus: Yes normal facial exam Mouth: Normal oral and palatal mucosa present Throat: Yes posterior oropharynx normal, Yes tonsils normal and Yes uvula midline Eyes: General: appearance normal, both eyes and all related structures Neck: Neck: Yes normal visual inspection, Yes full ROM and Yes trachea midline Thyroid: Thyroid normal Resp: Effort & Inspection: normal respiratory effort, able to speak in complete sentences, no tracheal deviation and symmetric chest movement Auscultation: clear to auscultation bilaterally Cardio: Rate: regular rate GI: Inspection: Yes normal to inspection and No distended Palpation (GI): Soft to palpation, not firm, nontender and No hepatosplenomegaly present Auscultation: normal bowel sounds : General: Yes no CVA tenderness Back/Spine/Pelvis: Back: no CVA tenderness Skin: General skin exam: elasticity normal, turgor normal and dry skin Neuro: General: patient oriented x3 Psych: Appearance: grossly normal Mental Status: mental status grossly normal Course Course Course Narrative: 78-year-old female with past medical history of diabetes, pyelonephritis, pneumonia, bronchitis, UTI is here today for trouble urinating, pelvic and lower back pain for the last 3 days. Patient reports that she is going to the bathroom frequently, urinary eating small amounts fully. Diagnosed with UTI few weeks ago and treated with antibiotics. Patient denies flank pain, fever, chills, hematuria. Patient denies any nausea or vomiting. Denies any abdominal pain or discomfort. Will check urinalysis. Exam negative for CVA tenderness. Medications Administered Discontinued Medications Generic Name Dose Route Start Last Admin Trade Name Freq PRN Reason Stop Dose Admin Ibuprofen 600 mg 11/08/23 21:57 11/08/23 22:42 Ibuprofen 600 Mg Tablet PO 11/08/23 21:58 600 mg ONCE ONE Administration Nitrofurantoin Macrocrystals 100 mg 11/08/23 22:45 11/08/23 22:43 Nitrofurantoin Monohyd/M-Cryst 100 Mg Capsule PO 11/08/23 22:46 100 mg ONCE ONE Administration Medical Decision Making Medical Decision Making [facility] Narrative: 78-year-old female with past medical history of diabetes, pyelonephritis, pneumonia, bronchitis, UTI is here today for trouble urinating, pelvic and lower back pain for the last 3 days. Patient reports that she is going to the bathroom frequently, urinary eating small amounts fully. Diagnosed with UTI few weeks ago and treated with antibiotics. Patient denies flank pain, fever, chills, hematuria. Patient denies any nausea or vomiting. Denies any abdominal pain or discomfort. Awaiting urinalysis. Exam negative for CVA on likely pyelonephritis, however still could be a differential. Patient has pain in lower back.. No fever or chills. No nausea or vomiting. No abdominal pain or discomfort. Patient will be medicated with 1st dose of antibiotics, script for Macrobid for 7 day treatment. Patient will follow-up with her urologist. Patient has a urologist in [place]. Patient was encouraged to return to ER if fever, chills, hematuria, flank pain. Differential Diagnosis Differential Diagnoses: The differential diagnosis associated with the presentation includes Pyelonephritis, UTI, cystitis Lab Data [facility] Lab Attestation statement: I reviewed the patient's lab results. 11/08/23 16:44 11/08/23 16:44 Labs: Lab Results 11/08/23 Range/Units 16:44 WBC 7.4 (4.8-10.8) X10*3/uL RBC 4.88 (4.20-5.50) X10*6/uL Hgb 13.8 (12.0-16.0) g/dl Hct 42.6 (37.0-47.0) % MCV 87.3 (80.0-98.0) fL MCH 28.3 (27.0-33.0) pg MCHC 32.4 (31.0-35.0) g/dl RDW 12.8 (11.0-16.0) % Plt Count 276 (160-400) X10*3/uL MPV 10.4 (9.4-12.3) fL Immature Gran % (Auto) 0.7 H (0.0-0.4) % Neut % (Auto) 63.8 (45-73) % Lymph % (Auto) 27.0 (20-40) % [place] % (Auto) 7.3 (2-11) % Eos % (Auto) 0.7 (0-4) % Baso % (Auto) 0.5 (0-2) % Lymph # (Auto) 2.0 (1.2-4.9) X10*3/uL [place] # (Auto) 0.5 (0.1-1.2) X10*3/uL Eos # (Auto) 0.1 (0.0-0.4) X10*3/uL Baso # (Auto) 0.0 (0.0-0.2) X10*3/uL Abs Immat Gran (auto) 0.05 H (0.00-0.03) X10*3/uL Absolute Neuts (auto) 4.7 (2.0-8.3) x10*3/uL Absolute Nucleated RBC 0.000 (0.0-0.012) X10*3/uL Nucleated RBC % (auto) 0.0 (0.0-0.2) /100WBC Sodium 141 (135-145) mmol/L Potassium 3.7 D (3.3-5.1) mmol/L Chloride 104 (96-108) mmol/L Carbon Dioxide 27 (22-29) mmol/L Anion Gap 14 (12-20) BUN 13 (9-16) mg/dL Creatinine 0.73 (0.5-1.4) mg/dL Estim Creat Clear Calc 55.6 Estimated GFR > 60 Random Glucose 218 H (60-115) mg/dL Calcium 9.9 (8.4-10.2) mg/dL Total Bilirubin 0.3 (0.0-1.0) mg/dL AST 18 (5-31) U/L ALT 19 (0-31) U/L Alkaline Phosphatase 101 (39-117) U/L Total Protein 7.6 (6.5-8.0) g/dL Albumin 4.3 (3.5-5.0) g/dL Urine Color Yellow Urine Appearance Cloudy Urine pH 7.0 (5.0-9.0) Ur Specific [place] <= 1.005 (1.005-1.025) Urine Protein Negative (Neg-Trace) mg/dL Urine Glucose (UA) 100 H (Negative) mg/dL Urine Ketones Negative (Negative) mg/dL Urine Blood Negative (Negative) Urine Nitrite Positive H (Negative) Ur Leukocyte Esterase Large (3+) H (Negative) Urine RBC 0-2 (0-2) /HPF Urine WBC >50 H (0-5) /HPF Ur Squamous Epith Cells 0-2 (0-2) /HPF Urine Bacteria 4+ (None Seen) Hyaline Casts 0-2 (0-2) /LPF Discharge Plan Discharge Clinical Impression: Urinary tract infection Patient Disposition: Home, Self-Care Instructions: Acute Urinary Retention in Women (ED) Prescriptions: New nitrofurantoin monohyd/m-cryst [Macrobid] 100 mg capsule 100 mg PO Q12H 7 Days Qty: 14 0RF Rx Instructions: must administer with a meal/food No Action oxybutynin chloride 10 mg tablet extended release 24 hr 1 tab PO DAILY simvastatin 10 mg tablet 1 tab PO BEDTIME Januvia 100 mg tablet 1 tab PO DAILY albuterol sulfate 90 mcg/actuation HFA aerosol inhaler 2 puff inhalation Q4-6H PRN (Reason: shortness of breath or wheezing) (DME) pen needle, diabetic [Pen Needle] 31 gauge x 3/16 needle See Rx Instructions .Route Qty: 50 0RF Rx Instructions: As directed amlodipine 2.5 mg tablet 2.5 mg PO DAILY lisinopril 40 mg tablet 40 mg PO DAILY cefuroxime axetil 500 mg Tablet 500 mg PO Q12H Qty: 7 0RF prednisone 10 mg tablet See Taper PO DIRECTED Qty: 20 0RF Taper: Prednisone 40 mg daily for 3 Days and 0 Hour 30 mg daily for 3 Days and 0 Hour 20 mg daily for 3 Days and 0 Hour 10 mg daily for 3 Days and 0 Hour Rx Instructions: see taper instructions Referrals: Jamil Eduardo MD [Physician] - Lindsey Lucas MD [Primary Care Provider] - Interventions: ED Discharge Assessment Last Done: 11/08/23 22:48 Discharge Date/Time: 11/08/23 23:02 Print Language: Telugu
== END 2023-11-08 23:02 | disposition home or self-care (01) ==
PROVIDERS: Emergency Provider Emergency Medicine; PCP Internal Medicine
DX: N39.0 Urinary tract infection, site not specified (principal); M54.50 Low back pain, unspecified; Z79.899 Other long term (current) drug therapy; Z87.891 Personal history of nicotine dependence
CPT/HCPCS: 36415; 80053; 81001; 85025; 87086; 87088; 87186; 99284

== ENCOUNTER 2024-05-03 12:02 | Emergency (ER) | payer OTHER, SELFPAY ==
--- NOTE | ~2024-05-03 | XR_ITS ---
EXAMINATION: XR CHEST CLINICAL INFORMATION: Shortness of breath, getting breathing treatment COMPARISON: Chest x-ray on 10/09/2023 TECHNIQUE: 2 views of the chest were obtained. FINDINGS: vascularity. LUNGS: Persistent extensive reticulonodular densities are seen in bilateral lower lobes. No pneumothorax is seen. BONES: Bony skeleton is intact. There is unchanged mild thoracic dextroscoliosis which may be positional. Surgical clips are seen in the left axilla. XR/XR chest 2V IMPRESSION: 1. Unchanged extensive bilateral lower lobe reticulonodular densities, some visualized as a tree-in-bud nodules on CT scan of chest on 10/09/2023, compatible with peripheral bronchiolitis or atypical pneumonia. 2. Unchanged status post left axillary dissection.
[2024-05-03 12:45] VITALS: BP 176/77; PULSE 99; RESP 18; TEMP 36; O2SAT 94; BMI 24.5
--- NOTE | 2024-05-03 12:45 | ED.GENADULT ---
HPI - General Adult General Chief complaint: Recheck/Abnormal Lab/Rx Stated complaint: High calcium levels Time Seen by Provider: 05/03/24 19:51 Source: patient, RN notes reviewed and old records reviewed Mode of arrival: ambulatory History of Present Illness ED Provider: Darline Hdz PA-C HPI narrative: 79-year-old Maldivian-speaking female with a past medical history diabetes, asthma, presenting to ED sent in by PCP for elevated calcium levels noted on outpatient labs from 04/30/2024. Patient also reports mild SOB and headache this week. Denies any new medications/change in medications, chest pain, abdominal pain, nausea/vomiting Related Data Home Medications ?Medication ?Instructions ?Recorded ?Confirmed oxybutynin chloride 10 mg 1 tab PO DAILY 03/27/22 10/09/23 tablet,extended release 24 hr simvastatin 10 mg tablet 1 tab PO BEDTIME 03/27/22 10/09/23 sitagliptin phosphate 100 mg 1 tab PO DAILY 03/27/22 10/09/23 tablet (Januvia) albuterol sulfate 90 mcg/actuation 2 puff inhalation Q4-6H PRN 06/12/22 10/09/23 aerosol inhaler shortness of breath or wheezing amlodipine 2.5 mg tablet 2.5 mg PO DAILY 10/09/23 10/09/23 lisinopril 40 mg tablet 40 mg PO DAILY 10/09/23 10/09/23 Previous Rx's ?Medication ?Instructions ?Recorded pen needle, diabetic 31 gauge x #50 ea 11/07/22/ (Pen Needle) cefuroxime axetil 500 mg tablet 500 mg PO Q12H #7 tabs 10/11/23 prednisone 10 mg tablet See Taper PO DIRECTED #20 tabs 10/11/23 nitrofurantoin 100 mg PO Q12H 7 days #14 caps 11/08/23 monohydrate/macrocrystals 100 mg capsule (Macrobid) cefuroxime axetil 250 mg tablet 250 mg PO BID 7 days #14 tabs 05/03/24 prednisone 20 mg tablet 40 mg (2 x 20 mg) PO DAILY 5 days 05/03/24 #10 tabs Allergies Allergy/AdvReac Type Severity Reaction Status Date / Time doxycycline AdvReac Intermediate vaginal Verified 05/03/24 12:51 swelling azithromycin AdvReac Mild yeast Verified 05/03/24 12:51 infection ciprofloxacin [From Cipro] AdvReac Mild yeast Verified 05/03/24 12:51 infection metronidazole [From Flagyl] AdvReac Mild yeast Verified 05/03/24 12:51 infection oxycodone [From Percocet] AdvReac Mild NAUSEA Verified 05/03/24 12:51 Review of Systems Review of Systems: Constitutional: No Fever, No Chills, +fatigue ENT/Mouth: No Ear Pain, No Nasal Congestion, No sore throat, No Rhinorrhea, No Swallowing Difficulty Cardiovascular: No Chest Pain, + SOB Respiratory: No Cough, No Sputum, No Wheezing Gastrointestinal: No Nausea, No Vomiting, No Diarrhea, No Constipation, No Abdominal pain Genitourinary: No Dysuria, No Hematuria, No Urinary Incontinence/retention, No Urgency, No Flank Pain Musculoskeletal: No joint pain, No Myalgias, No Joint Swelling Skin: No Skin Lesions, No rash Neuro: No Weakness, No Numbness, No Paresthesias, +FLORES Yes all other systems are reviewed and are negative Constitutional: Constitutional: Reports as per [facility] Past Medical History Attestation statement: The following information was validated with the patient. Source: old records reviewed Medical History Type 2 diabetes mellitus Hypertension Asthma Family History Family History Other Asthma Esophageal cancer Social History Social History Household Members: None Housing: Apartment Do you presently have visiting nurse or other home services: Yes Alcohol intake: never Comment: pt refuses Patient Tobacco Use Status: Former Tobacco user Tobacco use type: Cigarette Advance Directives: Yes Advance Directives on File: Yes Advance Directives Date on File: 06/12/22 Do you have a plan to hurt others: No Plan service: No Current occupational status: retired Physical Exam ED Vital Signs: Vital Signs - 24 hr 05/03/24 12:45 05/03/24 13:06 05/03/24 19:43 Temperature 96.8 F 97.9 F Pulse Rate 99 101 H 91 Respiratory Rate 18 16 16 Blood Pressure 176/77 H 162/71 H Pulse Oximetry 94 92 Oxygen Delivery Method Room Air Room Air BMI result Body Mass Index 24.5 Const General: cooperative and no acute distress Orientation/consciousness: patient oriented x3 Limitations: no limitations HENMT Other: Chronic left eye erythema/tearing Head: Yes normal to inspection and Yes atraumatic Ears: hearing grossly normal bilaterally General nose exam: Normal external nose present Face and sinus: Yes normal facial exam Eyes General: appearance normal, both eyes and all related structures EOM: EOMs intact bilaterally Neck Neck: Yes normal visual inspection and Yes no meningeal signs Resp Effort & Inspection: normal respiratory effort and no respiratory distress Auscultation: wheezes expiratory wheezes and diminished lung sounds diffuse Cardio Rate: regular rate Heart sounds: S1 normal heart sound present and S2 normal heart sound present GI Inspection: Yes normal to inspection Palpation (GI): Soft to palpation, nontender, no guarding and not rigid General: Yes no CVA tenderness Back/Spine/Pelvis Back: no CVA tenderness Skin Rashes: no rashes Wounds: no wounds Neuro General: patient oriented x3, tone normal and no meningeal signs Cranial nerves: Yes CN's II-XII intact bilaterally Gait exam (Neuro): Normal gait present Extrem General: Yes normal to inspection and Yes no pedal edema Course Course Course Narrative: This is a Rapid Medical Exam performed in triage by Darline Hdz PA-C. Full HPI, ROS and PE to be performed by primary ED provider. 79 year-old Maldivian Speaking F w/ PMHx diabetes, asthma, presenting to the ED c/o SOB & high calcium levels on outpatient labs on Friday with PCP (Christy). reports FLORES this week. denies new meds. PE: decreased BS throughout, tight w/exp wheeze. L eye with tearing/erythema (baseline per patient) Plan: Labs, CXR, viral studies, Bronch protocol -1941--lab reassuring, calcium WNL. On re-evaluation patient reports symptomatic improvement, denies SOB or headache at present. Lungs with better air movement - +UA infected -viral studies neg XR chest 2V IMPRESSION: 1. Unchanged extensive bilateral lower lobe reticulonodular densities, some visualized as a tree-in-bud nodules on CT scan of chest on 10/09/2023, compatible with peripheral bronchiolitis or atypical pneumonia. 2. Unchanged status post left axillary dissection. Results discussed with patient including worrisome signs and symptoms and strict return precautions, and when to return to the emergency department. They verbalized understanding and feel safe for discharge at this time. Medications Administered Discontinued Medications Generic Name Dose Route Start Last Admin Trade Name Wilbert PRN Reason Stop Dose Admin Albuterol Sulfate 2.5 mg/ 0 mg 05/03/24 13:03 05/03/24 13:06 Albuterol/Ipratropium 3 ml INHALE 05/03/24 13:04 1 dose ONCE ONE Administration Medical Decision Making Medical Decision Making [facility] Narrative: 79-year-old Maldivian-speaking female with a past medical history diabetes, asthma, presenting to ED sent in by PCP for elevated calcium levels noted on outpatient labs from 04/30/2024. Patient also reports mild SOB and headache this week. On exam vital signs stable, NAD, nontoxic appearing, decreased breath sounds throughout with expiratory wheeze appreciated. Concern for abnormal labs vs asthma exacerbation vs pneumonia vs viral illness. Lower suspicion for ACS/PE Records from [place] showed patient's calcium was 10.8 on 08/30/2024 Plan: EKG, labs, CXR, viral testing ED bronchodilator protocol Please refer to course for remaining clinical decision making, interpretation of labs/imaging results, and discussions with consultants and/or family members. Differential Diagnosis Differential Diagnoses: The differential diagnosis associated with the presentation includes As above Admission/Observation Consideration of admission/observation: Escalation of care including admission/observation considered Lab Data [facility] Lab Attestation statement: I reviewed the patient's lab results. 05/03/24 14:43 05/03/24 14:43 Labs: Lab Results 05/03/24 05/03/24 Range/Units 14:43 14:45 WBC 8.3 (4.8-10.8) X10*3/uL RBC 5.04 (4.20-5.50) X10*6/uL Hgb 14.5 (12.0-16.0) g/dl Hct 43.8 (37.0-47.0) % MCV 86.9 (80.0-98.0) fL MCH 28.8 (27.0-33.0) pg MCHC 33.1 (31.0-35.0) g/dl RDW 13.2 (11.0-16.0) % Plt Count 227 (160-400) X10*3/uL MPV 11.1 (9.4-12.3) fL Immature Gran % (Auto) 0.4 (0.0-0.4) % Neut % (Auto) 59.9 (45-73) % Lymph % (Auto) 32.6 (20-40) % [place] % (Auto) 6.1 (2-11) % Eos % (Auto) 0.4 (0-4) % Baso % (Auto) 0.6 (0-2) % Lymph # (Auto) 2.7 (1.2-4.9) X10*3/uL [place] # (Auto) 0.5 (0.1-1.2) X10*3/uL Eos # (Auto) 0.0 (0.0-0.4) X10*3/uL Baso # (Auto) 0.1 (0.0-0.2) X10*3/uL Abs Immat Gran (auto) 0.03 (0.00-0.03) X10*3/uL Absolute Neuts (auto) 5.0 (2.0-8.3) x10*3/uL Absolute Nucleated RBC 0.000 (0.0-0.012) X10*3/uL Nucleated RBC % (auto) 0.0 (0.0-0.2) /100WBC Sodium 141 (135-145) mmol/L Potassium 3.8 (3.3-5.1) mmol/L Chloride 106 (96-108) mmol/L Carbon Dioxide 26 (22-29) mmol/L Anion Gap 13 (12-20) BUN 13 (9-16) mg/dL Creatinine 0.72 (0.5-1.4) mg/dL Estim Creat Clear Calc 53.5 Estimated GFR > 60 Random Glucose 223 H (60-115) mg/dL Calcium 9.7 (8.4-10.2) mg/dL Magnesium 1.9 (1.6-2.6) mg/dL Total Bilirubin 0.4 (0.0-1.0) mg/dL Direct Bilirubin 0.1 (0.0-0.5) mg/dL AST 20 (5-31) U/L ALT 20 (0-31) U/L Alkaline Phosphatase 89 (39-117) U/L Total Protein 7.5 (6.5-8.0) g/dL Albumin 4.3 (3.5-5.0) g/dL Urine Color Yellow Urine Appearance Clear Urine pH 5.5 (5.0-9.0) Ur Specific [place] <= 1.005 (1.005-1.025) Urine Protein Negative (Neg-Trace) mg/dL Urine Glucose (UA) Negative (Negative) mg/dL Urine Ketones Negative (Negative) mg/dL Urine Blood Negative (Negative) Urine Nitrite Negative (Negative) Ur Leukocyte Esterase Moderate (2+) H (Negative) Urine RBC 0-2 (0-2) /HPF Urine WBC 6-10 H (0-5) /HPF Ur Squamous Epith Cells 3-5 (0-2) /HPF Urine Bacteria None Seen (None Seen) Hyaline Casts 0-2 (0-2) /LPF Influenza Type A (PCR) NEGATIVE (Negative) Influenza Type B (PCR) NEGATIVE (Negative) RSV RNA Qual (PCR) NEGATIVE (Negative) SARS-CoV-2 RNA (RT-PCR) NEGATIVE (Negative) Independent Interpretation I performed an independent interpretation of an: EKG and Plain X-Ray Radiology Impression Discussion of test interpretation with radiology: I have reviewed the radiologist's reading. External Record Review External record reviewed: Inpatient record, Office record, Outpatient record, Prior outpatient labs, Prior outpatient radiology, Primary care record and Outside ED record Tests considered The following testing was considered but not selected: As above Discharge Plan Discharge Clinical Impression: Asthma exacerbation, Acute UTI Patient Disposition: Home, Self-Care Instructions: Asthma (DC), Urinary Tract Infection in Older Adults (ED) Additional Instructions: Your blood work is reassuring, her calcium was normal today Please use your inhalers/machine at home in addition take prednisone Ceftin as an antibiotic please take for your UTI If her breathing becomes worse, if constant worsening shortness breath, chest pain, wheezing return to the ED Please have close follow-up with her doctor Prescriptions: New cefuroxime axetil 250 mg tablet 250 mg PO BID 7 Days Qty: 14 0RF prednisone 20 mg tablet 40 mg PO DAILY 5 Days Qty: 10 0RF No Action oxybutynin chloride 10 mg tablet extended release 24 hr 1 tab PO DAILY simvastatin 10 mg tablet 1 tab PO BEDTIME Januvia 100 mg tablet 1 tab PO DAILY albuterol sulfate 90 mcg/actuation HFA aerosol inhaler 2 puff inhalation Q4-6H PRN (Reason: shortness of breath or wheezing) (DME) pen needle, diabetic [Pen Needle] 31 gauge x 3/16 needle See Rx Instructions .Route Qty: 50 0RF Rx Instructions: As directed amlodipine 2.5 mg tablet 2.5 mg PO DAILY lisinopril 40 mg tablet 40 mg PO DAILY cefuroxime axetil 500 mg Tablet 500 mg PO Q12H Qty: 7 0RF prednisone 10 mg tablet See Taper PO DIRECTED Qty: 20 0RF Taper: Prednisone 40 mg daily for 3 Days and 0 Hour 30 mg daily for 3 Days and 0 Hour 20 mg daily for 3 Days and 0 Hour 10 mg daily for 3 Days and 0 Hour Rx Instructions: see taper instructions nitrofurantoin monohyd/m-cryst [Macrobid] 100 mg capsule 100 mg PO Q12H 7 Days Qty: 14 0RF Rx Instructions: must administer with a meal/food Referrals: Lindsey Lucas MD [Primary Care Provider] - 2 days Print Language: Maldivian
[2024-05-03 13:06] VITALS: PULSE 101; RESP 16; O2SAT 91
[2024-05-03] MEDS: Albuterol Sulfate 2.5 MG, Albuterol/Iprat 2.5/0.5MG 3 ML 3 ML INHALE (13:06)
[2024-05-03 14:49] LABS: MANUAL DIFF FLAG NO
[2024-05-03 14:50] LABS: Basophils Absolute Auto 0.1 X10*3/uL (0.0-0.2); Basophils Percent Auto 0.6 % (0-2); Eosinophils Percent Auto 0.4 % (0-4); Hematocrit 43.8 % (37.0-47.0); Hemoglobin 14.5 g/dl (12.0-16.0); Imm Gran Abs Auto 0.03 X10*3/uL (0.00-0.03); Imm Gran Pct Auto 0.4 % (0.0-0.4); Lymphocytes Absolute Auto 2.7 X10*3/uL (1.2-4.9); Lymphocytes Percent Auto 32.6 % (20-40); Mean Corpuscular HGB Conc 33.1 g/dl (31.0-35.0); Mean Corpuscular Hemoglobin 28.8 pg (27.0-33.0); Mean Corpuscular Volume 86.9 fL (80.0-98.0); Mean Platelet Volume 11.1 fL (9.4-12.3); Monocytes Absolute Auto 0.5 X10*3/uL (0.1-1.2); Monocytes Percent Auto 6.1 % (2-11); Neutrophils Percent Auto 59.9 % (45-73); Platelet Count 227 X10*3/uL (160-400); Red Blood Count 5.04 X10*6/uL (4.20-5.50); Red Cell Distribution Width 13.2 % (11.0-16.0); White Blood Count 8.3 X10*3/uL (4.8-10.8)
[2024-05-03 14:52] LABS: Appearance Urine Clear; Color Urine Yellow; Glucose Urine UA Negative (Negative); Leukocyte Esterase Urine Moderate (2+) (Negative); Nitrite Urine Negative (Negative); PH 5.5 (5.0-9.0); Specific Gravity - Urine <= 1.005 (1.005-1.025); UMIC TRIGGER UACC YES; Urine Blood Negative (Negative); Urine Ketones Negative (Negative); Urine Protein Negative (Neg-Trace)
[2024-05-03 14:55] LABS: Bacteria Urine None Seen (None Seen); Hyaline Casts Urine 0-2 /LPF (0-2); RBC Urine 0-2 /HPF (0-2); UACC Culture Trigger YES
[2024-05-03 15:09] LABS: Alanine Aminotransferase 20 U/L (0-31); Albumin Level 4.3 g/dL (3.5-5.0); Alkaline Phosphatase 89 U/L (39-117); Anion Gap 13 (12-20); Aspartate Amino Transferase 20 U/L (5-31); Bilirubin Direct 0.1 mg/dL (0.0-0.5); Blood Urea Nitrogen 13 mg/dL (9-16); Calcium 9.7 mg/dL (8.4-10.2); Carbon Dioxide 26 mmol/L (22-29); Chloride 106 mmol/L (96-108); Creatinine Clr Calc Pharmacy 53.5; Estimated Glomerular Filt Rate > 60; Glucose Random 223 mg/dL (60-115); Magnesium 1.9 mg/dL (1.6-2.6); Potassium 3.8 mmol/L (3.3-5.1); Sodium 141 mmol/L (135-145); Total Protein 7.5 g/dL (6.5-8.0)
[2024-05-03 15:29] LABS: Influenza A PCR NEGATIVE (Negative); Influenza B PCR NEGATIVE (Negative); Resp Syncy Virus RNA Qual PCR NEGATIVE (Negative); SARS COV2 PCR INHOUSE NEGATIVE (Negative)
[2024-05-03 15:39] LABS: Bilirubin Total 0.4 mg/dL (0.0-1.0)
[2024-05-03 19:43] VITALS: BP 162/71; PULSE 91; RESP 16; TEMP 36.6; O2SAT 92
--- NOTE | 2024-05-03 20:02 | ECG_ITS ---
Test Reason : SOB Blood Pressure : / mmHG Vent. Rate : 085 BPM Atrial Rate : 085 BPM P-R Int : 194 ms QRS Dur : 094 ms QT Int : 408 ms P-R-T Axes : 067 062 059 degrees QTc Int : 485 ms Normal sinus rhythm Possible Left atrial enlargement Left ventricular hypertrophy ( Sokolow-[place]ario , [place] product ) Abnormal ECG When compared with ECG of 09-OCT-2023 17:00, Nonspecific T wave abnormality now evident in Anterior leads Nonspecific T wave abnormality no longer evident in Lateral leads Referred By: Darline Hdz Electronically Signed By:GERRI ADLER MD
[2024-05-03 20:25] VITALS: BP 162/71; PULSE 91; RESP 16; TEMP 36.6; O2SAT 92
== END 2024-05-03 20:25 | disposition home or self-care (01) ==
PROVIDERS: Physician Assistant; Emergency Provider Emergency Medicine; PCP Internal Medicine
DX: J45.901 Unspecified asthma with (acute) exacerbation (principal); N39.0 Urinary tract infection, site not specified; R79.89 Other specified abnormal findings of blood chemistry; R06.02 Shortness of breath; R94.31 Abnormal electrocardiogram [ECG] [EKG]; R51.9 Headache, unspecified; Z87.891 Personal history of nicotine dependence; Z03.818 Encounter for observation for suspected exposure to other biological agents ruled out
CPT/HCPCS: 0241U; 36415; 71046; 80048; 80076; 81001; 83735; 85025; 87086; 87088; 87186; 93005; 94640; 99284

== ENCOUNTER → 2024-05-03 20:02 | Outpatient (BNV) | payer OTHER, SELFPAY | PROVIDERS: Emergency Provider Emergency Medicine; PCP Internal Medicine; Visit Provider Internal Medicine Cardiovascular Disease | DX: R06.02 Shortness of breath (principal); R94.31 Abnormal electrocardiogram [ECG] [EKG] | CPT/HCPCS: 93010 ==

== ENCOUNTER 2024-10-19 13:34 | Inpatient (IN) | payer OTHER, SELFPAY ==
--- NOTE | ~2024-10-19 | XR_ITS ---
EXAMINATION: XR CHEST CLINICAL INFORMATION: SOB COMPARISON: None available. TECHNIQUE: 2 views of the chest were obtained. FINDINGS: The cardiac, hilar, and mediastinal contours are normal. Aorta is mildly calcified. Lungs are diffusely hyperaerated hyperlucent, suggesting COPD. There are increased bronchial markings in the left greater than right lung bases, suggesting inflammatory airways disease. Lungs otherwise clear without discrete consolidations, effusions, or pneumothorax. There are degenerative changes throughout the spine. No suspicious bone lesions. There are surgical clips left axilla. XR/XR chest 2V IMPRESSION: 1. COPD. 2. Evidence of infectious/inflammatory airways disease in the left greater than right bases. Electronically signed by: Emil Ontiveros MD 10/19/2024 03:53 PM [facility]
[2024-10-19 13:46] VITALS: BP 159/72; PULSE 106; RESP 18; TEMP 36.6; O2SAT 93; BMI 23.8
--- NOTE | 2024-10-19 13:46 | ED_ITS ---
HPI - URI/Sore Throat General Chief Complaint: Dyspnea Stated Complaint: SOB, cough - asthma Time Seen by Provider: 10/19/24 21:58 Source: patient, family and old records reviewed Mode of arrival: ambulatory Limitations: no limitations History of Present Illness ED Provider: MARTY CHAN Narrative: 79 yo female with PMH of asthma/COPD, pneumonia, HLD, DM2, not on home O2 here wtih c/o 3 weeks of coarse cough and sputum as well as dyspnea. She notes she has tried her nebs, steroids and she is not improving. She has no sick contacts at home. No known fevers. She cannot take it anymore and came to the ED. She reports no abx use in 3 weeks. MD elicited complaint: cough Pertinent past history: COPD and asthma Onset (ago): week(s) (3) Consistency: intermittent Severity: moderate Description of mucous: yellow Able to tolerate fluids by mouth: Yes Exacerbating factors: exertion Relieving factors: nothing Associated symptoms: nasal congestion, cough and shortness of breath Treatments prior to arrival: other (nebs and steroids) Related Data Home Medications ?Medication ?Instructions ?Recorded ?Confirmed oxybutynin chloride 10 mg 1 tab PO DAILY 03/27/22 10/09/23 tablet,extended release 24 hr simvastatin 10 mg tablet 1 tab PO BEDTIME 03/27/22 10/09/23 sitagliptin phosphate 100 mg 1 tab PO DAILY 03/27/22 10/09/23 tablet (Januvia) albuterol sulfate 90 mcg/actuation 2 puff inhalation Q4-6H PRN 06/12/22 10/09/23 aerosol inhaler shortness of breath or wheezing amlodipine 2.5 mg tablet 2.5 mg PO DAILY 10/09/23 10/09/23 lisinopril 40 mg tablet 40 mg PO DAILY 10/09/23 10/09/23 Previous Rx's ?Medication ?Instructions ?Recorded pen needle, diabetic 31 gauge x #50 ea 11/07/2201/23 (Pen Needle) cefuroxime axetil 500 mg tablet 500 mg PO Q12H #7 tabs 10/11/23 prednisone 10 mg tablet See Taper PO DIRECTED #20 tabs 10/11/23 nitrofurantoin 100 mg PO Q12H 7 days #14 caps 11/08/23 monohydrate/macrocrystals 100 mg capsule (Macrobid) cefuroxime axetil 250 mg tablet 250 mg PO BID 7 days #14 tabs 05/03/24 prednisone 20 mg tablet 40 mg (2 x 20 mg) PO DAILY 5 days 05/03/24 #10 tabs Allergies Allergy/AdvReac Type Severity Reaction Status Date / Time doxycycline AdvReac Intermediate vaginal Verified 10/19/24 13:49 swelling azithromycin AdvReac Mild yeast Verified 10/19/24 13:49 infection ciprofloxacin [From Cipro] AdvReac Mild yeast Verified 10/19/24 13:49 infection metronidazole [From Flagyl] AdvReac Mild yeast Verified 10/19/24 13:49 infection oxycodone [From Percocet] AdvReac Mild NAUSEA Verified 10/19/24 13:49 Review of Systems 2 Review of Systems: Constitutional : No Fever, No Chills ENT/Mouth : No Hoarseness, No sore throat, pos Rhinorrhea Eyes: No Redness, No Discharge, No Vision Changes Cardiovascular : No Chest Pain, positive SOB, positive Dyspnea on Exertion, No Edema Respiratory : positive Cough, pos Sputum, positive Wheezing, Gastrointestinal : No Nausea, No Vomiting, No Diarrhea, No abdominal Pain Genitourinary : No Dysuria, No Hematuria Musculoskeletal : No joint pain, No Myalgias Skin : No rash Neuro : No Weakness, No Numbness, No Headache Psych : No anxiety, depression All other systems reviewed and are negative [facility] Past Medical History Attestation statement: The following information was validated with the patient. Source: old records reviewed Medical History Type 2 diabetes mellitus Hypertension Asthma Family History Family History Other Asthma Esophageal cancer Social History Social History Household Members: None Housing: Apartment Do you presently have visiting nurse or other home services: Yes Alcohol intake: never Comment: pt refuses Patient Tobacco Use Status: Former Tobacco user Tobacco use type: Cigarette Advance Directives: Yes Advance Directives on File: Yes Advance Directives Date on File: 06/12/22 service: No Current occupational status: retired Physical Exam 2 Vital Signs: Vital Signs: Last Vital Signs Temp 99.4 F 10/19/24 22:06 Pulse 116 H 10/19/24 22:06 Resp 20 10/19/24 22:06 BP 174/85 H 10/19/24 22:06 Pulse Ox 92 10/19/24 22:06 O2 Del Method Room Air 10/19/24 22:06 BMI result Body Mass Index 23.8 Appearance: Alert. Oriented X3. Mild acute distress. Eyes: Pupils equal, round and reactive to light. ENT: Pharynx normal. Neck: Normal inspection. Neck supple. CVS: tachycardia heart rate and rhythm. Pulses normal. Respiratory: Mild respiratory distress tachypnea slightly labored. Breath sounds coarse with exp wheezes throughout Abdomen: Soft and nontender. Skin: Skin warm and dry. Normal skin color. Normal skin turgor. Extremities: No lower extremity edema. No calf ttp Neuro: Oriented X 3. No motor deficit. No sensory deficit. Course Course Course Narrative: This is an RME: Additional HPI, ROS, PE not included below will be deferred to primary provider. RME assessment and note performed by: Leslye Avila PA-C This is a [id number], with a hx of asthma, who presents to the ER with a complaint of cough and congestion x 3 weeks. Reports 3 weeks of productive yellow/white sputum. No fevers. Patient is wheezy, breathing, pulse 106, O2 saturation 93% on room air. Plan: Labs, EKG, chest x-ray, ED bronch protocol, further ER evaluation needed. Medications Administered Discontinued Medications Generic Name Dose Route Start Last Admin Trade Name Freq PRN Reason Stop Dose Admin Albuterol Sulfate 2 puff 10/19/24 14:13 10/19/24 21:54 Albuterol Sulfate 90 Mcg 8 Gm Inhaler INHALE 10/19/24 14:14 Not Given ONCE ONE Albuterol Sulfate 7.5 mg/ 10 mg 10/19/24 22:03 10/19/24 22:10 Albuterol Sulfate 2.5 mg INHALE 10/19/24 22:04 10 mg ONCE ONE Administration Ceftriaxone Sodium 1 gm 10/19/24 22:00 10/19/24 22:20 Ceftriaxone Sodium 1 Gm Vial IVPUSH 10/19/24 22:01 1 gm ONCE ONE Administration Methylprednisolone Sodium Succinate 60 mg 10/19/24 22:01 10/19/24 22:20 Methylprednisolone Sod Succ 125 Mg/2 Ml Vial IVPUSH 10/19/24 22:02 60 mg ONCE ONE Administration Medical Decision Making Medical Decision Making MDM Narrative: 79 yo female with PMH of asthma/COPD, pneumonia, HLD, DM2, not on home O2 here with c/o cough, wheezing, chest congestion and not improving despite trying to treat herself at home. At this time basic labs, EKG, cultures, CXR and viral panel. Suspect COPD exacerbation vs bronchitis Differential Diagnosis Differential Diagnoses: The differential diagnosis associated with the presentation includes COPD exacerbation vs bronchitis Admission/Observation Consideration of admission/observation: Escalation of care including admission/observation considered admit given work of breathing and need for further treatments Consult Healthcare Provider Management of the patient was discussed with: Hospitalist (will admit) Lab Data [facility] Lab Attestation statement: I reviewed the patient's lab results. 10/19/24 14:28 10/19/24 14:28 Labs: Lab Results 10/19/24 Range/Units 14:28 WBC 11.3 H (4.8-10.8) X10*3/uL RBC 5.22 (4.20-5.50) X10*6/uL Hgb 15.0 (12.0-16.0) g/dl Hct 46.6 (37.0-47.0) % MCV 89.3 (80.0-98.0) fL MCH 28.7 (27.0-33.0) pg MCHC 32.2 (31.0-35.0) g/dl RDW 13.2 (11.0-16.0) % Plt Count 243 (160-400) X10*3/uL MPV 10.9 (9.4-12.3) fL Immature Gran % (Auto) 0.5 H (0.0-0.4) % Neut % (Auto) 74.3 H (45-73) % Lymph % (Auto) 17.7 L (20-40) % [place] % (Auto) 6.4 (2-11) % Eos % (Auto) 0.6 (0-4) % Baso % (Auto) 0.5 (0-2) % Lymph # (Auto) 2.0 (1.2-4.9) X10*3/uL [place] # (Auto) 0.7 (0.1-1.2) X10*3/uL Eos # (Auto) 0.1 (0.0-0.4) X10*3/uL Baso # (Auto) 0.1 (0.0-0.2) X10*3/uL Abs Immat Gran (auto) 0.06 H (0.00-0.03) X10*3/uL Absolute Neuts (auto) 8.4 H (2.0-8.3) x10*3/uL Absolute Nucleated RBC 0.000 (0.0-0.012) X10*3/uL Nucleated RBC % (auto) 0.0 (0.0-0.2) /100WBC Sodium 141 (135-145) mmol/L Potassium 4.3 (3.3-5.1) mmol/L Chloride 106 (96-108) mmol/L Carbon Dioxide 26 (22-29) mmol/L Anion Gap 13 (12-20) BUN 14 (9-16) mg/dL Creatinine 0.76 (0.5-1.4) mg/dL Estim Creat Clear Calc 46.7 Estimated GFR > 60 Random Glucose 155 H (60-115) mg/dL Lactic Acid 1.5 (0.5-2.0) mmol/L Calcium 9.5 (8.4-10.2) mg/dL Magnesium 2.3 (1.6-2.6) mg/dL Total Bilirubin 0.4 (0.0-1.0) mg/dL Direct Bilirubin 0.1 (0.0-0.5) mg/dL AST 33 H (5-31) U/L ALT 33 H (0-31) U/L Alkaline Phosphatase 106 (39-117) U/L Troponin I High Sens < 2.7 (<3.5-17.0) ng/L Total Protein 8.0 (6.5-8.0) g/dL Albumin 4.5 (3.5-5.0) g/dL Urine Color Yellow Urine Appearance Clear Urine pH 5.5 (5.0-9.0) Ur Specific [place] >= 1.030 H (1.005-1.025) Urine Protein Negative (Neg-Trace) mg/dL Urine Glucose (UA) >=1000 H (Negative) mg/dL Urine Ketones Negative (Negative) mg/dL Urine Blood Negative (Negative) Urine Nitrite Negative (Negative) Ur Leukocyte Esterase Trace H (Negative) Urine RBC 0-2 (0-2) /HPF Urine WBC 21-50 H (0-5) /HPF Ur Squamous Epith Cells 0-2 (0-2) /HPF Urine Bacteria None Seen (None Seen) Hyaline Casts 0-2 (0-2) /LPF Influenza Type A (PCR) NEGATIVE (Negative) Influenza Type B (PCR) NEGATIVE (Negative) RSV RNA Qual (PCR) NEGATIVE (Negative) SARS-CoV-2 RNA (RT-PCR) NEGATIVE (Negative) S. pyogenes GrpA ANEL Negative (Negative) Independent Interpretation I performed an independent interpretation of an: EKG and Plain X-Ray (no focal consolidation) Interpretation: Rate: 103 Rhythm: ST Watson: normal, LVH Normal P waves. Normal STEPH. Normal QRS complex. ST T wave : poor R wave progression, no ROMEO qTC: 463 prior studies: no change from priors The study has been interpreted contemporaneously by me. . Radiology Impression Discussion of test interpretation with radiology: I have reviewed the radiologist's reading. Independent Historian Clinical information obtained from an independent historian. History obtained from or confirmed by: Other (family) External Record Review External record reviewed: Inpatient record and Outpatient record Critical Care Time Critical Care Time Critical Care Time: Yes Total Critical Care Time: 35 Attestation: repeat nebs, IV steroids, review of records, admission I attest to this time spent taking care of the patient Discharge Plan Discharge Clinical Impression: Acute exacerbation of chronic obstructive airways disease Patient Disposition: Admitted As Inpatient Prescriptions: No Action oxybutynin chloride 10 mg tablet extended release 24 hr 1 tab PO DAILY simvastatin 10 mg tablet 1 tab PO BEDTIME Januvia 100 mg tablet 1 tab PO DAILY albuterol sulfate 90 mcg/actuation HFA aerosol inhaler 2 puff inhalation Q4-6H PRN (Reason: shortness of breath or wheezing) (DME) pen needle, diabetic [Pen Needle] 31 gauge x 3/16 needle See Rx Instructions .Route Qty: 50 0RF Rx Instructions: As directed amlodipine 2.5 mg tablet 2.5 mg PO DAILY lisinopril 40 mg tablet 40 mg PO DAILY cefuroxime axetil 500 mg Tablet 500 mg PO Q12H Qty: 7 0RF prednisone 10 mg tablet See Taper PO DIRECTED Qty: 20 0RF Taper: Prednisone 40 mg daily for 3 Days and 0 Hour 30 mg daily for 3 Days and 0 Hour 20 mg daily for 3 Days and 0 Hour 10 mg daily for 3 Days and 0 Hour Rx Instructions: see taper instructions nitrofurantoin monohyd/m-cryst [Macrobid] 100 mg capsule 100 mg PO Q12H 7 Days Qty: 14 0RF Rx Instructions: must administer with a meal/food cefuroxime axetil 250 mg tablet 250 mg PO BID 7 Days Qty: 14 0RF prednisone 20 mg tablet 40 mg PO DAILY 5 Days Qty: 10 0RF Print Language: Divehi
--- NOTE | 2024-10-19 13:49 | ECG_ITS ---
Test Reason : sob, tachycardic Blood Pressure : / mmHG Vent. Rate : 103 BPM Atrial Rate : 103 BPM P-R Int : 182 ms QRS Dur : 080 ms QT Int : 354 ms P-R-T Axes : 075 063 057 degrees QTc Int : 463 ms Sinus tachycardia Minimal voltage criteria for LVH, may be normal variant ( Sokolow-Del Rosario ) Anterior infarct , age undetermined Abnormal ECG No previous ECGs available Referred By: Leslye Avila Electronically Signed By:GERRI ADLER MD
[2024-10-19 14:20] VITALS: PULSE 102; RESP 18; O2SAT 93
[2024-10-19 14:36] LABS: MANUAL DIFF FLAG NO
[2024-10-19 14:39] LABS: Basophils Absolute Auto 0.1 X10*3/uL (0.0-0.2); Basophils Percent Auto 0.5 % (0-2); Eosinophils Absolute Auto 0.1 X10*3/uL (0.0-0.4); Eosinophils Percent Auto 0.6 % (0-4); Hematocrit 46.6 % (37.0-47.0); Imm Gran Abs Auto 0.06 X10*3/uL (0.00-0.03); Imm Gran Pct Auto 0.5 % (0.0-0.4); Lymphocytes Percent Auto 17.7 % (20-40); Mean Corpuscular HGB Conc 32.2 g/dl (31.0-35.0); Mean Corpuscular Hemoglobin 28.7 pg (27.0-33.0); Mean Corpuscular Volume 89.3 fL (80.0-98.0); Mean Platelet Volume 10.9 fL (9.4-12.3); Monocytes Absolute Auto 0.7 X10*3/uL (0.1-1.2); Monocytes Percent Auto 6.4 % (2-11); Neutrophils Absolute Auto 8.4 x10*3/uL (2.0-8.3); Neutrophils Percent Auto 74.3 % (45-73); Platelet Count 243 X10*3/uL (160-400); Red Blood Count 5.22 X10*6/uL (4.20-5.50); Red Cell Distribution Width 13.2 % (11.0-16.0); White Blood Count 11.3 X10*3/uL (4.8-10.8)
[2024-10-19 14:40] LABS: Appearance Urine Clear; Color Urine Yellow; Glucose Urine UA >=1000 mg/dL (Negative); Leukocyte Esterase Urine Trace (Negative); Nitrite Urine Negative (Negative); PH 5.5 (5.0-9.0); Specific Gravity - Urine >= 1.030 (1.005-1.025); UMIC TRIGGER UACC YES; Urine Blood Negative (Negative); Urine Ketones Negative (Negative); Urine Protein Negative (Neg-Trace)
[2024-10-19 14:49] LABS: Bacteria Urine None Seen (None Seen); Hyaline Casts Urine 0-2 /LPF (0-2); RBC Urine 0-2 /HPF (0-2); Squamous Epithelial Cell Urine 0-2 /HPF (0-2); UACC Culture Trigger YES; WBC Urine 21-50 /HPF (0-5)
[2024-10-19 14:57] LABS: IDNOW Serial# 08D9AD1C; Strep A Nucleic Acid Negative (Negative)
[2024-10-19 14:59] LABS: Lactic Acid 1.5 mmol/L (0.5-2.0)
[2024-10-19 15:04] LABS: Alanine Aminotransferase 33 U/L (0-31); Albumin Level 4.5 g/dL (3.5-5.0); Alkaline Phosphatase 106 U/L (39-117); Anion Gap 13 (12-20); Aspartate Amino Transferase 33 U/L (5-31); Bilirubin Direct 0.1 mg/dL (0.0-0.5); Bilirubin Total 0.4 mg/dL (0.0-1.0); Blood Urea Nitrogen 14 mg/dL (9-16); Calcium 9.5 mg/dL (8.4-10.2); Carbon Dioxide 26 mmol/L (22-29); Chloride 106 mmol/L (96-108); Creatinine Clr Calc Pharmacy 46.7; Estimated Glomerular Filt Rate > 60; Glucose Random 155 mg/dL (60-115); Magnesium 2.3 mg/dL (1.6-2.6); Potassium 4.3 mmol/L (3.3-5.1); Sodium 141 mmol/L (135-145)
[2024-10-19 15:12] LABS: Troponin-I High Sensitivity < 2.7 ng/L (<3.5-17.0)
[2024-10-19 15:14] LABS: Influenza A PCR NEGATIVE (Negative); Influenza B PCR NEGATIVE (Negative); Resp Syncy Virus RNA Qual PCR NEGATIVE (Negative); SARS COV2 PCR INHOUSE NEGATIVE (Negative)
[2024-10-19 22:01] VITALS: PULSE 118; RESP 18; O2SAT 93
[2024-10-19 22:06] VITALS: BP 174/85; PULSE 116; RESP 20; TEMP 37.4; O2SAT 92
[2024-10-19] MEDS: Albuterol Sulfate 7.5 MG, Albuterol Sulfate (0.083%) 2.5 MG 10 MG INHALE (22:10)
[2024-10-19] MEDS: cefTRIAXone sodium 1 GM VIAL IVPUSH (22:20)
[2024-10-19] MEDS: methylPREDNISolone Sod Succ 125 MG/2 ML VIAL 60 MG IVPUSH (22:20)
--- NOTE | 2024-10-19 22:29 | PC.NURSE ---
Medicated per jan and notified WERNER Rangel
[2024-10-19] MEDS: Benzonatate 100 MG CAPSULE PO (22:54)
[2024-10-19] MEDS: Acetaminophen 325 MG TABLET 650 MG PO (22:54)
[2024-10-19 22:55] VITALS: BP 146/67; PULSE 129; PULSE 131; RESP 22; O2SAT 92
[2024-10-19 22:59] LABS: VBG Base Excess 3.6 mmol/L; VBG HCO3 28 mmol/L (22-26); VBG pCO2 44 mmHg; VBG pH 7.41 (7.32-7.43); VBG pO2 42 mmHg
[2024-10-19 22:59] LABS: Venous Blood Gas Refer to POC result
--- NOTE | 2024-10-19 23:20 | PM.IMHP ---
History of Present Illness Date of Service: 10/19/24 Attending physician on admission: Donny Quintanilla Chief Complaint: Cough, wheezing Patient is an 79-year-old female with a past medical history significant for combined asthma/COPD, type 2 diabetes, HLD, HTN, chronic UTIs, who presented to the ED with 3 weeks of yellow/white productive cough with subjective fevers, wheezing and shortness of breath. She also complains of urinary incontinence especially with coughing and dysuria. No hematuria. She has chest pain with coughing. No lower extremity edema or hemoptysis. She reports using her albuterol inhaler and nebulizer much more frequently than usual. She does not use any home oxygen. Review of Systems Constitutional: Constitutional: Denies chills, Denies fatigue, Reports fever(s) and Denies headache(s) Eyes: Eyes: Denies change in vision ENT: Denies headache(s), Denies nasal congestion, Denies nasal discharge and Denies sore throat Cardiovascular: Cardiovascular: Reports chest pain, Denies rapid heart rate, Denies leg edema and Reports dyspnea Respiratory: Respiratory: Reports chest congestion, Reports cough, Reports dyspnea and Reports wheezing Gastrointestinal: Gastrointestinal: Denies melena, Denies hematochezia, Denies constipation, Denies diarrhea, Denies nausea, Denies vomiting and Denies hematemesis Genitourinary: Genitourinary: Reports dysuria and Reports urinary incontinence Musculoskeletal: Musculoskeletal: Denies muscle weakness Integumentary/Breasts: Skin/Breast: Denies rash Neurologic: Denies confusion and Denies headache(s) Psychiatric: Psychiatric: Denies confusion Endocrine: Endocrine: Denies fatigue Hematologic/Lymphatic: Hematologic/Lymphatic: Denies easy bleeding Allergic/Immunologic: Allergic/Immunologic: Reports wheezing [facility] Medical History (Updated 10/19/24 @ 23:27 by Ca Vazquez PA-C) Chronic UTI COPD (chronic obstructive pulmonary disease) Type 2 diabetes mellitus Hypertension Asthma Functional capacity: independent ambulation Family History Other Asthma Esophageal cancer Social History Household Members: None Housing: Apartment Do you presently have visiting nurse or other home services: Yes Alcohol intake: never Comment: pt refuses Patient Tobacco Use Status: Former Tobacco user Tobacco use type: Cigarette Smoked in Last 30 Days: No Use of substances other than those prescribed or required for medical reasons: No Advance Directives: Yes Advance Directives on File: Yes Advance Directives Date on File: 06/12/22 Nutrition Risks: No Nutritional Risk service: No Current occupational status: retired Narrative: No smoking, alcohol or drug use Meds Allergies Allergy/AdvReac Type Severity Reaction Status Date / Time doxycycline AdvReac Intermediate vaginal Verified 10/19/24 13:49 swelling azithromycin AdvReac Mild yeast Verified 10/19/24 13:49 infection ciprofloxacin [From Cipro] AdvReac Mild yeast Verified 10/19/24 13:49 infection metronidazole [From Flagyl] AdvReac Mild yeast Verified 10/19/24 13:49 infection oxycodone [From Percocet] AdvReac Mild NAUSEA Verified 10/19/24 13:49 Active Medications: Current Medications Acetaminophen (Acetaminophen 325 Mg Tablet) 975 mg PO Q6H PRN PRN Reason: Pain, Mild (Pain Scale 1-3), fever or headache Albuterol/Ipratropium (Albuterol/Iprat 2.5/0.5mg 3 Ml Ampul.Neb) 3 ml INHALE RQ4H WHILE AWAKE ANISH Calcium Carbonate (Calcium Carbonate 750 Mg Tab.Chew) 750 mg PO Q4H PRN PRN Reason: Heartburn Enoxaparin Sodium (Enoxaparin Sodium 40 Mg/0.4 Ml Syringe) 40 mg SUBCUT Q24H ANISH Glucose (Glucose Gel 15 Gm Gel..Gram.) 15 gm PO Q15M PRN; Protocol PRN Reason: per Hypoglycemia Standing Ord. Dextrose (D10) 250 mls @ 750 mls/hr IV Q15M PRN; Protocol PRN Reason: per Hypoglycemia Standing Ord. Insulin Human Lispro (Insulin Lispro 100 Unit/Ml 3 Ml Vial) 0 unit SUBCUT QIDACHS ANISH; Protocol Magnesium Hydroxide (Milk Of Magnesia 30 Ml Oral.Susp) 30 ml PO DAILY PRN PRN Reason: Constipation Melatonin (Melatonin 3 Mg Tablet) 6 mg PO BEDTIME PRN PRN Reason: Insomnia Methylprednisolone Sodium Succinate (Methylprednisolone Sod Succ 40 Mg/Ml Vial) 40 mg IVPUSH BID ANISH Ondansetron HCl (Ondansetron Hcl 4 Mg/2 Ml Vial) 4 mg IVPUSH Q8H PRN PRN Reason: Nausea and Vomiting Oxycodone HCl (Oxycodone Hcl Immed Release 5 Mg Tablet) 5 mg PO Q6H PRN PRN Reason: Pain, Moderate(Pain Scale 4-6) Sodium Chloride (0.9 % Sodium Chloride Flush 3 Ml Syringe) 3 ml IVFLUSH QSHIFT [facility] Medications ?Medication ?Instructions ?Recorded ?Confirmed ?Last Taken ?Type oxybutynin chloride 10 mg 1 tab PO DAILY 03/27/22 10/09/23 11/05/22 History tablet,extended release 24 hr simvastatin 10 mg tablet 1 tab PO BEDTIME 03/27/22 10/09/23 11/05/22 History sitagliptin phosphate 100 mg 1 tab PO DAILY 03/27/22 10/09/23 11/05/22 History tablet (Januvia) albuterol sulfate 90 mcg/actuation 2 puff inhalation Q4-6H PRN 06/12/22 10/09/23 Unknown History aerosol inhaler shortness of breath or wheezing amlodipine 2.5 mg tablet 2.5 mg PO DAILY 10/09/23 10/09/23 Unknown History lisinopril 40 mg tablet 40 mg PO DAILY 10/09/23 10/09/23 Unknown History Physical Exam Vital Signs and Narrative: Vital Signs: Last Vital Signs Temp 99.4 F 10/19/24 22:06 Pulse 129 H 10/19/24 22:55 Resp 22 H 10/19/24 22:55 BP 146/67 H 10/19/24 22:55 Pulse Ox 92 10/19/24 22:55 O2 Del Method Room Air 10/19/24 22:55 BMI result Body Mass Index 23.8 General: AOx3, no acute distress Resp: wheezing and rhonchi bilaterally, mild conversational dyspnea CVS: Tachycardic, regular rhythm GI: +BS, NT, no distention Skin: Warm, dry Neuro: Cranial nerves II-XII grossly intact bilaterally. Motor grossly intact bilaterally Extremities: No lower extremity edema Psych: Appropriate affect Const: General: No confusion Orientation/consciousness: No confusion Neuro: General: No confusion Results Labs 10/19/24 14:28 10/19/24 14:28 Labs: Laboratory Results - last 24 hr 10/19/24 10/19/24 14:28 22:52 MCV 89.3 MCH 28.7 MCHC 32.2 RDW 13.2 Plt Count 243 MPV 10.9 Immature Gran % (Auto) 0.5 H Neut % (Auto) 74.3 H Lymph % (Auto) 17.7 L Ashley % (Auto) 6.4 Eos % (Auto) 0.6 Baso % (Auto) 0.5 Lymph # (Auto) 2.0 Ashley # (Auto) 0.7 Eos # (Auto) 0.1 Baso # (Auto) 0.1 Abs Immat Gran (auto) 0.06 H Absolute Neuts (auto) 8.4 H Absolute Nucleated RBC 0.000 Nucleated RBC % (auto) 0.0 VBG pH 7.41 VBG pCO2 44 VBG pO2 42 VBG HCO3 28 H VBG O2 Saturation 69.0 VBG Base Excess 3.6 Anion Gap 13 Estim Creat Clear Calc 46.7 Estimated GFR > 60 Random Glucose 155 H Lactic Acid 1.5 Calcium 9.5 Magnesium 2.3 Total Bilirubin 0.4 Direct Bilirubin 0.1 AST 33 H ALT 33 H Alkaline Phosphatase 106 Troponin I High Sens < 2.7 Total Protein 8.0 Albumin 4.5 Urine Color Yellow Urine Appearance Clear Urine pH 5.5 Ur Specific [place] >= 1.030 H Urine Protein Negative Urine Glucose (UA) >=1000 H Urine Ketones Negative Urine Blood Negative Urine Nitrite Negative Ur Leukocyte Esterase Trace H Urine RBC 0-2 Urine WBC 21-50 H Ur Squamous Epith Cells 0-2 Urine Bacteria None Seen Hyaline Casts 0-2 Influenza Type A (PCR) NEGATIVE Influenza Type B (PCR) NEGATIVE RSV RNA Qual (PCR) NEGATIVE SARS-CoV-2 RNA (RT-PCR) NEGATIVE S. pyogenes GrpA ANEL Negative Imaging Radiologist's Impressions: Impressions Chest X-Ray 10/19/24 13:49 IMPRESSION: 1. COPD. 2. Evidence of infectious/inflammatory airways disease in the left greater than right bases. Electronically signed by: Emil Ontiveros MD 10/19/2024 03:53 PM [facility] Assessment and Plan (1) Acute exacerbation of chronic obstructive airways disease: Status: Acute (2) Asthma exacerbation: Status: Acute (3) Urinary tract infection: Status: Acute Plan Patient is an 79-year-old female with a past medical history significant for combined asthma/COPD, type 2 diabetes, HLD, HTN, chronic UTIs, who presented to the ED with 3 weeks of yellow/white productive cough with subjective fevers, wheezing and shortness of breath. Acute exacerbation of COPD/asthma - WBC 11.3, tachycardia related to albuterol use, lactic acid normal, blood cultures pending. no sepsis - CXR with infectious/inflammatory airrways in the L greater than R bases - no LE edema - given solumedrol 60mg in ED, continue 40mg BID - duonebs Q4H PRN while awake - ceftrixone for bronchitis due to many allergies - monitor CBC and BMP - admit to med tele UTI - UA mildly positive, culture pending - previous UA susecptible to ceftriaxone, already started above - monitor CBC and BMP Type 2 diabetes - diabetic diet - hold p.o. DM meds - sliding scale insulin HLD - continue statin HTN - continue lisinopril and amlodipine DNR/DNI- discussed in depth with the patient VTE prophylaxis: Lovenox Patient with acute COPD/asthma exacerbation with new O2 requirement and possible UTI requiring admission for at least 2 midnight stay for IV steroids, antibiotics and breathing treatments. Quality Stroke Does the patient have a stroke diagnosis?: No VTE Prior VTE?: No VTE Risk Level:: Medical - moderate - high VTE Device Contraindication: Treatment Not Indicated VTE Drug Contraindication: N/A - Med Ordered
[2024-10-19 23:57] VITALS: PULSE 124; RESP 22; O2SAT 94
[2024-10-19] MEDS: 0.9 % Sodium Chloride Flush 3 ML SYRINGE IVFLUSH (23:58)
--- NOTE | 2024-10-19 23:59 | PC.NURSE ---
Patient awake and alert. skin pwd, resp even, RR 22. speaking in full, clear sentences. productive cough w/ white sputum. ST via tele, HR 120. pt c/o itching and burning to clitoris, PA made aware. awaiting admission
[2024-10-20 00:01] VITALS: BP 149/59; PULSE 117; RESP 22; TEMP 36.6; O2SAT 95
--- NOTE | 2024-10-20 02:45 | PC.NURSE ---
Patient ambulated stand by assist to bathroom and back to bed.
--- NOTE | 2024-10-20 04:06 | PC.NURSE ---
patient up to bathroom with SBA. Tolerated well and back to bed
[2024-10-20 04:12] VITALS: BP 133/59; PULSE 104; RESP 22; TEMP 36.6; O2SAT 95
[2024-10-20 04:30] LABS: Basophils Percent Auto 0.2 % (0-2); Hematocrit 40.1 % (37.0-47.0); Hemoglobin 13.3 g/dl (12.0-16.0); Imm Gran Abs Auto 0.13 X10*3/uL (0.00-0.03); Imm Gran Pct Auto 0.8 % (0.0-0.4); Lymphocytes Absolute Auto 0.4 X10*3/uL (1.2-4.9); Lymphocytes Percent Auto 2.8 % (20-40); MANUAL DIFF FLAG SCAN; Mean Corpuscular HGB Conc 33.2 g/dl (31.0-35.0); Mean Corpuscular Hemoglobin 29.1 pg (27.0-33.0); Mean Corpuscular Volume 87.7 fL (80.0-98.0); Mean Platelet Volume 10.9 fL (9.4-12.3); Monocytes Absolute Auto 0.1 X10*3/uL (0.1-1.2); Monocytes Percent Auto 0.6 % (2-11); Neutrophils Absolute Auto 15.2 x10*3/uL (2.0-8.3); Neutrophils Percent Auto 95.6 % (45-73); Platelet Count 226 X10*3/uL (160-400); Red Blood Count 4.57 X10*6/uL (4.20-5.50); Red Cell Distribution Width 13.2 % (11.0-16.0); SCAN SMEAR FLAG 1; White Blood Count 15.9 X10*3/uL (4.8-10.8)
[2024-10-20 04:46] LABS: Anion Gap 14 (12-20); Blood Urea Nitrogen 19 mg/dL (9-16); Calcium 9.3 mg/dL (8.4-10.2); Carbon Dioxide 21 mmol/L (22-29); Chloride 109 mmol/L (96-108); Creatinine Clr Calc Pharmacy 44.3; Estimated Glomerular Filt Rate > 60; Glucose Random 284 mg/dL (60-115); Potassium 4.1 mmol/L (3.3-5.1); Sodium 140 mmol/L (135-145)
[2024-10-20 04:57] LABS: SLIDE REVIEW VERIFIED
[2024-10-20] MEDS: methylPREDNISolone Sod Succ 40 MG/ML VIAL IVPUSH (08:03)
[2024-10-20] MEDS: 0.9 % Sodium Chloride Flush 3 ML SYRINGE IVFLUSH (08:03)
[2024-10-20] MEDS: Enoxaparin Sodium 40 MG/0.4 ML SYRINGE SUBCUT (08:03)
[2024-10-20] MEDS: Insulin Lispro 100 UNIT/ML 3 ML VIAL SUBCUT ×2 (08:03→11:35)
[2024-10-20 08:05] LABS: Glucose, Whole Blood 278 mg/dL (60-115)
[2024-10-20 09:01] VITALS: PULSE 99; RESP 18; O2SAT 96
[2024-10-20] MEDS: Albuterol/Iprat 2.5/0.5MG 3 ML AMPUL.NEB INHALE (09:09)
--- NOTE | 2024-10-20 10:04 | PHA.MEDREC ---
Addendum entered by Andrew Joaquin RPh 10/20/24 10:08: Med rec was reviewed by [facility]. Original Note: Pharmacy Consult ? Medication Reconciliation Pharmacy has completed the medication reconciliation. Spoke to patient to confirm med list.
--- NOTE | 2024-10-20 11:04 | MHC.CM.PN ---
pt dcd home no services prior to being seen by cm
[2024-10-20 11:28] LABS: Glucose, Whole Blood 312 mg/dL (60-115)
[2024-10-20] MEDS: Empagliflozin 10 MG TABLET PO (11:36)
[2024-10-20 11:41] VITALS: BP 120/62; PULSE 101; RESP 17; TEMP 36.6; O2SAT 93
[2024-10-20] MEDS: lisinopriL 40 MG TABLET PO (12:16)
[2024-10-20] MEDS: cefuroxime axetiL 500 MG TABLET PO (12:17)
[2024-10-20] MEDS: Methenamine Hippurate 1 GM TABLET PO (12:17)
[2024-10-20] MEDS: SITagliptin Phosphate 100 MG TABLET PO (12:17)
--- NOTE | 2024-10-20 12:19 | P.DS_ITS ---
DS: Providers Provider Date of Service: 10/20/24 Date of admission: 10/19/24 23:14 Date of discharge: 10/20/24 Primary care physician: Lindsey Horton MD Attending physician on discharge: Timmy Tineo Discharging clinician: Timmy Tineo DS: Diagnosis Discharge Diagnosis (1) Acute exacerbation of chronic obstructive airways disease: Status: Acute (2) Asthma exacerbation: Status: Acute (3) Urinary tract infection: Status: Acute DS: Summary Hospital Course Hospital Course: HPI:79-year-old female with a past medical history significant for combined asthma/COPD, type 2 diabetes, HLD, HTN, chronic UTIs, who presented to the ED with 3 weeks of yellow/white productive cough with subjective fevers, wheezing and shortness of breath. She also complains of urinary incontinence especially with coughing and dysuria. No hematuria. She has chest pain with coughing. No lower extremity edema or hemoptysis. She reports using her albuterol inhaler and nebulizer much more frequently than usual. She does not use any home oxygen. Hospital course: patient admitted for copd execerebation ,?dysuria -cxr negative ,has mild leucocytosis , no fever ,ua -has pyuria /no bacteruria, urine culture - prelim(mixed jimmy ): patient given, iv steriods ,nebs,antibiotics -seems improved . . blood culture pending but considering patient improving clinically , no fever- will plan dicharge-switched to po antibiotics and steriods upon discharge. we walked patient sob seems improved signifiacntly ,no sob with walking , no hypoxia plan: prednisone 40 mg for 4 days ceftin 500 mg po bidx5 days. use clotrimazole for rash. follow up blood /urine culture outpatient -if cultures comes back ,will call patient. above management discussed with patient in detailed length with tool maintenance worker , total time spent 40 min. Time Attestation Total time managing care of this patient today: 40 mintues. Discharge Coordination Time (in mins): 40 min Quality: Safe Use of Opioids Does Pt have an Active Cancer Diagnosis on the Problem List?: No Quality: Stroke Does the patient have a stroke diagnosis?: No Physical Exam Vital Signs: Vital Signs: Last Vital Signs Temp 97.8 F 10/20/24 11:41 Pulse 101 H 10/20/24 11:41 Resp 17 10/20/24 11:41 BP 120/62 10/20/24 11:41 Pulse Ox 93 10/20/24 11:41 O2 Del Method Room Air 10/20/24 11:41 O2 Flow Rate 10/20/24 04:12 BMI result Body Mass Index 23.8 Appearance: Alert.? Oriented X3.? not in distress.? Eyes: Pupils equal, round and reactive to light.? Sclera nonicteric.? ENT: Pharynx normal.? Moist mucous membranes. cvs: rrr, [id number] , no murmur res: clear to auscultation ,no rhonchii or wheezing abd: no rebound or guarding ,nt, bs present. ext pulses present , no cyanosis ,Gait well balanced well coordinated. neuro: axo3 , nonfocal. DS: Data Data Completed and Pending Labs on day of discharge: Laboratory Results - last 24 hr 10/19/24 10/19/24 10/20/24 14:28 22:52 04:03 WBC 11.3 H 15.9 H RBC 5.22 4.57 Hgb 15.0 13.3 Hct 46.6 40.1 MCV 89.3 87.7 MCH 28.7 29.1 MCHC 32.2 33.2 RDW 13.2 13.2 Plt Count 243 226 MPV 10.9 10.9 Immature Gran % (Auto) 0.5 H 0.8 H Neut % (Auto) 74.3 H 95.6 H Lymph % (Auto) 17.7 L 2.8 L [place] % (Auto) 6.4 0.6 L Eos % (Auto) 0.6 0.0 Baso % (Auto) 0.5 0.2 Lymph # (Auto) 2.0 0.4 L [place] # (Auto) 0.7 0.1 Eos # (Auto) 0.1 0.0 Baso # (Auto) 0.1 0.0 Abs Immat Gran (auto) 0.06 H 0.13 H Absolute Neuts (auto) 8.4 H 15.2 H Absolute Nucleated RBC 0.000 0.000 Nucleated RBC % (auto) 0.0 0.0 Smear Tech's Comments VERIFIED VBG pH 7.41 VBG pCO2 44 VBG pO2 42 VBG HCO3 28 H VBG O2 Saturation 69.0 VBG Base Excess 3.6 Sodium 141 140 Potassium 4.3 4.1 Chloride 106 109 H Carbon Dioxide 26 21 L Anion Gap 13 14 BUN 14 19 H Creatinine 0.76 0.80 Estim Creat Clear Calc 46.7 44.3 Estimated GFR > 60 > 60 POC Glucose Random Glucose 155 H 284 H Lactic Acid 1.5 Calcium 9.5 9.3 Magnesium 2.3 Total Bilirubin 0.4 Direct Bilirubin 0.1 AST 33 H ALT 33 H Alkaline Phosphatase 106 Troponin I High Sens < 2.7 Total Protein 8.0 Albumin 4.5 Urine Color Yellow Urine Appearance Clear Urine pH 5.5 Ur Specific [place] >= 1.030 H Urine Protein Negative Urine Glucose (UA) >=1000 H Urine Ketones Negative Urine Blood Negative Urine Nitrite Negative Ur Leukocyte Esterase Trace H Urine RBC 0-2 Urine WBC 21-50 H Ur Squamous Epith Cells 0-2 Urine Bacteria None Seen Hyaline Casts 0-2 Influenza Type A (PCR) NEGATIVE Influenza Type B (PCR) NEGATIVE RSV RNA Qual (PCR) NEGATIVE SARS-CoV-2 RNA (RT-PCR) NEGATIVE S. pyogenes GrpA ANEL Negative 10/20/24 10/20/24 08:01 11:25 WBC RBC Hgb Hct MCV MCH MCHC RDW Plt Count MPV Immature Gran % (Auto) Neut % (Auto) Lymph % (Auto) [place] % (Auto) Eos % (Auto) Baso % (Auto) Lymph # (Auto) [place] # (Auto) Eos # (Auto) Baso # (Auto) Abs Immat Gran (auto) Absolute Neuts (auto) Absolute Nucleated RBC Nucleated RBC % (auto) Smear Tech's Comments VBG pH VBG pCO2 VBG pO2 VBG HCO3 VBG O2 Saturation VBG Base Excess Sodium Potassium Chloride Carbon Dioxide Anion Gap BUN Creatinine Estim Creat Clear Calc Estimated GFR POC Glucose 278 H 312 H Random Glucose Lactic Acid Calcium Magnesium Total Bilirubin Direct Bilirubin AST ALT Alkaline Phosphatase Troponin I High Sens Total Protein Albumin Urine Color Urine Appearance Urine pH Ur Specific [place] Urine Protein Urine Glucose (UA) Urine Ketones Urine Blood Urine Nitrite Ur Leukocyte Esterase Urine RBC Urine WBC Ur Squamous Epith Cells Urine Bacteria Hyaline Casts Influenza Type A (PCR) Influenza Type B (PCR) RSV RNA Qual (PCR) SARS-CoV-2 RNA (RT-PCR) S. pyogenes GrpA ANEL Preliminary micro results at discharge 10/19/24 Unknown Urine Culture - Preliminary Urine clean catch - Clean Catch Midstream Culture in progress. Discharge Plan Discharge Anticipated Discharge Date/Time: 10/20/24 11:51 Patient Disposition: Home, Self-Care Discharge Diagnosis: uti ,copd excerebation Referrals: Lindsey Lucas MD [Primary Care Provider] - 1 Week Discharge Medications: New clotrimazole 1 % Cream 1 appl topical BID Qty: 1 0RF Protocol: Apply to: Apply to: Affected area cefuroxime axetil 500 mg Tablet 500 mg PO Q12H Qty: 10 0RF prednisone 20 mg tablet 40 mg PO DAILY Qty: 8 0RF Robitussin Cold-Flu Night (PE) 12.5-5-325 mg/10 mL liquid 10 ml PO Q6H PRN (Reason: cough) Qty: 118 0RF Continued oxybutynin chloride 10 mg tablet extended release 24 hr 1 tab PO DAILY simvastatin 10 mg tablet 1 tab PO BEDTIME Januvia 100 mg tablet 1 tab PO DAILY albuterol sulfate 90 mcg/actuation HFA aerosol inhaler 2 puff inhalation Q4-6H PRN (Reason: shortness of breath or wheezing) (DME) pen needle, diabetic [Pen Needle] 31 gauge x 3/16 needle See Rx Instructions .Route Qty: 50 0RF Rx Instructions: As directed lisinopril 40 mg tablet 40 mg PO DAILY methenamine hippurate 1 gram tablet 1 g PO BID erythromycin 5 mg/gram (0.5 %) ointment 1 appl ophthalmic (eye) QID Jardiance 10 mg tablet 10 mg PO DAILY Discharge Orders: Discharge Order (Routine); Ordered 10/20/24 Ordered By: Timmy Tineo Diet: Advance to usual diet Activity on Discharge: As tolerated Stand Alone Forms: Patient Portal Discharge page Print Language: Slovenian Care Plan Goals: patient admitted for copd execerebation ,?dysuria -cxr negative ,has mild leucocytosis , no fever ,ua -has pyuria /no bacteruria, urine culture - prelim(mixed jimmy ): patient given, iv steriods ,nebs,antibiotics -seems im proved . . blood culture pending but considering patient improving clinically , no fever- will plan dicharge-switched to po antibiotics and steriods upon discharge. Health Concerns: as above. Plan of Treatment: prednisone 40 mg for 4 days ceftin 500 mg po bidx5 days. use clotrimazole for rash. follow up blood /urine culture outpatient -if cultures comes back ,will call patient. Assessment: as above.
[2024-10-20] MEDS: Clotrimazole 1 % Cream 15 GM TUBE 1 APPL TOPICAL (13:25)
[2024-10-20 14:44] VITALS: BP 120/79; PULSE 74; RESP 16; TEMP 36.6; O2SAT 94
== END 2024-10-20 14:21 | disposition home or self-care (01) | DRG 191 ==
LOC: HO.ED 23:00 → HO.EDOVER 23:35
PROVIDERS: Physician Assistant Medical; Admitting Provider Physician Assistant; Emergency Provider Emergency Medicine; PCP Internal Medicine; Visit Provider Internal Medicine
DX: J44.1 Chronic obstructive pulmonary disease with (acute) exacerbation (principal); J45.901 Unspecified asthma with (acute) exacerbation; N39.0 Urinary tract infection, site not specified; E11.9 Type 2 diabetes mellitus without complications; I10 Essential (primary) hypertension; E78.5 Hyperlipidemia, unspecified; Z66 Do not resuscitate; Z20.822 Contact with and (suspected) exposure to COVID-19; Z87.891 Personal history of nicotine dependence; Z79.899 Other long term (current) drug therapy
CPT/HCPCS: 0241U; 36415; 71046; 80048; 80076; 81001; 82803; 82947; 83605; 83735; 84484; 85025; 87040; 87086; 87651; 93005; 94640; 99221; 99285; J0696; J1650; J2919

== ENCOUNTER → 2024-10-19 13:49 | Outpatient (BNV) | payer OTHER, SELFPAY | PROVIDERS: PCP Internal Medicine; Visit Provider Radiology Diagnostic Radiology | DX: J44.9 Chronic obstructive pulmonary disease, unspecified (principal) | CPT/HCPCS: 71046 ==

== ENCOUNTER → 2024-10-19 13:49 | Outpatient (BNV) | payer OTHER, SELFPAY | PROVIDERS: Admitting Provider Physician Assistant; Emergency Provider Emergency Medicine; PCP Internal Medicine; Visit Provider Internal Medicine Cardiovascular Disease | DX: R00.0 Tachycardia, unspecified (principal); R06.02 Shortness of breath; R94.31 Abnormal electrocardiogram [ECG] [EKG] | CPT/HCPCS: 93010 ==

== ENCOUNTER → 2024-10-19 23:14 | Outpatient (BNV) | payer OTHER, SELFPAY | PROVIDERS: Admitting Provider Physician Assistant; Emergency Provider Emergency Medicine; PCP Internal Medicine; Visit Provider Internal Medicine | DX: J44.1 Chronic obstructive pulmonary disease with (acute) exacerbation (principal); J45.901 Unspecified asthma with (acute) exacerbation; N39.0 Urinary tract infection, site not specified | CPT/HCPCS: 99223; 99239 ==

== ENCOUNTER 2025-07-07 12:42 | Emergency (ER) | payer OTHER, SELFPAY ==
[2025-07-07 13:16] VITALS: BP 126/75; PULSE 76; RESP 18; TEMP 36.5; O2SAT 93; BMI 21.5
--- NOTE | 2025-07-07 13:27 | ED.SKABFB ---
HPI - Skin/Abscess/Foreign Bdy General Chief complaint: Skin/Abscess/Foreign Body Stated complaint: Rash on Body Time Seen by Provider: 07/07/25 13:30 Source: patient and RN notes reviewed Mode of arrival: ambulatory Limitations: no limitations History of Present Illness ED Provider: Leslye Marquez PA-C HPI narrative: This is a 41-[id number]-female, with a PMHx of diabetes, who presents to the ER with complaints of diffuse itchy rash x 1 week. Pt reports that she noticed this rash develop on her chest, back and BL arms. She denies any new soaps, lotions, detergents, medications, foods, or known exposures. She states that she had a similar rash several years ago which resolved after taking a course of medication (unsure of which). She denies any fevers, chills, chest pain, shortness of breath, difficulty breathing, difficulty swallowing. Denies taking any medications at home to treat her current symptoms. No other complaints or concerns at this time. MD complaint: rash Onset (ago): week(s) Location: generalized Quality: pruritic Pain Consistency: constant Relieving factors: none Exacerbating factors: none Context: none Associated symptoms: denies other symptoms Treatments prior to arrival: none Related Data Home Medications ?Medication ?Instructions ?Recorded ?Confirmed oxybutynin chloride 10 mg 1 tab PO DAILY 03/27/22 10/20/24 tablet,extended release 24 hr simvastatin 10 mg tablet 1 tab PO BEDTIME 03/27/22 10/20/24 sitagliptin phosphate 100 mg 1 tab PO DAILY 03/27/22 10/20/24 tablet (Januvia) albuterol sulfate 90 mcg/actuation 2 puff inhalation Q4-6H PRN 06/12/22 10/20/24 aerosol inhaler shortness of breath or wheezing lisinopril 40 mg tablet 40 mg PO DAILY 10/09/23 10/20/24 empagliflozin 10 mg tablet 10 mg PO DAILY 10/20/24 10/20/24 (Jardiance) erythromycin 5 mg/gram (0.5 %) eye 1 appl ophthalmic (eye) QID 10/20/24 10/20/24 ointment methenamine hippurate 1 gram tablet 1 g PO BID 10/20/24 10/20/24 Previous Rx's ?Medication ?Instructions ?Recorded pen needle, diabetic 31 gauge x #50 ea 11/07/22 3/16 (Pen Needle) cefuroxime axetil 500 mg tablet 500 mg PO Q12H #10 tabs 10/20/24 clotrimazole 1 % topical cream 1 appl topical BID #1 g 10/20/24 diphenhydramine 12.5 mg-PE 5 10 ml PO Q6H PRN cough #118 mL 10/20/24 mg-acetaminophen 325 mg/10 mL oral liquid (Robitussin Cold-Flu Night (PE)) prednisone 20 mg tablet 40 mg (2 x 20 mg) PO DAILY #8 tabs 10/20/24 prednisone 20 mg tablet 40 mg (2 x 20 mg) PO DAILY 5 days 07/07/25 #10 tabs Allergies Allergy/AdvReac Type Severity Reaction Status Date / Time doxycycline AdvReac Intermediate vaginal Verified 07/07/25 13:22 swelling azithromycin AdvReac Mild yeast Verified 07/07/25 13:22 infection ciprofloxacin (From Cipro) AdvReac Mild yeast Verified 07/07/25 13:22 infection metronidazole (From Flagyl) AdvReac Mild yeast Verified 07/07/25 13:22 infection oxycodone (From Percocet) AdvReac Mild NAUSEA Verified 07/07/25 13:22 Review of Systems Review of Systems: Yes all other systems are reviewed and are negative Constitutional: Constitutional: Reports as per [facility] Past Medical History Medical History (Updated 07/08/25 @ 00:00 by Katherin Green) Chronic UTI COPD (chronic obstructive pulmonary disease) Type 2 diabetes mellitus Hypertension Asthma Family History Family History Other Asthma Esophageal cancer Social History Social History Household Members: None Housing: Apartment Do you presently have visiting nurse or other home services: Yes Alcohol intake: never Comment: pt refuses Patient Tobacco Use Status: Former Tobacco user Tobacco use type: Cigarette Advance Directives: Yes Advance Directives on File: Yes Advance Directives Date on File: 06/12/22 service: No Current occupational status: retired Physical Exam Vital Signs: Vital Signs: Last Vital Signs Temp 97.7 F 07/07/25 15:30 Pulse 76 07/07/25 15:30 Resp 18 07/07/25 15:30 BP 126/75 07/07/25 15:30 Pulse Ox 93 07/07/25 15:30 O2 Del Method Room Air 07/07/25 15:30 BMI result Body Mass Index 21.5 Const: General: cooperative, comfortable and no acute distress Orientation/consciousness: patient oriented x3 Limitations: no limitations HEENT: Head: Yes normal to inspection, Yes normocephalic and Yes atraumatic Ears: hearing grossly normal bilaterally General nose exam: Normal external nose present Face and sinus: Yes normal facial exam Mouth: Normal oral and palatal mucosa present, oropharynx normal and moist mucous membranes Throat: Yes posterior oropharynx normal Eyes: General: appearance normal, both eyes and all related structures Eyelids: Yes eyelids normal Conjunctivae: conjunctivae normal Sclerae: sclerae normal Pupils: Equal, round and reactive pupils present EOM: EOMs intact bilaterally Neck: Neck: Yes normal visual inspection, Yes full ROM and Yes no lymphadenopathy Lymphatic: no lymphadenopathy noted Chest: Chest palpation & inspection: normal inspection of the chest Resp: Effort & Inspection: normal respiratory effort and able to speak in complete sentences Auscultation: clear to auscultation bilaterally, no crackles, no rales, no rhonchi and no wheezes Cardio: Rate: regular rate Rhythm: regular rhythm Heart sounds: S1 normal heart sound present and S2 normal heart sound present GI: Inspection: Yes normal to inspection Skin: Other: Faint, diffuse erythematous macular papular rash noted to bilateral upper extremities, chest and back. sparring palms and lower extremities. Neuro: General: patient oriented x3 and moves all extremities Cranial nerves: Yes Equal, round and reactive pupils present Extrem: General: Yes normal to inspection Right upper extremity: normal to inspection Left upper extremity: normal to inspection Right lower extremity: normal to inspection Left lower extremity: normal to inspection Medical Decision Making Medical Decision Making MDM Narrative: This is a [id number]-female who presents to the ER with complaints of itchy rash to arms, back and chest x 1 week. Reports hx of similar years ago. On arrival, vital signs WNL. She is speaking in full sentences under no acute distress. Reports that she has had no new exposures. Exam findings consistent with possible contact dermatitis. Will treat with course of prednisone. Advised to monitor blood glucose levels while on prednisone. Lungs are CTAB, oral pharynx is widely patent. No additional labs or workup indicated at this time. Given strict return precautions. Pt understands and agrees with plan. Pt stable for discharge. Differential Diagnosis Differential Diagnoses: The differential diagnosis associated with the presentation includes contact dermatitis, folliculitis, cellulitis, allergic dermatitis, atopic dermatitis Discharge Plan Discharge Clinical Impression: Rash Patient Disposition: Home, Self-Care Instructions: Contact Dermatitis (ED), Acute Rash (ED) Additional Instructions: You were seen in the emergency department due to a rash. It is unclear what is causing you to have this rash however in his likely something that she is exposed to in his allergic to. Please take prescribed prednisone as directed, finish the entire course. Please be advised that this can cause your sugars to go high therefore closely monitor your sugars. Follow-up with your primary care physician as you may need to be referred to an consulting senior practice director. If any new or worsening symptoms occur including but not limited to chest pain, shortness of breath, please seek emergent care. Prescriptions: New prednisone 20 mg tablet 40 mg PO DAILY 5 Days Qty: 10 0RF No Action oxybutynin chloride 10 mg tablet extended release 24 hr 1 tab PO DAILY simvastatin 10 mg tablet 1 tab PO BEDTIME Januvia 100 mg tablet 1 tab PO DAILY albuterol sulfate 90 mcg/actuation HFA aerosol inhaler 2 puff inhalation Q4-6H PRN (Reason: shortness of breath or wheezing) (DME) pen needle, diabetic [Pen Needle] 31 gauge x 3/16 needle See Rx Instructions .Route Qty: 50 0RF Rx Instructions: As directed lisinopril 40 mg tablet 40 mg PO DAILY methenamine hippurate 1 gram tablet 1 g PO BID erythromycin 5 mg/gram (0.5 %) ointment 1 appl ophthalmic (eye) QID Jardiance 10 mg tablet 10 mg PO DAILY clotrimazole 1 % Cream 1 appl topical BID Qty: 1 0RF Protocol: Apply to: Apply to: Affected area cefuroxime axetil 500 mg Tablet 500 mg PO Q12H Qty: 10 0RF prednisone 20 mg tablet 40 mg PO DAILY Qty: 8 0RF Robitussin Cold-Flu Night (PE) 12.5-5-325 mg/10 mL liquid 10 ml PO Q6H PRN (Reason: cough) Qty: 118 0RF Interventions: ED Discharge Assessment Last Done: 07/07/25 15:30 Discharge Date/Time: 07/07/25 15:31 Print Language: Czech
--- OUTSIDE RECORDS SUMMARY | 2025-07-07 14:18 | XMS_ITS | Encounter Summary ---
Author Organization [facility] Address [address] [facility] [place] [address] Care Team Providers Care Rand Butting Machine Operator Name Role Phone Name, Pablo RIVAS Primary Care Provider Unavailabl e Alysa De Santiago MD Primary Care Provider [phone] Gina Mathew MD Primary Care Provider Un available ReeceRadha MD Primary Care Provider Unavailab Amira Tucker MD Primary Care Provider Lindsey Haywood MD Primary Care Prov ider Claribel Melendez MD Unavailable Unavailable Savanah Marshall MD Unavailable Raciel Rogers Unavailable Unavailabl e Reason for Visit * Reason Onset Date Comments refill request 09/25/2015 Encounter Details Date Type Department Care Team Description 09/25/2015 Refill Adult Medicine [address] [id number] Alysa De Santiago MD [address] [place] [address] [phone] refill request Social History Tobacco Use Types Packs/Day Years Used Date Smoking Tobacco: Never Smokeless Tobacco: Never Alcohol Use Standard Drinks/Week Comments No 0 (1 standard drink = 0.6 oz pur e alcohol) Sex Assigned at Date Recorded Not on file Job Start Date Occupation Industry Not on file Not on file Not on file documented as of this encounter Plan of Treatment Not on file documented as of this encounter Visit Diagnoses Not on filedocumented in this encounter Care Teams Rand Butting Machine Operator Relationship Specialty Start Date End Date Name, MD Pablo PCP - General Internal Medicine 09/13/15 12/10/15 Alysa De Santiago MD [address] [place] [address] PCP - General Internal Medicine 12/11/15 01/07/17 Gina Mathew MD [address] [place], [place] [phone] PCP - General Internal Medicine 01/08/17 05/02/21 Radha Newell MD [address] [place] [address] PCP - General Internal Medicine 05/03/21 10/23/21 Amira Curtis MD [address] [place], [place] [phone] PCP - General Internal Medicine 10/24/21 06/09/22 Lindsey Lucas MD [address] [place] [address] PCP - General Internal Medicine 06/10/22 Claribel Melendez MD [address] [place] [address] Specialist Dermatology 06/04/23 Savanah Marshall MD [address] [place] [address] [place] [address] Specialist UROGYNECOLOGY 12/09/23 Raciel Rogers [address] [place] [address] [place] [phone] Specialist Ophthalmology 08/30/24 documented as of this encounter
--- OUTSIDE RECORDS SUMMARY | 2025-07-07 14:18 | XMS_ITS | Encounter Summary ---
Author Organization [facility] Address [address] [place] [address] Care Team Providers Care Miller Supervisor Name Role Phone Gina Mathew MD Primary Care Provider Un available Radha Newell MD Primary Care Provider Unavailab Amira Tucker MD Primary Care Provider Lindsey Haywood MD Primary Care Prov ider Claribel Melendez MD Unavailable Unavailable Savanah Marshall MD Unavailable Raciel Rogers Unavailable Unavailabl e Encounter Details Date Type Department Care Team Description 05/02/2019 Telephone Adult Urgent Care - [address] [id number] Gina Mathew MD Social History Tobacco Use Types Packs/Day Years Used Date Smoking Tobacco: Never Smokeless Tobacco: Never Alcohol Use Standard Drinks/Week Comments No 0 (1 standard drink = 0.6 oz pur e alcohol) Sex Assigned at Date Recorded Not on file Job Start Date Occupation Industry Not on file Not on file Not on file documented as of this encounter Miscellaneous Notes * Telephone Encounter - Elroy Wood L.P.N. - 05/02/2019 3:51 PM EDT [facility] called BS 572 [facility] states on Novolog Not on med list Advised she go to Er documented in this encounter Plan of Treatment Not on file documented as of this encounter Visit Diagnoses Not on filedocumented in this encounter Care Teams Miller Supervisor Relationship Specialty Start Date End Date Gina Mathew MD PCP - General Internal Medicine 01/08/17 Radha Newell MD PCP - General Internal Medicine 05/03/21 10/23/21 Amira Curtis MD PCP - General Internal Medicine 10/24/21 06/09/22 Lindsey Lucas MD [address] [place] [address] PCP - General Internal Medicine 06/10/22 Claribel Melendez MD [address] [place] [phone] Specialist Dermatology 06/04/23 Savanah Marshall MD [address] [place] [address] [place] [address] Specialist UROGYNECOLOGY 12/09/23 Raciel Rogers [address] [place] [address] [place] [address] Specialist Ophthalmology 08/30/24 documented as of this encounter
--- OUTSIDE RECORDS SUMMARY | 2025-07-07 14:18 | XMS_ITS | Encounter Summary ---
Author Organization [employer] [facility] Address [address] [place] [address] Care Team Providers Care Cashier Tube Room Name Role Phone Gina Mathew MD Primary Care Provider Un available Radha Newell MD Primary Care Provider Unavailab Amira Tucker MD Primary Care Provider Lindsey Haywood MD Primary Care Prov ider Claribel Melendez MD Unavailable Unavailable Savanah Marshall MD Unavailable Raciel Rogers Unavailable Unavailabl e Encounter Details Date Type Department Care Team Description 09/29/2017 Plug Machine Operator Report Medical Records [address] [place] [address] Efrain Andujar MD Social History Tobacco Use Types Packs/Day [...] on filedocumented in this encounter Care Teams Cashier Tube Room Relationship Specialty Start Date End Date Gina Mathew MD PCP - General Internal Medicine 01/08/17 Radha Newell MD PCP - General Internal Medicine 05/03/21 10/23/21 Amira Curtis MD PCP - General Internal Medicine 10/24/21 06/09/22 Lindsey Lucas MD [address] [place] [id number] PCP - General Internal Medicine 06/10/22 Claribel Melendez MD [address] [place] [phone] Specialist Dermatology 06/04/23 Savanah Marshall MD [address] [place] [address] [place] [address] Specialist UROGYNECOLOGY 12/09/23 Raciel Rogers [address] [place] [address] [place] [address] Specialist Ophthalmology 08/30/24 documented as of this encounter
--- OUTSIDE RECORDS SUMMARY | 2025-07-07 14:18 | XMS_ITS | Encounter Summary ---
Author Organization [facility] Address [address] [place] [address] Care Team Providers Care Vinyl Flooring Installer Name Role Phone Lindsey Lucas MD Primary Care Prov ider Claribel Melendez MD Unavailable Unavailable Savanah Marshall MD Unavailable Raciel Rogers Unavailable Unavailabl e Encounter Details Date Type Department Care Team Description 06/14/2022 Hospital Medical Records [address] [place] [address] Billy Modi MD Social History Tobacco Use Types Packs/Day [...] on filedocumented in this encounter Care Teams Vinyl Flooring Installer Relationship Specialty Start Date End Date Lindsey Lucas MD [address] [place] [address] [phone] PCP - General Internal Medicine 06/10/22 Claribel Melendez MD [address] [place] [address] Specialist Dermatology 06/04/23 Savanah Marshall MD [address] [place] [address] [place] [address] Specialist UROGYNECOLOGY 12/09/23 Raciel Rogers [address] [facility] [place] [address] Specialist Ophthalmology 08/30/24 documented as of this encounter
--- OUTSIDE RECORDS SUMMARY | 2025-07-07 14:18 | XMS_ITS | Encounter Summary ---
Author Organization [facility] Address [address] [place] [address] Care Team Providers Care Manager Business Systems Name Role Phone Community, Pcp Primary Care Provider UnavailVinh Randolph MD Primary Care Provider [phone] Name, Pablo RIVAS Primary Care Provider Unavailabl e Name, Pablo RIVAS Primary Care Provider Unavailabl Alysa Amato MD Primary Care Provider Gina Mathew MD Primary Care Provider Un available Radha Newell MD Primary Care Provider Unavailab Amira Tucker MD Primary Care Provider Lindsey Haywood MD Primary Care Prov ider Claribel Melendez MD Unavailable Unavailable Savanah Marshall MD Unavailable Raciel Rogers Unavailable Unavailabl e Encounter Details Date Type Department Care Team Description 11/19/2005 Hospital Medical Records [address] [place] [address] Abstract, Provider Social History Tobacco Use Types Packs/Day Years [...] on filedocumented in this encounter Care Teams Manager Business Systems Relationship Specialty Start Date End Date Community, Pcp PCP - General Internal Medicine 08/09/05 08/19/13 Vinh Lawrence MD [address] [place] [address] PCP - General Internal Medicine 08/20/13 06/06/15 Pablo Penaloza MD [address] [place] [address] PCP - General Internal Medicine 06/07/15 09/12/15 Pablo Penaloza MD [address] [place] [address] PCP - General Internal Medicine 09/13/15 12/10/15 Alysa De Santiago MD [address] [place] [address] PCP - General Internal Medicine 12/11/15 01/07/17 Gina Mathew MD [address] [place] [address] PCP - General Internal Medicine 01/08/17 05/02/21 Radha Newell MD [address] [place] [address] PCP - General Internal Medicine 05/03/21 10/23/21 Amira Curtis MD [address] [place] [address] PCP - General Internal Medicine 10/24/21 06/09/22 Lindsey Lucas MD [address] [place] [address] PCP - General Internal Medicine 06/10/22 Claribel Melendez MD [address] [place] [address] Specialist Dermatology 06/04/23 Savanah Marshall MD [address] [place] [address] [place] [address] Specialist UROGYNECOLOGY 12/09/23 Raciel Rogers [address] [place] [address] [place] [address] Specialist Ophthalmology 08/30/24 documented as of this encounter
--- OUTSIDE RECORDS SUMMARY | 2025-07-07 14:18 | XMS_ITS | Patient Health Record ---
Author Organization [facility] Address [address] [place] [id number] Care Team Providers Care Change Management Specialist Name Role Phone Varun Shore Unavailable [phone] Reason For Referral No Information Plan Of Treatment No Information
--- OUTSIDE RECORDS SUMMARY | 2025-07-07 14:18 | XMS_ITS | Encounter Summary ---
Author Organization [facility] Address [address] [place] [address] Care Team Providers Care Machine Stone Polisher Apprentice Name Role Phone Gina Mathew MD Primary Care Provider Un available Radha Newell MD Primary Care Provider Unavailab Amira Tucker MD Primary Care Provider Lindsey Hawyood MD Primary Care Prov ider Claribel Melendez MD Unavailable Unavailable Savanah Marshall MD Unavailable Raciel Rogers Unavailable Unavailabl e Encounter Details Date Type Department Care Team Description 08/27/2017 Graphic Illustrator Report Medical Records [address] [place] [address] Hortencia Staton, ENOC Social History Tobacco Use Types Packs/Day Years [...] on filedocumented in this encounter Care Teams Machine Stone Polisher Apprentice Relationship Specialty Start Date End Date Gina Mathew MD PCP - General Internal Medicine 01/08/17 Radha Newell MD PCP - General Internal Medicine 05/03/21 10/23/21 Amira Curtis MD PCP - General Internal Medicine 10/24/21 06/09/22 Lindsey Lucas MD [address] [place] [address] PCP - General Internal Medicine 06/10/22 Claribel Melendez MD [address] [place] [address] Specialist Dermatology 06/04/23 Savanah Marshall MD [address] [place] [address] [place] [address] Specialist UROGYNECOLOGY 12/09/23 Raciel Rogers [address] [place] [address] [place] [address] Specialist Ophthalmology 08/30/24 documented as of this encounter
--- OUTSIDE RECORDS SUMMARY | 2025-07-07 14:18 | XMS_ITS | Encounter Summary ---
Author Organization [facility] Address [address] [place] [address] Care Team Providers Care Cashiers Bussers Food Runners Name Role Phone Community, Pcp Primary Care Provider UnavailVinh Randolph MD Primary Care Provider [phone] Name, Pablo RIVAS Primary Care Provider Unavailabl e Name, Pablo RIVAS Primary Care Provider Unavailabl Alysa Amato MD Primary Care Provider Gina Mathew MD Primary Care Provider Un available Radha Newell MD Primary Care Provider Unavailab Amira Tucker MD Primary Care Provider Lindsey Haywodo MD Primary Care Prov ider Claribel Melendez MD Unavailable Unavailable Savanah Marshall MD Unavailable Raciel Rogers Unavailable Unavailabl e Encounter Details Date Type Department Care Team Description 07/07/2013 Concession Worker Report Medical Records [address] [place] [address] Gabriela Fernando MD Social History Tobacco Use Types Packs/Day Years Used Date Smoking Tobacco: Former Alcohol Use Standard Drinks/Week Comments No 0 [...] on filedocumented in this encounter Care Teams Cashiers Bussers Food Runners Relationship Specialty Start Date End Date Community, [facility] PCP - General Internal Medicine 08/09/05 08/19/13 Vinh Lawrence MD [address] [place] [address] PCP - General Internal Medicine 08/20/13 06/06/15 Pablo Penaloza MD [address] [place] [address] PCP - General Internal Medicine 06/07/15 09/12/15 Pablo Penaloza MD [address] [place] [address] PCP - General Internal Medicine 09/13/15 12/10/15 Alysa De Santiago MD [address] [place] [address] PCP - General Internal Medicine 12/11/15 01/07/17 Gina Mathew MD [address] [place] [address] PCP - General Internal Medicine 01/08/17 05/02/21 Radha Newell MD [address] [place] [address] PCP - General Internal Medicine 05/03/21 10/23/21 Amira Curtis MD [address] [place] [address] PCP - General Internal Medicine 10/24/21 06/09/22 Lindsey Lucas MD [address] [place] [address] PCP - General Internal Medicine 06/10/22 Claribel Melendez MD [address] [place] [address] Specialist Dermatology 06/04/23 Savanah Marshall MD [address] [place] [address] [place] [address] Specialist UROGYNECOLOGY 12/09/23 Raciel Rogers [address] [place] [address] [place] [address] Specialist Ophthalmology 08/30/24 documented as of this encounter
--- OUTSIDE RECORDS SUMMARY | 2025-07-07 14:18 | XMS_ITS | Encounter Summary ---
Author Organization [facility] Address [address] [place] [address] Care Team Providers Care Nailing Machine Feeder Name Role Phone Gina Mathew MD Primary Care Provider Un available Radha Newell MD Primary Care Provider Unavailab Amira Tucker MD Primary Care Provider Lindsey Haywood MD Primary Care Prov ider Claribel Melendez MD Unavailable Unavailable Savanah Marshall MD Unavailable Raciel Rogers Unavailable Unavailabl e Encounter Details Date Type Department Care Team Description 07/18/2017 Automobile Washer Steam Report Medical Records [address] [place] [address] Efrain Andujar MD Social History Tobacco Use [...] on filedocumented in this encounter Care Teams Nailing Machine Feeder Relationship Specialty Start Date End Date Gina Mathew MD PCP - General Internal Medicine 01/08/17 Radha Newell MD PCP - General Internal Medicine 05/03/21 10/23/21 Amira Curtis MD PCP - General Internal Medicine 10/24/21 06/09/22 Lindsey Lucas MD [address] [place] [address] PCP - General Internal Medicine 06/10/22 Claribel Melendez MD [address] [place] [address] Specialist Dermatology 06/04/23 Savanah Marshall MD [address] [place] [address] [place] [address] Specialist UROGYNECOLOGY 12/09/23 Raciel Rogers [address] [place] [address] [place] [address] Specialist Ophthalmology 08/30/24 documented as of this encounter
--- OUTSIDE RECORDS SUMMARY | 2025-07-07 14:18 | XMS_ITS | Encounter Summary ---
Author Organization [facility] Address [address] [facility] [place] [address] Care Team Providers Care Graduate Rn Name Role Phone Alysa De Santiago MD Primary Care Provider [phone] Gina Mathew MD Primary Care Provider Un available Radha Newell MD Primary Care Provider Unavailab Amira Tucker MD Primary Care Provider Lindsey Haywood MD Primary Care Prov ider Claribel Melendez MD Unavailable Unavailable Savanah Marshall MD Unavailable Raciel Rogers Unavailable Unavailabl e Encounter Details Date Type Department Care Team Description 03/08/2016 Release of Information Medical Records [address] [place] [address] Abstract, Provider Social History Tobacco Use Types [...] on filedocumented in this encounter Care Teams Graduate Rn Relationship Specialty Start Date End Date Alysa De Santiago MD [address] [place] [address] PCP - General Internal Medicine 12/11/15 01/07/17 Gina Mathew MD [address] [place] [address] PCP - General Internal Medicine 01/08/17 05/02/21 Radha Newell MD [address] [place] [address] PCP - General Internal Medicine 05/03/21 10/23/21 Amira Curtis MD [address] [place] [address] PCP - General Internal Medicine 10/24/21 06/09/22 Lindsey Lucas MD [address] [place] [address] PCP - General Internal Medicine 06/10/22 Claribel Melendez MD [address] [place] [address] Specialist Dermatology 06/04/23 Savanah Marshall MD [address] [place] [address] [place] [address] Specialist UROGYNECOLOGY 12/09/23 Raciel Rogers [address] [place] [address] [place] [address] Specialist Ophthalmology 08/30/24 documented as of this encounter
--- OUTSIDE RECORDS SUMMARY | 2025-07-07 14:18 | XMS_ITS | Encounter Summary ---
Author Organization [facility] Address [address] [place] [address] Care Team Providers Care Steeple Jack Name Role Phone Gina Mathew MD Primary Care Provider Un available Radha Newell MD Primary Care Provider Unavailab Amira Tucker MD Primary Care Provider Lindsey Haywood MD Primary Care Prov ider Claribel Melendez MD Unavailable Unavailable Savanah Marshall MD Unavailable Raciel Rogers Unavailable Unavailabl e Encounter Details Date Type Department Care Team Description 09/19/[address] [address] Gina Mathew MD Social History Tobacco Use [...] on filedocumented in this encounter Care Teams Steeple Jack Relationship Specialty Start Date End Date Gina Mathew MD PCP - General Internal Medicine 01/08/17 Radha Newell MD PCP - General Internal Medicine 05/03/21 10/23/21 Amira Curtis MD PCP - General Internal Medicine 10/24/21 06/09/22 Lindsey Lucas MD [address] [place] [address] PCP - General Internal Medicine 06/10/22 Claribel Melendez MD [address] [place] [address] Specialist Dermatology 06/04/23 Savanah Marshall MD [address] [place] [address] [place] [address] Specialist UROGYNECOLOGY 12/09/23 Raciel Rogers [address] [place] [address] [place] [address] Specialist Ophthalmology 08/30/24 documented as of this encounter
--- OUTSIDE RECORDS SUMMARY | 2025-07-07 14:18 | XMS_ITS | Encounter Summary ---
Author Organization [facility] Address [address] [facility] [place] [address] Care Team Providers Care National Accounts Recruiter Name Role Phone Alysa De Santiago MD Primary Care Provider [phone] Gina Mathew MD Primary Care Provider Un available Radha Newell MD Primary Care Provider Unavailab Amira Tucker MD Primary Care Provider Lindsey Haywood MD Primary Care Prov ider Claribel Melendez MD Unavailable Unavailable Savanah Marshall MD Unavailable Raciel Rogers Unavailable Unavailabl e Reason for Visit * Reason Onset Date Comments medication problems 11/28/2016 Encounter Details Date Type Department Care Team Description 11/28/2016 Telephone Adult Medicine [address] [phone] Alysa De Santiago MD [address] [place] [address] [phone] medication problems Social History Tobacco Use Types Packs/Day Years [...] encounter Miscellaneous Notes * Telephone Encounter - Beba Carter C.M.A. - 11/28/2016 3:56 PM EST New RX faxed. * Telephone Encounter - Alysa De Santiago MD - 11/28/2016 3:52 PM EST Her last number of refills for this medication have stated to be used daily; ok with me if sig says1 puff 4 times daily as needed * Telephone Encounter - Beba Carter C.M.A. - 11/28/2016 3:[address] De Santiago please verify instructions please. * Telephone Encounter - Abigail Mack - 11/28/2016 3:41 PM EST What is the name of the medication patient is having a problem with?:combivent respimat What is the problem?: verify directions. Normally 4x daily, written as 1 x daily Is the patient calling about the problem? NO If the patient is not the caller who is? phcy Is this a NEW medication?: YES How long has the patient been taking this medication? Who prescribed this medication for the patient? Dr De Santiago Who is patients PCP?: same Payor: [facility] MCR / Plan: O $0 [facility] [id number] / Product Type: HMO [id number] documented in this encounter Plan of Treatment Not on file documented as of this encounter Visit Diagnoses Not on filedocumented in this encounter Care Teams National Accounts Recruiter Relationship Specialty Start Date End Date Alysa De Santiago MD [address] [place] [address] PCP - General Internal Medicine 12/11/15 01/07/17 Gina Mathew MD [address] [place] [address] PCP - General Internal Medicine 01/08/17 05/02/21 Radha Newell MD [address] [place] [address] PCP - General Internal Medicine 05/03/21 10/23/21 Amira Curtsi MD [address] [place] [address] PCP - General Internal Medicine 10/24/21 06/09/22 Lindsey Lucas MD [address] [place] [address] PCP - General Internal Medicine 06/10/22 Claribel Melendez MD [address] [place], [place] [phone] Specialist Dermatology 06/04/23 Savanah Marshall MD [address] [place] [address] [place] [address] Specialist UROGYNECOLOGY 12/09/23 Raciel Rogers [address] [place] [address] [place] [address] Specialist Ophthalmology 08/30/24 documented as of this encounter
--- OUTSIDE RECORDS SUMMARY | 2025-07-07 14:18 | XMS_ITS | Encounter Summary ---
Author Organization [facility] Address [address] [place] [address] Care Team Providers Care Legal Operations Manager Name Role Phone Gina Mathew MD Primary Care Provider Un available Radha Newell MD Primary Care Provider Unavailab Amira Tucker MD Primary Care Provider Lindsey Haywood MD Primary Care Prov ider Claribel Melendez MD Unavailable Unavailable Savanah Marshall MD Unavailable Raciel Rogers Unavailable Unavailabl e Encounter Details Date Type Department Care Team Description 07/18/2017 Director Of Enterprise Strategy Report Medical Records [address] [place] [address] Efrain Andujar MD Social History Tobacco Use [...] on filedocumented in this encounter Care Teams Legal Operations Manager Relationship Specialty Start Date End Date Gina Mathew MD PCP - General Internal Medicine 01/08/17 Radha Newell MD PCP - General Internal Medicine 05/03/21 10/23/21 Amira Curtis MD PCP - General Internal Medicine 10/24/21 06/09/22 Lindsey Lucas MD [address] [place] [address] PCP - General Internal Medicine 06/10/22 Claribel Melendez MD [address] [place] [address] Specialist Dermatology 06/04/23 Savanah Marshall MD [address] [place] [address] [place] [address] Specialist UROGYNECOLOGY 12/09/23 Raciel Rogers [address] [place] [address] [place] [address] Specialist Ophthalmology 08/30/24 documented as of this encounter
--- OUTSIDE RECORDS SUMMARY | 2025-07-07 14:18 | XMS_ITS | Clinical Summary ---
Author Organization [facility] [address] [facility] [place] [address] [place] [address] Phone Care Team Providers Care [employer] Name Role Phone Lindsey Mathews MD Primary Care Prov ider Allergies Active Allergy Reactions Criticality Noted Date Comments Amoxicillin Medium 09/13/2022 Other Reaction(s): Hives/Urticaria Amoxicillin-Pot Clavulanate Hives 12/15/2024 Azithromycin Itching,Hives Medium 06/29/2021 Cephalexin 12/18/2023 Other Reaction(s): OTHER Vaginal burning and abdominal pains Ciprofloxacin Medium 09/13/2022 Other Reaction(s): Hives/Urticaria Doxycycline Itching Medium 06/29/2021 Metronidazole Itching Medium 06/29/2021 Oxycodone-Acetaminophen Nausea And Vomiting 10/2006 Medications neomycin-polymy nupur-dexamethame thasone (POLYDEX) 3.5 mg/g-10,000 unit/g-0.1 % ointment APPLY TO LIDS TWICE DAILY 02/02/20 24 Active acetaminophen (TYLENOL 8 HOUR) 650 mg 8 hr tablet Take 1 Tablet by mouth every 8 hours as needed for Pain. 02/29/20 23 Active ALBUTEROL INHL Inhale into the lungs. Active blood-glucose meter kit USE TO TEST BS TWICE DAILY 08/29/20 21 Active FREESTYLE LANCETS MISC USE TO TEST BLOOD SUGAR TWICE DAILY 03/05/20 24 Active simvastatin (ZOCOR) 10 mg tablet TAKE 1 TABLET BY MOUTH AT BEDTIME 90 tablet 1 02/04/20 25 Active tiotropium (Spiriva Respimat) 2.5 mcg/actuation inhalation sprayIndication s:Chronic obstructive pulmonary disease with acute exacerbation (CMS/[facility] V24, CMS/[facility] V28) Inhale 2 puffs by mouth 1 (one) time each day. 1 each 12/15/19 25 2025 Active fluticasone propion-salmete roL (ADVAIR HFA) 230-21 mcg/actuation inhalerIndicati ons:Chronic obstructive pulmonary disease with acute exacerbation (CMS/HCC V24, CMS/HCC V28) Inhale 2 puffs by mouth 2 (two) times a day. Rinse mouth with water after use to reduce aftertaste and incidence of candidiasis. Do not swallow. 1 each 12/15/192025 Active ipratropium-alb uteroL (DUONEB) 0.5-2.5 mg/3 mL nebulizer solutionIndicat ions:Chronic obstructive pulmonary disease with acute exacerbation (CMS/[facility] V24, CMS/[facility] V28) Take 3 mL by nebulization every 6 (six) hours. 360 mL 12/15/192025 Active ipratropium-alb uteroL (DUONEB) 0.5-2.5 mg/3 mL nebulizer solution Take 3 mL by nebulization every 6 (six) hours if needed for wheezing. 360 mL 12/15/192025 Active multivitamin with minerals tablet Take 1 tablet by mouth 1 (one) time each day. Active cetirizine (ZyrTEC) 10 mg tablet Take 1 tablet (10 mg total) by mouth 1 (one) time each day. 30 each 12/31/19 25 Active ketoconazole 1 % shampoo Shampoo daily, leave on for 5-10 minutes, then rinse. 120 mL 12/31/19 25 2025 Active empagliflozin (JARDIANCE) 25 mg tablet Take 1 tablet (25 mg total) by mouth 1 (one) time each day in the morning. 90 tablet 12/31/19 25 2025 Active Januvia 100 mg tablet TAKE 1 TABLET BY MOUTH DAILY 90 tablet 01/14/20 25 Active umeclidinium (Incruse Ellipta) 62.5 mcg/actuation inhalation Inhale 1 puff by mouth 1 (one) time each day. 3 each 01/19/20 25 2025 Active lisinopril (PRINIVIL,ZESTR IL) 40 mg tablet TAKE 1 TABLET BY MOUTH DAILY 90 tablet 1 03/14/20 25 Active FreeStyle Lancets 28 gauge lancets USE TO TEST BLOOD GLUCOSE TWICE DAILY 200 each 1 03/17/20 25 Active mometasone (ELOCON) 0.1 % ointment Apply a thin layer nightly 30 g 1 03/31/20 25 Active nystatin (MYCOSTATIN) ointment Apply a thin layer to the affected area every morning 30 g 03/31/20 25 Active fluticasone furoate-vilante roL (Breo Ellipta) 200-25 mcg/dose inhaler Inhale 1 puff by mouth 1 (one) time each day. 3 each 3 04/12/20 25 2025 Active amLODIPine (NORVASC) 5 mg tablet Take 1 tablet (5 mg total) by mouth 1 (one) time each day for 7 days. 7 each 05/06/20 25 Active fluticasone furoate-vilante roL (Breo Ellipta) 200-25 mcg/dose inhaler Inhale 1 puff by mouth 1 (one) time each day. 1 each 05/27/20 25 2025 Active methenamine hippurate (HIPREX) 1 gram tablet Take 1 tablet (1 g total) by mouth 2 (two) times a day with meals. 180 tablet 05/31/20 25 Active estradioL (ESTRACE) 0.01 % (0.1 mg/gram) vaginal cream Insert 0.5 g into the vagina 1 (one) time each day. Please place 0.5g (a pea-sized amount) on your finger and place inside the vagina twice a week at night 42.5 g 05/31/20 25 Active blood sugar diagnostic (FreeStyle Lite Strips) test strip USE TO TEST BLOOD SUGAR TWICE DAILY 200 strip 1 06/13/20 25 Active blood sugar diagnostic (FreeStyle Lite Strips) test strip USE TO TEST BLOOD GLUCOSE TWICE DAILY 200 strip 1 01/14/20 25 2024 Discontinued Active Problems Problem Noted Date Diagnosed Date Subacute cough 05/05/2025 Assessment & Plan (05/05/2025 2:22 PM EDT): Patient complains of 2 months of dry cough, no fever, chills or sob. Some wheezings on left lung. Will order CXR. Orders: XR Chest 2 Views; Future Cutaneous candidiasis 01/31/2025 Assessment & Plan (03/31/2025 1:18 PM EDT): Resolved. Continue nystatin QAM for prevention while using topical steroid in the setting of DM 2. Assessment & Plan (01/31/2025 1:36 PM EDT): Will treat with oral fluconazole and daily nystatin in the AM to prevent moving forward. Yeast culture sent to confirm species. May not have yield as on skin, not in vagina. Explained that she needs to continue to work on sugars as best she can to prevent recurrence. 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 She agreed. Lichen sclerosus et atrophicus 11/26/2024 Assessment & Plan (03/31/2025 1:19 PM EDT): Reviewed findings with patient. I reviewed the importance of regular maintenance topical steroid use to prevent symptoms, further scarring, and squamous cell cancer of the vulva. I also explained the importance of regular follow up to ensure she has no evidence of precancerous or cancerous changes and that she is not having side effects from her medication. I reviewed areas of application and amount of medication to use. She will restart mometasone nightly and continue coconut oil throughout the day. She will return either here, or at my new practice in 3-6 months. If here, she would like to see Merly. Assessment & Plan (01/31/2025 1:35 PM EDT): Reviewed findings with patient. Seemingly well controlled, but with superimposed cutaneous candidiasis. I reviewed the importance of regular maintenance topical steroid use to prevent symptoms, further scarring, and squamous cell cancer of the vulva. I also explained the importance of regular follow up to ensure she has no evidence of precancerous or cancerous changes and that she is not having side effects from her medication. I reviewed areas of application and amount of medication to use. Assessment & Plan (12/23/2024 1:50 PM EST): Reviewed findings with patient. Significantly improved. I recommended she continue her steroid at night. Coconut oil in the AM. I reviewed the importance of regular maintenance topical steroid use to prevent symptoms, further scarring, and squamous cell cancer of the vulva. I also explained the importance of regular follow up to ensure she has no evidence of precancerous or cancerous changes and that she is not having side effects from her medication. I reviewed areas of application and amount of medication to use. Assessment & Plan (11/26/2024 10:19 AM EST): Reviewed findings with patient. I counseled her that findings are consistent with lichen sclerosus. I explained this is likely an autoimmune inflammatory condition and that the mainstay of therapy is use of maintenance topical steroid. I explained that women with lichen sclerosus are at about a 5 fold increased risk of SCC over the general population. Explained that the purpose of the steroid is to prevent symptoms, further scarring, and squamous cell cancer of the vulva. I also explained the importance of regular follow up to ensure she has no evidence of precancerous or cancerous changes and that she is not having side effects from her medication. I reviewed areas of application and amount of medication to use. She voiced understanding. She was given [facility] information re: LS today and will call with any questions. She will start Mycolog. 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 A1C: 7.5, improving. Will continue Angiotensin Converting Enzyme Inhibitor for renal protection, continue Januvia, and Jardiance to 25mg day. We will check a hemoglobin A1C today. Assessment & Plan (12/31/2024 1:46 PM EST): Fair control of diabetes. A1C: 7.9. Will continue Angiotensin Converting Enzyme Inhibitor for renal protection, continue Januvia, will increase Jardiance to 25mg day. We will check a hemoglobin A1C before her next visit. Orders: Hemoglobin A1c; Future Assessment & Plan (09/28/2024 1:15 PM EST): Poor control of diabetes. A1C: 8.9. Will continue Angiotensin Converting Enzyme Inhibitor for renal protection, continue Januvia, will add Jardiance. There is a note in the chart about allergy to the medications, but she denies having any skin reaction to a DM medication. Will try cautiously, she is recommended to be alert to any reaction and contact me. Benefits and possible side effects were discussed. We will check a hemoglobin A1c, electrolytes, BUN, creatinine before her next visit. Orders: empagliflozin (JARDIANCE) 10 mg tablet; Take 1 tablet (10 mg total) by mouth 1 (one) time each day in the morning. Comprehensive metabolic panel; Future Hemoglobin A1c; Future Lipid panel with reflex to direct LDL; Future Breast cancer ([facility] V24, [facility] V28) 013 Assessment & Plan (05/05/2025 2:22 PM EDT): CAD (coronary artery disease) 10/15/2012 Chest pain, unspecified 10/15/2012 Overview (09/01/2024): S/p echo 10/19 negative for ischemia, normal left ventricular EF at 65-70%, no wall motion abnormalities no significant valvular disease. 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 Essential hypertension, benign 03/07/2006 Assessment & Plan (05/05/2025 2:22 PM EDT): The patient's antihypertensive regimen is based on their underlying medical issues. Currently on Lisinopril. Patient is asymptomatic. The patient is instructed to follow a low sodium diet and to follow up in 4 months. Assessment & Plan (12/31/2024 1:46 PM EST): The patient's antihypertensive regimen is based on their underlying medical issues. Currently on Lisinopril. Patient is asymptomatic. The patient is instructed to follow a low sodium diet and to follow up in 3 months. Assessment & Plan (09/28/2024 1:15 PM EST): The patient's antihypertensive regimen is based on their underlying medical issues. Currently on Lisinopril, BP initially elevated but rechecked with normal numbers. Patient is asymptomatic. The patient is instructed to check her BP at home, follow a low sodium diet and to follow up in 3 months. Orders: Comprehensive metabolic panel; Future Pure hypercholesterolemia 03/07/2006 Assessment & Plan (05/05/2025 2:22 PM EDT): Given the patients cardiac risk profile, the patient requires an LDL cholesterol of less than 70. Last LDL was in range. Will continue Simvastatin. I have instructed the patient on the principles of a low cholesterol diet and the importance of regular exercise. We will check a cholesterol profile and liver function tests before her next visit. Assessment & Plan (12/31/2024 1:46 PM EST): Given the patients cardiac risk profile, the patient requires an LDL cholesterol of less than 70. Last LDL was 69. Will continue Simvastatin. I have instructed the patient on the principles of a low cholesterol diet and the importance of regular exercise. We will check a cholesterol profile and liver function tests before her next visit. Assessment & Plan (09/28/2024 1:15 PM EST): Given the patients cardiac risk profile, the patient requires an LDL cholesterol of less than 70. Last LDL was 122, she admits not taking her Simvastatin regularly and taking a natural medication instead. She restarted Simvastatin around one month ago. I have instructed the patient on the principles of a low cholesterol diet and the importance of regular exercise. We will check a cholesterol profile and liver function tests before her next visit. Orders: Lipid panel with reflex to direct LDL; Future Resolved Problems Problem Noted Date Diagnosed Date Resolved Date Cutaneous candidiasis 11/26/20242024 Assessment & Plan (11/26/2024 10:19 AM EST): I explained this is likely superimposed. We will treat orally and also topically in the steroid. I explained this is not likely to stop or will likely continue to recur until her sugars are better controlled. She is aware and is working on it. Vulvar itching 11/26/2024 12/23/2024 Assessment & Plan (11/26/2024 10:18 AM EST): I offered a sedative to avoid scratching in the night, but she did not feel she needed it. I encouraged her to use coconut oil or cool pack for a few minutes for comfort. Follow VSC guidelines. Soak and seal. Stop soap on the vulva. Encounters Date Type Department Care Team Description 05/31/2025 1:45 PM EDT Office Visit Urogynecology [address] [phone] Savanah Marshall MD Recurrent UTI (Primary Dx); Vulvar pruritus; History of urinary retention [facility] [address] [place] [address] Francisca Mathew MD 05/05/2025 2:16 PM EDT - 05/05/2025 11:59 PM EDT Hospital Encounter XRAY [address] [phone] Subacute cough Discharge Disposition: Home or Self Care 05/05/2025 1:15 PM EDT Office Visit [facility] - [address] [phone] Lindsey Rojas MD Type 2 diabetes mellitus without complication, without long-term current use of insulin ([facility] V24, [facility] V28) (Primary Dx); Essential hypertension, benign; Pure hypercholesterolemia ; Subacute cough; Malignant neoplasm of female breast, unspecified estrogen receptor status, unspecified laterality, unspecified site of breast ([facility] V24, [facility] V28) 04/18/2025 8:43 AM EDT - 04/18/2025 11:59 PM EDT Hospital Encounter Radiology Department - [address] [phone] Thyroid nodule Discharge Disposition: Home or Self Care 04/12/2025 Telephone Pulmonolgy - [place] [address] [place] [address] Francisca Mathew MD from Last 3 Months Immunizations Name Administration Dates Next Due Influenza Split 08/06/2012 Influenza trivalent, 0.5mL ( Fluad) 65yo and older 10/07/2015 Influenza trivalent, 0.5mL, preservative free (Fluarix; FluLaval; Fluzone) ages 6mo and older (Afluria) 3 years and older 04/05/2014,08/06/2012 [employer] SARS-CoV-2 COVID-19, mRNA, LNP-S, preservative free 11/17/2021,10/21/2021 Pneumococcal conjugate 13 va lent (Prevnar 13, PCV13) 2mo and older 09/15/2017,12/21/2015 Pneumococcal polysaccharide 23 valent (Pneumovax 23) 2yo and older 08/19/2013,12/15/2007,12/15/2007 Tdap Tetanus diptheria acell ular pertussis (Boostrix; Adacel) 7yo and older 08/30/2024,08/19/2013,12/15/2007 Surgical History Surgery Date Site/Laterality Comments BREAST LUMPECTOMY PROCEDURE: HISTORICAL BREAST LUMPECTOMY OTHER SURGICAL HISTORY PROCEDURE: HISTORICAL COMPLETE BILATERAL MASTECTOMY; COMMENT: 07/2013 OTHER SURGICAL HISTORY PROCEDURE: HI EXCISION MALIGNANT LESION F/E/E/N/L 0.5 CM/<; COMMENT: multiple surgies aprox 28 OTHER SURGICAL HISTORY PROCEDURE: HI GRAFT BONE NASAL/MAXILLARY/MALAR AREAS; COMMENT: reconstuction 2nd to multiple facial surgies Medical History Medical History Date Comments Pure hypercholesterolemia 03/07/2006 DX:Pur e hypercholesterolemia Irritable bowel syndrome DX:Irri table bowel syndrome Unspecified asthma(493.90) 11/21/2005 DX:Un specified asthma(493.90) Malignant neoplasm of breast (female), unspecified site 1997 DX:Malignant neoplasm of br east (female), unspecified site; COMMENT: R: lumpectomy,1996; L: lumpectomy, RT,1997 Coronary atherosclerosis of unspecified type of vessel, atka or graft 10/15/2012 DX:Coronary atherosclerosis of unspecified type of vessel, atka or graft Breast cancer ([facility] V24, [facility] V28) DX:Breast cancer (HCC); COMM ENT: s/p b/l mastectomy Essential hypertension, benign D X:Essential hypertension, benign Asthma DX:Asthma Skin cancer DX:Skin cancer; COMMENT: 28 surgies during child barr not sure what type sounds like melenoma Diabetes mellitus type 2, uncontrolled 10/20/2013 DX:Diabetes mellitus type 2, uncontrolled CAD (coronary artery disease) DX :CAD (coronary artery disease); COMMENT: had cards eval at [place] 2014 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 DX:Malrota tion of kidney COPD (chronic obstructive pu lmonary disease) ([facility] V24, [facility] V28) 03/21/2017 DX:COPD (chronic o bstructive pulmonary disease) ([facility]) Diabetes mellitus, type 2 ([facility] [place] V24, [facility] V28) 10/20/2013 DX:Diabetes mellitus, type 2 (HCC) Anxiety 07/22/2017 DX:Anxiety Bilateral breast cancer ([facility] V24, [facility] V28) 08/20/2013 DX:Bilateral breast cancer ( HCC); COMMENT: S/p bilateral mastectomy and RT, on Femara, follows with Dr. Jiang Family History Medical History Relation Name Comments Diabetes Brother 1 Hypertension Brother 2 Lung cancer Father Other cancer Son lymphoma Relation Name Status Comments Brother 1 Brother 2 Father Son Social History Tobacco Use Types Packs/Day Years Used Date Smoking Tobacco: Never Smokeless Tobacco: Never Tobacco Cessation:Counseling Given: Not Answered Alcohol Use Standard Drinks/Week Comments No 0 (1 standard drink = 0.6 oz pur e alcohol) Housing Instability Answer Date Recorde d Are you worried that in the next 2 months you may not have stable housing? No 12/31/2024 Food Access & Nutrition Answer Date Rec orded Do you have access to a vari ety of food including fruits and vegetables? Yes 12/31/2024 Health Literacy Answer Date Recorded How often do you need to hav e someone help you when you read instructions, pamphlets, or other written material from your doctor or pharmacy? Never 12/31/2024 Caregiver: How often do you need to have someone help you when you read instructions, pamphlets, or other written material from your doctor or pharmacy? Not on file 12/31/2024 Financial Risk Answer Date Recorded How hard is it for you to pa y for the very basics like food, housing, medical care, and air conditioning / heating? Not very hard 12/31/2024 Transportation Answer Date Recorded Has the lack of transportati on kept you from meetings, work, or from getting things needed for daily living? No Has the lack of transportati on kept you from medical appointments or from getting medications? No 12/31/2024 Social Isolation Answer Date Recorded How often do you feel lonely or isolated from th ose around you? Never 12/31/2024 Food Risk Answer Date Recorded Within the past 12 months we worried whether our food would run out before we got money to buy more. Never true 12/31/2024 Within the past 12 months th e food we bought just didn't last and we didn't have money to get more. Never true 12/31/2024 Dependent Care Answer Date Recorded Do you need help finding or paying for care for your loved ones. For example, child welfare worker or elderly care for an older adult? No 12/31/2024 Education Answer Date Recorded Do you think completing more education or training, like finishing a GED, going to college, or learning a trade, would be helpful for you? No 12/31/2024 Employment and Income Answer Date Recor ded During the last four weeks, have you been actively looking for work? No 12/31/2024 Living Situation Answer Date Recorded What is your living situation? 0 12/31/2024 Comments No Sex and Gender Information Value Date Recorded Sex Assigned at Female 12/20/2024 4:27 PM EST Legal Sex Female 3:15 PM EST Gender Identity Female 12/20/2024 4:27 PM EST Sexual Orientation Straight 12/20/2024 4: 27 PM EST Obstetrics History Para Term AB IAB SAB Ectopic Multiple Livin g Live Births 3 3 0 0 0 0 0 0 Date Outcome GA Total Labor Labor/2nd/3rd Weight Sex Type Anes PTL Kristine A1 A5 Name Clin Para Para Para Last Filed Vital Signs Vital Sign Reading Time Taken Comments Blood Pressure 142/69 05/31/2025 1:53 PM EDT Pulse 91 05/31/2025 1:53 PM EDT Temperature 36.7 C (98 F) 05/05/2025 1:10 PM EDT Respiratory Rate 16 05/05/2025 1:10 PM EDT Oxygen Saturation 93% 01/18/2025 10:23 AM EDT Inhaled Oxygen Concentration - - Weight 56.7 kg (125 lb) 05/31/2025 1:53 PM EDT Height 157.5 cm (5' 2 ) 05/31/2025 1:53 PM EDT Body Mass Index 22.86 05/31/2025 1:53 PM EDT Plan of Treatment Upcoming Encounters Date Type Department Care Team (Late st Contact Info) Description 07/21/2025 1:15 PM EDT Office Visit Pulmon[address] [place] [phone] Francisca Mathew MD [address] [place] [address] 09/06/2025 1:15 PM EDT Office Visit Adult Medicine [address] [phone] Lindsey Mathews MD [address] [place] [phone] Health Maintenance Due Date Last Done Comments Zoster Vaccines (1 of 2) 1964 RSV Immunization Adult Patients (1 - 1-dose 75+ series) 2019 COVID-19 Vaccine (3 - Pfizer risk series) 12/15/2021 11/17/2021, 10/21/2021 Medicare Annual Wellness Visit 10/19/2022 Diabetes: Annual Retina Eye Exam 12/08/2024 12/08/2023 Diabetes: Annual Foot Exam 12/09/2024 12/09/2023 Influenza Vaccine (#1) 2025 5, 04/05/2014, 08/06/2012, Additional history exists Diabetes: Annual Urine Albumin-Creatinine Ratio (uACR) 08/30/2025 08/30/2024 Diabetes: Blood Sugar Control Test (HGBA1C) 10/01/2025 03/31/2025, 12/22/2024, 08/30/2024, Additional history exists Diabetes: Annual GFR (Glomerular Filtration Rate) 12/22/2025 12/22/2024, 04/30/2024, 04/30/2024 Hypertension/CHF/CAD Annual BMP Blood Test 12/22/2025 12/22/2024, 04/30/2024, 04/30/2024 Falls Risk Assessment 12/31/2025 12/31/2024 Social Influencers of Health Screening 12/31/2025 12/31/2024 Cholesterol Screening (Lipid Panel) 12/22/2029 12/22/2024, 04/30/2024, 04/30/2024 Osteoporosis Screening (Bone Density Screening) 11/20/2033 11/20/2023 DTaP,Tdap,and Td Vaccines (4 - Td or Tdap) 08/30/2034 08/30/2024, 08/19/2013, 12/15/2007 Pneumococcal Vaccine: 50+ Years Completed 09/15/2017, 12/21/2015, 08/19/2013, Additional history exists Depression Screening Completed 12/31/2024 HIB Vaccines Aged Out No longer eligi ble based on patient's age to complete this topic HPV Vaccines Aged Out No longer eligi ble based on patient's age to complete this topic Hepatitis A Vaccines Aged Out No long er eligible based on patient's age to complete this topic Hepatitis B Vaccines Aged Out No long er eligible based on patient's age to complete this topic IPV Vaccines Aged Out No longer eligi ble based on patient's age to complete this topic MMR Vaccines Aged Out No longer eligi ble based on patient's age to complete this topic Meningococcal ACWY Vaccine Aged Out N o longer eligible based on patient's age to complete this topic Meningococcal B Vaccine Aged Out No l onger eligible based on patient's age to complete this topic RSV Immunization Patients Under 20 months Aged Out No longer eligible based on patient's age to complete this topic Varicella Vaccines Aged Out No longer eligible based on patient's age to complete this topic Procedures Procedure Name Priority Date/Time Associated Diagnosis Comments XR CHEST 2 VIEWS Routine 05/05/2025 2:22 PM EDT Subacute cough US GUIDED FINE NDL ASP 1ST LESION Routine 04/18/2025 9:17 AM EDT Thyroid nodule FINE NEEDLE ASPIRATION Routine 04/18/2025 9:17 AM EDT Thyroid nodule HEMOGLOBIN A1C Routine 03/31/2025 2:11 PM EDT Type 2 diabetes mellitus without complication, without long-term current use of insulin (CMS/HCC V24, CMS/[facility] V28) COMPREHENSIVE METABOLIC PANEL Routine 12/22/2024 9:23 AM EST Type 2 diabetes mellitus without complication, without long-term current use of insulin (CMS/HCC V24, CMS/HCC V28) Essential hypertension, benign LIPID PANEL WITH REFLEX TO DIRECT LDL Routine 12/22/2024 9:23 AM EST Type 2 diabetes mellitus without complication, without long-term current use of insulin (CMS/HCC V24, CMS/[facility] V28) Pure hypercholesterolemia URINE ALBUMIN CREATININE RATIO Routine 08/30/2024 DIABETES FOOT EXAM Routine 12/09/2023 DIABETES EYE EXAM Routine 12/08/2023 DXA BONE DENSITY STUDY 1+ SITS AXIAL SKEL Routine 11/20/2023 1:21 PM EST Asymptomatic menopausal state from Last 3 Months or Most Recently Relevant to Health Maintenance Results * XR Chest 2 Views (05/05/2025 2:22 PM EDT) Anatomical Region Laterality Modality Body Radiographic Kimberly ging 05/05/2025 3:56 PM EDT Impressions 05/05/2025 4:04 PM EDT Reticulonodular interstitial pattern is likely related to tree-in-bud opacities and areas of mucus plugging as seen on CT 01/10/2025 suggestive of an ongoing inflammatory/infectious process. POS - [id number] -------- FINAL REPORT -------- Dictated By: Jenna Arrieta Dictated Date: 05/05/2025 15:56 ET Assigned Physician: Jenna Arrieta Reviewed and Electronically Signed By: Jenna Arrieta Signed Date: 05/05/2025 16:04 ET Workstation ID: [id number] Transcribed By: Self Edit Transcribed Date: 05/05/2025 15:56 ET Narrative 05/05/2025 4:04 PM EDT EXAM: Chest x-ray HISTORY: Subacute cough. COMPARISON: 09/13/2022, chest CT 01/10/2025 FINDINGS: PA and lateral views of the chest were performed. Reticulonodular interstitial pattern has progressed since prior radiography and is likely related to tree-in-bud opacities and areas of mucus plugging as seen on CT. No focal consolidation. No pleural effusions or overt CHF. Heart is not enlarged. Mediastinal contours are stable. Extensive bridging endplate osteophytes. Surgical clips in the left axillary region. Procedure Note Jenna Arrieta MD - 05/05/2025 EXAM: Chest x-ray HISTORY: Subacute cough. COMPARISON: 09/13/2022, chest CT 01/10/2025 FINDINGS: PA and lateral views of the chest were performed. Reticulonodular interstitial pattern has progressed since priorradiography and is likely related to tree-in-bud opacities and areas ofmucus plugging as seen on CT. No focal consolidation. No pleural effusionsor overt CHF. Heart is not enlarged. Mediastinal contours are stable.Extensive bridging endplate osteophytes. Surgical clips in the leftaxillary region. IMPRESSION: Reticulonodular interstitial pattern is likely related to [id number] and areas of mucus plugging as seen on CT 01/10/2025 suggestive ofan ongoing inflammatory/infectious process. POS - [id number] -------- FINAL REPORT -------- Dictated By: Jenna Arrieta Dictated Date: 05/05/2025 15:56 ET Assigned Physician: Jenna Arrieta Reviewed and Electronically Signed By: Jenna Arrieta Signed Date: 05/05/2025 16:04 ET Workstation ID: [id number] Transcribed By: Self Edit Transcribed Date: 05/05/2025 15:56 ET us Lindsey Mathews MD IMG XR PROCEDURES Final Result * US Guided Fine Ndl Asp 1st Lesion (04/18/2025 9:17 AM EDT) Anatomical Region Laterality Modality Ultrasound 04/18/2025 3:10 PM EDT Addenda Addendum by Fernanda Villa MD on 04/29/2025 10:57 AM EDT Final Diagnosis Thyroid, right lower lobe, fine needle aspirate (ThinPrep, direct smears): Benign ([place] Category II) Consistent with follicular nodular disease (includes adenomatoid nodule, colloid nodule, etc.) ? at 0936 -------- ADDENDUM -------- Dictated By: Fernanda Villa Dictated Date: 04/29/2025 10:56 ET Assigned Physician: Fernanda Villa Reviewed and Electronically Signed By: Fernanda Villa Signed Date: 04/29/2025 10:57 ET Workstation ID: [id number] Transcribed By: Self Edit Transcribed Date: 04/29/2025 10:56 ET Narrative 04/18/2025 3:13 PM EDT Ultrasound-guided biopsy of the mass in the lower pole of the right thyroid lobe. Written informed consent was obtained. The skin overlying the lesion was sprayed with LIDOCAINE spray and prepped with BETADINE. FNA was performed under direct ultrasound guidance utilizing 3 passes of separate 27-gauge needles. Material was placed over the 3 sets of slides and into the CytoLyt. Patient tolerated procedure well without immediate complications and was released in satisfactory condition with postprocedure instructions. She was advised to follow with her provider when results become available. -------- FINAL REPORT -------- Dictated By: Fernanda Villa Dictated Date: 04/18/2025 15:10 ET Assigned Physician: Fernanda Villa Reviewed and Electronically Signed By: Fernanda Villa Signed Date: 04/18/2025 15:13 ET Workstation ID: [id number] Transcribed By: Self Edit Transcribed Date: 04/18/2025 15:10 ET Procedure Note Fernanda Villa MD - 04/18/2025 Ultrasound-guided biopsy of the mass in the lower pole of the rightthyroid lobe. Written informed consent was obtained. The skin overlying the lesion was sprayed with LIDOCAINE spray and preppedwith BETADINE. FNA was performed under direct ultrasound guidanceutilizing 3 passes of separate 27-gauge needles. Material was placed overthe 3 sets of slides and into the CytoLyt. Patient tolerated procedure well without immediate complications and wasreleased in satisfactory condition with postprocedure instructions. She was advised to follow with her provider when results becomeavailable. -------- FINAL REPORT -------- Dictated By: Fernanda Villa Dictated Date: 04/18/2025 15:10 ET Assigned Physician: Fernanda Villa Reviewed and Electronically Signed By: Fernanda Villa Signed Date: 04/18/2025 15:13 ET Workstation ID: [id number] Transcribed By: Self Edit Transcribed Date: 04/18/2025 15:10 ET us Lauren BHAT IM US PROCEDURES Edited Re sult - Final * Fine needle aspiration (04/18/2025 9:17 AM EDT) Final Diagnosis Thyroid, right lower lobe, fine needle aspirate (ThinPrep, direct smears): Benign ([place] Category II) Consistent with follicular nodular disease (includes adenomatoid nodule, colloid nodule, etc.) 04/20/2025 9:36 AM EDT [facility] Clinical Information RT LP THYROID 04/20/2025 9:36 AM EDT [facility] Specimen A Adequacy Satisfactory for evaluation 04/20/2025 9:36 AM EDT [facility] Gross Description A. Thyroid, Right, Right lower pole thyroid: Received in Cytolyt 30 ml of clear fluid, 3 air dried direct smears, 3 alcohol fixed smears 04/20/2025 9:36 AM EDT [facility] Disclaimer Unless otherwise specified, all tissue is 10% NB formalin fixed and paraffin embedded. Technical cytopathology services provided by [facility], at [address] [place] [address] (CLIA # [id number]/Julia Small MD, [employer].) 04/20/2025 9:36 AM EDT [facility] Fine Needle Aspirate Structure of right lobe of thyroid gland / Unknown 04/18/2025 9:17 AM EDT 04/19/2025 8:01 AM EDT Comment:RT LP THYROID us Fernanda Villa MD LAB PATHOLOGY ORDERABLES Final Result [facility] [address] [place] [address], * (ABNORMAL) Hemoglobin A1c (03/31/2025 2:11 PM EDT) Hemoglobin A1C 7.5(H) <6.5 % LAB CHEMISTRY METHOD 04/03/2025 11:21 AM EDT [facility] Mean Bld Glu Estim. 169 mg/dL LAB CHEMISTRY METHOD 04/03/2025 11:21 AM EDT [facility] Blood Venous blood specimen / Unknown Venipuncture / Unknown 03/31/2025 2:11 PM EDT 03/31/2025 2:11 PM EDT Lindsey Mathews MD LAB BLOOD ORDERABL ES Final Result [facility] [address] [place] [address], [place] [phone] * Lipid panel with reflex to direct LDL (12/22/2024 9:23 AM EST) Cholesterol 142 0 - 200 mg/dL LAB CHEMISTRY METHOD 12/22/2024 1:04 PM EST [facility] Triglycerides 67 0 - 150 mg/dL LAB CHEMISTRY METHOD 12/22/2024 1:04 PM EST [facility] HDL 60 >=40 mg/dL LAB CHEMISTRY METHOD 12/22/2024 1:04 PM [facility] LDL Calculated 69 0 - 100 mg/dL LAB CHEMISTRY METHOD 12/22/2024 1:04 PM EST [facility] VLDL Cholesterol Naeem 13.4 mg/dL LAB CHEMISTRY METHOD 12/22/2024 1:04 PM [facility] Non HDL Chol. (LDL+VLDL) 82 <145 mg/dL LAB CHEMISTRY METHOD 12/22/2024 1:04 PM [facility] Chol/HDL Ratio 2.4 0.0 - 4.4 LAB CHEMISTRY METHOD 12/22/2024 1:04 PM [facility] Blood Venous blood specimen / Unknown Venipuncture / Unknown 12/22/2024 9:23 AM EST 12/22/2024 9:23 AM EST Lindsey Mathews MD LAB BLOOD ORDERABL ES Final Result Performing Organization Address City/[facility]/ZIP Co de Phone Number [facility] [address] [place] [address], [place] [phone] * (ABNORMAL) Comprehensive metabolic panel (12/22/2024 9:23 AM EST) Sodium 141 133 - 145 mmol/L LAB CHEMISTRY METHOD 12/22/2024 1:04 PM [facility] Potassium 4.0 3.5 - 5.5 mmol/L LAB CHEMISTRY METHOD 12/22/2024 1:04 PM [facility] Chloride 108 96 - 110 mmol/L LAB CHEMISTRY METHOD 12/22/2024 1:04 PM [facility] CO2 27 21 - 32 mmol/L LAB CHEMISTRY METHOD 12/22/2024 1:04 PM [facility] Anion Gap 6 3 - 11 LAB CHEMISTRY METHOD 12/22/2024 1:04 PM [facility] Glucose 152(H) 70 - 100 mg/dL LAB CHEMISTRY METHOD 12/22/2024 1:04 PM [facility] BUN 13 5 - 25 mg/dL LAB CHEMISTRY METHOD 12/22/2024 1:04 PM [facility] Creatinine 0.58 0.50 - 1.10 mg/dL LAB CHEMISTRY METHOD 12/22/2024 1:04 PM [facility] eGFR 92 >=60 mL/min/1. 73m2 LAB CHEMISTRY METHOD 12/22/2024 1:04 PM [facility] Comment:Calculation based on the Chronic Kidney Disease Epidemiology Collaboration (CKD-EPI) equation refit without adjustment for race. BUN/Creatinine Ratio 22.4 LAB CHEMISTRY METHOD 12/22/2024 1:04 PM [facility] Calcium 9.5 8.5 - 10.5 mg/dL LAB CHEMISTRY METHOD 12/22/2024 1:04 PM [facility] AST (SGOT) 20 10 - 42 unit/L LAB CHEMISTRY METHOD 12/22/2024 1:04 PM [facility] ALT (SGPT) 27 10 - 60 unit/L LAB CHEMISTRY METHOD 12/22/2024 1:04 PM EST [facility] Alkaline Phosphatase 99 42 - 121 unit/L LAB CHEMISTRY METHOD 12/22/2024 1:04 PM EST [facility] Total Protein 7.4 6.0 - 8.0 g/dL LAB CHEMISTRY METHOD 12/22/2024 1:04 PM EST [facility] Albumin 4.0 3.2 - 5.0 g/dL LAB CHEMISTRY METHOD 12/22/2024 1:04 PM [facility] Total Bilirubin 0.5 0.0 - 1.4 mg/dL LAB CHEMISTRY METHOD 12/22/2024 1:04 PM [facility] Blood Venous blood specimen / Unknown Venipuncture / Unknown 12/22/2024 9:23 AM EST 12/22/2024 9:23 AM EST Result [facility] Lindsey Mathews MD LAB BLOOD ORDERABL ES Final Result [facility] [address] [place] [address], * Urine Albumin Creatinine Ratio (08/30/2024) [facility] Urine Albumin Creatinine Ratio abstracted Historical Provider HEALTH MAINTENANCE Final Result * Diabetes Foot Exam (12/09/2023) [facility] Diabetes: Annual Foot Exam abstracted Result [facility] Historical Provider HEALTH MAINTENANCE Final Result * Diabetes Eye Exam (12/08/2023) [facility] Diabetes: Annual Retina Eye Exam abstracted Result [facility] Historical Provider HEALTH MAINTENANCE Final Result * DXA BONE DENSITY STUDY 1+ SITS AXIAL SKEL (11/20/2023 1:21 PM EST) Anatomical Region Laterality Modality Bone Densitometr y 06/04/2023 2:21 PM EDT Narrative 11/24/2023 2:41 PM EST BONE DENSITY Lumbar Spine T-score is -1.4 (SD relative to 20-29 y/o adult) Z-score is +0.3 (SD relative to age matched peers) This is consistent with osteopenia by criteria defined by the WHO. Left Hip T-score is -1.5 Z-score is +0.7 This is consistent with osteopenia by criteria defined by the WHO. Impression: Based on the World Health Organization criteria, Jovita Nguyễn should be classified as having osteopenia. This patient has a 7.9% risk of major osteoporotic fracture and a 1.8% risk of hip fracture over the next 10 years. (World Health Organization Fracture Risk Assessment) The [facility] Department of Internal Medicine recommends using National Osteoporosis Foundation (NOF) guidelines in treatment decisions related to osteoporosis. NOF guidelines suggest considering treatment for postmenopausal women and men aged 50 or older presenting with the following: History of hip or vertebral fracture. T-score less than or equal to -2.5 (DXA) at the femoral neck, total hip, or spine, after appropriate evaluation to exclude secondary causes. Low bone mass (T-score between -1.0 and -2.5 at the femoral neck or spine) AND a 10-year probability of a hip fracture greater than or equal to 3% OR a 10-year probability of a major osteoporosis-related fracture greater than or equal to 20% based on the [place]-adapted WHO algorithm Please note that all treatment decisions require clinical judgment and consideration of individual patient factors, including patient preferences, co-morbidities, previous drug use, risk factors not captured in the FRAX model (e.g., frailty, falls, vitamin D deficiency, increased bone turnover, interval significant decline in bone density) and possible under- or over-estimation of fracture risk by FRAX. Procedure Note Fernanda Villa MD - 06/28/2024 BONE DENSITY Lumbar Spine T-score is -1.4 (SD relative to 20-29 y/o adult) Z-score is +0.3 (SD relative to age matched peers) This is consistent with osteopenia by criteria defined by the WHO. Left Hip T-score is -1.5 Z-score is +0.7 This is consistent with osteopenia by criteria defined by the WHO. Impression: Based on the World Health Organization criteria, Jovita Nguyễn should beclassified as having osteopenia. This patient has a 7.9% risk of majorosteoporotic fracture and a 1.8% risk of hip fracture over the next 10years. (World Health Organization Fracture Risk Assessment) [facility] Department of Internal Medicine recommendsusing National Osteoporosis Foundation (NOF) guidelines in treatmentdecisions related to osteoporosis. NOF guidelines suggest consideringtreatment for postmenopausal women and men aged 50 or older presentingwith the following: History of hip or vertebral fracture. T-score less than or equal to -2.5 (DXA) at the femoral neck, total hip,or spine, after appropriate evaluation to exclude secondary causes. Low bone mass (T-score between -1.0 and -2.5 at the femoral neck or spine)AND a 10-year probability of a hip fracture greater than or equal to 3% ORa 10-year probability of a major osteoporosis-related fracture greaterthan or equal to 20% based on the [place]-adapted WHO algorithm Please note that all treatment decisions require clinical judgment andconsideration of individual patient factors, including patientpreferences, co-morbidities, previous drug use, risk factors not capturedin the FRAX model (e.g., frailty, falls, vitamin D deficiency, increasedbone turnover, interval significant decline in bone density) and possibleunder- or over-estimation of fracture risk by FRAX. Kenzie BHAT IMG DXA PROCEDURES Final Result from Last 3 Months or Most Recently Relevant to Health Maintenance Insurance [facility] Member Subscriber Plan / Payer (Ef fective 2021-Present) Name:Jovita Nguyễn Relation to Subscriber:Self Name:Gopi Jovita Payer ID:[id number] Group ID:[id number] Type:Not on file Address: [address] [id number] Care Teams Tandem Mill Sticker Relationship Specialty Start Date End Date Lindsey Mathews MD [address] [place] [phone] PCP - General Internal Medicine 09/28/24
--- OUTSIDE RECORDS SUMMARY | 2025-07-07 14:18 | XMS_ITS | Encounter Summary ---
Author Organization [facility] Address [address] [place] [address] Care Team Providers Care Thread Separator Name Role Phone Community, Pcp Primary Care Provider UnavailVinh Randolph MD Primary Care Provider [phone] Name, Pablo RIVAS Primary Care Provider Unavailabl e Name, Pablo RIVAS Primary Care Provider Unavailabl Alysa Amato MD Primary Care Provider [phone] Gina Mathew MD Primary Care Provider Un available Radha Newell MD Primary Care Provider Unavailab Amira Tucker MD Primary Care Provider Lindsey Haywood MD Primary Care Prov ider Claribel Melendez MD Unavailable Unavailable Savanah Marshall MD Unavailable Raciel Rogers Unavailable Unavailabl e Encounter Details Date Type Department Care Team Description 06/10/2013 Training And Quality Manager Report Medical Records [address] [place] [address] Jeni Steiner MD Social History Tobacco Use Types Packs/Day [...] on filedocumented in this encounter Care Teams Thread Separator Relationship Specialty Start Date End Date Community, Pcp PCP - General Internal Medicine 08/09/05 08/19/13 Vinh Lawrence MD [address] [place] [address] PCP - General Internal Medicine 08/20/13 06/06/15 Pablo Penaloza MD [address] [place] [address] PCP - General Internal Medicine 06/07/15 09/12/15 Pablo Penaloza MD [address] [place] [address] PCP - General Internal Medicine 09/13/15 12/10/15 Alysa De Santiago MD [address] [place] [address] PCP - General Internal Medicine 12/11/15 01/07/17 Gina Mathew MD [address] [place] [address] PCP - General Internal Medicine 01/08/17 05/02/21 Radha Newell MD [address] [place] [address] PCP - General Internal Medicine 05/03/21 10/23/21 Amira Curtis MD [address] [place] [address] PCP - General Internal Medicine 10/24/21 06/09/22 Lindsey Lucas MD [address] [place] [address] PCP - General Internal Medicine 06/10/22 Claribel Melendez MD [address] [place] [address] Specialist Dermatology 06/04/23 Savanah Marshall MD [address] [place] [address] [place] [address] Specialist UROGYNECOLOGY 12/09/23 Raciel Rogers [address] [place] [address] [place] [address] Specialist Ophthalmology 08/30/24 documented as of this encounter
--- OUTSIDE RECORDS SUMMARY | 2025-07-07 14:18 | XMS_ITS | Encounter Summary ---
Author Organization [facility] Address [address] [place] [address] Care Team Providers Care Surgery Teacher Name Role Phone Community, Pcp Primary Care Provider UnavailVinh Randolph MD Primary Care Provider [phone] Name, Pablo RIVAS Primary Care Provider Unavailabl e Name, Pablo RIVAS Primary Care Provider Unavailabl Alysa Amato MD Primary Care Provider [phone] Gina Mathew MD Primary Care Provider Un available Radha Newell MD Primary Care Provider Unavailab Amira Tucker MD Primary Care Provider Lindsey Haywood MD Primary Care Prov ider Claribel Melendez MD Unavailable Unavailable Savanah Marshall MD Unavailable Raciel Rogers Unavailable Unavailabl e Encounter Details Date Type Department Care Team Description 06/10/2013 Hospital Medical Records [address] [place] [address] Jeni Steiner MD Social History Tobacco Use [...] on filedocumented in this encounter Care Teams Surgery Teacher Relationship Specialty Start Date End Date [facility] PCP - General Internal Medicine 08/09/05 08/19/13 Vinh Lawrence MD [address] [place] [address] PCP - General Internal Medicine 08/20/13 06/06/15 Pablo Penaloza MD [address] [place] [address] PCP - General Internal Medicine 06/07/15 09/12/15 Pablo Penaloza MD [address] [place] [address] PCP - General Internal Medicine 09/13/15 12/10/15 Alysa De Santiago MD [address] [place] [address] PCP - General Internal Medicine 12/11/15 01/07/17 Gina Mathew MD [address] [place] [address] PCP - General Internal Medicine 01/08/17 05/02/21 Radha Newell MD [address] [place] [address] PCP - General Internal Medicine 05/03/21 10/23/21 Amira Curtis MD [address] [place] [address] PCP - General Internal Medicine 10/24/21 06/09/22 Lindsey Lucas MD [address] [place] [address] PCP - General Internal Medicine 06/10/22 Claribel Melendez MD [address] [place] [address] Specialist Dermatology 06/04/23 Savanah Marshall MD [address] [place] [address] [place] [address] Specialist UROGYNECOLOGY 12/09/23 Raciel Rogers [address] [place] [address] [place] [address] Specialist Ophthalmology 08/30/24 documented as of this encounter
--- OUTSIDE RECORDS SUMMARY | 2025-07-07 14:18 | XMS_ITS | Encounter Summary ---
Author Organization [facility] Address [address] [place] [address] Care Team Providers Care Pulper Operator Name Role Phone Community, Pcp Primary Care Provider UnavailVinh Randolph MD Primary Care Provider [phone] Name, Pablo RIVAS Primary Care Provider Unavailabl e Name, Pablo RIVAS Primary Care Provider Unavailabl Alysa Amato MD Primary Care Provider [phone] Gina Mathew MD Primary Care Provider Un available Radha Newell MD Primary Care Provider Unavailab Amira Tucker MD Primary Care Provider Lindsey Haywood MD Primary Care Prov ider Claribel Melendez MD Unavailable Unavailable Savanah Marshall MD Unavailable Raciel Rogers Unavailable Unavailabl e Encounter Details Date Type Department Care Team Description 06/01/2013 Hospital Medical Records [address] [place] [address] Jeni Steiner MD Social History Tobacco Use [...] on filedocumented in this encounter Care Teams Pulper Operator Relationship Specialty Start Date End Date [facility] PCP - General Internal Medicine 08/09/05 08/19/13 Vinh Lawrence MD [address] [place] [address] PCP - General Internal Medicine 08/20/13 06/06/15 Pablo Penaloza MD [address] [place] [address] PCP - General Internal Medicine 06/07/15 09/12/15 Pablo Penaloza MD [address] [place] [address] PCP - General Internal Medicine 09/13/15 12/10/15 Alysa De Santiago MD [address] [place] [address] PCP - General Internal Medicine 12/11/15 01/07/17 Gina Mathew MD [address] [place] [address] PCP - General Internal Medicine 01/08/17 05/02/21 Radha Newell MD [address] [place] [address] PCP - General Internal Medicine 05/03/21 10/23/21 Amira Curtis MD [address] [place] [address] PCP - General Internal Medicine 10/24/21 06/09/22 Lindsey Lucas MD [address] [place] [address] PCP - General Internal Medicine 06/10/22 Claribel Melendez MD [address] [place] [address] Specialist Dermatology 06/04/23 Savanah Marshall MD [address] [place] [address] [place] [address] Specialist UROGYNECOLOGY 12/09/23 Raciel Rogers [address] [place] [address] [place] [address] Specialist Ophthalmology 08/30/24 documented as of this encounter
--- OUTSIDE RECORDS SUMMARY | 2025-07-07 14:18 | XMS_ITS | Encounter Summary ---
Author Organization [facility] Address [address] [place] [address] Care Team Providers Care Senior Radiation Protection Technician Name Role Phone Gina Mathew MD Primary Care Provider Un available Radha Newell MD Primary Care Provider Unavailab Amira Tucker MD Primary Care Provider Lindsey Haywood MD Primary Care Prov ider Claribel Melendez MD Unavailable Unavailable Savanah Marshall MD Unavailable Raciel Rogers Unavailable Unavailabl e Encounter Details Date Type Department Care Team Description 09/17/2017 Hospital Medical Records [address] [place] [address] Social History Tobacco Use Types Packs/Day Years [...] on filedocumented in this encounter Care Teams Senior Radiation Protection Technician Relationship Specialty Start Date End Date Gina Mathew MD PCP - General Internal Medicine 01/08/17 Radha Newell MD PCP - General Internal Medicine 05/03/21 10/23/21 Amira Curtis MD PCP - General Internal Medicine 10/24/21 06/09/22 Lindsey Lucas MD [address] [place] [address] PCP - General Internal Medicine 06/10/22 Claribel Melendez MD [address] [place] [address] Specialist Dermatology 06/04/23 Savanah Marshall MD [address] [place] [address] [place] [address] Specialist UROGYNECOLOGY 12/09/23 Raciel Rogers [address] [place] [address] [place] [address] Specialist Ophthalmology 08/30/24 documented as of this encounter
--- OUTSIDE RECORDS SUMMARY | 2025-07-07 14:19 | XMS_ITS | Encounter Summary ---
Author Organization [employer] Address [address] [place] [address] Care Team Providers Care Nuisance Wildlife Trapper Name Role Phone Denisha Cristina MD Primary Care Provider [phone] Reason for Visit * Reason Comments Med Refill Encounter Details Date Type Department Care Team (Late st Contact Info) Description 03/26/2023 Refill [facility] [address] [place], [place] [phone] Denisha Cristina MD [address] [place], [place] [phone] Social History Tobacco Use Types Packs/Day Years Used Date Smoking Tobacco: Never Assessed Comments Unknown Sex and Gender Information Value Date Recorded Sex Assigned at Female 09/09/2022 10:19 AM EDT Legal Sex Female 10:19 AM EDT Gender Identity Female 09/09/2022 10:19 AM EDT Sexual Orientation Straight 09/09/2022 10 :19 AM EDT documented as of this encounter Plan of Treatment Not on file documented as of this encounter Visit Diagnoses Not on filedocumented in this encounter Care Teams Nuisance Wildlife Trapper Relationship Specialty Start Date End Date Denisha Cristina MD [address] [place], [place] [phone] PCP - General Internal Medicine 04/27/21 05/11/24 documented as of this encounter
--- OUTSIDE RECORDS SUMMARY | 2025-07-07 14:19 | XMS_ITS | Encounter Summary ---
Author Organization [facility] Address [address] [place] [address] Care Team Providers Care Asset Specialist Name Role Phone Lindsey Lucas MD Primary Care Prov ider Claribel Melendez MD Unavailable Unavailable Savanah Marshall MD Unavailable Raciel Rogers Unavailable Unavailabl e Encounter Details Date Type Department Care Team Description 02/08/2023 Hospital Medical Records [address] [place] [address] Aleksandr Newman Social History Tobacco Use Types Packs/Day Years [...] on filedocumented in this encounter Care Teams Asset Specialist Relationship Specialty Start Date End Date Lindsey Lucas MD [address] [place] [address] PCP - General Internal Medicine 06/10/22 Claribel Melendez MD [address] [place] [address] Specialist Dermatology 06/04/23 Savanah Marshall MD [address] [place] [address] [place] [address] Specialist UROGYNECOLOGY 12/09/23 Raciel Rogers [address] [facility] [place] [address] Specialist Ophthalmology 08/30/24 documented as of this encounter
--- OUTSIDE RECORDS SUMMARY | 2025-07-07 14:19 | XMS_ITS | Encounter Summary ---
Author Organization [employer] Address [address] [place] [address] Care Team Providers Care Director Of Public Health Name Role Phone Denisha Cristina MD Primary Care Provider [phone] Encounter Details Date Type Department Care Team ([facility] Contact Info) Description 03/26/2023 Orders Only [facility] [address] [place] [address] Ruthie Hopkins LPN Social History Tobacco Use Types Packs/Day Years [...] on filedocumented in this encounter Care Teams Director Of Public Health Relationship Specialty Start Date End Date Denisha Cristina MD [address] [place] [address] PCP - General Internal Medicine 04/27/21 05/11/24 documented as of this encounter
--- OUTSIDE RECORDS SUMMARY | 2025-07-07 14:19 | XMS_ITS | Encounter Summary ---
Author Organization [employer] [facility] Address [address] [place] [address] Care Team Providers Care Sandblasting Supervisor Name Role Phone Lindsey Lucas MD Primary Care Prov ider Claribel Melendez MD Unavailable Unavailable Savanah Marshall MD Unavailable Raciel Rogers Unavailable Unavailabl e Encounter Details Date Type Department Care Team Description 05/06/2024 Orders Only Medical Records [address] [place] [address] [facility] Social History Tobacco Use Types Packs/Day Years [...] on file documented as of this encounter Procedures Procedure Name Priority Date/Time Associated Diagnosis Comments OUTSIDE PLAIN FILM Routine 05/03/2024 documented in this encounter Results * OUTSIDE PLAIN FILM (05/03/2024) [facility] RADIOLOGY documented in this encounter Visit Diagnoses Not on filedocumented in this encounter Care Teams Sandblasting Supervisor Relationship Specialty Start Date End Date Lindsey Lucas MD [address] [place] [address] PCP - General Internal Medicine 06/10/22 Claribel Melendez MD [address] [place] [address] Specialist Dermatology 06/04/23 Savanah Marshall MD [address] [place] [address] [place] [address] Specialist UROGYNECOLOGY 12/09/23 Raciel Rogers [address] [place] [address] [place] [address] Specialist Ophthalmology 08/30/24 documented as of this encounter
--- OUTSIDE RECORDS SUMMARY | 2025-07-07 14:19 | XMS_ITS | Encounter Summary ---
Author Organization [facility] Address [address] [place] [address] Care Team Providers Care Career Orientation Teacher Name Role Phone Lindsey Lucas MD Primary Care Prov ider Claribel Melendez MD Unavailable Unavailable Savanah Marshall MD Unavailable Raciel Rogers Unavailable Unavailabl e Encounter Details Date Type Department Care Team Description 10/10/2023 Hospital Medical Records [address] [place] [address] Billy Modi MD Social History Tobacco Use [...] on filedocumented in this encounter Care Teams Career Orientation Teacher Relationship Specialty Start Date End Date Lindsey Lucas MD [address] [place] [phone] PCP - General Internal Medicine 06/10/22 Claribel Melendez MD [address] [place] [address] Specialist Dermatology 06/04/23 Savanah Marshall MD [address] [place] [address] [place] [address] Specialist UROGYNECOLOGY 12/09/23 Raciel Rogers [address] [facility] [address] Specialist Ophthalmology 08/30/24 documented as of this encounter
--- OUTSIDE RECORDS SUMMARY | 2025-07-07 14:19 | XMS_ITS | Clinical Summary ---
Author Organization [employer] Address [address] [place] [address] [address] [place] [address] Care Team Providers Care Ax Survey Worker Name Role Phone Unavailable Primary Care Provider Unavailabl e Medications amLODIPine (Norvasc) 10 MG tablet TAKE 1 TABLET BY MOUTH EVERY DAY 02/24/2023 Active Social History Tobacco Use Types Packs/Day Years Used Date Smoking Tobacco: Never Assessed Comments Unknown Sex and Gender Information Value Date Recorded Sex Assigned at Female 09/09/2022 10:19 AM EDT Legal Sex Female 10:19 AM EDT Gender Identity Female 09/09/2022 10:19 AM EDT Sexual Orientation Straight 09/09/2022 10 :19 AM EDT Last Filed Vital Signs Vital Sign Reading Time Taken Comments Blood Pressure 152/88 04/17/2021 12:06 AM EDT Pulse 88 04/17/2021 12:06 AM EDT Temperature - - Respiratory Rate - - Oxygen Saturation - - Inhaled Oxygen Concentration - - Weight 62.1 kg (137 lb) 04/17/2021 12:06 AM EDT Height 155 cm (5' 1.02 ) 04/17/2021 12:06 AM EDT Body Mass Index 25.87 04/17/2021 12:06 AM EDT Plan of Treatment Health Maintenance Due Date Last Done Comments Depression Screening 1944 Alcohol/Substance Use Screening 1956 Tobacco Screening 1956 Zoster Vaccines (1 of 2) 1994 RSV Patients and Patients Aged 60 years or older (1 - 1-dose 75+ series) 2019 COVID-19 Vaccine ( season) 2024 11/17/2021, 10/21/2021 Influenza Vaccine (#1) 2025 5, 04/05/2014, 08/06/2012 DTaP/Tdap/Td Vaccines (4 - Td or Tdap) 08/30/2034 08/30/2024, 08/19/2013, 12/15/2007 Pneumococcal Vaccine: 50+ Years Completed 09/15/2017, 12/21/2015, 08/19/2013, Additional history exists HIB Vaccines Aged Out No longer eligi [...] patient's age to complete this topic Meningococcal Vaccine Aged Out No lis re eligible based on patient's age to complete this topic RSV under 20 months Aged Out No longe r eligible based on patient's age to complete this topic Rotavirus Vaccines Aged Out No longer eligible based on patient's age to complete this topic
--- OUTSIDE RECORDS SUMMARY | 2025-07-07 14:19 | XMS_ITS | Encounter Summary ---
Author Organization [facility] Address [address] [place] [address] Care Team Providers Care Phlebotomist Medical Lab Assistant Name Role Phone Lindsey Lucas MD Primary Care Prov ider Claribel Melendez MD Unavailable Unavailable Savanah Marshall MD Unavailable Raciel Rogers Unavailable Unavailabl e Reason for Visit * Reason Onset Date Comments medication problems 03/03/2023 Encounter Details Date Type Department Care Team Description 03/03/2023 Telephone Adult Medicine [facility] [address] [place] [id number] Lindsey Lucas MD [address] [place] [address] medication problems Social History Tobacco Use Types Packs/Day Years Used Date Smoking Tobacco: Never Smokeless Tobacco: Never Alcohol Use Standard Drinks/Week Comments No 0 (1 standard drink = 0.6 oz pur e alcohol) Sex Assigned at Date Recorded Not on file Job Start Date Occupation Industry Not on file Not on file Not on file COVID-19 Exposure Response Date Recorded In the last 10 days, have luan martino been in contact with someone who was confirmed or suspected to have Coronavirus/COVID-19? No / Unsure 02/28/2023 1:21 PM EDT documented as of this encounter Miscellaneous Notes * Telephone Encounter - Lindsey Horton MD - 03/03/2023 3:34 PM EDT New prescription was sent. * Telephone Encounter - Suzanna Scottbill - 03/03/2023 11:35 AM EDT Who is calling? A pharmacist: Pharmacy: [facility]ist Name: [facility] Name of the medication Ascorbic Acid (Vitamin C) 125 MG Chew Tab What is the specific problem or interaction? Medication only comes in 250mg If the patient is having a problem with taking the med - how long has the problem been going on? N/A documented in this encounter Plan of Treatment Not on file documented as of this encounter Visit Diagnoses Not on filedocumented in this encounter Care Teams Phlebotomist Medical Lab Assistant Relationship Specialty Start Date End Date Lindsey Lucas MD [address] [place] [address] PCP - General Internal Medicine 06/10/22 Claribel Melendez MD [address] [place] [address] Specialist Dermatology 06/04/23 Savanah Marshall MD [address] [place] [address] [place] [address] Specialist UROGYNECOLOGY 12/09/23 Raciel Rogers [address] [place] [address] [place] [address] Specialist Ophthalmology 08/30/24 documented as of this encounter
--- OUTSIDE RECORDS SUMMARY | 2025-07-07 14:19 | XMS_ITS | Patient Health Record ---
Author Organization [facility] Address [address] [place] [address] [place] [address] Care Team Providers Care Gun Examiner Name Role Phone MADIE FLORES Unavailable [phone] Allergies Allergen (clinical drug ingredient) Drug/Non Drug Allergy documented on EMR Reaction Allergy Type Onset Date Status Amoxicillin-Pot Clavulanate swelling Drug Allergy Active Azithromycin Unknown Drug Allergy Acti ve Ciprofloxacin Unknown Drug Allergy Act stefany metronidazole Metronidazole swelling Drug Allergy Active acetaminophen / oxycodone Percocet Unknown Drug Allergy Active doxycycline Doxycycline Unknown Drug Allergy Act stefany Reason For Referral No Information Medications Medication SIG (Take, Route, Frequency, Duration) Notes Start Date End Date Status Simvastatin 10 MG 1 tablet in the evening Orally Once a day for 90 day(s) Not-Taking Urinary Pain Relief 95 MG 2 tablets afte r meals Orally Three times a day for 2 day(s) Not-Taking GlipiZIDE 5 MG 1 tablet Orally Once a day for 30 Not-Taking GlipiZIDE 5 MG 1 tablet Orally Once a day for 30 day(s) 05/24/2019 Not-Taking Voltaren 1 % as directed Transdermal BID for 30 day(s) 06/15/2018 Not-Taking Cephalexin 500 MG 1 capsule Orally twi ce a day Not-Taking Cetirizine HCl 10 MG 1 tablet Orally Onc e a day for 30 day(s) Not-Taking Albuterol Sulfate (2.5 MG/3ML) 0.083% 3 ml as needed Inhalation every 8 hrs for 90 day(s) 02/10/2020 Not-Taking GlipiZIDE 5 MG 1 tablet Orally Once a day for 90 days Not-Taking Gabapentin 100 MG 1 capsule Orally BID for 30 day(s) prn 12/22/2019 Not-Taking Lisinopril 30 MG 1 tablet Orally Once a day for 90 Active Zyrtec Allergy 10 MG 1 tablet Orally Onc e a day for 30 day(s) 03/09/2020 Not-Taking PredniSONE 10 MG 1 tablet Orally Once a day for 5 day(s) 03/13/2020 Not-Taking Ipratropium-Albuterol 0.5-2.5 (3) MG/3ML 3 ml Inhalation every 6 hrs PRN SOB for 30 days Not-Taking Ipratropium [place] 0.02 % USE 1 VIAL A NEBULIZER EVERY 6 HOURS NEEDED FOR SHORTNESS OF BREATH for 30 Not-Taking Metformin HCl 500 MG 1 tablet with a ann marie l Orally BID for 90 days Active Flonase Allergy Relief 50 MCG/ACT 1 spray in each nostril Nasally Once a day for 30 Active Oxybutynin Chloride ER 10 MG 1 tablet Orally Once a day for 90 days Active Amlodipine Besylate 10 MG 1 tablet Orall y Once a day for 90 days Active Simvastatin 10 MG 1 tablet in the evening Orally Once a day for 90 days Active Mucinex 600 MG 1 tablet as needed Orally every 12 hrs for 15 days 11/07/2020 Not-Taking Tessalon Perles 100 MG 1 capsule as need ed Orally Three times a day for 15 days 11/07/2020 Not-Taking GlipiZIDE 5 MG 1 tablet Orally Once a day for 30 Not-Taking FreeStyle Lancets - as directed As directed 30 minutes prior to meal for 30 day(s) 12/25/2020 Active Accu-Chek Varsha Plus - 1 strip In Vitro twice a day E11.9 for 90 days Active Accu-Chek Varsha Plus - as directed In Vi tro test BS once a day for Dx E11.9 Not-Taking PredniSONE 20 MG 2 tablet Orally BID for 5 day(s) 02/24/2018 Not-Taking Ventolin HFA 108 (90 Base) MCG/ACT 2 puffs as needed Inhalation every 6 hrs 07/29/2019 Active Nitrofurantoin Monohyd Macro 100 MG 1 capsule at bedtime with food Orally BID for 5 day(s) 07/31/2020 Not-Taking GlipiZIDE 5 MG 1 tablet Orally Once a day for 30 Not-Taking GlipiZIDE 5 MG 1 tablet Orally Once a day for 30 days Not-Taking Singulair 10 MG 1 tablet in the evening Orally Once a day for 30 Not-Taking Advair HFA 230-21 MCG/ACT 2 puffs Inhala tion Twice a day for 30 days Active Centrum Silver Ultra Womens - as directed Orally Not-Takin g Freestyle Test Strips DME As Directed As directed Four times a day for 30 day(s) Not-Taking FreeStyle Lite Test - as directed In Vit ro for 1 month 07/23/2018 Not-Taking Singulair 10 MG 1 tablet in the evening Orally Once a day for 30 Not-Taking Nitrofurantoin Monohyd Macro 100 MG 1 capsule Orally BID for 5 day(s) 07/31/2020 Not-Taking Flonase Allergy Relief 50 1 SPRAY IN EAC H NOSTRIL ONCE A DAY NASALLY 30 DAY(S) for 30 Not-Taking Singulair 10 MG 1 tablet in the evening Orally Once a day for 30 day(s) 02/24/2018 Not-Taking GlipiZIDE 5 MG 1 tablet Orally Once a day for 30 Not-Taking Fish Oil 1000 MG 1 capsule Orally thr ee times a day for 30 days Not-Taking Simvastatin 10 MG 1 tablet in the evening Orally Once a day for 30 Not-Taking Erythromycin 5 MG/GM 1 application Ophthalmic Four times a day Not-Taking Simvastatin 10 MG 1 tablet in the evening Orally Once a day for 30 Not-Taking Ciprofloxacin HCl 500 MG 1 tablet Orally twice a day Not-Taking ProAir HFA 108 (90 Base) MCG/ACT 2 puffs as needed Inhalation every 6 hrs for 30 days Not-Taking Immunizations Vaccine Route Administration Date Status Comme nts PNEUMOCOCCAL - 23 POLY (PNEU MOVAX 23) Unknown 02/25/2016 Administered zFLU 4V (FLULAVAL QUAD), 6 M O+, NO PRES - ALL PAYORS Unknown 12/25/2020 Refused zFLU 4V (FLUCELVAX QUAD), 4 YRS+, NO PRES - ALL PAYORS Unknown 04/26/2019 Refused zFLU 4V (FLUZONE QUAD), 6MO+ (0.5 ML), NO PRES - ALL PAYORS Unknown 01/07/2020 Refused Social History Tobacco Status: Question Answer Notes Patient is a non tobacco user Problems Problem Type SNOMED Code ICD Code Onset Dates Problem Status W/U Status Risk Notes Problem 30613727 Acute cystitis without hematuria (N30.00) Active confirmed Problem 35876763 Dysuria (R30.0) Active confirmed Problem 051410862 Facial rash (R21) Active confirmed Problem 90746315 Vitamin D deficiency (E55.9) Active confirmed Problem 36072964 Essential hypertension (I10) Active confirmed Problem 828985185 Hospital discharge follow-up (Z09) Active confirmed Problem 580224436 Leg edema (R60.0) Active confirmed Problem 773989516 Preventative health care (Z00.00) Active confirmed Problem 97970872 Cystitis (N30.90) Active confirmed Problem 57429341 Stress incontinence (N39.3) Active confirmed Problem 520762019 Left anterior knee pain (M25.562) Active confirmed Problem 490639937 Skin cancer (C44.90) Active confirmed Problem 56509202 Suprapubic discomfort (R10.2) Active confirmed Problem 97446026 Hyperlipidemia, unspecified hyperlipidemia type (E78.5) Active confirmed Problem 14224827 Pelvic pain (R10.2) Active confirmed Problem 13049426042902 Adrenal incidentaloma (E27.8) Active confirmed Problem 74115388 Rectal spasm (K59.4) Active confirmed Problem 773966989 Type 2 diabetes mellitus without complication, without long-term current use of insulin (E11.9) Active confirmed Problem 669157103 Mild depression (F32.0) Active confirmed Problem 444682201 Seasonal allergi c rhinitis due to other allergic trigger (J30.89) Active confirmed Problem 313864230 Localized osteoarthritis of left knee (M17.12) Active confirmed Problem 087397117 Malignant neoplasm of female breast, unspecified estrogen receptor status, unspecified laterality, unspecified site of breast (C50.919) Active confirmed Problem 23785488 Hematuria, unspecified type (R31.9) Active confirmed Problem 7371542192306811 Tendonitis of left knee (M76.892) Active confirmed Problem 024159581 Moderate persistent asthma, unspecified whether complicated (J45.40) Active confirmed Problem 943855040 Hypodense mass o f liver (R16.0) Active confirmed Plan Of Treatment Pending Test Test Name Order Date URINALYSIS, DIP STICK/TABLET REAGENT; NON-AUTOMATED W/O MICROSCOPY (01081) IH 11/23/2019 Renal ultrasound 12/22/2019 T3 UPTAKE (Q-861) 10/19/2019 Hemoglobin A1c ([id number]) 12/25/2020 CBC With Differential/Platelet ([id number] ) 07/31/2020 Lipid Panel ([id number]) 01/07/2020 Lipid Panel ([id number]) 12/25/2020 US- PELVIS NON OB (84774)([facility]) 12/14/2019 US- RENAL BILATERAL (41977)([facility]) 0 12/14/2019 US-BLADDER (POST VOID) (64771) 2019 CT ABD AND PELVIS W/CONT([facility]) TSH + FREE T4(Q-13852) 10/19/2019 PT+PTT+INR ([id number]) 01/12/2020 Lipid Panel ([id number]) 07/31/2020 CXR 2 VIEWS (09428) 01/12/2020 CXR 2 VIEWS (13153) 11/23/2019 Covid-19, Flu A + B SENAIT ([id number]) 11/07 Future Test Test Name Order Date COMPREHENSIVE METABOLIC PANEL(Q-78635) 0 11/23/2019 CBC (INCLUDES DIFF/PLT)(Q-6399) 11/23/19 20 Insurance Providers Payer Name Payer Address Payer Phone Subscriber Number Group Number Insured Name Patient Relationship to Insured Coverage Start Date Coverage End Date [employer] AFTER [id number] [address] [place] [address] [id number] Jovita Nguyễn Self - patient is the insured 8 Medical (General) History Medical History History ICD Code Asthma Breast Cancer b/l Diabetes HTN Hyperlipidemia No blood transfusion Surgical History Surgery Date(Month/Year) b/l mastectomy and reconstruction Skin cancer on face Knee left l/s cholecystectomy kidney stone lithotripsy Hospitalization History Reason Date(Month/Year) UTI
--- OUTSIDE RECORDS SUMMARY | 2025-07-07 14:19 | XMS_ITS | Clinical Summary ---
Author Organization [facility] Address [address] [place] [address] Care Team Providers Care Charging Car Operator Name Role Phone Lindsey Lucas MD Primary Care Prov ider Claribel Melendez MD Unavailable Unavailable Savanah Marshall MD Unavailable Raciel Rogers Unavailable Unavailabl e Allergies Active Allergy Reactions Severity Noted Date Comments [place] Hives/Urticaria Medium 09/13/2022 Azithromycin Itching/Pruritus Medium 06/29/2021 Ciprofloxacin Hives/Urticaria Medium 09/13/2022 Doxycycline Itching/Pruritus Medium 06/29/2021 Empagliflozin Rash/Dermatitis Medium 10/31/2022 Cephalexin OTHER 12/18/2023 Vaginal burning and abdominal pains Metronidazole Itching/Pruritus Medium 06/29/2021 Oxycodone-Acetaminophen Nausea and Vomiting 10/2006 Medications Medication Sig Dispensed Refills Start Date End Date Status Blood Glucose Monitoring Suppl (FreeStyle [place] Lite) w/Device Kit USE TO TEST BS TWICE DAILY 1 Kit 0 08/29/2021 Active ALBUTEROL IN Inhale into the lungs. 0 Active Ipratropium-Albutero l 0.5-2.5 (3) MG/3ML Solution Inhale 3 mL into the lungs 4 times daily as needed for Other (shortness of breath or wheezing). 1080 mL 1 02/12/2023 Active minoxidil (LONITEN) 2.5 MG tabletIndications:Es sential hypertension, benign TAKE 1/2 TABLET BY MOUTH DAILY FOR HAIR LOSS 0 01/09/2023 Active acetaminophen (Tylenol 8 Hour) 650 MG CR tabletIndications:Dy suria Take 1 Tablet by mouth every 8 hours as needed for Pain. 60 Tablet 1 02/28/2023 Active hydrocortisone 0.5 % creamIndications:Typ e 2 diabetes mellitus without complication, without long-term current use of insulin ([facility]) Apply 1 Dose topically 3 times daily for 30 days. 30 g 0 02/28/2023 Active ascorbic acid (VITAMIN C) 250 MG Chew Tab Take 1 Tablet by mouth daily. 30 Tablet 0 03/03/2023 Active fluticasone-salmeter ol (Advair HFA) 230-21 MCG/ACT inhaler Inhale 2 Puffs into the lungs 2 times daily. 12 g 4 12/09/2023 Active Laudvxmq-Nakxybkfq-L exameth [id number] Ointment APPLY TO LIDS TWICE DAILY 0 02/02/2024 Active lisinopril (PRINIVIL,ZESTRIL) 40 MG tablet Take 1 Tablet by mouth daily. 90 Tablet 1 03/05/2024 Active simvastatin (ZOCOR) 10 MG tabletIndications:Ty pe 2 diabetes mellitus without complication, without long-term current use of insulin ([facility]) Take 1 Tablet by mouth at bedtime. 90 Tablet 1 03/05/2024 Active FreeStyle Lancets Misc USE TO TEST BLOOD SUGAR TWICE DAILY 200 Each 1 03/05/2024 Active clobetasol (TEMOVATE) 0.05 % ointment Apply to affected area 2 times a day for 2 weeks, then once a day for 2 weeks, then every other day for 2 weeks, then twice a week for 2 weeks, then as needed 30 g 0 04/30/2024 Active Glucose Blood (FREESTYLE LITE) Strip USE TO TEST BLOOD SUGAR TWICE DAILY 200 Strip 1 05/03/2024 Active estradiol (ESTRACE VAGINAL) 0.1 MG/GM vaginal cream Please use 0.5g (a pea-sized amount) on your finger and place inside the vagina twice a week at night (Mondays and ) 42.5 g 3 06/04/2024 Active Januvia 100 MG tabletIndications:Ty pe 2 diabetes mellitus without complication, without long-term current use of insulin ([facility]) TAKE 1 TABLET BY MOUTH DAILY 90 Tablet 0 07/15/2024 Active Active Problems Patient Care Coordination No te Formatting of this note is d ifferent from the original. Checking Your Blood Sugars Please check your blood sugars every day. Please check your sugars at the following times of day: before breakfast Your Blood Sugar Goals Pre Meal: 90-130 2 hours after meals: 110-160 Bedtime: 110-150 Use the Results Bring your glucometer to every appointment Write your fingerstick blood sugars down on a log sheet or record book. Bring them to your appointment Look for patterns in the numbers. The results help you and your provider make decisions about your diabetes treatment plan. Your Results and your Goals Your Result / Date of Completion Your Goal / How Often to Assess Component Value Date HGBA1C 7.0 09/06/2015 Less than 7% --- 2-4 times per year BP Readings from Last 1 Encounters: 12/21/15 140/80 Less than 140/90 --- once per year Component Value Date MALBCR 9.6 12/01/2014 Less than 30 --- once per year Component Value Date LDL 79 12/01/2014 Less than 100 --- once per year Wt Readings from Last 1 Encounters: 12/21/15 142 lb (64.411 kg) Your goal weight by next visit: 142 --- reassess 2-4 times a year Health Maintenance Due Topic Date Due Diabetes: Annual Foot Exam 1963 Adult Immunization: Zostavax For Patients Over 60 2004 Bone Density Screening 06/19/2014 Pneumococcal Vaccine (##2 of 2 - Dose 1 = PPSV23, Dose 2= PCV13) 08/19/2014 Diabetes: Annual Care Plan 10/20/2014 Diabetes/heart Disease: Annual Cholesterol (Ldl) 12/01/2015 Diabetes: Annual Urine Protein Test (Microalbumin) 12/01/2015 Your Action Plan Your diabetes is well controlled and no changes are required to your current plan. Check blood glucose as directed and write down all results. Check feet for sores every day Contact me if you experience any barriers to care such as inability to purchase your medication, difficulty getting to your appointments or difficulty understanding your care plan When to Call your Healthcare Provider If your blood sugar falls below 70 and you do not know why or you become unconscious If you are sick and unable to take liquids because or nausea or vomiting If you have a fever over 101 If your blood sugar is 300 or higher on greater than 3 separate occasions during the same week If you are just unsure what to do Educational Resources [place] [employer] (www.diabetes.org) Centers for Disease Control and Prevention (www.cdc.gov/diabetes) This care plan was created in collaboration with Jovita Nguyễn on 12/21/2015 Problem Noted Date History of malignant neoplasm of breast 11/21/2022 Overview: right DCIS 1996, 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 Please check your sugars at the following times of day: before breakfast and after dinner Your Blood Sugar Goals Pre Meal: 90-130 2 hours after meals: 110-160 Bedtime: 110-150 Use the Results Bring your glucometer to every appointment Write your fingerstick blood sugars down on a log sheet or record book. Bring them to your appointment Look for patterns in the numbers. The results help you and your provider make decisions about your diabetes treatment plan. Your Results and your Goals Your Result / Date of Completion Your Goal / How Often to Assess Component Value Date HGBA1C 7.2 10/06/2013 Less than 7%--- 2-4 times per year BP Readings from Last 1 Encounters: 10/20/13 110/80 Less than 130/80--- once per year Component Value Date LDL 152 10/06/2013 LDL less than 100--- once per year No results found for this basename: malbur Less than 30--- once per year Wt Readings from Last 1 Encounters: 10/20/13 147 lb (66.679 kg) Your goal weight by next visit: 145 --- reassess 2-4 times a year Health Maintenance Due Topic Date Due Diabetes: Annual Urine Protein Test (Microalbumin) 1963 Diabetes: Annual Foot Exam 1962 Diabetes: Annual Care Plan 1962 Zostavax Immunization: Age 60+ 2004 Diabetes: Annual Eye Exam 10/04/2006 Flu Shot 07/11/2013 Your Action Plan Start/adjust diabetic medications as directed. Check blood glucose as directed and write down all results. Make appointment to see your eye doctor Contact me if you experience any barriers to care such as inability to purchase your medication, difficulty getting to your appointments or difficulty understanding your care plan Please get your yearly flu shot When to Call your Healthcare Provider If your blood sugar falls below 70 and you do not know why or you become unconscious If you are sick and unable to take liquids because or nausea or vomiting If you have a fever over 101 If your blood sugar is 300 or higher on greater than 3 separate occasions during the same week If you are just unsure what to do Educational Resources [place] [employer] (www.diabetes.org) Centers for Disease Control and Prevention (www.cdc.gov/diabetes) This care plan was created in collaboration with Jovita Nguyễn on 10/20/2013 CAD (coronary artery disease) 10/15/2012 Chest pain, unspecified 10/15/2012 Overview: S/p echo 10/19 negative for ischemia, normal left ventricular EF at 65-70%, no wall motion abnormalities no significant valvular disease. 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 Essential hypertension, benign 6 Pure hypercholesterolemia 03/07/2006 Asthma Resolved Problems Problem Noted Date Resolved Date Abnormal glucose 10/06/2013 12/20/2015 Bilateral breast cancer 08/20/2013 03/05/20 24 Overview: S/p bilateral mastectomy and RT, on Femara, follows with Dr. Jiang Breast cancer 10/15/2012 12/20/2015 Overview: S/p radiation therapy. S/p bilateral mastectomy Asthma 11/21/2005 11/27/2016 Essential hypertension, benign 1 12/06/2012 Immunizations Name Administration Dates Next Due COVID-19 (Pfizer) 11/17/2021,10/21/2021 Influenza (> 6 Months) 04/05/2014,08/06/2012 Influenza vaccine high dose age 65 and over 09/11 Pneumoccoccal(Adult) Polysaccharide PPSV23 08/19,12/15/2007 Pneumococcal Conjugate PCV-13 09/15/2017, 016 Pneumovax Adult(PT Reported) 12/15/2007 Tdap 08/30/2024,08/19/2013,12/15/2007 Family History Medical History Relation Name Comments Diabetes Brother 1 Hypertension Brother 2 CA Lung Father Cancer, Other Son lymphoma Relation Name Status Comments Brother [...] file Not on file Not on file Last Filed Vital Signs Vital Sign Reading Time Taken Comments Blood Pressure 153/80 08/30/2024 2:30 PM EDT Pulse 95 08/30/2024 2:30 PM EDT Temperature 36.6 C (97.8 F) 08/30/2024 2:25 PM EDT Respiratory Rate 14 08/30/2024 2:25 PM EDT Oxygen Saturation 95% 08/30/2024 2:25 PM EDT Inhaled Oxygen Concentration - - Weight 59.1 kg (130 lb 6.4 oz) 08/30/2024 2:25 P M EDT Height 157.5 cm (5' 2 ) 08/30/2024 2:25 PM EDT Body Mass Index 23.85 08/30/2024 2:25 PM EDT Plan of Treatment Health Maintenance Due Date Last Done Comments SHINGLES VACCINE (1 of 2) 1994 DIABETES: BLOOD SUGAR CONTROL TEST (HGBA1C) 11/30/2024 08/30/2024, 04/30/2024, 12/09/2023, Additional history exists DIABETES: ANNUAL EYE EXAM 12/08/20242023 (External Completion of test per patient (Patient reports normal results)), 08/10/2021 (External Completion of test per patient (Patient reports normal results)), 08/07/2017, Additional history exists DIABETES: ANNUAL FOOT EXAM 12/09/202412/09, 09/13/2022, 08/28/2021, Additional history exists DIABETES/HEART DISEASE: ANNUAL CHOLESTEROL (LDL) 04/30/2025 04/30/2024, 06/04/2023, 09/19/2022, Additional history exists INFLUENZA (#1) 2025 11/27/2016 (Refu sed), 10/07/2015, 04/05/2014, Additional history exists DIABETES: ANNUAL URINE PROTEIN TEST (MICROALBUMIN) 08/30/2025 08/30/2024, 06/04/2023, 06/29/2021, Additional history exists BONE DENSITY SCREENING 11/20/2025 , 06/19/2012 (External Completion), 04/11/2006 DTAP/TDAP/TD (4 - Td or Tdap) 08/30/2034 08/30/2024, 08/19/2013, 12/15/2007 Covid-19 Vaccine ( season) 2112 11/17/2021, 10/21/2021 Postponed from 07/11/2024 (Patient Refused) PNEUMOCOCCAL VACCINE Completed 09/15/2017, 12/21/2015, 08/19/2013, Additional history exists Care Teams Charging Car Operator Relationship Specialty Start Date End Date Lindsey Lucas MD [address] [place] [id number] PCP - General Internal Medicine 06/10/22 Claribel Melendez MD [address] [place] [id number] Specialist Dermatology 06/04/23 aSvanah Marshall MD [address] [place] [address] [place] [address] Specialist UROGYNECOLOGY 12/09/23 Raciel Rogers [address] [place] [address] [place] [address] Specialist Ophthalmology 08/30/24
[2025-07-07 15:30] VITALS: BP 126/75; PULSE 76; RESP 18; TEMP 36.5; O2SAT 93
== END 2025-07-07 15:31 | disposition home or self-care (01) ==
PROVIDERS: Emergency Provider Emergency Medicine; PCP Internal Medicine
DX: R21 Rash and other nonspecific skin eruption (principal); E11.9 Type 2 diabetes mellitus without complications; I10 Essential (primary) hypertension; Z79.899 Other long term (current) drug therapy; Z87.891 Personal history of nicotine dependence
CPT/HCPCS: 99282; 99283

== ENCOUNTER 2025-07-13 17:26 | Emergency (ER) | payer OTHER, SELFPAY ==
[2025-07-13 17:55] VITALS: BP 175/76; PULSE 106; RESP 18; TEMP 36.4; O2SAT 95; BMI 23.2
--- NOTE | 2025-07-13 17:55 | ED.GENADULT ---
HPI - General Adult General Chief complaint: Abdominal Pain Stated complaint: rash in body, abd pain Time Seen by Provider: 07/13/25 21:00 Source: patient, family, RN notes reviewed and old records reviewed Mode of arrival: ambulatory Limitations: no limitations History of Present Illness ED Provider: Gokul HPI narrative: 80-year-old female with past medical history significant for asthma, diabetes, presents for evaluation of abdominal pain, burning with urination and urinary frequency. That started 2 days ago. She reportedly had an outpatient UA that was negative. The patient is also complaining of a rash that she has had for a week. She has itchy, red bumps to her upper back, left arm and left groin. She lives alone, denies any new furniture, close denies any new soaps, lotions, detergent. She was seen here for the rash and prescribed prednisone denies any fevers, chills Related Data Home Medications ?Medication ?Instructions ?Recorded ?Confirmed oxybutynin chloride 10 mg 1 tab PO DAILY 03/27/22 10/20/24 tablet,extended release 24 hr simvastatin 10 mg tablet 1 tab PO BEDTIME 03/27/22 10/20/24 sitagliptin phosphate 100 mg 1 tab PO DAILY 03/27/22 10/20/24 tablet (Januvia) albuterol sulfate 90 mcg/actuation 2 puff inhalation Q4-6H PRN 06/12/22 10/20/24 aerosol inhaler shortness of breath or wheezing lisinopril 40 mg tablet 40 mg PO DAILY 10/09/23 10/20/24 empagliflozin 10 mg tablet 10 mg PO DAILY 10/20/24 10/20/24 (Jardiance) erythromycin 5 mg/gram (0.5 %) eye 1 appl ophthalmic (eye) QID 10/20/24 10/20/24 ointment methenamine hippurate 1 gram tablet 1 g PO BID 10/20/24 10/20/24 Previous Rx's ?Medication ?Instructions ?Recorded pen needle, diabetic 31 gauge x #50 ea 11/07/2201/23 (Pen Needle) cefuroxime axetil 500 mg tablet 500 mg PO Q12H #10 tabs 10/20/24 clotrimazole 1 % topical cream 1 appl topical BID #1 g 10/20/24 diphenhydramine 12.5 mg-PE 5 10 ml PO Q6H PRN cough #118 mL 10/20/24 mg-acetaminophen 325 mg/10 mL oral liquid (Robitussin Cold-Flu Night (PE)) prednisone 20 mg tablet 40 mg (2 x 20 mg) PO DAILY #8 tabs 10/20/24 prednisone 20 mg tablet 40 mg (2 x 20 mg) PO DAILY 5 days 07/07/25 #10 tabs cephalexin 500 mg capsule 500 mg PO QID #27 caps 07/13/25 phenazopyridine 200 mg tablet 200 mg PO TID PRN pain 6 doses #6 07/13/25 (Pyridium) tabs Allergies Allergy/AdvReac Type Severity Reaction Status Date / Time doxycycline AdvReac Intermediate vaginal Verified 07/13/25 17:58 swelling azithromycin AdvReac Mild yeast Verified 07/13/25 17:58 infection ciprofloxacin (From Cipro) AdvReac Mild yeast Verified 07/13/25 17:58 infection metronidazole (From Flagyl) AdvReac Mild yeast Verified 07/13/25 17:58 infection oxycodone (From Percocet) AdvReac Mild NAUSEA Verified 07/13/25 17:58 Review of Systems Constitutional: Constitutional: Denies body ache(s), Denies chills, Denies fever(s), Denies frequent falls and Denies headache(s) ENT: Denies vertigo, Denies dizziness and Denies headache(s) Cardiovascular: Cardiovascular: Denies chest pain and Denies dyspnea on exertion Respiratory: Respiratory: Denies cough and Denies dyspnea on exertion Gastrointestinal: Gastrointestinal: Reports abdominal pain, Denies nausea and Denies vomiting Musculoskeletal: Musculoskeletal: Denies arthralgias, Denies joint swelling and Denies limited range of motion Integumentary/Breasts: Skin/Breast: Reports rash and Denies wounds Neurologic: Denies vertigo, Denies dizziness, Denies frequent falls and Denies headache(s) Psychiatric: Psychiatric: Denies anxiety PMF Past Medical History Medical History (Updated 07/13/25 @ 21:27 by Tom Hodgson) Chronic UTI COPD (chronic obstructive pulmonary disease) Type 2 diabetes mellitus Hypertension Asthma Family History Family History Other Asthma Esophageal cancer Social History Social History Household Members: None Housing: Apartment Do you presently have visiting nurse or other home services: Yes Alcohol intake: never Comment: pt refuses Patient Tobacco Use Status: Former Tobacco user Tobacco use type: Cigarette Advance Directives: Yes Advance Directives on File: Yes Advance Directives Date on File: 06/12/22 service: No Current occupational status: retired Physical Exam ED Vital Signs: Vital Signs - 24 hr 07/13/25 17:55 07/13/25 21:43 07/13/25 21:45 Temperature 97.5 F 98.0 F Pulse Rate 106 H 82 82 Respiratory Rate 18 18 18 Blood Pressure 175/76 H 138/66 138/66 Pulse Oximetry 95 95 95 Oxygen Delivery Method Room Air Room Air Room Air BMI result Body Mass Index 23.2 Const General: healthy appearing, comfortable, no acute distress, alert and awake Nutritional Appearance: well nourished Orientation/consciousness: patient oriented x3 HENMT Head: Yes normocephalic and Yes atraumatic Eyes Eyelids: Yes eyelids normal Conjunctivae: conjunctivae normal Sclerae: sclerae normal Corneas: corneas normal Pupils: Equal, round and reactive pupils present EOM: EOMs intact bilaterally Neck Neck: Yes full ROM Resp Effort & Inspection: normal respiratory effort, able to speak in complete sentences and not labored GI Inspection: No distended Palpation (GI): Soft to palpation, not firm, nontender, no guarding and not rigid Skin Other: there are several areas of small, red papules, no vesicles, no wounds. Notably on the back of the neck, left arm and left groin. Each area is a cluster about 2 centimeters wide. General skin exam: elasticity normal Neuro General: patient oriented x3 Cranial nerves: Yes Equal, round and reactive pupils present and Yes Bilaterally intact EOM present Cognition (Neuro): normal cognition Extrem Other: Moving all extremities well without any obvious deformities Course Course Course Narrative: This is a Rapid Medical Examination (RME) performed by Samaria Acosta PA-C in triage. Full HPI, ROS, assessment and treatment plan per primary provider in the Main ED. Hx: 80 yo F hx DM here w/ daughter for eval of severe abd pain and burning w/ urination x3 days. reports recently seen for diffuse body rash, started on 40 mg prednisone, noted her sugars to increase so she's been taking 20 mg instead. body rash has persisted. Plan: labs, ua Medications Administered Discontinued Medications Generic Name Dose Route Start Last Admin Trade Name Wilbert PRN Reason Stop Dose Admin Cephalexin HCl 500 mg 07/13/25 21:25 07/13/25 21:43 Cephalexin 500 Mg Capsule PO 07/13/25 21:26 500 mg ONCE ONE Administration Phenazopyridine HCl 200 mg 07/13/25 21:25 07/13/25 21:43 Phenazopyridine Hcl 200 Mg Tablet PO 07/13/25 21:26 200 mg ONCE ONE Administration Medical Decision Making Medical Decision Making [facility] Narrative: 80-year-old female presents for evaluation abdominal pain with urinary symptoms, she does seem to have a UTI with positive leukocyte esterase, 11-20 white blood cells, no squamous epithelial cells and 1+ bacteria. The patient's rash to me seems most consistent with folliculitis, she is already on prednisone, it does not appear to be urticarial. I would expect the prednisone to help more if it was not inflammatory condition. We will treat with cephalexin which should treat the UTI as well as folliculitis. She has follow up with her PCP next week. Her abdominal exam is quite reassuring, no significant tenderness or distention. Consider CT scan of the abdomen pelvis but this was ultimately deferred Differential Diagnosis Differential Diagnoses: The differential diagnosis associated with the presentation includes UTI Cystitis Folliculitis Abdominal pain Constipation Diverticulitis Cellulitis Dermatitis Lab Data [facility] Lab Attestation statement: I reviewed the patient's lab results. no leukocytosis or significant anemia. Normal platelet count. No significant electrolyte abnormalities warranting intervention. BUN is slightly elevated 24 with a normal creatinine of 1.0. The patient is a diabetic, a sugar of 130 is approximately her target. No evidence of DKA 07/13/25 19:53 07/13/25 19:53 Labs: Lab Results 07/13/25 07/13/25 Range/Units 19:53 19:57 WBC 9.3 (4.8-10.8) X10*3/uL RBC 5.60 H D (4.20-5.50) X10*6/uL Hgb 15.9 (12.0-16.0) g/dl Hct 48.0 H (37.0-47.0) % MCV 85.7 (80.0-98.0) fL MCH 28.4 (27.0-33.0) pg MCHC 33.1 (31.0-35.0) g/dl RDW 13.9 (11.0-16.0) % Plt Count 236 (160-400) X10*3/uL MPV 10.6 (9.4-12.3) fL Immature Gran % (Auto) 0.4 (0.0-0.4) % Neut % (Auto) 69.1 (45-73) % Lymph % (Auto) 22.3 (20-40) % [place] % (Auto) 7.3 (2-11) % Eos % (Auto) 0.5 (0-4) % Baso % (Auto) 0.4 (0-2) % Lymph # (Auto) 2.1 (1.2-4.9) X10*3/uL [place] # (Auto) 0.7 (0.1-1.2) X10*3/uL Eos # (Auto) 0.1 (0.0-0.4) X10*3/uL Baso # (Auto) 0.0 (0.0-0.2) X10*3/uL Abs Immat Gran (auto) 0.04 H (0.00-0.03) X10*3/uL Absolute Neuts (auto) 6.4 (2.0-8.3) x10*3/uL Absolute Nucleated RBC 0.000 (0.0-0.012) X10*3/uL Nucleated RBC % (auto) 0.0 (0.0-0.2) /100WBC Sodium 141 (135-145) mmol/L Potassium 5.0 D (3.3-5.1) mmol/L Chloride 105 (96-108) mmol/L Carbon Dioxide 26 (22-29) mmol/L Anion Gap 15 (12-20) BUN 24 H (9-16) mg/dL Creatinine 1.00 (0.5-1.4) mg/dL Estim Creat Clear Calc 34.9 Estimated GFR 53 Random Glucose 130 H (60-115) mg/dL Calcium 9.6 (8.4-10.2) mg/dL Magnesium 2.2 (1.6-2.6) mg/dL Total Bilirubin 0.2 (0.0-1.0) mg/dL AST 38 H (5-31) U/L ALT 28 (0-31) U/L Alkaline Phosphatase 106 (39-117) U/L Total Protein 7.9 (6.5-8.0) g/dL Albumin 4.5 (3.5-5.0) g/dL Lipase 39 (8-78) U/L Urine Color Yellow Urine Appearance Clear Urine pH 6.5 (5.0-9.0) Ur Specific [place] >= 1.030 H (1.005-1.025) Urine Protein Negative (Neg-Trace) mg/dL Urine Glucose (UA) >=1000 H (Negative) mg/dL Urine Ketones Negative (Negative) mg/dL Urine Blood Negative (Negative) Urine Nitrite Negative (Negative) Ur Leukocyte Esterase Trace H (Negative) Urine RBC 3-5 H (0-2) /HPF Urine WBC 11-20 H (0-5) /HPF Ur Squamous Epith Cells 0-2 (0-2) /HPF Urine Bacteria 1+ (None Seen) Hyaline Casts 0-2 (0-2) /LPF Discharge Plan Discharge Clinical Impression: Folliculitis, Acute UTI Patient Disposition: Home, Self-Care Instructions: Urinary Tract Infection in Women (ED), Folliculitis (ED) Additional Instructions: your rash appears a it could be a folliculitis or minor skin rash. You do appear to have a UTI. The antibiotic Keflex or cephalexin she would be able to treat both pain Take this medication 4 times a day for 1 week. You may also use Pyridium for the UTI symptoms follow up with your primary doctor, return for new or worsening symptoms Prescriptions: New cephalexin 500 mg capsule 500 mg PO QID Qty: 27 0RF phenazopyridine [Pyridium] 200 mg tablet 200 mg PO TID PRN (Reason: pain) Qty: 6 0RF No Action oxybutynin chloride 10 mg tablet extended release 24 hr 1 tab PO DAILY simvastatin 10 mg tablet 1 tab PO BEDTIME Januvia 100 mg tablet 1 tab PO DAILY albuterol sulfate 90 mcg/actuation HFA aerosol inhaler 2 puff inhalation Q4-6H PRN (Reason: shortness of breath or wheezing) (DME) pen needle, diabetic [Pen Needle] 31 gauge x 3/16 needle See Rx Instructions .Route Qty: 50 0RF Rx Instructions: As directed lisinopril 40 mg tablet 40 mg PO DAILY prednisone 20 mg tablet 40 mg PO DAILY 5 Days Qty: 10 0RF methenamine hippurate 1 gram tablet 1 g PO BID erythromycin 5 mg/gram (0.5 %) ointment 1 appl ophthalmic (eye) QID Jardiance 10 mg tablet 10 mg PO DAILY clotrimazole 1 % Cream 1 appl topical BID Qty: 1 0RF Protocol: Apply to: Apply to: Affected area cefuroxime axetil 500 mg Tablet 500 mg PO Q12H Qty: 10 0RF prednisone 20 mg tablet 40 mg PO DAILY Qty: 8 0RF Robitussin Cold-Flu Night (PE) 12.5-5-325 mg/10 mL liquid 10 ml PO Q6H PRN (Reason: cough) Qty: 118 0RF Interventions: ED Discharge Assessment Last Done: 07/13/25 21:45 Discharge Date/Time: 07/13/25 21:45 Print Language: Ethiopian
[2025-07-13 20:01] LABS: MANUAL DIFF FLAG NO
[2025-07-13 20:05] LABS: Hematocrit 48.0 % (37.0-47.0); Hemoglobin 15.9 g/dl (12.0-16.0); Imm Gran Abs Auto 0.04 X10*3/uL (0.00-0.03); Imm Gran Pct Auto 0.4 % (0.0-0.4); Lymphocytes Absolute Auto 2.1 X10*3/uL (1.2-4.9); Mean Corpuscular HGB Conc 33.1 g/dl (31.0-35.0); Mean Corpuscular Hemoglobin 28.4 pg (27.0-33.0); Mean Corpuscular Volume 85.7 fL (80.0-98.0); NRBC Abs Auto 0.000 X10*3/uL (0.0-0.012); NRBC Pct Auto 0.0 /100WBC (0.0-0.2); Platelet Count 236 X10*3/uL (160-400); Red Blood Count 5.60 X10*6/uL (4.20-5.50); White Blood Count 9.3 X10*3/uL (4.8-10.8)
[2025-07-13 20:06] LABS: Appearance Urine Clear; Glucose Urine UA >=1000 mg/dL (Negative); PH 6.5 (5.0-9.0); Specific Gravity - Urine >= 1.030 (1.005-1.025); UMIC TRIGGER UACC YES
[2025-07-13 20:18] LABS: Alanine Aminotransferase 28 U/L (0-31); Albumin Level 4.5 g/dL (3.5-5.0); Alkaline Phosphatase 106 U/L (39-117); Anion Gap 15 (12-20); Aspartate Amino Transferase 38 U/L (5-31); Blood Urea Nitrogen 24 mg/dL (9-16); Calcium 9.6 mg/dL (8.4-10.2); Carbon Dioxide 26 mmol/L (22-29); Chloride 105 mmol/L (96-108); Creatinine Clr Calc Pharmacy 34.9; Estimated Glomerular Filt Rate 53; Lipase 39 U/L (8-78); Magnesium 2.2 mg/dL (1.6-2.6); Potassium 5.0 mmol/L (3.3-5.1); Sodium 141 mmol/L (135-145); Total Protein 7.9 g/dL (6.5-8.0)
[2025-07-13 20:23] LABS: UACC Culture Trigger YES
--- OUTSIDE RECORDS SUMMARY | 2025-07-13 20:33 | XMS_ITS | Encounter Summary ---
Author Organization [facility] Address [address] [place] [address] Care Team Providers Care Visor Installer Name Role Phone Lindsey Mathews MD Primary Care Prov ider Reason for Visit * Reason Onset Date Comments Vaginal/vulvar Complaint 07/13/2025 Encounter Details Date Type Department Care Team ([facility] st Contact Info) Description 07/13/2025 Telephone Obstetrics and Gynecology - [place] [address] [place], [place] [phone] Merly Quintanilla, [facility] [address] [place] [phone] Social History Tobacco Use Types Packs/Day Years [...] care for your loved ones. For example, rn child or elderly care for an older adult? [...] Orientation Straight 12/20/2024 4: 27 PM EST documented as of this encounter Progress Notes * Debo Lind - 07/13/2025 11:04 AM EDT Left message to schedule next available per triage * Debo Lind - 07/13/2025 10:01 AM EDT Chief Complaint/problem: [facility] insurance company called with patient to get an appointment. They explained that patient went [facility] body rash was given prednisone. The next day she had vaginal pain with rash and was seen by their program [place] where paramedics come to the home to avoid going to the er. They evaluated her and suggested she get seen by developer advocate for vaginal rash and pain How long has the patient had this problem? Pt???s PARTS SALESPERSON provider: Merly Quintanilla CNM Last menstrual period (LMP) or EDC (due date): na documented in this encounter Plan of Treatment Upcoming Encounters Date Type Department Care Team (Late st Contact Info) Description 07/21/2025 1:15 PM EDT Office Visit Pulmonolgy - [place] [address] [facility] [address] [place] [phone] Francisca Mathew MD [address] [place] [address] 07/26/2025 10:30 AM EDT Office Visit Adult Medicine [address] [phone] Lindsey Mathews MD [address] [place] [address] 08/12/2025 1:00 PM EDT Office Visit Obstetrics and Gynecology - [facility] [address] [place] [address] Emily Mckinney, CNM [address] [place] [address] 09/06/2025 1:15 PM EDT Office Visit Adult Medicine [address] [phone] Lindsey Mathews MD [address] [place] [address] documented as of this encounter Visit Diagnoses Not on filedocumented in this encounter Additional Health Concerns Assessment Noted Time PHQ-9 Depression Total Score: 0 12/31/19 25 12:09 PM EST A fall risk assessment has been complete d for the patient 12/31/2024 12:09 PM EST documented as of this encounter Care Teams Visor Installer Relationship Specialty Start Date End Date Lindsey Mathews MD [address] [place] [phone] PCP - General Internal Medicine 09/28/24 documented as of this encounter
--- OUTSIDE RECORDS SUMMARY | 2025-07-13 20:33 | XMS_ITS | Encounter Summary ---
Author Organization [employer] Address [address] [place] [address] Care Team Providers Care Practice Advisor Name Role Phone Denisha Cristina MD Primary Care Provider [phone]- [phone] Reason for Visit * Reason Comments Med Refill Encounter Details Date Type Department Care Team (Late st Contact Info) Description 03/26/2023 Refill [facility] [address] [place], [place] [phone] Denisha Cristina MD [address] [place], [place] [phone] Social History Tobacco Use Types Packs/Day Years [...] on filedocumented in this encounter Care Teams Practice Advisor Relationship Specialty Start Date End Date Denisha Cristina MD [address] [place], [place] [phone] PCP - General Internal Medicine 04/27/21 05/11/24 documented as of this encounter
--- OUTSIDE RECORDS SUMMARY | 2025-07-13 20:33 | XMS_ITS | Encounter Summary ---
Author Organization [employer] Address [address] [place] [id number] Care Team Providers Care Programmer Developer Name Role Phone Denisha Cristina MD Primary Care Provider [phone]- [phone] Encounter Details Date Type Department Care Team ([facility] Contact Info) Description 03/26/2023 Orders Only [facility] [address] [place] [address] Ruthie Hopkins LPN Social History Tobacco Use [...] on filedocumented in this encounter Care Teams Programmer Developer Relationship Specialty Start Date End Date Denisha Cristina MD [address] [place] [address] PCP - General Internal Medicine 04/27/21 05/11/24 documented as of this encounter
--- OUTSIDE RECORDS SUMMARY | 2025-07-13 20:33 | XMS_ITS | Encounter Summary ---
Author Organization [facility] Address [address] [place] [address] Care Team Providers Care Children'S Service Supervisor Name Role Phone Lindsey Mathews MD Primary Care Prov ider Reason for Visit * Reason Onset Date Comments Hospital Follow-up 07/12/2025 Encounter Details Date Type Department Care Team ([facility] st Contact Info) Description 07/12/2025 Telephone Adult Medicine [facility] [address] [place], [place] [phone] Lindsey Mathews MD [address] [place] [phone] Social History Tobacco Use Types Packs/Day Years [...] care for your loved ones. For example, summer child caregiver or elderly care for an older adult? [...] as of this encounter Progress Notes * Raiza Desai RN - 07/13/2025 2:13 PM EDT Scheduled eval for 07/26 at 10:15 with PCP * Tom Knox - 07/12/2025 2:07 PM EDT Hospital/ER follow up appointment needed Hospital patient was treated at: [facility] Was this only an ER visit or was the patient admitted to the hospital? ER Visit Date of visit if ER visit only: 07/07 If patient was admitted what was the date of discharge? Reason/diagnosis for visit or stay: Rash all over the body , states rash is still continuing When was the patient told to follow up? As soon as possible Was visit or stay related to an injury? If yes, what was the date of injury (DOI)? No If yes, was the injury due to: Not 3rd constitution party related documented in this encounter Plan of Treatment Upcoming Encounters Date Type Department Care Team (Late st Contact Info) Description 07/21/2025 1:15 PM EDT [facility] [address] [facility] [address] [place] [phone] Francisca Mathew MD [address] [place] [address] 07/26/2025 10:30 AM EDT Office Visit Adult Medicine [address] [phone] Lindsey Mathews MD [address] [place] [address] 08/12/2025 1:00 PM EDT Office Visit Obstetrics and Gynecology - [place] [address] [place] [address] Emily Mckinney, CNM [address] [place] [address] 09/06/2025 1:15 PM EDT Office Visit Adult Medicine [address] [phone] Lindsey Mathews MD [address] [place] [address] documented as of this encounter Visit Diagnoses Not on filedocumented in this encounter Additional Health Concerns Assessment Noted Time PHQ-9 Depression Total Score: 0 12/31/19 25 12:09 PM EST A fall risk assessment has been complete d for the patient 12/31/2024 12:09 PM EST documented as of this encounter Care Teams Children'S Service Supervisor Relationship Specialty Start Date End Date Lindsey Mathews MD [address] [place] [phone] PCP - General Internal Medicine 09/28/24 documented as of this encounter
--- OUTSIDE RECORDS SUMMARY | 2025-07-13 20:33 | XMS_ITS | Clinical Summary ---
Author Organization [employer] Address [address] [place] [address] [address] [place] [address] Care Team Providers Care Headhunter Name Role Phone Unavailable Primary Care Provider [...]
--- OUTSIDE RECORDS SUMMARY | 2025-07-13 20:33 | XMS_ITS | Clinical Summary ---
Author Organization [facility] [address] [facility] Address [address] [place] [address] Phone Care Team Providers Care Rn Er Name Role Phone Lindsey Mathews MD Primary [...] BLOOD SUGAR TWICE DAILY 03/05/20 24 Active tiotropium (Spiriva Respimat) 2.5 mcg/actuation inhalation sprayIndication s:Chronic obstructive pulmonary disease with acute exacerbation (CMS/HCC V24, CMS/HCC V28) Inhale 2 puffs by mouth 1 [...] of candidiasis. Do not swallow. 1 each 12/15/19 25 2025 Active ipratropium-alb uteroL (DUONEB) 0.5-2.5 mg/3 mL nebulizer solutionIndicat ions:Chronic obstructive pulmonary disease with acute exacerbation (CMS/HCC V24, CMS/HCC V28) Take 3 mL by nebulization every [...] (one) time each day. 30 each 12/31/19 Active ketoconazole 1 % shampoo Shampoo daily, leave on for 5-10 minutes, then rinse. 120 mL 12/31/19 25 2025 Active empagliflozin (JARDIANCE) 25 mg tablet Take 1 tablet (25 mg total) by mouth 1 (one) time each day in the morning. 90 tablet 12/31/19 25 2025 Active Januvia 100 mg tablet TAKE 1 TABLET BY MOUTH DAILY 90 tablet 01/14/20 Active umeclidinium (Incruse Ellipta) 62.5 mcg/actuation inhalation [...] Apply a thin layer nightly 30 g 03/31/20 25 Active nystatin (MYCOSTATIN) ointment Apply a thin layer to the affected area every morning 30 g 03/31/20 25 Active fluticasone furoate-vilante roL (Breo Ellipta) 200-25 mcg/dose inhaler Inhale 1 puff by mouth 1 (one) time each day. 3 each 04/12/20 25 2025 Active amLODIPine (NORVASC) 5 [...] DAILY 200 strip 1 06/13/20 25 Active simvastatin (ZOCOR) 10 mg tablet TAKE 1 TABLET BY MOUTH AT BEDTIME 90 tablet 1 07/13/20 25 Active simvastatin (ZOCOR) 10 mg tablet TAKE 1 TABLET BY MOUTH AT BEDTIME 90 tablet 1 12/14/19 25 2024 Discontinued Active Problems Problem Noted [...] use. She voiced understanding. She was given [facility] information re: LS today and will call with any questions. She will start Mycolog. 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 Basal cell carcinoma 07/09/2016 Overview (09/01/2024): BCC 06/25 left cheek (nodular and superficial) Medial meniscus tear 02/23/2016 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 Follow [facility] guidelines. Soak and seal. Stop soap on the vulva. Encounters Date Type Department Care Team Description 07/13/2025 Telephone Obstetrics and Gynecology - [address] [phone] Merly Quintanilla CNM 07/12/2025 Telephone Adult Medicine East - [address] [phone] Lindsey Rojas MD 05/31/2025 1:45 PM EDT Office Visit Urogynecology - [address] [phone] Savanah Marshall MD Recurrent UTI (Primary Dx); Vulvar pruritus; History of urinary retention 05/27/2025 Telephone Pulmonolgy [address] [place] [address] Francisca Mathew MD 05/05/2025 2:16 PM EDT - 05/05/2025 11:59 PM EDT Hospital Encounter XRAY - [address] [phone] Subacute cough Discharge Disposition: Home or Self Care 05/05/2025 1:15 PM EDT Office Visit Adult Medicine [facility] - [address] [phone] Lindsey Rojas MD Type 2 diabetes mellitus without complication, without long-term current use of insulin ([facility] V24, [facility] V28) (Primary Dx); Essential hypertension, benign; Pure hypercholesterolemia ; Subacute cough; Malignant neoplasm of female breast, unspecified estrogen receptor status, unspecified laterality, unspecified site of breast ([facility] V24, [facility] V28) 04/18/2025 8:43 AM EDT - 04/18/2025 11:59 PM EDT Hospital Encounter Radiology Department - [address] [phone] Thyroid nodule Discharge Disposition: Home or Self Care 04/12/2025 Telephone Pulmonolgy - [place] [address] [facility] [address] [place] [address] Francisca Mathew MD from Last 3 Months Immunizations Name Administration Dates Next Due Influenza Split 08/06/2012 Influenza trivalent, 0.5mL ( Fluad) 65yo and older 10/07/2015 Influenza trivalent, 0.5mL, preservative free (Fluarix; FluLaval; Fluzone) ages 6mo and older (Afluria) 3 years and older 04/05/2014,08/06/2012 Pfizer SARS-CoV-2 COVID-19, mRNA, LNP-S, preservative free 11/17/2021,10/21/2021 [...] MASTECTOMY; COMMENT: 07/2013 OTHER SURGICAL HISTORY PROCEDURE: AK EXCISION MALIGNANT LESION F/E/E/N/L 0.5 CM/<; COMMENT: multiple surgies aprox 28 OTHER SURGICAL HISTORY PROCEDURE: AK GRAFT BONE NASAL/MAXILLARY/MALAR AREAS; COMMENT: reconstuction 2nd [...] Coronary atherosclerosis of unspecified type of vessel, north fork or graft 10/15/2012 DX:Coronary atherosclerosis of unspecified type of vessel, north fork or graft Breast cancer ([facility] V24, [facility] V28) DX:Breast cancer ([facility]); COMM ENT: s/p b/l mastectomy Essential hypertension, benign D X:Essential hypertension, benign Asthma DX:Asthma Skin cancer DX:Skin cancer; COMMENT: 28 surgies during child barr not sure what type sounds like melenoma Diabetes mellitus type 2, uncontrolled 10/20/2013 DX:Diabetes mellitus type 2, uncontrolled CAD (coronary artery disease) DX :CAD (coronary artery disease); COMMENT: had cards eval at [place] 2014 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 DX:Malrota tion of kidney COPD (chronic obstructive pu lmonary disease) ([facility] V24, [facility] V28) 03/21/2017 DX:COPD (chronic o bstructive pulmonary disease) ([facility]) Diabetes mellitus, type 2 (C ID/[facility] V24, [facility] V28) 10/20/2013 DX:Diabetes mellitus, type 2 (HCC) Anxiety 07/22/2017 DX:Anxiety Bilateral breast cancer ([facility] V24, [facility] V28) 08/20/2013 DX:Bilateral breast cancer [...] care for your loved ones. For example, attendant child activity or elderly care for an older adult? [...] Description 07/21/2025 1:15 PM EDT Office Visit Pulmon[address] [place] [address] Francisca Mathew MD [address] [place] [phone] 07/26/2025 10:30 AM EDT Office Visit Adult Medicine [address] [phone] Lindsey Mathews MD [address] [place] [phone] 08/12/2025 1:00 PM EDT [facility] [address] [place] [address] Faye Emily, CNM [address] [place] [phone] 09/06/2025 1:15 PM EDT Office Visit Adult Medicine [address] [phone] Lindsey Mathews MD [address] [place] [phone] Health Maintenance Due Date Last Done Comments [...] complication, without long-term current use of insulin ([facility] V24, CMS/[facility] V28) COMPREHENSIVE METABOLIC PANEL Routine 12/22/2024 9:23 AM EST Type 2 diabetes mellitus without complication, without long-term current use of insulin (CMS/HCC V24, CMS/HCC V28) Essential hypertension, benign LIPID PANEL WITH REFLEX TO DIRECT LDL Routine 12/22/2024 9:23 AM EST Type 2 diabetes mellitus without complication, without long-term current use of insulin (CMS/[facility] V24, CMS/[facility] V28) Pure hypercholesterolemia URINE ALBUMIN [...] of an ongoing inflammatory/infectious process. POS - [id number] -------- FINAL REPORT -------- Dictated By: Jenna Arrieta Dictated Date: 05/05/2025 15:56 ET Assigned Physician: Jenna Arrieta Reviewed and Electronically Signed By: Jenna Arrieta Signed Date: 05/05/2025 16:04 ET Workstation ID: [id number] Transcribed By: Self Edit Transcribed Date: 05/05/2025 [...] Reticulonodular interstitial pattern is likely related to [id number] and areas of mucus plugging as seen on CT 01/10/2025 suggestive ofan ongoing inflammatory/infectious process. POS - [id number] -------- FINAL REPORT -------- Dictated By: Jenna Arrieta Dictated Date: 05/05/2025 15:56 ET Assigned Physician: Jenna Arrieta Reviewed and Electronically Signed By: Jenna Arrieta Signed Date: 05/05/2025 16:04 ET Workstation ID: [id number] Transcribed By: Self Edit Transcribed Date: 05/05/2025 15:56 ET us Lindsey Mathews MD IMG XR PROCEDURES Final Result * US Guided Fine Ndl Asp 1st Lesion (04/18/2025 9:17 AM EDT) Anatomical Region Laterality Modality Ultrasound 04/18/2025 3:10 PM EDT Addenda Addendum by Fernanda Villa MD on 04/29/2025 10:57 AM EDT Final Diagnosis Thyroid, right lower lobe, fine needle aspirate (ThinPrep, direct smears): Benign ([place] Category II) Consistent with follicular nodular disease (includes adenomatoid nodule, colloid nodule, etc.) ? at 0936 -------- ADDENDUM -------- Dictated By: Fernanda Villa Dictated Date: 04/29/2025 10:56 ET Assigned Physician: Fernanda Villa Reviewed and Electronically Signed By: Fernanda Villa Signed Date: 04/29/2025 10:57 ET Workstation ID: [id number] Transcribed By: Self Edit Transcribed Date: 04/29/2025 [...] Signed Date: 04/18/2025 15:13 ET Workstation ID: [id number] Transcribed By: Self Edit Transcribed Date: 04/18/2025 [...] Signed Date: 04/18/2025 15:13 ET Workstation ID: [id number] Transcribed By: Self Edit Transcribed Date: 04/18/2025 15:10 ET us Lauren BHAT IMG US PROCEDURES Edited Re sult - Final * Fine needle aspiration (04/18/2025 9:17 AM EDT) Final Diagnosis Thyroid, right lower lobe, fine needle aspirate (ThinPrep, direct smears): Benign ([place] Category II) Consistent with follicular nodular disease (includes adenomatoid nodule, colloid nodule, etc.) 04/20/2025 9:36 AM EDT [facility] Clinical Information RT LP THYROID 04/20/2025 9:36 AM [facility] Specimen A Adequacy Satisfactory for evaluation 04/20/2025 9:36 AM EDT [facility] Gross Description A. Thyroid, Right, Right lower pole thyroid: Received in Cytolyt 30 ml of clear fluid, 3 air dried direct smears, 3 alcohol fixed smears 04/20/2025 9:36 AM EDT [facility] Disclaimer Unless otherwise specified, all tissue is 10% NB formalin fixed and paraffin embedded. Technical cytopathology services provided by [facility], at [address] [place] [address], [place] [address] (CLIA # [id number]/Julia Small MD, [employer].) 04/20/2025 9:36 AM EDT [facility] Fine Needle Aspirate Structure of right lobe of thyroid gland / Unknown 04/18/2025 9:17 AM EDT 04/19/2025 8:01 AM EDT Comment:RT LP THYROID us Fernanda Villa MD LAB PATHOLOGY ORDERABLES Final Result Performing Organization Address [facility]/ZIP Co de Phone Number [facility] [address] [place] [address], [place] [phone] * (ABNORMAL) Hemoglobin A1c (03/31/2025 2:11 PM EDT) Hemoglobin A1C 7.5(H) <6.5 % LAB CHEMISTRY METHOD 04/03/2025 11:21 AM EDT [facility] Mean Bld Glu Estim. 169 mg/dL LAB CHEMISTRY METHOD 04/03/2025 11:21 AM EDT [facility] Blood Venous blood specimen / Unknown Venipuncture / Unknown 03/31/2025 2:11 PM EDT 03/31/2025 2:11 PM EDT us Lindsey Mathews MD LAB BLOOD ORDERABL ES Final Result Performing Organization Address [facility]/ZIP Co de Phone Number [facility] [address] [place] [address], [place] [phone] * Lipid panel with reflex to direct LDL (12/22/2024 9:23 AM EST) Cholesterol 142 0 - 200 mg/dL LAB CHEMISTRY METHOD 12/22/2024 1:04 PM EST [facility] Triglycerides 67 0 - 150 mg/dL LAB CHEMISTRY METHOD 12/22/2024 1:04 PM EST [facility] HDL 60 >=40 mg/dL LAB CHEMISTRY METHOD 12/22/2024 1:04 PM [facility] LDL Calculated 69 0 - 100 mg/dL LAB CHEMISTRY METHOD 12/22/2024 1:04 PM [facility] VLDL Cholesterol Naeem 13.4 mg/dL LAB CHEMISTRY METHOD 12/22/2024 1:04 PM [facility] Non HDL Chol. (LDL+VLDL) 82 <145 mg/dL LAB CHEMISTRY METHOD 12/22/2024 1:04 PM [facility] Chol/HDL Ratio 2.4 0.0 - 4.4 LAB CHEMISTRY METHOD 12/22/2024 1:04 PM [facility] Blood Venous blood specimen / Unknown Venipuncture / Unknown 12/22/2024 9:23 AM EST 12/22/2024 9:23 AM EST us Lindsey Mathews MD LAB BLOOD ORDERABL ES Final Result [facility] [address] [place] [address], [place] [phone] * (ABNORMAL) Comprehensive metabolic panel (12/22/2024 9:23 AM EST) Sodium 141 133 - 145 mmol/L LAB CHEMISTRY METHOD 12/22/2024 1:04 PM [facility] Potassium 4.0 3.5 - 5.5 mmol/L LAB CHEMISTRY METHOD 12/22/2024 1:04 PM [facility] Chloride 108 96 - 110 mmol/L LAB CHEMISTRY METHOD 12/22/2024 1:04 PM [facility] CO2 27 21 - 32 mmol/L LAB CHEMISTRY METHOD 12/22/2024 1:04 PM [facility] Anion Gap 6 3 - 11 LAB CHEMISTRY METHOD 12/22/2024 1:04 PM [facility] Glucose 152(H) 70 - 100 mg/dL LAB CHEMISTRY METHOD 12/22/2024 1:04 PM [facility] BUN 13 5 - 25 mg/dL LAB CHEMISTRY METHOD 12/22/2024 1:04 PM [facility] Creatinine 0.58 0.50 - 1.10 mg/dL LAB CHEMISTRY METHOD 12/22/2024 1:04 PM [facility] eGFR 92 >=60 mL/min/1. 73m2 LAB CHEMISTRY METHOD 12/22/2024 1:04 PM [facility] Comment:Calculation based on the Chronic Kidney Disease Epidemiology Collaboration (CKD-EPI) equation refit without adjustment for race. BUN/Creatinine Ratio 22.4 LAB CHEMISTRY METHOD 12/22/2024 1:04 PM [facility] Calcium 9.5 8.5 - 10.5 mg/dL LAB CHEMISTRY METHOD 12/22/2024 1:04 PM [facility] AST (SGOT) 20 10 - 42 unit/L LAB CHEMISTRY METHOD 12/22/2024 1:04 PM [facility] ALT (SGPT) 27 10 - 60 unit/L LAB CHEMISTRY METHOD 12/22/2024 1:04 PM [facility] Alkaline Phosphatase 99 42 - 121 unit/L LAB CHEMISTRY METHOD 12/22/2024 1:04 PM [facility] Total Protein 7.4 6.0 - 8.0 g/dL LAB CHEMISTRY METHOD 12/22/2024 1:04 PM [facility] Albumin 4.0 3.2 - 5.0 g/dL LAB CHEMISTRY METHOD 12/22/2024 1:04 PM [facility] Total Bilirubin 0.5 0.0 - 1.4 mg/dL LAB CHEMISTRY METHOD 12/22/2024 1:04 PM [facility] Blood Venous blood specimen / Unknown Venipuncture / Unknown 12/22/2024 9:23 AM EST 12/22/2024 9:23 AM EST us Lindsey Mathews MD LAB BLOOD ORDERABL ES Final Result [facility] ([facility]) [facility] [address] [place] [address], [place] [phone] * Urine Albumin Creatinine Ratio (08/30/2024) [facility] Urine Albumin Creatinine Ratio abstracted Historical Provider [place] [employer]ALTH MAINTENANCE Final Result * Diabetes Foot Exam (12/09/2023) [facility] Diabetes: Annual Foot Exam abstracted [facility] Provider [place] HEALTH MAINTENANCE Final Result * Diabetes Eye Exam (12/08/2023) [facility] Diabetes: Annual Retina Eye Exam abstracted [facility] Provider [place] HEALTH MAINTENANCE Final Result * DXA BONE [...] (World Health Organization Fracture Risk Assessment) [facility] Department of Internal Medicine recommends using [...] (World Health Organization Fracture Risk Assessment) [facility] Department of Internal Medicine recommendsusing National [...] Most Recently Relevant to Health Maintenance Insurance [facility] MEDIC[facility] Member Subscriber Plan / Payer (Ef fective 2021-Present) Name:Jovita Nguyễn Relation to Subscriber:Self Name:Jovita Nguyễn Payer ID:[id number] Group ID:[id number] Type:Not on file Address: [place] [address] [address] [id number] Care Teams Rn Er Relationship Specialty Start Date End Date Lindsey Mathews MD [address] [place] [phone] PCP - General Internal Medicine 09/28/24
[2025-07-13 21:43] VITALS: BP 138/66; PULSE 82; RESP 18; O2SAT 95
[2025-07-13 21:45] VITALS: BP 138/66; PULSE 82; RESP 18; TEMP 36.7; O2SAT 95
== END 2025-07-13 21:45 | disposition home or self-care (01) ==
PROVIDERS: Physician Assistant Medical; Emergency Provider Emergency Medicine; PCP Internal Medicine
DX: L73.9 Follicular disorder, unspecified (principal); N39.0 Urinary tract infection, site not specified; J44.9 Chronic obstructive pulmonary disease, unspecified; E11.9 Type 2 diabetes mellitus without complications; Z87.440 Personal history of urinary (tract) infections; Z79.899 Other long term (current) drug therapy
CPT/HCPCS: 36415; 80053; 81001; 83690; 83735; 85025; 87086; 87088; 87147; 87186; 99283